=== PATIENT | female | born 1955 | race Two or more races ===

== ENCOUNTER 2020-09-18 13:38 | Inpatient (IN) | payer MEDICARE, SELFPAY ==
--- NOTE | ~2020-09-18 | XR_ITS ---
EXAMINATION: XR CHEST CLINICAL INFORMATION: Medical clearance COMPARISON: Previous chest x-ray April 2006 TECHNIQUE: Frontal view of the chest was obtained. FINDINGS: The cardiac and mediastinal contours are stable. The lungs are clear. There is no pleural effusion or pneumothorax. There are degenerative changes of the spine. XR/XR chest 1V IMPRESSION: No evidence for acute disease in the chest.
--- NOTE | ~2020-09-18 | CT_ITS ---
EXAMINATION: CT KNEE WITHOUT CONTRAST, LEFT CLINICAL INFORMATION: Patient is status post fall with left knee fracture. Ortho asking for CT scan. COMPARISON: None TECHNIQUE: Helical scanning was performed with submillimeter collimation in the axial plane with multiplanar 2-D reconstructions. This CT examination was performed using dose optimization techniques as appropriate, variously including the following: *Automated exposure control. *Adjustment of mA and/or kV according to patient size (this includes techniques or standardized protocols for targeted exams where dose is matched to indication/reason for exam; i.e. extremities or head). *Use of iterative reconstruction technique. DLP: 186 mGy-cm FINDINGS: There is a severely comminuted fracture of the distal left femoral diametaphyseal junction. There is moderate medial lateral splaying of fracture fragments, in particular, a lateral fracture fragment is laterally displaced approximately 2.7 cm with approximately 1.9 cm of override of this fracture fragment. There is approximately 1.8 cm of posterior displacement of the distal major fracture fragments with approximately 1.7 cm of override posteriorly. There is tricompartmental osteoarthritis of the left knee with marginal osteophytes. There are severe medial compartment narrowing with subchondral cortical irregularity, sclerosis, and numerous small subchondral degenerative cysts. There is a small joint effusion. CT/CT knee LT wo con IMPRESSION: 1. Severely comminuted fracture of the distal femoral diametaphyseal junction with displacement and override as described above. 2. Tricompartmental osteoarthritis of the left knee, including severe medial compartment narrowing.
--- NOTE | ~2020-09-18 | XR_ITS ---
EXAMINATION: LEFT ANKLE, LEFT HIP AND PELVIS AND LEFT KNEE. CLINICAL INFORMATION: Status post fall with knee pain and ankle pain. COMPARISON: None TECHNIQUE: Left knee 2 views. AP pelvis and left hip 2 views. Left ankle one view FINDINGS: Left ankle lateral view: There is a moderately large retrocalcaneal and calcaneal enthesophytes. Ankle mortise and subtalar joints are normal. No visible fracture or dislocation seen. AP pelvis and left hip: There is no visible acute fracture or dislocation in either... On AP pelvis. On frog-leg view left hip there is no fracture, dislocation or bony abnormality. The soft tissues are normal. Left knee: There is a comminuted distal femoral fracture with suprapatellar joint effusion.. There is loss of medial and patellofemoral compartment knee joint space. XR/XR knee LT 2V IMPRESSION: Comminuted distal femoral fracture without intra-articular extension. There is moderate anterior soft tissue swelling. No joint effusions is suspected. Mild degenerative arthritic changes medial and patellofemoral compartment. Unremarkable AP pelvis and left hip. Unremarkable left ankle one view.
--- NOTE | ~2020-09-18 | XR_ITS ---
EXAMINATION: LEFT ANKLE, LEFT HIP AND PELVIS AND LEFT KNEE. CLINICAL INFORMATION: Status post fall with knee pain and ankle pain. COMPARISON: None TECHNIQUE: Left knee 2 views. AP pelvis and left hip 2 views. Left ankle one view FINDINGS: Left ankle lateral view: There is a moderately large retrocalcaneal and calcaneal enthesophytes. Ankle mortise and subtalar joints are normal. No visible fracture or dislocation seen. AP pelvis and left hip: There is no visible acute fracture or dislocation in either... On AP pelvis. On frog-leg view left hip there is no fracture, dislocation or bony abnormality. The soft tissues are normal. Left knee: There is a comminuted distal femoral fracture with suprapatellar joint effusion.. There is loss of medial and patellofemoral compartment knee joint space. XR/XR ankle LT min 3V IMPRESSION: Comminuted distal femoral fracture without intra-articular extension. There is moderate anterior soft tissue swelling. No joint effusions is suspected. Mild degenerative arthritic changes medial and patellofemoral compartment. Unremarkable AP pelvis and left hip. Unremarkable left ankle one view.
--- NOTE | ~2020-09-18 | FL_ITS ---
EXAMINATION: XR FL-GUIDANCE WITH IMAGES IN OR CLINICAL INFORMATION: Open reduction internal fixation of left femoral fracture. COMPARISON: None TECHNIQUE: Fluoroscopy Performed by: Dr. Higinio Segovia. Fluoroscopy Time: 1.3 minutes. DAP: 0.410 mGycm2. Images: 7. FINDINGS: Seven films demonstrate a plate and screw device laterally in the left femur. The superior extent of the plate is seen only on a single view and I cannot tell exactly where this is. Five screws are present extending through the distal femoral condyles through the plate. Five other screws are present. FL/FL guidance in OR IMPRESSION: Fluoroscopy and spot films provided during open reduction internal fixation, left femoral fracture.
--- NOTE | ~2020-09-18 | XR_ITS ---
EXAMINATION: LEFT ANKLE, LEFT HIP AND PELVIS AND LEFT KNEE. CLINICAL INFORMATION: Status post fall with knee pain and ankle pain. COMPARISON: None TECHNIQUE: Left knee 2 views. AP pelvis and left hip 2 views. Left ankle one view FINDINGS: Left ankle lateral view: There is a moderately large retrocalcaneal and calcaneal enthesophytes. Ankle mortise and subtalar joints are normal. No visible fracture or dislocation seen. AP pelvis and left hip: There is no visible acute fracture or dislocation in either... On AP pelvis. On frog-leg view left hip there is no fracture, dislocation or bony abnormality. The soft tissues are normal. Left knee: There is a comminuted distal femoral fracture with suprapatellar joint effusion.. There is loss of medial and patellofemoral compartment knee joint space. XR/XR hip LT w PEL1V IMPRESSION: Comminuted distal femoral fracture without intra-articular extension. There is moderate anterior soft tissue swelling. No joint effusions is suspected. Mild degenerative arthritic changes medial and patellofemoral compartment. Unremarkable AP pelvis and left hip. Unremarkable left ankle one view.
[2020-09-18 13:43] VITALS: BP 160/69; PULSE 103; O2SAT 99
[2020-09-18 13:44] VITALS: BP 178/100; PULSE 95; RESP 18; TEMP 36.6; O2SAT 98; BMI 37.8
--- NOTE | 2020-09-18 13:44 | ECG_ITS ---
Test Reason : FALL Blood Pressure : / mmHG Vent. Rate : 088 BPM Atrial Rate : 088 BPM P-R Int : 142 ms QRS Dur : 084 ms QT Int : 392 ms P-R-T Axes : 053 043 038 degrees QTc Int : 474 ms Sinus rhythm with Premature ventricular complexes Borderline ECG When compared to the previous EKG of 04 feb 2018, PVC seen Referred By: Cara Schulte Electronically Signed By:ANGELIQUE BOOKER
[2020-09-18] MEDS: ondansetron HCL 4 MG/2 ML VIAL IVPUSH ×2 (14:10→17:13)
[2020-09-18 14:11] LABS: MANUAL DIFF FLAG NO
[2020-09-18] MEDS: Morphine Sulfate 4 MG/ML CARTRIDGE IVPUSH (14:11)
[2020-09-18 14:12] VITALS: BP 154/94; PULSE 68; RESP 16; O2SAT 97
[2020-09-18] MEDS: 0.9 % Sodium Chloride 1,000 ML 999 ML IVCONT ×2 (14:12→15:40)
[2020-09-18 14:13] LABS: Basophils Percent Auto 0.3 % (0-2); Eosinophils Absolute Auto 0.1 X10*3/uL (0.0-0.4); Eosinophils Percent Auto 0.6 % (0-4); Hematocrit 43.5 % (37-47); Hemoglobin 14.4 g/dl (12.0-16.0); Imm Gran Abs Auto 0.06 X10*3/uL (0.00-0.03); Imm Gran Pct Auto 0.6 % (0.0-0.4); Lymphocytes Absolute Auto 2.2 X10*3/uL (1.2-4.9); Lymphocytes Percent Auto 21.9 % (20-40); Mean Corpuscular HGB Conc 33.1 g/dl (31.0-35.0); Mean Corpuscular Hemoglobin 29.4 pg (27.0-33.0); Mean Platelet Volume 11.2 fL (9.4-12.3); Monocytes Absolute Auto 0.5 X10*3/uL (0.1-1.2); Monocytes Percent Auto 4.8 % (2-11); Neutrophils Absolute Auto 7.3 X10*3/uL (2.0-8.3); Neutrophils Percent Auto 71.8 % (45-73); Platelet Count 280 X10*3/uL (160-400); Red Blood Count 4.89 X10*6/uL (4.20-5.50); Red Cell Distribution Width 13.4 % (11.0-16.0); White Blood Count 10.2 X10*3/uL (4.8-10.8)
[2020-09-18 14:22] LABS: INTERNATIONAL NORM RATIO 0.9 (0.9-1.1); Prothrombin Time 10.9 SEC (10.8-13.0)
[2020-09-18 14:24] LABS: Partial Thromboplastin Time 31.5 SEC (24.1-38.0)
[2020-09-18 14:41] LABS: Ethanol < 10 mg/dL
--- NOTE | 2020-09-18 14:44 | PC.NURSE ---
Pt cleaned for stool incontinence s/p pain medication. Off unit to xray at this time
[2020-09-18 14:51] LABS: Influenza A PCR NEGATIVE (Negative); Influenza B PCR NEGATIVE (Negative); Resp Syncy Virus RNA Qual PCR NEGATIVE (Negative); SARS COV2 PCR INHOUSE NEGATIVE (Negative)
[2020-09-18 14:52] LABS: Alanine Aminotransferase 21 U/L (0-31); Albumin Level 4.1 g/dL (3.5-5.0); Alkaline Phosphatase 125 U/L (39-117); Anion Gap 19 (12-20); Aspartate Amino Transferase 13 U/L (5-31); Bilirubin Direct 0.2 mg/dL (0.0-0.5); Bilirubin Total 0.7 mg/dL (0.0-1.0); Blood Urea Nitrogen 15 mg/dL (9-16); Calcium 9.9 mg/dL (8.4-10.2); Carbon Dioxide 20 mmol/L (22-29); Chloride 100 mmol/L (96-108); Creatinine Clr Calc Pharmacy 71.3; Estimated Glomerular Filt Rate > 60; Glucose Random 408 mg/dL (60-115); Potassium 4.2 mmol/L (3.3-5.1); Sodium 135 mmol/L (135-145); Total Protein 6.9 g/dL (6.5-8.0)
[2020-09-18] MEDS: HYDROmorphone HCl 1 MG/ML SYRINGE IVPUSH (15:00)
--- NOTE | 2020-09-18 15:00 | PC.NURSE ---
medicated in xray for persistent left leg pain
--- NOTE | 2020-09-18 15:09 | ED.FALL ---
HPI - Fall General Chief Complaint: Extremity Injury, Lower Stated Complaint: FALL/ HIP PAIN Time Seen by Provider: 09/18/20 13:43 Source: patient and EMS Mode of arrival: EMS Limitations: no limitations History of Present Illness HPI Narrative: 64-year-old female with a past medical history of diabetes, hypertension and hyperlipidemia presenting to the ED via EMS after she reports she slipped and fell on the wet floor while mopping at home landing on her left hip/knee and since then has been having severe pain. Reports that she was unable to get up therefore she had a bowel movement on herself. Denies symptoms prior to the headache. Denies any other symptoms complaints or concerns at this time. MD complaint: fall Onset (ago): minute(s) (Prior to arrival) Fall from: standing Place fall occurred: home Loss of consciousness: none Prolonged down time: unclear Symptoms prior to fall: none Context: tripped/slipped (While mopping her floor in her house) Location of injury: other (Patient reports when she fell she fell onto her left hip/left knee) Severity: severe Severity scale (1-10): >10 Quality: aching Associated symptoms (after fall): other (Patient denies any other symptoms after the fall set for left hip/knee pain) Related Data Home Medications Medication Instructions Recorded Confirmed glipizide 1 tab PO DAILY 09/18/20 losartan 1 tab PO DAILY 09/18/20 metformin 1 tab PO BID 09/18/20 simvastatin 1 tab PO BEDTIME 09/18/20 Allergies Allergy/AdvReac Type Severity Reaction Status Date / Time No Known Allergies Allergy Verified 09/18/20 13:51 Review of Systems Review of Systems: Constitutional : No changes in activity, No lethargy, No recent prior head injury, No agitation, No increased fussiness ENT/Mouth : No Ear Pain, No Nasal discharge/drainage Eyes: No Eye Pain, No Swelling, No Redness, No Foreign Body, No Vision Changes Cardiovascular : No Chest Pain, No SOB Respiratory : No Cough Gastrointestinal : No Nausea, No Vomiting, No abdominal Pain Genitourinary : No Dysuria, No Urinary Frequency, No Urinary Incontinence, No Urgency, No Flank Pain Musculoskeletal : + left hip/knee/ankle joint pain, No neck stiffness, No back pain/injury Skin : No lacerations Neuro : No unsteady gait, No Paresthesias, No Loss of Consciousness, No altered mental status, No Headache Yes all other systems are reviewed and are negative FORMERLY [facility], [facility] Past Medical History Attestation statement: The following information was validated with the patient. Medical History Diabetes High cholesterol HTN (hypertension) Social History Social History Smoking Status: Never smoker Use of substances other than those prescribed or required for medical reasons: No Advance Directives: No Advance Directives Information Provided: No Physical Exam Vital Signs: Vital Signs: Last Vital Signs Temp 97.8 F 09/18/20 13:44 Pulse 68 09/18/20 14:12 Resp 16 09/18/20 14:12 BP 154/94 H 09/18/20 14:12 Pulse Ox 97 09/18/20 14:12 Body Mass Index 37.8 vital signs have been reviewed as normal and appeared to be correct. Blood pressure hypertensive at 178/100. Heart rate tachycardic at 95. Respiration rate normal. Temperature normal. Oxygen saturation normal. Appearance: Alert. Oriented X3. No acute distress. Head: Normal external exam. Normocephalic. Atraumatic. No Rehman signs noted. No raccoon eyes noted Eyes: PERRLA. EOMI. Conjunctiva and sclera normal. Eyelids normal. ENT: EAC normal. TM's Normal. No hemotympanum or septal hematoma noted. Pharynx normal. Uvula midline. Moist mucous membranes. No trismus noted. No drooling noted. No muffled voice noted. Neck: Normal inspection. Neck supple. FROM. No adenopathy. Thyroid Normal. No meningeal signs. No neck mass noted. No abrasion/laceration/ecchymosis or signs of trauma noted. No mid cervical or bilateral paracervical musculature tenderness is noted. No obvious deformities are noted. No step-offs or deformities are noted. CVS: Normal heart rate and rhythm. Heart sound normal. No murmurs noted. Pulses normal throughout. Respiratory: No respiratory distress. Painless inspiration. Breath sounds normal. No wheezes/rales/rhonchi noted. Chest nontender. No accessory muscle usage noted or decreased air movement noted. Abdomen: Soft and nontender. Bowel sounds normal in all 4 quadrants. No distention noted. No organomegaly noted. No visible injury noted. Back: No CVA tenderness. Full range of motion noted. No abrasion/laceration/ecchymosis or signs of trauma noted. No mid thoracic/lumbar cervical or para musculature tenderness is noted. No obvious deformities are noted. No step-offs or deformities are noted. Skin: Skin warm and dry. Normal skin color. Normal skin turgor. No rashes/lesions/lacerations noted. Extremities: Patient with tender to palpation to anterior left hip joint. No obvious deformities or ecchymosis/abrasions or lacerations are noted. Patient does not want to move her leg although the leg looks externally rotated and shortened. Patient with tenderness to palpation to left knee patient keeps it in a flexed position she does not want to extended. No ecchymosis/abrasions or lacerations are noted. Patient with tenderness to palpation to left ankle joint no obvious laxity is noted. Achilles tendon is intact. Negative Elliott test. No lower extremity edema. No calf tenderness noted bilaterally. Otherwise all other Extremities exhibit normal range of motion and nontender. Neuro: Oriented X 3. No motor deficit. No sensory deficit. Reflexes normal. Course Course Course Narrative: 13:50pm - 64-year-old female with a past medical history of diabetes, hypertension and hyperlipidemia presenting to the ED via EMS after she reports she slipped and fell on the wet floor while mopping at home landing on her left hip/knee and since then has been having severe pain. - on exam patient is alert and oriented x3 very anxious in severe pain otherwise no other acute distress. Mildly hypertensive at 178/100. Tachycardic at 95 otherwise all other vitals are within normal limits. No focal neuro deficits are noted. Patient is neuro intact. No obvious head injury or Rehman signs or raccoon eyes. Patient has full range of motion of the neck no mid cervical tenderness step-off or deformities noted. Lungs CTA. CV RRR. Abdomen is soft and nontender. Thoracic and lumbar spine within normal limits patient has full range of motion no mid spinal tenderness above her deformities are noted. Patient with moderate tenderness to palpation to left hip/left knee the leg appears externally rotated and the leg is shortened. Patient with tenderness to palpation to left ankle joint. No obvious deformities or laxity noted. Not consistent with Achilles tendon rupture. - Plan: Labs, EKG, x-ray of left hip/left knee/left ankle. Provide 4 mg of Zofran and 4 mg of morphine then re-evaluate. Reevaluation(s) Reevaluation #1: - patient was still in severe pain therefore she received another mg although 1 mg of Dilaudid this time. - labs obtained and patient with elevated glucose at 408 and alkaline phosphate at 128 otherwise all other labs are within normal limits. - EKG is sinus rhythm with premature atrial complexes with aberrant conduction with a ventricular rate of 88 with a normal ID interval normal QRS duration normal QT/QTC interval. No acute ischemic changes are noted. - x-ray of revealed comminuted distal femoral fracture without intra-articular extension. There is moderate anterior soft tissue swelling. No joint effusions is suspected. - x-ray of left hip and left ankle within normal limits no acute processes noted. - therefore at this time I consulted with [facility] and they are recommend placing the patient in a knee immobilizer and admit for surgery possibly medicine Dr. Vargas will consult or vice versa - [facility] requested a CT scan of the knee therefore ordered at this time. - patient will be admitted for surgery Time: 15:34 Reevaluation #2: - patient will be admitted under orthopedics with Dr. Segovia and [facility]. - medicine will consult. Time: 16:03 MDM - Fall Medical Records Attestation: I reviewed the patient's medical records. Lab Data Attestation: I reviewed the patient's lab results. Result diagrams: 09/18/20 14:04 09/18/20 14:04 Labs: Lab Results 09/18/20 09/18/20 09/18/20 Range/Units 14:04 14:04 14:04 WBC 10.2 (4.8-10.8) X10*3/uL RBC 4.89 (4.20-5.50) X10*6/uL Hgb 14.4 (12.0-16.0) g/dl Hct 43.5 (37-47) % MCV 89.0 (80-98) fL MCH 29.4 (27.0-33.0) pg MCHC 33.1 (31.0-35.0) g/dl RDW 13.4 (11.0-16.0) % Plt Count 280 (160-400) X10*3/uL MPV 11.2 (9.4-12.3) fL Immature Gran % (Auto) 0.6 H (0.0-0.4) % Neut % (Auto) 71.8 (45-73) % Lymph % (Auto) 21.9 (20-40) % [place] % (Auto) 4.8 (2-11) % Eos % (Auto) 0.6 (0-4) % Baso % (Auto) 0.3 (0-2) % Lymph # (Auto) 2.2 (1.2-4.9) X10*3/uL [place] # (Auto) 0.5 (0.1-1.2) X10*3/uL Eos # (Auto) 0.1 (0.0-0.4) X10*3/uL Baso # (Auto) 0.0 (0.0-0.2) X10*3/uL Abs Immat Gran (auto) 0.06 H (0.00-0.03) X10*3/uL Absolute Neuts (auto) 7.3 (2.0-8.3) X10*3/uL Absolute Nucleated RBC 0.000 (0.0-0.012) X10*3/uL Nucleated RBC % (auto) 0.0 (0.0-0.2) /100WBC Hold Purple Top SEE NOTE PT 10.9 (10.8-13.0) SEC INR 0.9 (0.9-1.1) APTT 31.5 (24.1-38.0) SEC Sodium (135-145) mmol/L Potassium (3.3-5.1) mmol/L Chloride (96-108) mmol/L Carbon Dioxide (22-29) mmol/L Anion Gap (12-20) BUN (9-16) mg/dL Creatinine (0.5-1.4) mg/dL Estim Creat Clear Calc Estimated GFR Random Glucose (60-115) mg/dL Calcium (8.4-10.2) mg/dL Magnesium (1.6-2.6) mg/dL Total Bilirubin (0.0-1.0) mg/dL Direct Bilirubin (0.0-0.5) mg/dL AST (5-31) U/L ALT (0-31) U/L Alkaline Phosphatase (39-117) U/L Total Protein (6.5-8.0) g/dL Albumin (3.5-5.0) g/dL Ethyl Alcohol mg/dL Coronavirus (PCR) (Negative) Influenza Type A (PCR) (Negative) Influenza Type B (PCR) (Negative) RSV RNA Qual (PCR) (Negative) 09/18/20 09/18/20 09/18/20 Range/Units 14:04 14:04 14:05 WBC (4.8-10.8) X10*3/uL RBC (4.20-5.50) X10*6/uL Hgb (12.0-16.0) g/dl Hct (37-47) % MCV (80-98) fL MCH (27.0-33.0) pg MCHC (31.0-35.0) g/dl RDW (11.0-16.0) % Plt Count (160-400) X10*3/uL MPV (9.4-12.3) fL Immature Gran % (Auto) (0.0-0.4) % Neut % (Auto) (45-73) % Lymph % (Auto) (20-40) % [place] % (Auto) (2-11) % Eos % (Auto) (0-4) % Baso % (Auto) (0-2) % Lymph # (Auto) (1.2-4.9) X10*3/uL [place] # (Auto) (0.1-1.2) X10*3/uL Eos # (Auto) (0.0-0.4) X10*3/uL Baso # (Auto) (0.0-0.2) X10*3/uL Abs Immat Gran (auto) (0.00-0.03) X10*3/uL Absolute Neuts (auto) (2.0-8.3) X10*3/uL Absolute Nucleated RBC (0.0-0.012) X10*3/uL Nucleated RBC % (auto) (0.0-0.2) /100WBC Hold Purple Top PT (10.8-13.0) SEC INR (0.9-1.1) APTT (24.1-38.0) SEC Sodium 135 (135-145) mmol/L Potassium 4.2 (3.3-5.1) mmol/L Chloride 100 (96-108) mmol/L Carbon Dioxide 20 L (22-29) mmol/L Anion Gap 19 (12-20) BUN 15 (9-16) mg/dL Creatinine 0.89 (0.5-1.4) mg/dL Estim Creat Clear Calc 71.3 Estimated GFR > 60 Random Glucose 408 H* (60-115) mg/dL Calcium 9.9 (8.4-10.2) mg/dL Magnesium 2.0 (1.6-2.6) mg/dL Total Bilirubin 0.7 (0.0-1.0) mg/dL Direct Bilirubin 0.2 (0.0-0.5) mg/dL AST 13 (5-31) U/L ALT 21 (0-31) U/L Alkaline Phosphatase 125 H (39-117) U/L Total Protein 6.9 (6.5-8.0) g/dL Albumin 4.1 (3.5-5.0) g/dL Ethyl Alcohol < 10 mg/dL Coronavirus (PCR) NEGATIVE (Negative) Influenza Type A (PCR) NEGATIVE (Negative) Influenza Type B (PCR) NEGATIVE (Negative) RSV RNA Qual (PCR) NEGATIVE (Negative) Imaging Data X-ray of left hip/left knee/left ankle: Attestation: I personally reviewed and interpreted this imaging study as follows: Radiologist's impression: FINDINGS: Left ankle lateral view: There is a moderately large retrocalcaneal and calcaneal enthesophytes. Ankle mortise and subtalar joints are normal. No visible fracture or dislocation seen. AP pelvis and left hip: There is no visible acute fracture or dislocation in either... On AP pelvis. On frog-leg view left hip there is no fracture, dislocation or bony abnormality. The soft tissues are normal. Left knee: There is a comminuted distal femoral fracture with suprapatellar joint effusion.. There is loss of medial and patellofemoral compartment knee joint space. XR/XR knee LT 2V IMPRESSION: Comminuted distal femoral fracture without intra-articular extension. There is moderate anterior soft tissue swelling. No joint effusions is suspected. Mild degenerative arthritic changes medial and patellofemoral compartment. Unremarkable AP pelvis and left hip. Unremarkable left ankle one view. ECG Data Attestation: I personally reviewed and interpreted this ECG as follows: ECG interpretation date: 09/18/20 ECG interpretation time: 14:21 Interpretation: EKG is sinus rhythm with premature atrial complexes with aberrant conduction with a ventricular rate of 88 with a normal ID interval normal QRS duration normal QT/QTC interval. No acute ischemic changes are noted. Critical Care Time Critical Care Time Critical Care Time: Yes Total Critical Care Time: 60 Attestation: I personally attest to this time spent taking care of the patient Discharge Plan Discharge Clinical Impression: Closed left femoral fracture, Fall, Acute hyperglycemia Patient Disposition: Admitted As Inpatient
[2020-09-18 16:22] VITALS: BP 143/79; PULSE 90; RESP 16; O2SAT 97
--- NOTE | 2020-09-18 17:02 | PC.NURSE ---
indwelling cath placed per order. KNee immobilizer to be placed by tech. Javier OLMOS at bedside. Plan for surgery tomorrow morning
[2020-09-18] MEDS: Dextrose 5 % and 0.45 % NaCl 1,000 ML 80 ML IVCONT (17:12)
[2020-09-18] MEDS: oxyCODONE HCl Immed Release 5 MG TABLET PO (17:13)
[2020-09-18] MEDS: 0.9 % Sodium Chloride Flush 3 ML SYRINGE IVFLUSH (17:14)
--- NOTE | 2020-09-18 17:50 | P.CONIM_ITS ---
History of Present Illness Data of Consult Service Date: 09/18/20 Primary Care Provider: Unknown Physician HPI Reason for consult: Medical clearance, femur fracture, diabetes A 64 years old lady with PMH of diabetes, hypertension, HLD, morbid obesity who presents to the hospital after mechanical fall with left leg pain. Images in the emergency of x-ray were consistent with comminuted distal femoral fracture. Decision made to admit the patient for orthopedic procedure. Medical team was asked to evaluate the patient and cleared her for surgery. Review of Systems Review of Systems: No fever, chills or weakness No chest pain, palpitation No shortness of breath or coughing No abdominal pain, nausea or vomiting No urinary symptoms Left lower extremity pain, No any rash or wounds PMFSH Medical History Diabetes High cholesterol HTN (hypertension) Social History Smoking Status: Never smoker Use of substances other than those prescribed or required for medical reasons: No Advance Directives: No Advance Directives Information Provided: No Meds Allergies Allergy/AdvReac Type Severity Reaction Status Date / Time No Known Allergies Allergy Verified 09/18/20 13:51 Active Medications: Current Medications Generic Name Dose Route Start Last Admin Trade Name Freq PRN Reason Stop Dose Admin Acetaminophen 650 mg 09/18/20 16:59 Acetaminophen 325 Mg Tablet PO QID PRN Pain, Mild (Pain Scale 1-3) Docusate Sodium 200 mg 09/18/20 16:19 Docusate Sodium 100 Mg Capsule PO ONCE JANINA Hydromorphone HCl 0.25 mg 09/18/20 16:19 Hydromorphone Hcl 0.5 Mg/0.5 Ml Syringe IVPUSH Q4H PRN Pain, Severe (Pain Scale 7-10) Dextrose/Sodium Chloride 1,000 mls @ 80 mls/hr 09/18/20 16:19 09/18/20 17:12 D51/2ns IVCONT 80 mls/hr .[id number] JANINA Administration Oxycodone HCl 10 mg 09/18/20 21:00 Oxycodone Hcl Er 10 Mg Tab.Er.12h PO BID JANINA Oxycodone HCl 5 mg 09/18/20 16:19 09/18/20 17:13 Oxycodone Hcl Immed Release 5 Mg Tablet PO 5 mg Q6H PRN Administration Pain, Moderate (Pain Scale 4-6 Sodium Chloride 3 ml 09/18/20 16:19 09/18/20 17:14 0.9 % Sodium Chloride Flush 3 Ml Syringe IVFLUSH 3 ml QSHIFT [facility] Administration Home Medications Medication Instructions Recorded Confirmed Last Taken Type glipizide 1 tab PO DAILY 09/18/20 09/18/20 Unknown History losartan 1 tab PO DAILY 09/18/20 09/18/20 Unknown History metformin 1 tab PO BID 09/18/20 09/18/20 Unknown History simvastatin 1 tab PO BEDTIME 09/18/20 09/18/20 Unknown History Physical Exam Vital Signs and Narrative: Vital Signs: Last Vital Signs Temp 97.8 F 09/18/20 13:44 Pulse 90 09/18/20 16:22 Resp 16 09/18/20 16:22 BP 143/79 H 09/18/20 16:22 Pulse Ox 97 09/18/20 16:22 Body Mass Index 37.8 Const: Other: Constitutional : Alert, oriented, not in distress Neck : Normal inspection, Supple Cardiovascular : RRR, S1 S2, no lower extremity edema Respiratory : Good bilateral air entry, no crackles, wheezes or rhonchi Gastrointestinal: soft, lax, Normal bowel sounds, Non tender Skin : Warm/Dry, No rash Muscular: Left lower extremity shortened and internally rotated, tenderness around the area of distal femur Neurological : Alert & oriented x3, No focal deficit Results Labs CBC and Chem 7: 09/18/20 14:04 09/18/20 14:04 Labs: Laboratory Results - last 24 hr 09/18/20 09/18/20 09/18/20 14:04 14:04 14:04 MCV 89.0 MCH 29.4 MCHC 33.1 RDW 13.4 Plt Count 280 MPV 11.2 Immature Gran % (Auto) 0.6 H Neut % (Auto) 71.8 Lymph % (Auto) 21.9 [place] % (Auto) 4.8 Eos % (Auto) 0.6 Baso % (Auto) 0.3 Lymph # (Auto) 2.2 [place] # (Auto) 0.5 Eos # (Auto) 0.1 Baso # (Auto) 0.0 Abs Immat Gran (auto) 0.06 H Absolute Neuts (auto) 7.3 Absolute Nucleated RBC 0.000 Nucleated RBC % (auto) 0.0 Hold Purple Top SEE NOTE PT 10.9 INR 0.9 APTT 31.5 Anion Gap Estim Creat Clear Calc Estimated GFR Random Glucose Calcium Magnesium Total Bilirubin Direct Bilirubin AST ALT Alkaline Phosphatase Total Protein Albumin Ethyl Alcohol Coronavirus (PCR) Influenza Type A (PCR) Influenza Type B (PCR) RSV RNA Qual (PCR) 09/18/20 09/18/20 09/18/20 14:04 14:04 14:05 MCV MCH MCHC RDW Plt Count MPV Immature Gran % (Auto) Neut % (Auto) Lymph % (Auto) [place] % (Auto) Eos % (Auto) Baso % (Auto) Lymph # (Auto) [place] # (Auto) Eos # (Auto) Baso # (Auto) Abs Immat Gran (auto) Absolute Neuts (auto) Absolute Nucleated RBC Nucleated RBC % (auto) Hold Purple Top PT INR APTT Anion Gap 19 Estim Creat Clear Calc 71.3 Estimated GFR > 60 Random Glucose 408 H* Calcium 9.9 Magnesium 2.0 Total Bilirubin 0.7 Direct Bilirubin 0.2 AST 13 ALT 21 Alkaline Phosphatase 125 H Total Protein 6.9 Albumin 4.1 Ethyl Alcohol < 10 Coronavirus (PCR) NEGATIVE Influenza Type A (PCR) NEGATIVE Influenza Type B (PCR) NEGATIVE RSV RNA Qual (PCR) NEGATIVE Imaging Radiologist's Impressions: Impressions Ankle X-Ray 09/18/20 13:50 IMPRESSION: Comminuted distal femoral fracture without intra-articular extension. There is moderate anterior soft tissue swelling. No joint effusions is suspected. Mild degenerative arthritic changes medial and patellofemoral compartment. Unremarkable AP pelvis and left hip. Unremarkable left ankle one view. Hip/Pelvis X-Ray 09/18/20 13:50 IMPRESSION: Comminuted distal femoral fracture without intra-articular extension. There is moderate anterior soft tissue swelling. No joint effusions is suspected. Mild degenerative arthritic changes medial and patellofemoral compartment. Unremarkable AP pelvis and left hip. Unremarkable left ankle one view. Knee X-Ray 09/18/20 13:50 IMPRESSION: Comminuted distal femoral fracture without intra-articular extension. There is moderate anterior soft tissue swelling. No joint effusions is suspected. Mild degenerative arthritic changes medial and patellofemoral compartment. Unremarkable AP pelvis and left hip. Unremarkable left ankle one view. Knee CT 09/18/20 15:19 IMPRESSION: 1. Severely comminuted fracture of the distal femoral diametaphyseal junction with displacement and override as described above. 2. Tricompartmental osteoarthritis of the left knee, including severe medial compartment narrowing. Chest X-Ray 09/18/20 15:49 IMPRESSION: No evidence for acute disease in the chest. Assessment and Plan (1) Closed left femoral fracture: Status: Acute (2) Fall: Status: Acute (3) Acute hyperglycemia: Status: Acute (4) HTN (hypertension): Status: Acute (5) Obesity: Status: Acute (6) Pre-op evaluation: Status: Acute A 64 years old lady with PMH of diabetes, hypertension, HLD, morbid obesity who presents to the hospital after mechanical fall with left leg pain. Preop evaluation No ACS, non urgent surgery Blood sugar needs to be controlled RCRI of 0 Patient has low to moderate risk for perioperative cardiac risk next [place] can proceed with surgery, no need for further evaluation Fall Left distal femur fracture Orthopedic to follow Morphine for pain management Physical therapy postop Hyperglycemia secondary to diabetes type 2 Hold oral medications Start insulin SSI Thank you for the consult, will continue to monitor the patient with you
--- NOTE | 2020-09-18 18:03 | P.HPOP_ITS ---
History of Present Illness History of Present Illness Date of Service: 09/18/20 Chief complaint: Left distal femur fracture Narrative: Maame Marrero is a 64 year old female who sustained a mechanical slip and fall after mopping her kitchen floor this afternoon. She states that after the fall she had excruciating pain in the left leg and was unable to ambulate. Evaluation in the ED prompted x-rays of the left knee which revealed a distal femur fracture. Orthopedics was then consulted for further care. The patient states that she lives alone and does not use any assistance to ambul ate. She is able to perform most ADLs on her own but states that she does have some assistance from her son as well as a home health aide. Past medical history includes hypertension, diabetes, hyperlipidemia, and a history of cancer located the abdomen but is unsure of what type. The patient is in remission and not on chemotherapy or receiving radiation therapy at this time. Review of Systems Review of Systems: Yes all other systems are reviewed and are negative PMFSH Past Medical History Medical History Diabetes High cholesterol HTN (hypertension) Social History Social History Smoking Status: Never smoker Use of substances other than those prescribed or required for medical reasons: No Advance Directives: No Advance Directives Information Provided: No Meds Allergies Allergy/AdvReac Type Severity Reaction Status Date / Time No Known Allergies Allergy Verified 09/18/20 13:51 Active Medications: Current Medications Generic Name Dose Route Start Last Admin Trade Name Freq PRN Reason Stop Dose Admin Acetaminophen 650 mg 09/18/20 16:59 Acetaminophen 325 Mg Tablet PO QID PRN Pain, Mild (Pain Scale 1-3) Docusate Sodium 200 mg 09/18/20 16:19 Docusate Sodium 100 Mg Capsule PO ONCE JANINA Hydromorphone HCl 0.25 mg 09/18/20 16:19 Hydromorphone Hcl 0.5 Mg/0.5 Ml Syringe IVPUSH Q4H PRN Pain, Severe (Pain Scale 7-10) Dextrose/Sodium Chloride 1,000 mls @ 80 mls/hr 09/18/20 16:19 09/18/20 17:12 D51/2ns IVCONT 80 mls/hr .[id number] JANINA Administration Cefazolin Sodium/Dextrose 2 gm in 50 mls @ 100 mls/hr 09/19/20 08:30 Ancef IV 09/19/20 08:59 PREOP ONE Oxycodone HCl 10 mg 09/18/20 21:00 Oxycodone Hcl Er 10 Mg Tab.Er.12h PO BID JANINA Oxycodone HCl 5 mg 09/18/20 16:19 09/18/20 17:13 Oxycodone Hcl Immed Release 5 Mg Tablet PO 5 mg Q6H PRN Administration Pain, Moderate (Pain Scale 4-6 Sodium Chloride 3 ml 09/18/20 16:19 09/18/20 17:14 0.9 % Sodium Chloride Flush 3 Ml Syringe IVFLUSH 3 ml QSHIFT [facility] Administration Home Medications Medication Instructions Recorded Confirmed Last Taken Type glipizide 1 tab PO DAILY 09/18/20 09/18/20 Unknown History losartan 1 tab PO DAILY 09/18/20 09/18/20 Unknown History metformin 1 tab PO BID 09/18/20 09/18/20 Unknown History simvastatin 1 tab PO BEDTIME 09/18/20 09/18/20 Unknown History Physical Exam Vital Signs: Vital Signs: Last Vital Signs Temp 97.8 F 09/18/20 13:44 Pulse 90 09/18/20 16:22 Resp 16 09/18/20 16:22 BP 143/79 H 09/18/20 16:22 Pulse Ox 97 09/18/20 16:22 Body Mass Index 37.8 Const: General: cooperative, healthy appearing, comfortable, no acute distress, well developed, alert and awake Orientation/consciousness: patient oriented x3 HENMT: Head: Yes normal to inspection, Yes normocephalic and Yes atraumatic Eyes: General: appearance normal, both eyes and all related structures Neck: Neck: Yes normal visual inspection and Yes no lymphadenopathy Resp: Effort & Inspection: normal respiratory effort and able to speak in complete sentences Cardio: Rate: regular rate Peripheral pulses: Peripheral pulses 2+ throughout GI: Inspection: Yes normal to inspection Palpation (GI): Soft to palpation Skin: General skin exam: no rashes or lesions noted Neuro: General: patient oriented x3 Extrem: Other: Left knee skin intact no lesions or abrasions. No ecchymosis, edema, redness. Tenderness to palpation of the distal femur located over the fracture site. Patient is unable to perform a straight leg raise. Patient is able to dorsi and plantar flex the ankle. Sensation intact pedal pulse intact. Psych: Mental Status: mental status grossly normal Results Labs Result Diagrams: 09/18/20 14:04 09/18/20 14:04 Labs: Abnormal lab results 09/18/20 09/18/20 Range/Units 14:04 14:04 Immature Gran % (Auto) 0.6 H (0.0-0.4) % Abs Immat Gran (auto) 0.06 H (0.00-0.03) X10*3/uL Carbon Dioxide 20 L (22-29) mmol/L Random Glucose 408 H* (60-115) mg/dL Alkaline Phosphatase 125 H (39-117) U/L H & H 09/18/20 Range/Units 14:04 Hgb 14.4 (12.0-16.0) g/dl Hct 43.5 (37-47) % Coagulation 09/18/20 Range/Units 14:04 INR 0.9 (0.9-1.1) All other labs normal. Assessment and Plan (1) Closed left femoral fracture: Status: Acute Ms. Ibanez is a 64-year-old female who presented to the emergency department after sustaining a slip and fall earlier this afternoon. On x-ray she was found to have a distal femur fracture and Orthopedics was consulted for further evaluation and treatment. I discussed the case with Dr. Segovia and explained the extent of the injury to the patient and options available which include surgical intervention. I explained the procedure in detail along with the length of recovery and rehab course. I explained the risk, benefits and alternatives. Risk including, but not limited to infection, blood clots, bleeding, non union or malunion and nerve/tissue damage to surrounding areas. I answered all their questions and with their understanding they have consented to move forward with Operative Fixation of the left distal femur. The patient will be T&S, med clearance obtained and NPO after midnight.
[2020-09-18 18:23] LABS: Glucose, Whole Blood 314 mg/dL (60-115)
[2020-09-18] MEDS: Insulin Lispro 100 UNIT/ML 3 ML VIAL 10 UNIT SUBCUT (18:35)
--- NOTE | 2020-09-18 19:54 | PC.NURSE ---
PT HAS VISTOR AT BEDSIDE,
[2020-09-18 21:53] LABS: MANUAL DIFF FLAG NO
[2020-09-18] MEDS: HYDROmorphone HCl 0.5 MG/0.5 ML SYRINGE 0.25 MG IVPUSH (21:53)
[2020-09-18 21:54] VITALS: BP 143/74; PULSE 106; RESP 16
[2020-09-18 21:56] LABS: Basophils Percent Auto 0.1 % (0-2); Hematocrit 37.6 % (37-47); Hemoglobin 12.2 g/dl (12.0-16.0); Imm Gran Abs Auto 0.07 X10*3/uL (0.00-0.03); Imm Gran Pct Auto 0.5 % (0.0-0.4); Lymphocytes Absolute Auto 1.1 X10*3/uL (1.2-4.9); Lymphocytes Percent Auto 7.6 % (20-40); Mean Corpuscular HGB Conc 32.4 g/dl (31.0-35.0); Mean Corpuscular Hemoglobin 29.3 pg (27.0-33.0); Mean Corpuscular Volume 90.4 fL (80-98); Mean Platelet Volume 11.5 fL (9.4-12.3); Monocytes Absolute Auto 0.7 X10*3/uL (0.1-1.2); Monocytes Percent Auto 5.2 % (2-11); Neutrophils Absolute Auto 12.1 X10*3/uL (2.0-8.3); Neutrophils Percent Auto 86.6 % (45-73); Platelet Count 265 X10*3/uL (160-400); Red Blood Count 4.16 X10*6/uL (4.20-5.50); Red Cell Distribution Width 13.5 % (11.0-16.0)
[2020-09-18 21:58] LABS: Appearance Urine CLEAR; Color Urine YELLOW; Glucose Urine UA 500 MG/DL (NEG); Leukocyte Esterase Urine NEG (NEG); Nitrite Urine NEG (NEG); PH 5.5 (5.0-8.0); Specific Gravity - Urine 1.025 (1.005-1.025); Urine Blood NEG (NEG); Urine Ketones 5 MG/DL (NEG); Urine Protein NEG (NEG-TRACE)
[2020-09-18] MEDS: Insulin Lispro 100 UNIT/ML 3 ML VIAL SUBCUT (22:03)
[2020-09-18 22:08] LABS: Glucose, Whole Blood 365 mg/dL (60-115)
[2020-09-18 22:20] LABS: Anion Gap 17 (12-20); Blood Urea Nitrogen 13 mg/dL (9-16); Calcium 8.9 mg/dL (8.4-10.2); Carbon Dioxide 22 mmol/L (22-29); Chloride 101 mmol/L (96-108); Creatinine Clr Calc Pharmacy 72.2; Estimated Glomerular Filt Rate > 60; Glucose Random 397 mg/dL (60-115); Potassium 4.5 mmol/L (3.3-5.1); Sodium 135 mmol/L (135-145)
[2020-09-18 22:26] LABS: COVID-19 Test Negative (Negative); IDNOW Serial# 9DD0AD1C
[2020-09-18 23:52] VITALS: BP 135/66; PULSE 108; RESP 18; TEMP 36.7; O2SAT 98
[2020-09-18] MEDS: oxyCODONE HCl ER 10 MG TAB.ER.12H PO (23:52)
--- NOTE | 2020-09-18 23:56 | PC.NURSE ---
This PCT emptied 1000cc of yellow urine from yanes. rn aware
[2020-09-19] MEDS: 0.9 % Sodium Chloride Flush 3 ML SYRINGE IVFLUSH ×2 (00:04→23:22)
--- NOTE | 2020-09-19 00:16 | PC.NURSE ---
report given to floor. pt to floor in stretcher at this time.
[2020-09-19] MEDS: HYDROmorphone HCl 0.5 MG/0.5 ML SYRINGE 0.25 MG IVPUSH ×3 (03:09→20:57)
[2020-09-19] MEDS: Dextrose 5 % and 0.45 % NaCl 1,000 ML 80 ML IVCONT (03:11)
[2020-09-19 04:00] VITALS: BP 147/74; PULSE 87; RESP 16; TEMP 36.4; O2SAT 95
[2020-09-19 07:18] VITALS: BP 151/61; PULSE 90; RESP 16; TEMP 36.4; O2SAT 96
[2020-09-19 07:33] LABS: Glucose, Whole Blood 314 mg/dL (60-115)
[2020-09-19] MEDS: oxyCODONE HCl Immed Release 5 MG TABLET PO ×3 (08:01→23:24)
[2020-09-19] MEDS: Insulin Lispro 100 UNIT/ML 3 ML VIAL SUBCUT ×4 (08:03→22:11)
[2020-09-19] MEDS: Lactated Ringers 1,000 ML 80 ML IVCONT ×2 (08:05→20:59)
--- NOTE | 2020-09-19 09:08 | PM.EVENT ---
Event Note Date of Service: 09/19/20 Event Note: Spoke with patient she is aware that surgery has been postponed at this time. We will communicate with her to let her know when we will reschedule. Diet order has been placed for patient to resume diabetic diet.
[2020-09-19] MEDS: oxyCODONE HCl ER 10 MG TAB.ER.12H PO ×2 (09:16→21:00)
--- NOTE | 2020-09-19 11:26 | HO.PM.IMPN ---
Subjective Subjective Date of Service: 09/19/20 Interval History: The patient was seen and evaluated this morning Laying in bed, feels comfortable, to pain and fair control Denies any fever, chills or shortness of breath No reported other overnight events. Systemic review: No fever, chills or weakness No chest pain, palpitation No shortness of breath or coughing No abdominal pain, nausea or vomiting No urinary symptoms Left lower extremity pain, swelling increased around the femur No any rash or wounds Physical Exam Vital Signs: Vital Signs: Last Vital Signs Temp 97.6 F 09/19/20 07:18 Pulse 90 09/19/20 07:18 Resp 16 09/19/20 07:18 BP 151/61 H 09/19/20 07:18 Pulse Ox 96 09/19/20 07:18 Body Mass Index 37.8 Const: Other: Constitutional : Alert, oriented, not in distress Neck : Normal inspection, Supple Cardiovascular : RRR, S1 S2, no lower extremity edema Respiratory : Good bilateral air entry, no crackles, wheezes or rhonchi Gastrointestinal: soft, lax, Normal bowel sounds, Non tender Skin : Warm/Dry, No rash Muscular: Left lower extremity shortened and internally rotated,swelling increased and tenderness around the area of distal femur Neurological : Alert & oriented x3, No focal deficit Objective Data Current Medications Generic Name Dose Route Start Last Admin Trade Name Freq PRN Reason Stop Dose Admin Acetaminophen 650 mg 09/18/20 16:59 Acetaminophen 325 Mg Tablet PO QID PRN Pain, Mild (Pain Scale 1-3) Docusate Sodium 200 mg 09/18/20 16:19 Docusate Sodium 100 Mg Capsule PO ONCE JANINA Hydromorphone HCl 0.25 mg 09/18/20 16:19 09/19/20 03:09 Hydromorphone Hcl 0.5 Mg/0.5 Ml Syringe IVPUSH 0.25 mg Q4H PRN Administration Pain, Severe (Pain Scale 7-10) Lactated Ringer's 1,000 mls @ 80 mls/hr 09/19/20 07:45 09/19/20 08:05 Lr IVCONT 80 mls/hr .[id number] JANINA Administration Insulin Human Lispro 0 unit 09/18/20 21:00 09/19/20 08:03 Insulin Lispro 100 Unit/Ml 3 Ml Vial SUBCUT 8 unit QIDACHS JANINA Administration Protocol Oxycodone HCl 10 mg 09/18/20 21:00 09/19/20 09:16 Oxycodone Hcl Er 10 Mg Tab.Er.12h PO 10 mg BID JANINA Administration Oxycodone HCl 5 mg 09/18/20 16:19 09/19/20 08:01 Oxycodone Hcl Immed Release 5 Mg Tablet PO 5 mg Q6H PRN Administration Pain, Moderate (Pain Scale 4-6 Sodium Chloride 3 ml 09/18/20 16:19 09/19/20 09:18 0.9 % Sodium Chloride Flush 3 Ml Syringe IVFLUSH Not Given QSHIFT [facility] Labs CBC & Chem 7: 09/18/20 21:34 09/18/20 21:34 Assessment and Plan (1) Closed left femoral fracture: Status: Acute (2) Fall: Status: Acute (3) Acute hyperglycemia: Status: Acute (4) HTN (hypertension): Status: Acute (5) Obesity: Status: Acute (6) Pre-op evaluation: Status: Acute Assessment and Plan: A 64 years old lady with PMH of diabetes, hypertension, HLD, morbid obesity who presents to the hospital after mechanical fall with left leg pain. Fall Left distal femur fracture Orthopedic to follow Morphine for pain management Physical therapy postop Hyperglycemia secondary to diabetes type 2 DC D5 NS Hold oral medications Start insulin SSI Thank you for the consult, will continue to monitor the patient with you
[2020-09-19 11:51] LABS: Glucose, Whole Blood 279 mg/dL (60-115)
[2020-09-19] MEDS: Losartan Potassium 25 MG TABLET PO (12:06)
--- NOTE | 2020-09-19 13:05 | MHC.CM.PN ---
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 PT REPORTS SHE DOES NOT KNOW THE NAME OF HER PCP BUT SHE GOES TO [facility] IN [place]. PT DOES NOT HAVE A HCP . SHE AGREED TO TAKE INFORMATION REGARDING THE DOCUMENT AND REPORTS SHE WILL DISCUSS IT WITH HER GRAND DAUGHTER. PT REPORTS SHE IS HAVING A SURGERY, POSSIBLY TOMORROW, AND SHE FEELS SHE WILL LIKELY NEED STR AFTER THAT. SHE REPORTS SHE IS ALONE AT HOME AND IS WORRIED SHE WILL NOT BE ABLE TO MANAGE, CM INFORMED HER A PT EVAL WOULD LIKELY BE COMPLETED BEFORE DC. PER DISCUSSION, CM WILL MAKE STR REFERRALS TODAY TO [facility] AND [facility]. IMM DELIVERED CURRENT DC PLAN IS TBD PENDING PT EVAL. STR VS HOME WITH PT.
[2020-09-19 15:54] VITALS: BP 143/65; PULSE 99; RESP 19; TEMP 35.6; O2SAT 93
[2020-09-19] MEDS: Acetaminophen 325 MG TABLET 650 MG PO ×2 (16:02→23:24)
[2020-09-19 17:01] LABS: Glucose, Whole Blood 361 mg/dL (60-115)
--- NOTE | 2020-09-19 17:39 | PC.NURSE ---
P BS [id number] Vargas notified E will monitor
[2020-09-19 20:00] VITALS: BP 141/74; PULSE 97; RESP 17; TEMP 36.2; O2SAT 94
[2020-09-19 21:17] LABS: Glucose, Whole Blood 274 mg/dL (60-115)
[2020-09-19 22:12] VITALS: BP 126/55; PULSE 95; RESP 20
[2020-09-20] VITALS (15 sets, daily range): BP systolic 110–159; BP diastolic 38–91; PULSE 54–123; RESP 14–20; TEMP 35.8–37.6; O2SAT 93–100
[2020-09-20] MEDS: oxyCODONE HCl Immed Release 5 MG TABLET PO (05:36)
[2020-09-20] MEDS: Acetaminophen 325 MG TABLET 650 MG PO (05:37)
[2020-09-20] MEDS: ondansetron HCL 4 MG/2 ML VIAL IVPUSH (05:37)
[2020-09-20 07:11] LABS: Estimated Average Glucose 278 mg/dL; Hemoglobin A1c % 11.3 %
[2020-09-20 07:31] LABS: Glucose, Whole Blood 268 mg/dL (60-115)
--- NOTE | 2020-09-20 08:12 | P.EN_ITS ---
Event Note Date of Service: 09/20/20 Event Note: Patient scheduled for ORIF left distal femur today. Spoke with hazel waggoner she is aware. She will remain NPO.
--- NOTE | 2020-09-20 08:12 | PM.EVENT ---
Event Note Date of Service: 09/20/20 Event Note: Patient scheduled for ORIF left distal femur today. Spoke with patient she is aware. She will remain NPO.
[2020-09-20] MEDS: Insulin Lispro 100 UNIT/ML 3 ML VIAL SUBCUT ×3 (09:53→22:40)
[2020-09-20] MEDS: Lactated Ringers 1,000 ML 80 ML IVCONT ×2 (09:54→20:17)
[2020-09-20] MEDS: Losartan Potassium 25 MG TABLET PO (09:54)
[2020-09-20] MEDS: oxyCODONE HCl ER 10 MG TAB.ER.12H PO ×2 (09:55→22:41)
--- NOTE | 2020-09-20 10:29 | HO.PM.IMPN ---
Subjective Subjective Date of Service: 09/20/20 Interval History: The patient was seen and evaluated this morning Laying in bed, feels comfortable, to pain under fair control Sugar level has been significantly elevated Denies any fever, chills or shortness of breath No reported other overnight events. Systemic review: No fever, chills or weakness No chest pain, palpitation No shortness of breath or coughing No abdominal pain, nausea or vomiting No urinary symptoms the Left lower extremity pain, swelling increased around the femur No any rash or wounds Physical Exam Vital Signs: Vital Signs: Last Vital Signs Temp 97.4 F 09/20/20 03: Pulse 123 H 09/20/20 07:52 Resp 18 09/20/20 07:52 BP 135/67 09/20/20 07:52 Pulse Ox 93 09/20/20 07:52 Body Mass Index 37.8 Const: Other: Constitutional : Alert, oriented, not in distress Neck : Normal inspection, Supple Cardiovascular : RRR, S1 S2, no lower extremity edema Respiratory : Good bilateral air entry, no crackles, wheezes or rhonchi Gastrointestinal: soft, lax, Normal bowel sounds, Non tender Skin : Warm/Dry, No rash Muscular: Left lower extremity shortened and internally rotated,swelling increased and tenderness around the area of distal femur Neurological : Alert & oriented x3, No focal deficit Objective Data Current Medications Generic Name Dose Route Start Last Admin Trade Name Freq PRN Reason Stop Dose Admin Acetaminophen 650 mg 09/18/20 16:59 09/20/20 05:37 Acetaminophen 325 Mg Tablet PO 650 mg QID PRN Administration Pain, Mild (Pain Scale 1-3) Docusate Sodium 200 mg 09/18/20 16:19 Docusate Sodium 100 Mg Capsule PO ONCE JANINA Hydromorphone HCl 0.25 mg 09/18/20 16:19 09/19/20 20:57 Hydromorphone Hcl 0.5 Mg/0.5 Ml Syringe IVPUSH 0.25 mg Q4H PRN Administration Pain, Severe (Pain Scale 7-10) Lactated Ringer's 1,000 mls @ 80 mls/hr 09/19/20 07:45 09/20/20 09:54 Lr IVCONT 80 mls/hr .[id number] JANINA Administration Insulin Glargine 20 unit 09/20/20 09:00 09/20/20 08:05 Insulin Glargine,Hum.Rec.Anlog 100 Unit/Ml 10 Ml Vial SUBCUT Not Given DAILY ON LICENSE OF [facility] Insulin Human Lispro 0 unit 09/18/20 21:00 09/20/20 09:53 Insulin Lispro 100 Unit/Ml 3 Ml Vial SUBCUT 6 unit QIDACHS ON LICENSE OF [facility] Administration Protocol Losartan Potassium 25 mg 09/19/20 11:40 09/20/20 09:54 Losartan Potassium 25 Mg Tablet PO 25 mg DAILY ON LICENSE OF [facility] Administration Protocol Ondansetron HCl 4 mg 09/20/20 05:07 09/20/20 05:37 Ondansetron Hcl 4 Mg/2 Ml Vial IVPUSH 4 mg Q8H PRN Administration Nausea and Vomiting Oxycodone HCl 10 mg 09/18/20 21:00 09/20/20 09:55 Oxycodone Hcl Er 10 Mg Tab.Er.12h PO 10 mg BID ON LICENSE OF [facility] Administration Oxycodone HCl 5 mg 09/18/20 16:19 09/20/20 05:36 Oxycodone Hcl Immed Release 5 Mg Tablet PO 5 mg Q6H PRN Administration Pain, Moderate (Pain Scale 4-6 Sodium Chloride 3 ml 09/18/20 16:19 09/20/20 09:54 0.9 % Sodium Chloride Flush 3 Ml Syringe IVFLUSH Not Given QSHIFT ON LICENSE OF [facility] Labs CBC & Chem 7: 09/18/20 21:34 09/18/20 21:34 Assessment and Plan (1) Closed left femoral fracture: Status: Acute (2) Fall: Status: Acute (3) Acute hyperglycemia: Status: Acute (4) HTN (hypertension): Status: Acute (5) Obesity: Status: Acute (6) Pre-op evaluation: Status: Acute Assessment and Plan: A 64 years old lady with PMH of diabetes, hypertension, HLD, morbid obesity who presents to the hospital after mechanical fall with left leg pain. Fall Left distal femur fracture Orthopedic to do surgery today Morphine for pain management Physical therapy postop Hyperglycemia secondary to diabetes type 2 Uncontrolled diabetes type 2 HbA1c of 11.7 Hold oral medications Continue insulin SSI Start insulin Lantus 20 units Thank you for the consult, will continue to monitor the patient with you
[2020-09-20 11:11] LABS: Glucose, Whole Blood 266 mg/dL (60-115)
--- NOTE | 2020-09-20 13:30 | HO.ANESPROP2 ---
[facility] Active Problems Active Problems: All Active Problems (Updated 09/18/20 @ 17:57 by Danny Vargas MD) Pre-op evaluation (Acute) Obesity (Acute) Closed left femoral fracture (Acute) Fall (Acute) Acute hyperglycemia (Acute) HTN (hypertension) (Acute) High cholesterol (Acute) Diabetes (Acute) Past Medical History Medical History Diabetes High cholesterol HTN (hypertension) Social History Social History Household Members: None Housing: House Smoking Status: Never smoker service: No Current occupational status: retired Meds Allergies Allergy/AdvReac Type Severity Reaction Status Date / Time No Known Allergies Allergy Verified 09/18/20 13:51 Active Medications: Current Medications Generic Name Dose Route Start Last Admin Trade Name Freq PRN Reason Stop Dose Admin Acetaminophen 650 mg 09/18/20 16:59 09/20/20 05:37 Acetaminophen 325 Mg Tablet PO 650 mg QID PRN Administration Pain, Mild (Pain Scale 1-3) Docusate Sodium 200 mg 09/18/20 16:19 Docusate Sodium 100 Mg Capsule PO ONCE JANINA Hydromorphone HCl 0.25 mg 09/18/20 16:19 09/19/20 20:57 Hydromorphone Hcl 0.5 Mg/0.5 Ml Syringe IVPUSH 0.25 mg Q4H PRN Administration Pain, Severe (Pain Scale 7-10) Lactated Ringer's 1,000 mls @ 80 mls/hr 09/19/20 07:45 09/20/20 09:54 Lr IVCONT 80 mls/hr .[id number] JANINA Administration Insulin Glargine 20 unit 09/20/20 09:00 09/20/20 08:05 Insulin Glargine,Hum.Rec.Anlog 100 Unit/Ml 10 Ml Vial SUBCUT Not Given DAILY JANINA Insulin Human Lispro 0 unit 09/18/20 21:00 09/20/20 11:47 Insulin Lispro 100 Unit/Ml 3 Ml Vial SUBCUT 6 unit QIDACHS JAN[facility] Administration Protocol Losartan Potassium 25 mg 09/19/20 11:40 09/20/20 09:54 Losartan Potassium 25 Mg Tablet PO 25 mg DAILY JANINA Administration Protocol Ondansetron HCl 4 mg 09/20/20 05:07 09/20/20 05:37 Ondansetron Hcl 4 Mg/2 Ml Vial IVPUSH 4 mg Q8H PRN Administration Nausea and Vomiting Oxycodone HCl 10 mg 09/18/20 21:00 09/20/20 09:55 Oxycodone Hcl Er 10 Mg Tab.Er.12h PO 10 mg BID [facility] Administration Oxycodone HCl 5 mg 09/18/20 16:19 09/20/20 05:36 Oxycodone Hcl Immed Release 5 Mg Tablet PO 5 mg Q6H PRN Administration Pain, Moderate (Pain Scale 4-6 Sodium Chloride 3 ml 09/18/20 16:19 09/20/20 09:54 0.9 % Sodium Chloride Flush 3 Ml Syringe IVFLUSH Not Given QSHIFT [facility] Home Medications Medication Instructions Recorded Confirmed Last Taken Type glipizide 1 tab PO DAILY 09/18/20 09/18/20 Unknown History losartan 1 tab PO DAILY 09/18/20 09/18/20 Unknown History metformin 1 tab PO BID 09/18/20 09/18/20 Unknown History simvastatin 1 tab PO BEDTIME 09/18/20 09/18/20 Unknown History Exam Exam Date and Time: September 20, 2020 1330 Height,Weight and Vital Signs: Height 5 ft 4 in Weight 99.79 kg Last Vital Signs Temp 97.9 F 09/20/20 11:30 Pulse 111 H 09/20/20 11:30 Resp 17 09/20/20 11:30 BP 136/70 09/20/20 11:30 Pulse Ox 94 09/20/20 11:30 Pertinent Lab Results Pertinent Lab Results: Laboratory Tests 09/18/20 09/18/20 09/18/20 14:04 14:04 14:04 WBC 10.2 RBC 4.89 Hgb 14.4 Hct 43.5 MCV 89.0 MCH 29.4 MCHC 33.1 RDW 13.4 Plt Count 280 MPV 11.2 Immature Gran % (Auto) 0.6 H Neut % (Auto) 71.8 Lymph % (Auto) 21.9 [place] % (Auto) 4.8 Eos % (Auto) 0.6 Baso % (Auto) 0.3 Lymph # (Auto) 2.2 [place] # (Auto) 0.5 Eos # (Auto) 0.1 Baso # (Auto) 0.0 Abs Immat Gran (auto) 0.06 H Absolute Neuts (auto) 7.3 Absolute Nucleated RBC 0.000 Nucleated RBC % (auto) 0.0 Hold Purple Top SEE NOTE PT 10.9 INR 0.9 APTT 31.5 Sodium Potassium Chloride Carbon Dioxide Anion Gap BUN Creatinine Estim Creat Clear Calc Estimated GFR POC Glucose Random Glucose Estimat Average Glucose Hemoglobin A1c % Calcium Magnesium Total Bilirubin Direct Bilirubin AST ALT Alkaline Phosphatase Total Protein Albumin Urine Color Urine Appearance Urine pH Ur Specific [place] Urine Protein Urine Glucose (UA) Urine Ketones Urine Blood Urine Nitrite Ur Leukocyte Esterase Ethyl Alcohol Coronavirus (PCR) COVID-19 ([facility]) COVID-19 Clin Com Influenza Type A (PCR) Influenza Type B (PCR) RSV RNA Qual (PCR) Blood Type Antibody Screen 09/18/20 09/18/20 09/18/20 14:04 14:04 14:05 WBC RBC Hgb Hct MCV MCH MCHC RDW Plt Count MPV Immature Gran % (Auto) Neut % (Auto) Lymph % (Auto) [place] % (Auto) Eos % (Auto) Baso % (Auto) Lymph # (Auto) [place] # (Auto) Eos # (Auto) Baso # (Auto) Abs Immat Gran (auto) Absolute Neuts (auto) Absolute Nucleated RBC Nucleated RBC % (auto) Hold Purple Top PT INR APTT Sodium 135 Potassium 4.2 Chloride 100 Carbon Dioxide 20 L Anion Gap 19 BUN 15 Creatinine 0.89 Estim Creat Clear Calc 71.3 Estimated GFR > 60 POC Glucose Random Glucose 408 H* Estimat Average Glucose Hemoglobin A1c % Calcium 9.9 Magnesium 2.0 Total Bilirubin 0.7 Direct Bilirubin 0.2 AST 13 ALT 21 Alkaline Phosphatase 125 H Total Protein 6.9 Albumin 4.1 Urine Color Urine Appearance Urine pH Ur Specific [place] Urine Protein Urine Glucose (UA) Urine Ketones Urine Blood Urine Nitrite Ur Leukocyte Esterase Ethyl Alcohol < 10 Coronavirus (PCR) NEGATIVE COVID-19 ([place]) COVID-19 Clin Com Influenza Type A (PCR) NEGATIVE Influenza Type B (PCR) NEGATIVE RSV RNA Qual (PCR) NEGATIVE Blood Type Antibody Screen 09/18/20 09/18/20 09/18/20 18:20 21:34 21:34 WBC 14.0 H RBC 4.16 L Hgb 12.2 Hct 37.6 MCV 90.4 MCH 29.3 MCHC 32.4 RDW 13.5 Plt Count 265 MPV 11.5 Immature Gran % (Auto) 0.5 H Neut % (Auto) 86.6 H Lymph % (Auto) 7.6 L [place] % (Auto) 5.2 Eos % (Auto) 0.0 Baso % (Auto) 0.1 Lymph # (Auto) 1.1 L [place] # (Auto) 0.7 Eos # (Auto) 0.0 Baso # (Auto) 0.0 Abs Immat Gran (auto) 0.07 H Absolute Neuts (auto) 12.1 H Absolute Nucleated RBC 0.000 Nucleated RBC % (auto) 0.0 Hold Purple Top PT INR APTT Sodium 135 Potassium 4.5 Chloride 101 Carbon Dioxide 22 Anion Gap 17 BUN 13 Creatinine 0.88 Estim Creat Clear Calc 72.2 Estimated GFR > 60 POC Glucose 314 H Random Glucose 397 H* Estimat Average Glucose Hemoglobin A1c % Calcium 8.9 D Magnesium Total Bilirubin Direct Bilirubin AST ALT Alkaline Phosphatase Total Protein Albumin Urine Color Urine Appearance Urine pH Ur Specific [place] Urine Protein Urine Glucose (UA) Urine Ketones Urine Blood Urine Nitrite Ur Leukocyte Esterase Ethyl Alcohol Coronavirus (PCR) COVID-19 ([place]) COVID-19 Clin Com Influenza Type A (PCR) Influenza Type B (PCR) RSV RNA Qual (PCR) Blood Type Antibody Screen 09/18/20 09/18/20 09/18/20 21:34 21:34 21:34 WBC RBC Hgb Hct MCV MCH MCHC RDW Plt Count MPV Immature Gran % (Auto) Neut % (Auto) Lymph % (Auto) [place] % (Auto) Eos % (Auto) Baso % (Auto) Lymph # (Auto) [place] # (Auto) Eos # (Auto) Baso # (Auto) Abs Immat Gran (auto) Absolute Neuts (auto) Absolute Nucleated RBC Nucleated RBC % (auto) Hold Purple Top PT INR APTT Sodium Potassium Chloride Carbon Dioxide Anion Gap BUN Creatinine Estim Creat Clear Calc Estimated GFR POC Glucose Random Glucose Estimat Average Glucose 278 Hemoglobin A1c % 11.3 Calcium Magnesium Total Bilirubin Direct Bilirubin AST ALT Alkaline Phosphatase Total Protein Albumin Urine Color YELLOW Urine Appearance CLEAR Urine pH 5.5 Ur Specific [place] 1.025 Urine Protein NEG Urine Glucose (UA) 500 H Urine Ketones 5 Urine Blood NEG Urine Nitrite NEG Ur Leukocyte Esterase NEG Ethyl Alcohol Coronavirus (PCR) COVID-19 ([place]) COVID-19 Clin Com Influenza Type A (PCR) Influenza Type B (PCR) RSV RNA Qual (PCR) Blood Type A Positive Antibody Screen NEGATIVE 09/18/20 09/18/20 09/19/20 21:43 22:00 07:19 WBC RBC Hgb Hct MCV MCH MCHC RDW Plt Count MPV Immature Gran % (Auto) Neut % (Auto) Lymph % (Auto) [place] % (Auto) Eos % (Auto) Baso % (Auto) Lymph # (Auto) [place] # (Auto) Eos # (Auto) Baso # (Auto) Abs Immat Gran (auto) Absolute Neuts (auto) Absolute Nucleated RBC Nucleated RBC % (auto) Hold Purple Top PT INR APTT Sodium Potassium Chloride Carbon Dioxide Anion Gap BUN Creatinine Estim Creat Clear Calc Estimated GFR POC Glucose 365 H* 314 H Random Glucose Estimat Average Glucose Hemoglobin A1c % Calcium Magnesium Total Bilirubin Direct Bilirubin AST ALT Alkaline Phosphatase Total Protein Albumin Urine Color Urine Appearance Urine pH Ur Specific [place] Urine Protein Urine Glucose (UA) Urine Ketones Urine Blood Urine Nitrite Ur Leukocyte Esterase Ethyl Alcohol Coronavirus (PCR) COVID-19 ([place]) Negative COVID-19 Clin Com See Note Influenza Type A (PCR) Influenza Type B (PCR) RSV RNA Qual (PCR) Blood Type Antibody Screen 09/19/20 09/19/20 09/19/20 11:24 16:34 21:12 WBC RBC Hgb Hct MCV MCH MCHC RDW Plt Count MPV Immature Gran % (Auto) Neut % (Auto) Lymph % (Auto) [place] % (Auto) Eos % (Auto) Baso % (Auto) Lymph # (Auto) [place] # (Auto) Eos # (Auto) Baso # (Auto) Abs Immat Gran (auto) Absolute Neuts (auto) Absolute Nucleated RBC Nucleated RBC % (auto) Hold Purple Top PT INR APTT Sodium Potassium Chloride Carbon Dioxide Anion Gap BUN Creatinine Estim Creat Clear Calc Estimated GFR POC Glucose 279 H 361 H* 274 H Random Glucose Estimat Average Glucose Hemoglobin A1c % Calcium Magnesium Total Bilirubin Direct Bilirubin AST ALT Alkaline Phosphatase Total Protein Albumin Urine Color Urine Appearance Urine pH Ur Specific [place] Urine Protein Urine Glucose (UA) Urine Ketones Urine Blood Urine Nitrite Ur Leukocyte Esterase Ethyl Alcohol Coronavirus (PCR) COVID-19 ([place]) COVID-19 Clin Com Influenza Type A (PCR) Influenza Type B (PCR) RSV RNA Qual (PCR) Blood Type Antibody Screen 09/19/20 09/20/20 09/20/20 21:34 07:13 11:01 WBC RBC Hgb Hct MCV MCH MCHC RDW Plt Count MPV Immature Gran % (Auto) Neut % (Auto) Lymph % (Auto) [place] % (Auto) Eos % (Auto) Baso % (Auto) Lymph # (Auto) [place] # (Auto) Eos # (Auto) Baso # (Auto) Abs Immat Gran (auto) Absolute Neuts (auto) Absolute Nucleated RBC Nucleated RBC % (auto) Hold Purple Top PT INR APTT Sodium Potassium Chloride Carbon Dioxide Anion Gap BUN Creatinine Estim Creat Clear Calc Estimated GFR POC Glucose 268 H 266 H Random Glucose Estimat Average Glucose Cancelled Hemoglobin A1c % Cancelled Calcium Magnesium Total Bilirubin Direct Bilirubin AST ALT Alkaline Phosphatase Total Protein Albumin Urine Color Urine Appearance Urine pH Ur Specific [place] Urine Protein Urine Glucose (UA) Urine Ketones Urine Blood Urine Nitrite Ur Leukocyte Esterase Ethyl Alcohol Coronavirus (PCR) COVID-19 ([place]) COVID-19 Clin Com Influenza Type A (PCR) Influenza Type B (PCR) RSV RNA Qual (PCR) Blood Type Antibody Screen Airway Heart: Frequent PVCs, asymptomatic Assessment and Plan Assessment Anesthesia Assessment: Anesthesia Plan Discussed and Chart Reviewed Final Anesthetic Review NPO: Yes ASA Class: III Final Preanesthetic Review: No Changes in Pt Med Stat, Meds/Allgs Chart Reviewed, Consent Obtained/Reviewed and Anes Risks/Benef Reviewed Patient Risk: High Procedure Risk: Intermediate Anesthetic Plan Anesthetic Plan: GA Disposition: Standard PACU
[2020-09-20 13:50] LABS: Glucose, Whole Blood 176 mg/dL (60-115)
--- NOTE | 2020-09-20 14:02 | PC.NURSE ---
IV TO PATIENT S RIGHT HAND NOT FLUSHING. IV REMOVED.
--- NOTE | 2020-09-20 14:47 | MHC.SHP ---
Pre-Procedural Eval Section A The patient is an INPATIENT: Yes Changes since office visit: Yes Patient answered all questions; No Cold of Flu in the past 2 weeks, No New Medical Problems and No Changes in Medication The History & Physical has been completed within 30 days and I have reviewed it.: Yes Section B Chief Complaint: Left distal femur fracture Allergies: Allergies Allergy/AdvReac Type Severity Reaction Status Date / Time No Known Allergies Allergy Verified 09/18/20 13:51 Plan I have reviewed the history and physical and performed a pertinent physical examination on my patient. No changes have occurred unless specified.
--- NOTE | 2020-09-20 18:15 | P.BOP_ITS ---
Brief Operative Note Date of Service: 09/20/20 Pre-op diagnosis: left femur fracture Post-op diagnosis: same Procedure: ORIF left femur Implants: Rowan femoral locking plate Surgeon: Higinio Segovia MD Anesthesia: GETA Cutter Operator Tile: Kita Bolton Estimated blood loss (mL): 600 Tourniquet time (min): 0 IV fluids (mL): 1,500 Urine output (mL): 200 Pathology: none sent Condition: stable Disposition: PACU
[2020-09-20 18:29] LABS: Hematocrit 28.5 % (37-47); Hemoglobin 9.2 g/dl (12.0-16.0); Mean Corpuscular HGB Conc 32.3 g/dl (31.0-35.0); Mean Corpuscular Hemoglobin 30.1 pg (27.0-33.0); Mean Corpuscular Volume 93.1 fL (80-98); Mean Platelet Volume 11.4 fL (9.4-12.3); NRBC Pct Auto 0.1 /100WBC (0.0-0.2); Platelet Count 232 X10*3/uL (160-400); Red Blood Count 3.06 X10*6/uL (4.20-5.50); Red Cell Distribution Width 14.1 % (11.0-16.0); White Blood Count 18.1 X10*3/uL (4.8-10.8)
[2020-09-20 19:06] LABS: Anion Gap 16 (12-20); Blood Urea Nitrogen 14 mg/dL (9-16); Calcium 8.1 mg/dL (8.4-10.2); Carbon Dioxide 21 mmol/L (22-29); Chloride 103 mmol/L (96-108); Creatinine Clr Calc Pharmacy 78.4; Estimated Glomerular Filt Rate > 60; Glucose Random 288 mg/dL (60-115); Potassium 4.2 mmol/L (3.3-5.1); Sodium 136 mmol/L (135-145)
[2020-09-20 20:22] LABS: Glucose, Whole Blood 276 mg/dL (60-115)
[2020-09-20] MEDS: ceFAZolin Sodium/Dextrose,Iso 2 GM/50 ML PIGGYBACK IV (22:39)
[2020-09-21] VITALS (8 sets, daily range): BP systolic 109–169; BP diastolic 53–74; PULSE 98–117; RESP 16–20; TEMP 36.1–36.7; O2SAT 93–98
[2020-09-21] MEDS: HYDROmorphone HCl 0.5 MG/0.5 ML SYRINGE 0.25 MG IVPUSH ×4 (02:23→21:43)
[2020-09-21] MEDS: oxyCODONE HCl Immed Release 5 MG TABLET PO ×3 (05:46→20:29)
[2020-09-21 06:06] LABS: MANUAL DIFF FLAG NO
[2020-09-21 06:26] LABS: Basophils Percent Auto 0.2 % (0-2); Hematocrit 25.5 % (37-47); Imm Gran Abs Auto 0.14 X10*3/uL (0.00-0.03); Imm Gran Pct Auto 1.1 % (0.0-0.4); Lymphocytes Absolute Auto 0.8 X10*3/uL (1.2-4.9); Lymphocytes Percent Auto 6.3 % (20-40); Mean Corpuscular HGB Conc 31.4 g/dl (31.0-35.0); Mean Corpuscular Hemoglobin 29.3 pg (27.0-33.0); Mean Corpuscular Volume 93.4 fL (80-98); Mean Platelet Volume 11.4 fL (9.4-12.3); Monocytes Absolute Auto 0.9 X10*3/uL (0.1-1.2); Monocytes Percent Auto 6.6 % (2-11); Neutrophils Absolute Auto 11.4 X10*3/uL (2.0-8.3); Neutrophils Percent Auto 85.8 % (45-73); Platelet Count 208 X10*3/uL (160-400); Red Blood Count 2.73 X10*6/uL (4.20-5.50); Red Cell Distribution Width 14.1 % (11.0-16.0); White Blood Count 13.2 X10*3/uL (4.8-10.8)
--- NOTE | 2020-09-21 07:29 | PM.PNORT ---
Subjective Subjective Date of Service: 09/21/20 Interval history: POD1 s/p left distal femur ORIF. Patient resting comfortably in bed. No overnight events. Pain is well managed. Physical Exam Vital Signs: Vital Signs: Last Vital Signs Temp 97.5 F 09/21/20 03:14 Pulse 98 09/21/20 03:14 Resp 18 09/21/20 03:14 BP 140/74 H 09/21/20 03:14 Pulse Ox 98 09/21/20 03:14 Body Mass Index 37.8 Const: General: cooperative, healthy appearing and no acute distress Resp: Effort & Inspection: normal respiratory effort and able to speak in complete sentences Cardio: Rate: regular rate Peripheral pulses: Peripheral pulses 2+ throughout GI: Palpation (GI): Soft to palpation Skin: Lesions: no lesions Rashes: no rashes Extrem: Other: Left distal femur no redness or drainage. Incision remains intact. Dressing is clean, dry, and intact. NVI. Progress Note: A&P Assessment and plan (1) Closed left femoral fracture: Status: Acute Assessment and Plan: Continue pain mgmnt Begin Lovenox for dvt ppx begin PT for left distal femur ORIF, NWB Place pillows on left side so patient is not leaning on the operative leg Encourage lots of oral fluids Dispo planning-Pending PT eval, pain mgmnt Fall Risk Details Current Medications: Current Medications Generic Name Dose Route Start Last Admin Trade Name Freq PRN Reason Stop Dose Admin Acetaminophen 650 mg 09/18/20 16:59 09/20/20 05:37 Acetaminophen 325 Mg Tablet PO 650 mg QID PRN Administration Pain, Mild (Pain Scale 1-3) Docusate Sodium 200 mg 09/18/20 16:19 Docusate Sodium 100 Mg Capsule PO ONCE JANINA Enoxaparin Sodium 40 mg 09/21/20 17:30 Enoxaparin Sodium 40 Mg/0.4 Ml Syringe SUBCUT Q24H JANINA Hydromorphone HCl 0.25 mg 09/18/20 16:19 09/21/20 02:23 Hydromorphone Hcl 0.5 Mg/0.5 Ml Syringe IVPUSH 0.25 mg Q4H PRN Administration Pain, Severe (Pain Scale 7-10) Lactated Ringer's 1,000 mls @ 80 mls/hr 09/19/20 07:45 09/20/20 20:17 Lr IVCONT 80 mls/hr .[id number] [facility] Administration Insulin Glargine 20 unit 09/20/20 09:00 09/20/20 08:05 Insulin Glargine,Hum.Rec.Anlog 100 Unit/Ml 10 Ml Vial SUBCUT Not Given DAILY [facility] Insulin Human Lispro 0 unit 09/18/20 21:00 09/20/20 22:40 Insulin Lispro 100 Unit/Ml 3 Ml Vial SUBCUT 4 unit QIDACHS [facility] Administration Protocol Losartan Potassium 25 mg 09/19/20 11:40 09/20/20 09:54 Losartan Potassium 25 Mg Tablet PO 25 mg DAILY [facility] Administration Protocol Ondansetron HCl 4 mg 09/20/20 05:07 09/20/20 05:37 Ondansetron Hcl 4 Mg/2 Ml Vial IVPUSH 4 mg Q8H PRN Administration Nausea and Vomiting Oxycodone HCl 10 mg 09/18/20 21:00 09/20/20 22:41 Oxycodone Hcl Er 10 Mg Tab.Er.12h PO 10 mg BID [facility] Administration Oxycodone HCl 5 mg 09/18/20 16:19 09/21/20 05:46 Oxycodone Hcl Immed Release 5 Mg Tablet PO 5 mg Q6H PRN Administration Pain, Moderate (Pain Scale 4-6 Oxycodone HCl 5 mg 09/20/20 14:42 Oxycodone Hcl Immed Release 5 Mg Tablet PO ONCE PRN Pain, Severe (Pain Scale 7-10) Sodium Chloride 3 ml 09/18/20 16:19 09/21/20 01:58 0.9 % Sodium Chloride Flush 3 Ml Syringe IVFLUSH Not Given QSHIFT [facility] Time Spent With Patient Time: Total time spent is greater than 50% in coordination of care (as documented) at patient's floor/unit and/or counseling patient: Time with patient: less than 15 minutes
[2020-09-21 07:32] LABS: Anion Gap 13 (12-20); Blood Urea Nitrogen 18 mg/dL (9-16); Calcium 8.4 mg/dL (8.4-10.2); Carbon Dioxide 26 mmol/L (22-29); Chloride 101 mmol/L (96-108); Creatinine Clr Calc Pharmacy 81.4; Estimated Glomerular Filt Rate > 60; Glucose Random 359 mg/dL (60-115); Potassium 4.8 mmol/L (3.3-5.1); Sodium 135 mmol/L (135-145)
[2020-09-21 07:35] LABS: Glucose, Whole Blood 329 mg/dL (60-115)
[2020-09-21] MEDS: 0.9 % Sodium Chloride Flush 3 ML SYRINGE IVFLUSH ×2 (08:29→16:58)
[2020-09-21] MEDS: Acetaminophen 325 MG TABLET 650 MG PO ×2 (08:29→20:30)
[2020-09-21] MEDS: oxyCODONE HCl ER 10 MG TAB.ER.12H PO ×2 (08:29→20:30)
[2020-09-21] MEDS: Insulin Lispro 100 UNIT/ML 3 ML VIAL SUBCUT ×4 (08:30→21:42)
[2020-09-21] MEDS: Insulin Glargine,Hum.rec.anlog 100 UNIT/ML 10 ML VIAL 20 UNIT SUBCUT (08:30)
[2020-09-21] MEDS: Losartan Potassium 25 MG TABLET PO (10:41)
[2020-09-21 11:40] LABS: Glucose, Whole Blood 314 mg/dL (60-115)
[2020-09-21] MEDS: Lactated Ringers 1,000 ML 80 ML IVCONT ×2 (12:16→17:55)
--- NOTE | 2020-09-21 13:01 | P.PNIM_ITS ---
Subjective Subjective Date of Service: 09/21/20 Interval History: The patient was seen and evaluated this morning Laying in bed, feels comfortable, to pain under fair control Sugar level remains elevated after starting Lantus Hemoglobin dropped to 8 this morning after blood loss during surgery yesterday Denies any fever, chills or shortness of breath No reported other overnight events. Systemic review: No fever, chills or weakness No chest pain, palpitation No shortness of breath or coughing No abdominal pain, nausea or vomiting No urinary symptoms the Left lower extremity pain, swelling increased around the femur No any rash or wounds Physical Exam Vital Signs: Vital Signs: Last Vital Signs Temp 98.1 F 09/21/20 11:26 Pulse 98 09/21/20 11:26 Resp 18 09/21/20 11:26 BP 120/56 L 09/21/20 11:26 Pulse Ox 93 09/21/20 10:48 Body Mass Index 37.8 Const: Other: Constitutional : Alert, oriented, not in distress Neck : Normal inspection, Supple Cardiovascular : RRR, S1 S2, no lower extremity edema Respiratory : Good bilateral air entry, no crackles, wheezes or rhonchi Gastrointestinal: soft, lax, Normal bowel sounds, Non tender Skin : Warm/Dry, No rash Muscular: Left lower extremity dressing losing small amount of blood, tenderness in his lower. Neurological : Alert & oriented x3, No focal deficit Objective Data Current Medications Generic Name Dose Route Start Last Admin Trade Name Freq PRN Reason Stop Dose Admin Acetaminophen 650 mg 09/18/20 16:59 09/21/20 08:29 Acetaminophen 325 Mg Tablet PO 650 mg QID PRN Administration Pain, Mild (Pain Scale 1-3) Docusate Sodium 200 mg 09/18/20 16:19 Docusate Sodium 100 Mg Capsule PO ONCE JANINA Enoxaparin Sodium 40 mg 09/22/20 17:30 Enoxaparin Sodium 40 Mg/0.4 Ml Syringe SUBCUT Q24H [facility] Hydromorphone HCl 0.25 mg 09/18/20 16:19 09/21/20 02:23 Hydromorphone Hcl 0.5 Mg/0.5 Ml Syringe IVPUSH 0.25 mg Q4H PRN Administration Pain, Severe (Pain Scale 7-10) Lactated Ringer's 1,000 mls @ 80 mls/hr 09/19/20 07:45 09/21/20 12:16 Lr IVCONT 80 mls/hr .[id number] [facility] Administration Insulin Glargine 20 unit 09/20/20 09:00 09/21/20 08:30 Insulin Glargine,Hum.Rec.Anlog 100 Unit/Ml 10 Ml Vial SUBCUT 20 unit DAILY [facility] Administration Insulin Human Lispro 0 unit 09/18/20 21:00 09/21/20 12:18 Insulin Lispro 100 Unit/Ml 3 Ml Vial SUBCUT 8 unit QIDACHS [facility] Administration Protocol Losartan Potassium 25 mg 09/19/20 11:40 09/21/20 10:41 Losartan Potassium 25 Mg Tablet PO 25 mg DAILY [facility] Administration Protocol Ondansetron HCl 4 mg 09/20/20 05:07 09/20/20 05:37 Ondansetron Hcl 4 Mg/2 Ml Vial IVPUSH 4 mg Q8H PRN Administration Nausea and Vomiting Oxycodone HCl 10 mg 09/18/20 21:00 09/21/20 08:29 Oxycodone Hcl Er 10 Mg Tab.Er.12h PO 10 mg BID [facility] Administration Oxycodone HCl 5 mg 09/18/20 16:19 09/21/20 05:46 Oxycodone Hcl Immed Release 5 Mg Tablet PO 5 mg Q6H PRN Administration Pain, Moderate (Pain Scale 4-6 Oxycodone HCl 5 mg 09/20/20 14:42 Oxycodone Hcl Immed Release 5 Mg Tablet PO ONCE PRN Pain, Severe (Pain Scale 7-10) Sodium Chloride 3 ml 09/18/20 16:19 09/21/20 08:29 0.9 % Sodium Chloride Flush 3 Ml Syringe IVFLUSH 3 ml QSHIFT [facility] Administration Labs CBC & Chem 7: 09/21/20 05:53 09/21/20 05:53 Assessment and Plan (1) Closed left femoral fracture: Status: Acute (2) Fall: Status: Acute (3) Acute hyperglycemia: Status: Acute (4) HTN (hypertension): Status: Acute (5) Obesity: Status: Acute (6) Pre-op evaluation: Status: Acute Assessment and Plan: A 64 years old lady with PMH of diabetes, hypertension, HLD, morbid obesity who presents to the hospital after mechanical fall with left leg pain. Acute blood loss anemia Symptomatic anemia Patient feels lethargic, mildly short of breath and hypertensive Hemoglobin dropped to 8 from baseline of around 12 after blood loss during surgery To give it a blood today Hold Lovenox for today Monitor H and H Fall Left distal femur fracture Day 1 post repair Morphine for pain management Physical therapy postop Hyperglycemia secondary to diabetes type 2 Uncontrolled diabetes type 2 HbA1c of 11.7 Hold oral medications Continue insulin SSI Increase insulin Lantus to 30 units Thank you for the consult, will continue to monitor the patient with you
--- NOTE | 2020-09-21 14:10 | HO.POSTANES ---
Post Anesthesia Evaluation Post Anesthesia Evaluation Vital Signs: Vital Signs Temp Pulse Resp BP Pulse Ox 09/21/20 12:00 97.9 F 117 H 16 169/64 H 95 09/21/20 11:26 98.1 F 98 18 120/56 L 09/21/20 11:08 98.0 F 113 H 20 109/53 L 09/21/20 10:48 97 F 117 H 16 132/56 L 93 09/21/20 03:14 97.5 F 98 18 140/74 H 98 Anesthesia: General Mental Status: Awake Pain Control: Satisfactory Nausea/Vomiting: None Hydration: Adequate Anesthesia-Related Issues: No Anes. Related Issues Comments: Post-operative hypergylcemia
[2020-09-21 16:53] LABS: Glucose, Whole Blood 368 mg/dL (60-115)
[2020-09-21 20:31] LABS: Glucose, Whole Blood 231 mg/dL (60-115)
[2020-09-22] VITALS (7 sets, daily range): BP systolic 119–147; BP diastolic 39–87; PULSE 72–119; RESP 16–19; TEMP 35.9–36.7; O2SAT 93–98
[2020-09-22] MEDS: HYDROmorphone HCl 0.5 MG/0.5 ML SYRINGE 0.25 MG IVPUSH ×4 (03:47→22:57)
[2020-09-22] MEDS: oxyCODONE HCl Immed Release 5 MG TABLET PO (06:34)
[2020-09-22] MEDS: Lactated Ringers 1,000 ML 80 ML IVCONT (06:35)
[2020-09-22 06:36] LABS: MANUAL DIFF FLAG NO
[2020-09-22 06:47] LABS: Basophils Percent Auto 0.2 % (0-2); Eosinophils Percent Auto 0.3 % (0-4); Hematocrit 27.7 % (37-47); Hemoglobin 8.6 g/dl (12.0-16.0); Imm Gran Abs Auto 0.14 X10*3/uL (0.00-0.03); Imm Gran Pct Auto 1.1 % (0.0-0.4); Lymphocytes Absolute Auto 2.1 X10*3/uL (1.2-4.9); Lymphocytes Percent Auto 16.3 % (20-40); Mean Corpuscular Hemoglobin 29.4 pg (27.0-33.0); Mean Corpuscular Volume 94.5 fL (80-98); Monocytes Absolute Auto 1.2 X10*3/uL (0.1-1.2); Monocytes Percent Auto 9.1 % (2-11); NRBC Pct Auto 0.3 /100WBC (0.0-0.2); Neutrophils Absolute Auto 9.2 X10*3/uL (2.0-8.3); Platelet Count 201 X10*3/uL (160-400); Red Blood Count 2.93 X10*6/uL (4.20-5.50); Red Cell Distribution Width 14.6 % (11.0-16.0); White Blood Count 12.6 X10*3/uL (4.8-10.8)
[2020-09-22 07:08] LABS: Anion Gap 14 (12-20); Blood Urea Nitrogen 14 mg/dL (9-16); Carbon Dioxide 27 mmol/L (22-29); Chloride 100 mmol/L (96-108); Creatinine Clr Calc Pharmacy 93.4; Estimated Glomerular Filt Rate > 60; Glucose Random 270 mg/dL (60-115); Potassium 4.4 mmol/L (3.3-5.1); Sodium 137 mmol/L (135-145)
[2020-09-22 07:44] LABS: Glucose, Whole Blood 242 mg/dL (60-115)
--- NOTE | 2020-09-22 07:45 | P.PNOP_ITS ---
Subjective Subjective Date of Service: 09/22/20 Interval history: POD2 s/p left distal femur ORIF with Dr. Segovia. Patient resting comfortably in bed. Pain is well managed. No overnight events. No additional complaints. Physical Exam Vital Signs: Vital Signs: Last Vital Signs Temp 97.3 F 09/22/20 03:35 Pulse 119 H 09/22/20 03:35 Resp 16 09/22/20 03:35 BP 147/87 H 09/22/20 03:35 Pulse Ox 94 09/22/20 03:35 Body Mass Index 37.8 Const: General: cooperative, healthy appearing and no acute distress Resp: Effort & Inspection: normal respiratory effort and able to speak in complete sentences Cardio: Rate: regular rate Peripheral pulses: Peripheral pulses 2+ throughout GI: Palpation (GI): Soft to palpation Skin: Lesions: no lesions Rashes: no rashes Extrem: Other: Left thigh no ecchymosis, redness, or drainage. Bandages are clean, dry, and intact. NVI. Progress Note: A&P Assessment and plan (1) Closed left femoral fracture: Status: Acute Assessment and Plan: Continue pain mgmnt Continue Lovenox for dvt ppx Continue PT for left distal femur ORIF, NWB Maintain in the knee immobilizer Dispo planning-Pending PT eval, pain mgmnt Fall Risk Details Current Medications: Current Medications Generic Name Dose Route Start Last Admin Trade Name Freq PRN Reason Stop Dose Admin Acetaminophen 650 mg 09/18/20 16:59 09/21/20 20:30 Acetaminophen 325 Mg Tablet PO 650 mg QID PRN Administration Pain, Mild (Pain Scale 1-3) Docusate Sodium 200 mg 09/18/20 16:19 Docusate Sodium 100 Mg Capsule PO ONCE JANINA Enoxaparin Sodium 40 mg 09/22/20 17:30 Enoxaparin Sodium 40 Mg/0.4 Ml Syringe SUBCUT Q24H [facility] Hydromorphone HCl 0.25 mg 09/18/20 16:19 09/22/20 03:47 Hydromorphone Hcl 0.5 Mg/0.5 Ml Syringe IVPUSH 0.25 mg Q4H PRN Administration Pain, Severe (Pain Scale 7-10) Insulin Glargine 30 unit 09/22/20 09:00 Insulin Glargine,Hum.Rec.Anlog 100 Unit/Ml 10 Ml Vial SUBCUT DAILY [facility] Insulin Human Lispro 0 unit 09/18/20 21:00 09/21/20 21:42 Insulin Lispro 100 Unit/Ml 3 Ml Vial SUBCUT 4 unit QIDACHS [facility] Administration Protocol Losartan Potassium 25 mg 09/19/20 11:40 09/21/20 10:41 Losartan Potassium 25 Mg Tablet PO 25 mg DAILY [facility] Administration Protocol Ondansetron HCl 4 mg 09/20/20 05:07 09/20/20 05:37 Ondansetron Hcl 4 Mg/2 Ml Vial IVPUSH 4 mg Q8H PRN Administration Nausea and Vomiting Oxycodone HCl 10 mg 09/18/20 21:00 09/21/20 20:30 Oxycodone Hcl Er 10 Mg Tab.Er.12h PO 10 mg BID [facility] Administration Oxycodone HCl 5 mg 09/18/20 16:19 09/22/20 06:34 Oxycodone Hcl Immed Release 5 Mg Tablet PO 5 mg Q6H PRN Administration Pain, Moderate (Pain Scale 4-6 Sodium Chloride 3 ml 09/18/20 16:19 09/22/20 00:51 0.9 % Sodium Chloride Flush 3 Ml Syringe IVFLUSH Not Given QSHIFT [facility] Time Spent With Patient Time: Total time spent is greater than 50% in coordination of care (as documented) at patient's floor/unit and/or counseling patient: Time with patient: less than 15 minutes
[2020-09-22] MEDS: Losartan Potassium 25 MG TABLET PO (08:08)
[2020-09-22] MEDS: oxyCODONE HCl ER 10 MG TAB.ER.12H PO ×2 (08:08→20:44)
[2020-09-22] MEDS: Insulin Lispro 100 UNIT/ML 3 ML VIAL SUBCUT ×4 (08:08→20:54)
[2020-09-22] MEDS: Insulin Glargine,Hum.rec.anlog 100 UNIT/ML 10 ML VIAL 30 UNIT SUBCUT (08:09)
--- NOTE | 2020-09-22 08:20 | MHC.CM.PN ---
dc plan is for patient to go to [facility], refs have been made and pt has been accepted . cm to cont. to follow.
[2020-09-22] MEDS: metFORMIN HCl 1,000 MG TABLET 1000 MG PO ×2 (10:07→20:44)
[2020-09-22] MEDS: glipiZIDE XL 5 MG TAB.ER.24 PO (10:51)
[2020-09-22 12:05] LABS: Glucose, Whole Blood 313 mg/dL (60-115)
--- NOTE | 2020-09-22 12:34 | P.PNIM_ITS ---
Subjective Subjective Date of Service: 09/22/20 Interval History: The patient was seen and evaluated this morning Laying in bed, feels comfortable, to pain under fair control Sugar level remains elevated with higher dose of Lantus Hemoglobin 8 point reported TIA after 1 unit transfusion, continue to have oozing from the wound Denies any fever, chills or shortness of breath No reported other overnight events. Systemic review: No fever, chills or weakness No chest pain, palpitation No shortness of breath or coughing No abdominal pain, nausea or vomiting No urinary symptoms the Left lower extremity pain, swelling increased around the femur No any rash or wounds Physical Exam Vital Signs: Vital Signs: Last Vital Signs Temp 97.6 F 09/22/20 12:00 Pulse 105 H 09/22/20 12:00 Resp 17 09/22/20 12:00 BP 143/67 H 09/22/20 12:00 Pulse Ox 93 09/22/20 12:00 Body Mass Index 37.8 Const: Other: Constitutional : Alert, oriented, not in distress Neck : Normal inspection, Supple Cardiovascular : RRR, S1 S2, no lower extremity edema Respiratory : Good bilateral air entry, no crackles, wheezes or rhonchi Gastrointestinal: soft, lax, Normal bowel sounds, Non tender Skin : Warm/Dry, No rash Muscular: Left lower extremity dressing still losing small amount of blood, tenderness in wound area Neurological : Alert & oriented x3, No focal deficit Objective Data Current Medications Generic Name Dose Route Start Last Admin Trade Name Freq PRN Reason Stop Dose Admin Acetaminophen 650 mg 09/18/20 16:59 09/21/20 20:30 Acetaminophen 325 Mg Tablet PO 650 mg QID PRN Administration Pain, Mild (Pain Scale 1-3) Docusate Sodium 200 mg 09/18/20 16:19 Docusate Sodium 100 Mg Capsule PO ONCE [facility] Enoxaparin Sodium 40 mg 09/23/20 17:30 Enoxaparin Sodium 40 Mg/0.4 Ml Syringe SUBCUT Q24H [facility] Glipizide 5 mg 09/22/20 09:00 09/22/20 10:51 Glipizide Xl 5 Mg Tab.Er.24 PO 5 mg DAILY JANINA Administration Hydromorphone HCl 0.25 mg 09/18/20 16:19 09/22/20 10:51 Hydromorphone Hcl 0.5 Mg/0.5 Ml Syringe IVPUSH 0.25 mg Q4H PRN Administration Pain, Severe (Pain Scale 7-10) Insulin Glargine 30 unit 09/23/20 09:00 Insulin Glargine,Hum.Rec.Anlog 100 Unit/Ml 10 Ml Vial SUBCUT DAILY [facility] Insulin Human Lispro 0 unit 09/18/20 21:00 09/22/20 12:17 Insulin Lispro 100 Unit/Ml 3 Ml Vial SUBCUT 8 unit QIDACHS [facility] Administration Protocol Losartan Potassium 25 mg 09/19/20 11:40 09/22/20 08:08 Losartan Potassium 25 Mg Tablet PO 25 mg DAILY [facility] Administration Protocol Metformin HCl 1,000 mg 09/22/20 09:00 09/22/20 10:07 Metformin Hcl 1,000 Mg Tablet PO 1,000 mg BID [facility] Administration Ondansetron HCl 4 mg 09/20/20 05:07 09/20/20 05:37 Ondansetron Hcl 4 Mg/2 Ml Vial IVPUSH 4 mg Q8H PRN Administration Nausea and Vomiting Oxycodone HCl 10 mg 09/18/20 21:00 09/22/20 08:08 Oxycodone Hcl Er 10 Mg Tab.Er.12h PO 10 mg BID [facility] Administration Oxycodone HCl 5 mg 09/18/20 16:19 09/22/20 06:34 Oxycodone Hcl Immed Release 5 Mg Tablet PO 5 mg Q6H PRN Administration Pain, Moderate (Pain Scale 4-6 Sodium Chloride 3 ml 09/18/20 16:19 09/22/20 08:10 0.9 % Sodium Chloride Flush 3 Ml Syringe IVFLUSH Not Given QSHIFT [facility] Labs CBC & Chem 7: 09/22/20 06:15 09/22/20 06:15 Assessment and Plan (1) Closed left femoral fracture: Status: Acute (2) Fall: Status: Acute (3) Acute hyperglycemia: Status: Acute (4) HTN (hypertension): Status: Acute (5) Obesity: Status: Acute (6) Pre-op evaluation: Status: Acute Assessment and Plan: A 64 years old lady with PMH of diabetes, hypertension, HLD, morbid obesity who presents to the hospital after mechanical fall with left leg pain. Acute blood loss anemia Symptomatic anemia Patient feels better after transfusion but still tachycardic Still oozing blood at the surgical site Hemoglobin improved to 8.4 after 1 unit transfusion To give a 2nd unit of blood today Hold Lovenox for today Monitor H and H Fall Left distal femur fracture Day 2 post repair Morphine for pain management Physical therapy Hyperglycemia secondary to diabetes type 2 Uncontrolled diabetes type 2 HbA1c of 11.7 Start oral medications Continue insulin SSI Increase insulin Lantus to 30 units, patient will need to be discharged on insulin. Thank you for the consult, will continue to monitor the patient with you
[2020-09-22] MEDS: 0.9 % Sodium Chloride Flush 3 ML SYRINGE IVFLUSH ×2 (15:55→23:03)
[2020-09-22 16:13] LABS: Glucose, Whole Blood 242 mg/dL (60-115)
[2020-09-22 20:27] LABS: Glucose, Whole Blood 156 mg/dL (60-115)
[2020-09-23 03:26] VITALS: BP 134/64; PULSE 99; RESP 20; TEMP 36.8; O2SAT 94
[2020-09-23] MEDS: HYDROmorphone HCl 0.5 MG/0.5 ML SYRINGE 0.25 MG IVPUSH ×3 (03:36→12:55)
--- NOTE | 2020-09-23 04:10 | PC.NURSE ---
pt has blood ready but didnt see any order to administer. MD notified and he said to hold HGB 8.6
[2020-09-23 06:33] LABS: MANUAL DIFF FLAG NO
[2020-09-23 06:50] LABS: Basophils Percent Auto 0.2 % (0-2); Eosinophils Absolute Auto 0.1 X10*3/uL (0.0-0.4); Eosinophils Percent Auto 0.8 % (0-4); Hematocrit 24.7 % (37-47); Hemoglobin 7.8 g/dl (12.0-16.0); Imm Gran Abs Auto 0.16 X10*3/uL (0.00-0.03); Imm Gran Pct Auto 1.5 % (0.0-0.4); Lymphocytes Absolute Auto 1.9 X10*3/uL (1.2-4.9); Lymphocytes Percent Auto 17.7 % (20-40); Mean Corpuscular HGB Conc 31.6 g/dl (31.0-35.0); Mean Platelet Volume 10.8 fL (9.4-12.3); Monocytes Absolute Auto 0.8 X10*3/uL (0.1-1.2); Monocytes Percent Auto 7.7 % (2-11); NRBC Pct Auto 0.2 /100WBC (0.0-0.2); Neutrophils Absolute Auto 7.7 X10*3/uL (2.0-8.3); Neutrophils Percent Auto 72.1 % (45-73); Platelet Count 207 X10*3/uL (160-400); Red Cell Distribution Width 14.8 % (11.0-16.0); White Blood Count 10.6 X10*3/uL (4.8-10.8)
[2020-09-23 07:29] LABS: Anion Gap 12 (12-20); Blood Urea Nitrogen 13 mg/dL (9-16); Calcium 8.1 mg/dL (8.4-10.2); Carbon Dioxide 27 mmol/L (22-29); Chloride 102 mmol/L (96-108); Creatinine Clr Calc Pharmacy 111.4; Estimated Glomerular Filt Rate > 60; Glucose Random 154 mg/dL (60-115); Potassium 4.4 mmol/L (3.3-5.1); Sodium 137 mmol/L (135-145)
[2020-09-23] MEDS: 0.9 % Sodium Chloride Flush 3 ML SYRINGE IVFLUSH ×3 (07:34→21:33)
[2020-09-23 07:50] LABS: Glucose, Whole Blood 169 mg/dL (60-115)
[2020-09-23 08:00] VITALS: BP 125/55; PULSE 107; RESP 16; TEMP 36.8; O2SAT 95
--- NOTE | 2020-09-23 08:28 | P.PNOP_ITS ---
Subjective Subjective Date of Service: 09/23/20 Principal diagnosis: ORIF left distal femur Interval history: POD 3 s/p ORIF left distal femur No overnight events Per nurse notes did not receive unit of blood yesterday h/h lower today 7.8/24.7 Tolerating pain well. Worked with PT yesterday, continues to have staining on dressking Denies SOB, CP, dizziness Physical Exam Vital Signs: Vital Signs: Last Vital Signs Temp 98.2 F 09/23/20 03:26 Pulse 99 09/23/20 03:26 Resp 20 09/23/20 03:26 BP 134/64 09/23/20 03:26 Pulse Ox 94 09/23/20 03:26 Body Mass Index 37.8 Const: General: cooperative, healthy appearing and no acute distress Resp: Effort & Inspection: normal respiratory effort and able to speak in complete sentences Cardio: Rate: regular rate Peripheral pulses: Peripheral pulses 2+ throughout GI: Palpation (GI): Soft to palpation Skin: General skin exam: no rashes or lesions noted Extrem: Other: Left femur incision clean, dry and intact. No erythema, mild swelling and ecchymosis. Sensation intact. Pulses present. Progress Note: A&P Assessment and plan (1) Closed left femoral fracture: Status: Acute Assessment and Plan: Continue pain mgmnt Lovenox held per medicine due to blood loss Continue PT -NWB LLE with brace, ok to remove brace when resting , NWB ROM of the knee ok Discuss h/h with medicine Dispo planning-medical management Fall Risk Details Current Medications: Current Medications Generic Name Dose Route Start Last Admin Trade Name Arvindq PRN Reason Stop Dose Admin Acetaminophen 650 mg 09/18/20 16:59 09/21/20 20:30 Acetaminophen 325 Mg Tablet PO 650 mg QID PRN Administration Pain, Mild (Pain Scale 1-3) Docusate Sodium 200 mg 09/18/20 16:19 Docusate Sodium 100 Mg Capsule PO ONCE [facility] Enoxaparin Sodium 40 mg 09/23/20 17:30 Enoxaparin Sodium 40 Mg/0.4 Ml Syringe SUBCUT Q24H [facility] Glipizide 5 mg 09/22/20 09:00 09/22/20 10:51 Glipizide Xl 5 Mg Tab.Er.24 PO 5 mg DAILY [facility] Administration Hydromorphone HCl 0.25 mg 09/18/20 16:19 09/23/20 07:33 Hydromorphone Hcl 0.5 Mg/0.5 Ml Syringe IVPUSH 0.25 mg Q4H PRN Administration Pain, Severe (Pain Scale 7-10) Insulin Glargine 30 unit 09/23/20 09:00 Insulin Glargine,Hum.Rec.Anlog 100 Unit/Ml 10 Ml Vial SUBCUT DAILY [facility] Insulin Human Lispro 0 unit 09/18/20 21:00 09/22/20 20:54 Insulin Lispro 100 Unit/Ml 3 Ml Vial SUBCUT 2 unit QIDACHS [facility] Administration Protocol Losartan Potassium 25 mg 09/19/20 11:40 09/22/20 08:08 Losartan Potassium 25 Mg Tablet PO 25 mg DAILY [facility] Administration Protocol Metformin HCl 1,000 mg 09/22/20 09:00 09/22/20 20:44 Metformin Hcl 1,000 Mg Tablet PO 1,000 mg BID [facility] Administration Ondansetron HCl 4 mg 09/20/20 05:07 09/20/20 05:37 Ondansetron Hcl 4 Mg/2 Ml Vial IVPUSH 4 mg Q8H PRN Administration Nausea and Vomiting Oxycodone HCl 10 mg 09/18/20 21:00 09/22/20 20:44 Oxycodone Hcl Er 10 Mg Tab.Er.12h PO 10 mg BID [facility]ANINA Administration Oxycodone HCl 5 mg 09/18/20 16:19 09/22/20 06:34 Oxycodone Hcl Immed Release 5 Mg Tablet PO 5 mg Q6H PRN Administration Pain, Moderate (Pain Scale 4-6 Sodium Chloride 3 ml 09/18/20 16:19 09/23/20 07:34 0.9 % Sodium Chloride Flush 3 Ml Syringe IVFLUSH 3 ml QSHIFT [facility] Administration Time Spent With Patient Time: Total time spent is greater than 50% in coordination of care (as documented) at patient's floor/unit and/or counseling patient: Time with patient: 15 - 24 minutes
[2020-09-23] MEDS: Insulin Glargine,Hum.rec.anlog 100 UNIT/ML 10 ML VIAL 30 UNIT SUBCUT (08:54)
[2020-09-23] MEDS: oxyCODONE HCl ER 10 MG TAB.ER.12H PO (08:55)
[2020-09-23] MEDS: metFORMIN HCl 1,000 MG TABLET 1000 MG PO ×2 (08:55→21:13)
[2020-09-23] MEDS: Insulin Lispro 100 UNIT/ML 3 ML VIAL SUBCUT ×2 (08:55→12:35)
[2020-09-23] MEDS: glipiZIDE XL 5 MG TAB.ER.24 PO (08:55)
--- NOTE | 2020-09-23 10:05 | PC.NURSE ---
TONEY Craft/Bayron AT 0815, DTV #1 AT [id number]
[2020-09-23 11:50] LABS: Glucose, Whole Blood 186 mg/dL (60-115)
[2020-09-23 12:00] VITALS: BP 147/85; PULSE 105; RESP 16; TEMP 37; O2SAT 98
--- NOTE | 2020-09-23 12:09 | P.PNIM_ITS ---
Subjective Subjective Date of Service: 09/23/20 Interval History: knee pain, no sob Cardiovascular Cardiovascular: Reports no additional cardiovascular complaints Gastrointestinal Gastrointestinal: Reports no additional gastrointestinal complaints Physical Exam Vital Signs: Vital Signs: Last Vital Signs Temp 98.6 F 09/23/20 12:00 Pulse 105 H 09/23/20 12:00 Resp 16 09/23/20 12:00 BP 147/85 H 09/23/20 12:00 Pulse Ox 98 09/23/20 12:00 Body Mass Index 37.8 Const General: cooperative, healthy appearing and no acute distress Resp Effort & Inspection: normal respiratory effort and able to speak in complete sentences Cardio Rate: regular rate Peripheral pulses: Peripheral pulses 2+ throughout GI Palpation (GI): Soft to palpation Skin General skin exam: no rashes or lesions noted Extrem Other: Left femur incision clean, dry and intact. No erythema, mild swelling and ecchymosis. Sensation intact. Pulses present. Objective Data Current Medications Generic Name Dose Route Start Last Admin Trade Name Freq PRN Reason Stop Dose Admin Acetaminophen 650 mg 09/18/20 16:59 09/21/20 20:30 Acetaminophen 325 Mg Tablet PO 650 mg QID PRN Administration Pain, Mild (Pain Scale 1-3) Docusate Sodium 200 mg 09/18/20 16:19 Docusate Sodium 100 Mg Capsule PO ONCE [facility] Enoxaparin Sodium 40 mg 09/23/20 17:30 Enoxaparin Sodium 40 Mg/0.4 Ml Syringe SUBCUT Q24H [facility] Glipizide 5 mg 09/22/20 09:00 09/23/20 08:55 Glipizide Xl 5 Mg Tab.Er.24 PO 5 mg DAILY [facility] Administration Hydromorphone HCl 0.25 mg 09/18/20 16:19 09/23/20 07:33 Hydromorphone Hcl 0.5 Mg/0.5 Ml Syringe IVPUSH 0.25 mg Q4H PRN Administration Pain, Severe (Pain Scale 7-10) Insulin Glargine 30 unit 09/23/20 09:00 09/23/20 08:54 Insulin Glargine,Hum.Rec.Anlog 100 Unit/Ml 10 Ml Vial SUBCUT 30 unit DAILY [facility] Administration Insulin Human Lispro 0 unit 09/18/20 21:00 09/23/20 08:55 Insulin Lispro 100 Unit/Ml 3 Ml Vial SUBCUT 2 unit QIDACHS [facility] Administration Protocol Losartan Potassium 25 mg 09/19/20 11:40 09/22/20 08:08 Losartan Potassium 25 Mg Tablet PO 25 mg DAILY [facility] Administration Protocol Metformin HCl 1,000 mg 09/22/20 09:00 09/23/20 08:55 Metformin Hcl 1,000 Mg Tablet PO 1,000 mg BID [facility] Administration Ondansetron HCl 4 mg 09/20/20 05:07 09/20/20 05:37 Ondansetron Hcl 4 Mg/2 Ml Vial IVPUSH 4 mg Q8H PRN Administration Nausea and Vomiting Oxycodone HCl 10 mg 09/18/20 21:00 09/23/20 08:55 Oxycodone Hcl Er 10 Mg Tab.Er.12h PO 10 mg BID [facility] Administration Oxycodone HCl 5 mg 09/18/20 16:19 09/22/20 06:34 Oxycodone Hcl Immed Release 5 Mg Tablet PO 5 mg Q6H PRN Administration Pain, Moderate (Pain Scale 4-6 Sodium Chloride 3 ml 09/18/20 16:19 09/23/20 07:34 0.9 % Sodium Chloride Flush 3 Ml Syringe IVFLUSH 3 ml QSHIFT [facility] Administration Labs CBC & Chem 7: 09/23/20 06:19 09/23/20 06:19 Assessment and Plan (1) Anemia: Status: Acute (2) Closed left femoral fracture: Status: Acute (3) Fall: Status: Acute (4) Acute hyperglycemia: Status: Acute (5) HTN (hypertension): Status: Acute (6) Obesity: Status: Acute (7) Pre-op evaluation: Status: Acute Assessment and Plan: A 64 years old lady with PMH of diabetes, hypertension, HLD, morbid obesity who presents to the hospital after mechanical fall with left leg pain. Acute blood loss anemia post operative along with inflammatory from fracture hgb 7.8 today, asymptomatic, will monitor today, if further bleeding/hgb drop tomorrow will transfuse additional unit. lovenox on hold Fall Left distal femur fracture Day 3 post repair Morphine for pain management Physical therapy Hyperglycemia secondary to diabetes type 2 Uncontrolled diabetes type 2 HbA1c of 11.7 Started oral medications Continue insulin SSI Increased insulin Lantus to 30 units, patient will need to be discharged on insulin.
--- NOTE | 2020-09-23 15:28 | MHC.CM.PN ---
ADELFO, EUGENE, AND SAMARA NICHOLS UPDATED IN [facility]. DC PLAN SUNDAY OR SUNDAY. CASE MANAGEMENT TO CONTINUE TO FOLLOW FOR UPDATES.
[2020-09-23] MEDS: oxyCODONE HCl Immed Release 5 MG TABLET PO ×2 (15:51→21:33)
[2020-09-23 16:00] VITALS: BP 162/82; PULSE 101; RESP 17; TEMP 36.9; O2SAT 95
[2020-09-23 16:16] LABS: Glucose, Whole Blood 84 mg/dL (60-115)
--- NOTE | 2020-09-23 17:27 | W.PM.OPN ---
Operative Note Operative Note Date of Service: 09/20/20 Narrative: Pre-op diagnosis: left femur fracture Post-op diagnosis: same Procedure: ORIF left femur Implants: [place] femoral locking plate Surgeon: Higinio Segovia MD Anesthesia: GERRY Door Clamper: Kita Bolton Estimated blood loss (mL): 600 Tourniquet time (min): 0 IV fluids (mL): 1,500 Urine output (mL): 200 Pathology: none sent Condition: stable Disposition: PACU Patient was brought to the operating room and placed supine on the Bozman traction table. She was prepped and draped in standard sterile fashion and a time out was called to identify proper site, proper procedure and IV antibiotics per weight were administered. I began by making a lateral incision from the lateral joint line to the femoral mid-shaft. There was an abundance of adipose tissue and an extensive incision was required for visualization. I used the Aquamantys for hemostasis. Once through the adipose tissue the IT band was incised in line with the incision. The vastus was reflected anteriorly and the bleeders were cauterized. This was a comminuted fracture of the metadiaphysis and these fragments would not hold a screw but I was able to span the fracture and reduce the fracture with traction. Verbrugge retractors were used to reduce the bone to the plate. After confirming plate location on the lateral, the distal locking screws were placed using standard AO technique. Proximally a verbrugge was used to maintain plate position. My proximal locking screws were placed using percutaneous technique. The position of the plate and the fracture reduction were confirmed with biplanar fluoroscopy. Once satisfied with this I removed all non essential instrumentation and irrigated copiously. I performed a 3-min iodine soak and closed with absorbable sutures and skin starr. Patient was then placed in sterile dressing and extubated. She was brought to the recovery room in stable condition. There were no known complications.
[2020-09-23] MEDS: Enoxaparin Sodium 40 MG/0.4 ML SYRINGE SUBCUT (17:40)
[2020-09-23] MEDS: Acetaminophen 325 MG TABLET 650 MG PO (18:50)
[2020-09-23 20:00] VITALS: BP 144/73; PULSE 92; RESP 16; TEMP 36.1; O2SAT 95
[2020-09-23 20:49] LABS: Glucose, Whole Blood 108 mg/dL (60-115)
[2020-09-24] VITALS (11 sets, daily range): BP systolic 129–166; BP diastolic 53–80; PULSE 55–101; RESP 16–18; TEMP 35.8–36.7; O2SAT 96–99
--- NOTE | 2020-09-24 | ECG_ITS ---
Test Reason : chest pain Blood Pressure : / mmHG Vent. Rate : 108 BPM Atrial Rate : 108 BPM P-R Int : 144 ms QRS Dur : 084 ms QT Int : 340 ms P-R-T Axes : 051 044 020 degrees QTc Int : 455 ms Sinus tachycardia with frequent Premature ventricular complexes Cannot rule out inferior infarct abnormal ECG When compared with ECG of 18-SEP-2020 14:21, Nonspecific T wave abnormality, worse in Inferior leads PVCs more frequent Referred By: Kevin Saavedra Electronically Signed By:Luc Rain
[2020-09-24] MEDS: oxyCODONE HCl Immed Release 5 MG TABLET PO ×4 (04:31→23:35)
[2020-09-24] MEDS: 0.9 % Sodium Chloride Flush 3 ML SYRINGE IVFLUSH ×3 (07:26→21:13)
[2020-09-24 08:03] LABS: Glucose, Whole Blood 103 mg/dL (60-115)
[2020-09-24 08:49] LABS: Hematocrit 25.7 % (37-47); Hemoglobin 8.3 g/dl (12.0-16.0); Mean Corpuscular HGB Conc 32.3 g/dl (31.0-35.0); Mean Corpuscular Hemoglobin 30.1 pg (27.0-33.0); Mean Corpuscular Volume 93.1 fL (80-98); Mean Platelet Volume 10.5 fL (9.4-12.3); NRBC Pct Auto 0.5 /100WBC (0.0-0.2); Platelet Count 246 X10*3/uL (160-400); Red Blood Count 2.76 X10*6/uL (4.20-5.50); Red Cell Distribution Width 14.7 % (11.0-16.0); White Blood Count 8.8 X10*3/uL (4.8-10.8)
[2020-09-24 09:15] LABS: Anion Gap 13 (12-20); Blood Urea Nitrogen 10 mg/dL (9-16); Calcium 8.3 mg/dL (8.4-10.2); Carbon Dioxide 28 mmol/L (22-29); Chloride 99 mmol/L (96-108); Creatinine Clr Calc Pharmacy 111.4; Estimated Glomerular Filt Rate > 60; Glucose Random 138 mg/dL (60-115); Potassium 4.2 mmol/L (3.3-5.1); Sodium 136 mmol/L (135-145)
[2020-09-24] MEDS: glipiZIDE XL 5 MG TAB.ER.24 PO (09:25)
[2020-09-24] MEDS: metFORMIN HCl 1,000 MG TABLET 1000 MG PO ×2 (09:25→21:12)
[2020-09-24] MEDS: Insulin Glargine,Hum.rec.anlog 100 UNIT/ML 10 ML VIAL 30 UNIT SUBCUT (09:25)
--- NOTE | 2020-09-24 10:37 | P.PNIM_ITS ---
Subjective Subjective Date of Service: 09/24/20 Interval History: chest pain, sob Gastrointestinal Gastrointestinal: Reports no additional gastrointestinal complaints Genitourinary Genitourinary: Reports no additional female genitourinary complaints Physical Exam Vital Signs: Vital Signs: Last Vital Signs Temp 97.3 F 09/24/20 08:00 Pulse 98 09/24/20 08:00 Resp 16 09/24/20 08:00 BP 136/80 09/24/20 08:00 Pulse Ox 97 09/24/20 08:00 Body Mass Index 37.8 Const General: cooperative, healthy appearing and no acute distress Resp Effort & Inspection: normal respiratory effort and able to speak in complete sentences Cardio Rate: regular rate Peripheral pulses: Peripheral pulses 2+ throughout GI Palpation (GI): Soft to palpation Skin General skin exam: no rashes or lesions noted Extrem Other: Left femur incision clean, dry and intact. No erythema, mild swelling and ecchymosis. Sensation intact. Pulses present. Objective Data Current Medications Generic Name Dose Route Start Last Admin Trade Name Freq PRN Reason Stop Dose Admin Acetaminophen 650 mg 09/18/20 16:59 09/23/20 18:50 Acetaminophen 325 Mg Tablet PO 650 mg QID PRN Administration Pain, Mild (Pain Scale 1-3) Docusate Sodium 200 mg 09/18/20 16:19 Docusate Sodium 100 Mg Capsule PO ONCE JANINA Docusate Sodium 100 mg 09/23/20 21:19 Docusate Sodium 100 Mg Capsule PO BID PRN Constipation Enoxaparin Sodium 40 mg 09/23/20 17:30 09/23/20 17:40 Enoxaparin Sodium 40 Mg/0.4 Ml Syringe SUBCUT 40 mg Q24H [facility] Administration Glipizide 5 mg 09/22/20 09:00 09/24/20 09:25 Glipizide Xl 5 Mg Tab.Er.24 PO 5 mg DAILY [facility] Administration Insulin Glargine 30 unit 09/23/20 09:00 09/24/20 09:25 Insulin Glargine,Hum.Rec.Anlog 100 Unit/Ml 10 Ml Vial SUBCUT 30 unit DAILY [facility] Administration Insulin Human Lispro 0 unit 09/18/20 21:00 09/24/20 07:26 Insulin Lispro 100 Unit/Ml 3 Ml Vial SUBCUT Not Given QIDACHS [facility] Protocol Losartan Potassium 25 mg 09/19/20 11:40 09/22/20 08:08 Losartan Potassium 25 Mg Tablet PO 25 mg DAILY [facility] Administration Protocol Metformin HCl 1,000 mg 09/22/20 09:00 09/24/20 09:25 Metformin Hcl 1,000 Mg Tablet PO 1,000 mg BID [facility] Administration Ondansetron HCl 4 mg 09/20/20 05:07 09/20/20 05:37 Ondansetron Hcl 4 Mg/2 Ml Vial IVPUSH 4 mg Q8H PRN Administration Nausea and Vomiting Oxycodone HCl 5 mg 09/23/20 21:19 09/24/20 09:25 Oxycodone Hcl Immed Release 5 Mg Tablet PO 5 mg Q6H PRN Administration Breakthrough Pain Sodium Chloride 3 ml 09/18/20 16:19 09/24/20 07:26 0.9 % Sodium Chloride Flush 3 Ml Syringe IVFLUSH 3 ml QSHIFT [facility]INA Administration Labs CBC & Chem 7: 09/24/20 08:30 09/24/20 08:30 Assessment and Plan (1) Anemia: Status: Acute (2) Closed left femoral fracture: Status: Acute (3) Fall: Status: Acute (4) Acute hyperglycemia: Status: Acute (5) HTN (hypertension): Status: Acute (6) Obesity: Status: Acute (7) Pre-op evaluation: Status: Acute Assessment and Plan: A 64 years old lady with PMH of diabetes, hypertension, HLD, morbid obesity who presents to the hospital after mechanical fall with left leg pain. now complaining of chest pain Acute blood loss anemia post operative along with inflammatory from fracture hgb 8.3 today unclear if symptoms of chest pain and sob related, will transfuse 1 unit to see if helps monitor chest pain probably anxiety, but could be ischemic or due to anemia plan to transfuse 1 unit check troponin check EKG Fall Left distal femur fracture Day 4 post repair Morphine for pain management Physical therapy DM Started oral medications Continue insulin SSI Increased insulin Lantus to 30 units, patient will need to be discharged on insulin.
[2020-09-24 12:08] LABS: Glucose, Whole Blood 167 mg/dL (60-115)
[2020-09-24 12:11] LABS: Troponin-I High Sensitivity 5.6 ng/L (<3.5-17.0)
[2020-09-24] MEDS: Insulin Lispro 100 UNIT/ML 3 ML VIAL SUBCUT (12:25)
[2020-09-24] MEDS: Acetaminophen 325 MG TABLET 650 MG PO (12:26)
[2020-09-24 16:46] LABS: Glucose, Whole Blood 136 mg/dL (60-115)
[2020-09-24] MEDS: Enoxaparin Sodium 40 MG/0.4 ML SYRINGE SUBCUT (17:20)
[2020-09-24 21:05] LABS: Glucose, Whole Blood 135 mg/dL (60-115)
[2020-09-25 04:00] VITALS: BP 131/70; PULSE 89; RESP 18; TEMP 36.6; O2SAT 98
[2020-09-25] MEDS: Acetaminophen 325 MG TABLET 650 MG PO (04:36)
[2020-09-25] MEDS: oxyCODONE HCl Immed Release 5 MG TABLET PO ×2 (05:30→13:05)
[2020-09-25 07:12] LABS: MANUAL DIFF FLAG NO
[2020-09-25 07:15] LABS: Basophils Percent Auto 0.2 % (0-2); Eosinophils Absolute Auto 0.2 X10*3/uL (0.0-0.4); Hematocrit 27.8 % (37-47); Hemoglobin 9.1 g/dl (12.0-16.0); Imm Gran Pct Auto 1.2 % (0.0-0.4); Lymphocytes Absolute Auto 1.2 X10*3/uL (1.2-4.9); Lymphocytes Percent Auto 13.7 % (20-40); Mean Corpuscular HGB Conc 32.7 g/dl (31.0-35.0); Mean Corpuscular Hemoglobin 30.5 pg (27.0-33.0); Mean Corpuscular Volume 93.3 fL (80-98); Mean Platelet Volume 10.5 fL (9.4-12.3); Monocytes Absolute Auto 0.8 X10*3/uL (0.1-1.2); Monocytes Percent Auto 8.9 % (2-11); NRBC Pct Auto 0.4 /100WBC (0.0-0.2); Neutrophils Absolute Auto 6.2 X10*3/uL (2.0-8.3); Platelet Count 304 X10*3/uL (160-400); Red Blood Count 2.98 X10*6/uL (4.20-5.50); Red Cell Distribution Width 14.4 % (11.0-16.0); White Blood Count 8.4 X10*3/uL (4.8-10.8)
[2020-09-25 07:46] LABS: Glucose, Whole Blood 97 mg/dL (60-115)
[2020-09-25 07:47] LABS: Anion Gap 12 (12-20); Blood Urea Nitrogen 10 mg/dL (9-16); Calcium 8.4 mg/dL (8.4-10.2); Carbon Dioxide 28 mmol/L (22-29); Chloride 101 mmol/L (96-108); Creatinine Clr Calc Pharmacy 107.7; Estimated Glomerular Filt Rate > 60; Glucose Fasting 97 mg/dL (60-99); Sodium 137 mmol/L (135-145)
[2020-09-25 08:00] VITALS: BP 160/87; PULSE 95; RESP 17; TEMP 36.2; O2SAT 98
[2020-09-25] MEDS: Insulin Glargine,Hum.rec.anlog 100 UNIT/ML 10 ML VIAL 30 UNIT SUBCUT (08:29)
[2020-09-25] MEDS: metFORMIN HCl 1,000 MG TABLET 1000 MG PO (08:30)
[2020-09-25] MEDS: glipiZIDE XL 5 MG TAB.ER.24 PO (08:30)
[2020-09-25] MEDS: 0.9 % Sodium Chloride Flush 3 ML SYRINGE IVFLUSH (08:30)
--- NOTE | 2020-09-25 10:49 | PM.DS ---
DS: Providers Provider Date of Service: 09/25/20 Date of admission: 09/18/20 16:09 Primary care physician: Unknown Physician Consults: 09/18/20 16:19 Consult to Hospitalist Routine Consulting Provider: Hospitalist Reason For Exam: Preoperative medical clearance DS: Diagnosis Discharge Diagnosis (1) Anemia: Status: Acute (2) Closed left femoral fracture: Status: Acute (3) Fall: Status: Acute (4) Acute hyperglycemia: Status: Acute (5) HTN (hypertension): Status: Acute (6) Obesity: Status: Acute (7) Pre-op evaluation: Status: Acute DS: Medications Discharge Medications Home Medications: Home Medications Medication Instructions Recorded Confirmed glipizide 1 tab PO DAILY 09/18/20 09/18/20 losartan 1 tab PO DAILY 09/18/20 09/18/20 metformin 1 tab PO BID 09/18/20 09/18/20 simvastatin 1 tab PO BEDTIME 09/18/20 09/18/20 Previous Rx's Medication Instructions Recorded enoxaparin 40 mg SUBCUT Q24H 60 Days #24 ml 09/24/20 insulin glargine [Lantus U-100 30 unit SUBCUT DAILY #0 ml 09/25/20 Insulin] insulin lispro [Humalog U-100 See Protocol SUBCUT QIDACHS #0 ml 09/25/20 Insulin] oxycodone 5 mg PO Q6H PRN #7 tab 09/25/20 DS: Summary Hospital Course Hospital Course: Patient was admitted for mechanical fall complicated by distal left femur fracture. Patient underwent ORIF 09/20/2020. Course was complicated by acute blood loss anemia she received total 2 units of PRBC. Hemoglobin responded appropriately. Patient was also noted to have elevated blood sugars. She is normally only on oral medications for her diabetes. She was started on long-acting insulin with short-acting as needed. Course was also complicated by episode of chest pain. This was determined to be unlikely cardiac as her troponins and EKG were unremarkable. More likely it was anxiety related. Has since resolved. Patient will be discharged to long-term facility. She will continue with Lovenox for DVT prophylaxis and follow up with Orthopedics. Time Spent with Patient Time attestation: Total time spent providing and/or coordinating discharge services: Discharge coordination time: Greater than 30 minutes Physical Exam Vital Signs: Vital Signs: Last Vital Signs Temp 97.1 F 09/25/20 08:00 Pulse 95 09/25/20 08:00 Resp 17 09/25/20 08:00 BP 160/87 H 09/25/20 08:00 Pulse Ox 98 09/25/20 08:00 Body Mass Index 37.8 General: AO X 3, no acute distress Resp: CTA bilateral CVS: S1,S2,RRR GI: soft, non tender, non distended Neuro: motor grossly intact Psych: appropriate affect DS: Data Data Completed and Pending Labs on day of discharge: Laboratory Results - last 24 hr 09/22/20 09/24/20 09/24/20 10:46 11:06 11:55 WBC RBC Hgb Hct MCV MCH MCHC RDW Plt Count MPV Immature Gran % (Auto) Neut % (Auto) Lymph % (Auto) [place] % (Auto) Eos % (Auto) Baso % (Auto) Lymph # (Auto) [place] # (Auto) Eos # (Auto) Baso # (Auto) Abs Immat Gran (auto) Absolute Neuts (auto) Absolute Nucleated RBC Nucleated RBC % (auto) Sodium Potassium Chloride Carbon Dioxide Anion Gap BUN Creatinine Estim Creat Clear Calc Estimated GFR POC Glucose 167 H Random Glucose Fasting Glucose Calcium Troponin I High Sens 5.6 Blood Type A Positive Antibody Screen NEGATIVE Crossmatch See Detail 09/24/20 09/24/20 09/25/20 16:41 20:55 06:40 WBC 8.4 RBC 2.98 L Hgb 9.1 L Hct 27.8 L MCV 93.3 MCH 30.5 MCHC 32.7 RDW 14.4 Plt Count 304 MPV 10.5 Immature Gran % (Auto) 1.2 H Neut % (Auto) 74.0 H Lymph % (Auto) 13.7 L [place] % (Auto) 8.9 Eos % (Auto) 2.0 Baso % (Auto) 0.2 Lymph # (Auto) 1.2 [place] # (Auto) 0.8 Eos # (Auto) 0.2 Baso # (Auto) 0.0 Abs Immat Gran (auto) 0.10 H Absolute Neuts (auto) 6.2 Absolute Nucleated RBC 0.030 H Nucleated RBC % (auto) 0.4 H Sodium Potassium Chloride Carbon Dioxide Anion Gap BUN Creatinine Estim Creat Clear Calc Estimated GFR POC Glucose 136 H 135 H Random Glucose Fasting Glucose Calcium Troponin I High Sens Blood Type Antibody Screen Crossmatch 09/25/20 09/25/20 06:40 07:32 WBC RBC Hgb Hct MCV MCH MCHC RDW Plt Count MPV Immature Gran % (Auto) Neut % (Auto) Lymph % (Auto) [place] % (Auto) Eos % (Auto) Baso % (Auto) Lymph # (Auto) [place] # (Auto) Eos # (Auto) Baso # (Auto) Abs Immat Gran (auto) Absolute Neuts (auto) Absolute Nucleated RBC Nucleated RBC % (auto) Sodium 137 Potassium 4.0 Chloride 101 Carbon Dioxide 28 Anion Gap 12 BUN 10 Creatinine 0.59 Estim Creat Clear Calc 107.7 Estimated GFR > 60 POC Glucose 97 Random Glucose TNP Fasting Glucose 97 Calcium 8.4 Troponin I High Sens Blood Type Antibody Screen Crossmatch Discharge Plan Discharge Patient Disposition: er [facility] Referrals: Kita Bolton PA-C [Physician Timekeeper Supervisor] - (10/01/20 10:00 [facility] Kita Bolton PA-C) Discharge Medications: New enoxaparin 40 mg/0.4 mL Syringe 40 mg subcut Q24H 60 Days Qty: 24 RF: 0 oxycodone 5 mg Tablet 5 mg PO Q6H PRN (Reason: Breakthrough Pain) Qty: 7 RF: 0 Lantus U-100 Insulin 100 unit/mL Solution 30 unit subcut DAILY Qty: 0 RF: 0 insulin lispro [Humalog U-100 Insulin] 100 unit/mL Solution See Protocol unit subcut QIDACHS Qty: 0 RF: 0 Continued glipizide 5 mg tablet extended release 24hr 1 tab PO DAILY RF: 0 simvastatin 40 mg tablet 1 tab PO BEDTIME RF: 0 metformin 1,000 mg tablet 1 tab PO BID RF: 0 losartan 25 mg tablet 1 tab PO DAILY RF: 0 Discharge Orders: Discharge Order (Routine); Ordered 09/25/20 Ordered By: Kevin Saavedra Diet: regular diet Activity on Discharge: Use cane or walker Stand Alone Forms: Patient Portal Discharge page Activity Restrictions/Additional Instructions: NWB x6 weeks NWB ROM as tolerated Knee immobilizer intact on at all times-may remove with NWB ROM exercises Dressing changes prn-dry dressings Continue Lovenox 60 days No tub bath or shower-Keep dressing clean, dry and intact Follow up with orthopedics in 2 weeks Care Plan Goals: Restore function of left leg Health Concerns: Monitor h/h Monitor Blood glucose Plan of Treatment: Physical Therapy Pain management DVT prophylaxis
[2020-09-25 11:24] LABS: COVID-19 Test Negative (Negative)
--- NOTE | 2020-09-25 11:28 | MHC.CM.PN ---
PATIENT CHOOSES [facility], WHO IS ABLE TO OFFER TODAY. HCP TO BE COMPLETD AND PLACED IN CHART. [facility] IMM 09/24 IN CHART. RN AND UNIT AWARE OF PLAN.
[2020-09-25 11:31] LABS: Glucose, Whole Blood 118 mg/dL (60-115)
== END 2020-09-25 14:45 | disposition skilled nursing facility (03) | DRG 481 ==
LOC: HO.ED 15:39 → HO.EDOVER 16:32 → HO.S3 19:39
PROVIDERS: Internal Medicine; Physician Assistant; Physician Assistant Medical; Student in an Organized Health Care Education/Training Program; Admitting Provider Orthopaedic Surgery; Emergency Provider Emergency Medicine; Visit Provider Internal Medicine
DX: S72.402A Unspecified fracture of lower end of left femur, initial encounter for closed fracture (principal); D62 Acute posthemorrhagic anemia; E66.01 Morbid (severe) obesity due to excess calories; I10 Essential (primary) hypertension; E78.5 Hyperlipidemia, unspecified; E11.649 Type 2 diabetes mellitus with hypoglycemia without coma; Z68.37 Body mass index [BMI] 37.0-37.9, adult; W01.0XXA Fall on same level from slipping, tripping and stumbling without subsequent striking against object, initial encounter; Y93.E5 Activity, floor mopping and cleaning; E11.65 Type 2 diabetes mellitus with hyperglycemia; Y92.000 Kitchen of unspecified non-institutional (private) residence as the place of occurrence of the external cause; Y99.9 Unspecified external cause status; Z20.822 Contact with and (suspected) exposure to COVID-19; Z79.4 Long term (current) use of insulin; Z79.899 Other long term (current) drug therapy
CPT/HCPCS: 0241U; 36415; 71045; 73502; 73560; 73610; 73700; 80048; 80076; 80320; 81003; 82947; 83036; 83735; 84484; 85025; 85027; 85610; 85730; 86850; 86900; 86923; 87635; 93005; 96374; 96375; 97110; 97162; 97530; 99285; 99291; C1713; J0690; J1100; J1170; J1650; J2250; J2270; J2370; J2405; J3010; P9016

== ENCOUNTER → 2020-10-01 10:09 | Outpatient (BNVA) | payer MEDICARE, SELFPAY | PROVIDERS: Visit Provider Physician Assistant | DX: S72.402D Unspecified fracture of lower end of left femur, subsequent encounter for closed fracture with routine healing (principal) | CPT/HCPCS: 99212 ==

== ENCOUNTER 2020-11-01 08:17 | Outpatient (REF) | payer MEDICARE, SELFPAY ==
--- NOTE | ~2020-11-01 | XR_ITS ---
EXAMINATION: XR LEFT FEMUR AND LEFT KNEE CLINICAL INFORMATION: Fracture left femur. COMPARISON: Left hip and left knee 09/18/2020. TECHNIQUE: Left femur 2 views. Left knee 2 views. FINDINGS: Left femur: A comminuted distal femoral fracture has been stabilized with a lateral metallic plate extending from the pvx-nf-oqennd femur and stabilized with multiple screws. The fracture fragment is somewhat alignment. The soft tissues are normal. Left knee: There is mild reduction in the medial compartment joint space. The lateral compartment joint space is maintained normal. No bony erosive changes seen. The soft tissues are normal. XR/XR femur LT 2V IMPRESSION: Stabilized distal femoral comminuted fracture with a lateral metallic plate and screws in the satisfactory alignment. Degenerative arthritic changes medial compartment left knee.
--- NOTE | ~2020-11-01 | XR_ITS ---
EXAMINATION: XR LEFT FEMUR AND LEFT KNEE CLINICAL INFORMATION: Fracture left femur. COMPARISON: Left hip and left knee 09/18/2020. TECHNIQUE: Left femur 2 views. Left knee 2 views. FINDINGS: Left femur: A comminuted distal femoral fracture has been stabilized with a lateral metallic plate extending from the hai-sw-yxfueb femur and stabilized with multiple screws. The fracture fragment is somewhat alignment. The soft tissues are normal. Left knee: There is mild reduction in the medial compartment joint space. The lateral compartment joint space is maintained normal. No bony erosive changes seen. The soft tissues are normal. XR/XR knee LT 2V IMPRESSION: Stabilized distal femoral comminuted fracture with a lateral metallic plate and screws in the satisfactory alignment. Degenerative arthritic changes medial compartment left knee.
== END 2020-11-01 08:18 | disposition home or self-care (01) ==
LOC: HO.HOSX 08:17
PROVIDERS: Visit Provider Orthopaedic Surgery
DX: M25.562 Pain in left knee (principal); S72.90XD Unspecified fracture of unspecified femur, subsequent encounter for closed fracture with routine healing
CPT/HCPCS: 73552; 73560; 99212

== ENCOUNTER 2020-12-13 08:13 | Outpatient (REF) | payer MEDICARE, SELFPAY ==
--- NOTE | ~2020-12-13 | XR_ITS ---
EXAMINATION: XR KNEE, LEFT CLINICAL INFORMATION: Pain COMPARISON: Previous x-ray most recent 11/01/2020 TECHNIQUE: Two views of the left knee. FINDINGS: There is a laterally placed plate and multiple screws transfixing a severely comminuted left distal shaft fracture. Hardware appears unchanged. Fracture appears unchanged. There is arthritis at the medial femoral tibial joint with joint space narrowing and osteophyte formation. There is a small osteophyte at the quadriceps tendon insertion. There is soft tissue arterial calcification. XR/XR knee LT 2V IMPRESSION: ORIF of comminuted left distal femoral shaft fracture. This appears unchanged. Arthritis at the knee joint.
== END 2020-12-13 08:14 | disposition home or self-care (01) ==
LOC: HO.HOSX 08:13
PROVIDERS: Visit Provider Orthopaedic Surgery
DX: S72.90XD Unspecified fracture of unspecified femur, subsequent encounter for closed fracture with routine healing (principal)
CPT/HCPCS: 73560; 99212

== ENCOUNTER 2021-02-10 08:21 | Outpatient (REF) | payer MEDICARE, SELFPAY | END 2021-02-10 08:22 | disposition home or self-care (01) | LOC: HO.HOSX 08:21 | PROVIDERS: Visit Provider Orthopaedic Surgery | DX: Z13.89 Encounter for screening for other disorder (principal) ==

== ENCOUNTER 2021-02-17 08:00 | Outpatient (REF) | payer MEDICARE, SELFPAY ==
--- NOTE | ~2021-02-17 | XR_ITS ---
EXAMINATION: XR KNEE, LEFT XR FEMUR, LEFT CLINICAL INFORMATION: Fracture. Pain left knee and left femur. COMPARISON: 12/13/2020 and studies dating back to 09/18/2020. TECHNIQUE: AP and lateral views of the left knee and femur. FINDINGS: There is again noted to be a severely comminuted distal left femoral fracture involving the distal diaphysis and metaphysis which does not appear to extend into the knee joint. Side plate and screw fixation again noted without evidence of hardware fracture or failure. Fracture lines are still evident with a small amount of increase in callus formation present at the fracture site. The lateral views are not truly lateral and it is difficult to evaluate displacement of fracture fragments with question of 4 mm posterior displacement of distal fracture fragment. There is no evidence of acute fracture or dislocation of the left hip. Left hip joint space is maintained with some collar spurring present. There is spurring about the greater trochanter. There is again noted to be severe degenerative narrowing of the medial joint space compartment of the left knee. There is also narrowing with spurring involving the patellofemoral joint. XR/XR femur LT 2V IMPRESSION: Healing severely comminuted fracture distal left femur with difficulty in comparison of lateral view and dorsal displacement of a major distal fracture fragment due to obliquity of what was supposed to be the lateral view. Hardware appears intact. Degenerative change of the patellofemoral joint and medial joint space compartment of the left knee.
--- NOTE | ~2021-02-17 | XR_ITS ---
EXAMINATION: XR KNEE, LEFT XR FEMUR, LEFT CLINICAL INFORMATION: Fracture. Pain left knee and left femur. COMPARISON: 12/13/2020 and studies dating back to 09/18/2020. TECHNIQUE: AP and lateral views of the left knee and femur. FINDINGS: There is again noted to be a severely comminuted distal left femoral fracture involving the distal diaphysis and metaphysis which does not appear to extend into the knee joint. Side plate and screw fixation again noted without evidence of hardware fracture or failure. Fracture lines are still evident with a small amount of increase in callus formation present at the fracture site. The lateral views are not truly lateral and it is difficult to evaluate displacement of fracture fragments with question of 4 mm posterior displacement of distal fracture fragment. There is no evidence of acute fracture or dislocation of the left hip. Left hip joint space is maintained with some collar spurring present. There is spurring about the greater trochanter. There is again noted to be severe degenerative narrowing of the medial joint space compartment of the left knee. There is also narrowing with spurring involving the patellofemoral joint. XR/XR knee LT 2V IMPRESSION: Healing severely comminuted fracture distal left femur with difficulty in comparison of lateral view and dorsal displacement of a major distal fracture fragment due to obliquity of what was supposed to be the lateral view. Hardware appears intact. Degenerative change of the patellofemoral joint and medial joint space compartment of the left knee.
== END 2021-02-17 08:01 | disposition home or self-care (01) ==
LOC: HO.HOSX 08:00
PROVIDERS: Visit Provider Orthopaedic Surgery
DX: S72.90XD Unspecified fracture of unspecified femur, subsequent encounter for closed fracture with routine healing (principal); M25.562 Pain in left knee
CPT/HCPCS: 73552; 73560; 99212

== ENCOUNTER 2021-05-03 09:00 | Outpatient (RCR) | payer MEDICARE, SELFPAY ==
--- NOTE | 2020-11-16 14:05 | MHC.PT.PR ---
[facility] [place] [facility] [place] [facility] [place] [facility] [address] Cristobal Stewart [address] [phone] F: [phone] F: [phone] F: [phone] F: [phone] Physical Therapy Progress Note Diagnosis: unspecified Date of Surgery: 10/20/20 Date of Evaluation: 11/16/20 Treatments to Date: 1 Cancellations to Date: 0 No Shows to Date: 0 Subjective: C/O LEFT HIP AND THIGH PAIN Pain Score and Location: 6 Objective Measures: SEE EVAL Assessment: Pt is a pleasant 65 yo female s/p fall resulting in femur fracture and ORIF. Upon exam, impairments include decreased knee and hip ROM, decreased strength of lower extremity, poor gait and ability to transfer, increased pain. Functional deficits include decreased ability to perform transfers and gait, poor balance, decreased ability to perform static stand and bed mobility. She reports decreased ability to perform homemaking and self care tasks, decreased ability to perform community and fitness activities, disrupted sleep. PT Plan: Frequency and Duration: The patient will be seen 2x week for 8 weeks Treatment Plan: Therapeutic Exercise Dynamic Therapeutic Activities Neuromuscular Re-ed Manual Therapies Joint Mobilization Taping Gait Home Exercise Program Patient Education Hot or Cold Pack Reviewed/ Agreed with Student Documentation: Therapist: Thank you once again for your referral.
== END 2021-06-27 11:08 | disposition home or self-care (01) ==
LOC: HO.PT 09:00
PROVIDERS: Visit Provider Orthopaedic Surgery
DX: S72.90XD Unspecified fracture of unspecified femur, subsequent encounter for closed fracture with routine healing (principal)
CPT/HCPCS: 97110; 97116; 97140; 97161; 97530

== ENCOUNTER 2021-05-23 08:20 | Outpatient (REF) | payer MEDICARE, SELFPAY ==
--- NOTE | ~2021-05-23 | XR_ITS ---
EXAMINATION: XR FEMUR, LEFT CLINICAL INFORMATION: Fracture COMPARISON: Previous x-ray January 2021 TECHNIQUE: AP and lateral views of the left femur were obtained. FINDINGS: There is a plate and screws transfixing the distal left femoral shaft and supracondylar comminuted fracture. Orthopedic hardware appears unchanged. Fracture line is still seen. Alignment is unchanged. There are degenerative changes at the knee joint. Soft tissues are unremarkable. XR/XR femur LT 2V IMPRESSION: ORIF of left distal femoral shaft and supracondylar fracture. No change from January 2021 exam.
== END 2021-05-23 08:21 | disposition home or self-care (01) ==
LOC: HO.HOSX 08:20
PROVIDERS: Visit Provider Orthopaedic Surgery
DX: S72.90XD Unspecified fracture of unspecified femur, subsequent encounter for closed fracture with routine healing (principal)
CPT/HCPCS: 73552; 99212

== ENCOUNTER 2021-08-22 08:27 | Outpatient (REF) | payer MEDICARE, SELFPAY | END 2021-08-22 08:28 | disposition home or self-care (01) | LOC: HO.HOSX 08:27 | PROVIDERS: Visit Provider Orthopaedic Surgery | DX: Z13.89 Encounter for screening for other disorder (principal) ==

== ENCOUNTER 2021-09-05 08:07 | Outpatient (REF) | payer MEDICARE, SELFPAY | END 2021-09-05 08:08 | disposition home or self-care (01) | LOC: HO.HOSX 08:07 | PROVIDERS: Visit Provider Orthopaedic Surgery | DX: Z13.89 Encounter for screening for other disorder (principal) ==

== ENCOUNTER 2021-09-15 08:27 | Outpatient (REF) | payer MEDICARE, SELFPAY | END 2021-09-15 08:28 | disposition home or self-care (01) | LOC: HO.HOSX 08:27 | PROVIDERS: Visit Provider Orthopaedic Surgery | DX: Z13.89 Encounter for screening for other disorder (principal) ==

== ENCOUNTER 2022-01-19 16:47 | Inpatient (IN) | payer OTHER, SELFPAY ==
--- NOTE | ~2022-01-19 | XR_ITS ---
EXAMINATION: XR KNEE, LEFT CLINICAL INFORMATION: Fall, pain. COMPARISON: Radiograph of the left knee dated from 12/13/2020. TECHNIQUE: Four views of the left knee. FINDINGS: Decreased bone density. Redemonstration of lateral fixation plate along the femur with multiple traversing screws. No evidence of hardware failure. Again noted significantly comminuted fracture of the distal left femoral shaft with signs of osseous bridging manifested by less distinct fracture lines. Alignment is unchanged. Diffuse nonspecific soft tissue swelling. No joint effusion. No unexpected radiopaque foreign bodies. XR/XR knee LT 3V IMPRESSION: 1. Intact hardware. 2. Healing a significantly comminuted distal left femoral shaft fracture.
--- NOTE | ~2022-01-19 | XR_ITS ---
EXAMINATION: XR BILATERAL HIPS WITH AP PELVIS CLINICAL INFORMATION: Fall, pain. COMPARISON: Radiograph of the left femur dated from 05/23/2021. Radiograph of the left hip dated from 09/18/2020. TECHNIQUE: AP view of the pelvis and single views of each hip were obtained. FINDINGS: No acute fracture or malalignment. The femoral heads are well-seated in their respective acetabula. Sacroiliac joints are symmetric. Pubic symphysis is maintained. 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 Partially imaged left femoral hardware. No unexpected radiopaque foreign bodies. XR/XR hips DEO min 3V IMPRESSION: No acute fractures or malalignment.
--- NOTE | ~2022-01-19 | XR_ITS ---
EXAMINATION: XR CHEST CLINICAL INFORMATION: Fever COMPARISON: Chest x-ray 09/18/2020 TECHNIQUE: Frontal view of the chest was obtained. FINDINGS: Cardiac silhouette is normal in size. The lungs are mildly hypoinflated. There is no gross lobar consolidation. No pleural effusion or pneumothorax. Degenerative changes of the spine. XR/XR chest 1V IMPRESSION: Hypoinflated lungs without acute pulmonary pathology.
--- NOTE | ~2022-01-19 | CT_ITS ---
EXAMINATION: CT cervical spine wo con, CT head/brain wo con INDICATION INFORMATION: Reason for Exam headache and neck pain s/p fall COMPARISON: None TECHNIQUE: Separate noncontrast CT examinations of the head and cervical spine were performed. Coronal and sagittal images were created for each examination at the technologist workstation. This CT examination was performed using dose optimization techniques as appropriate, variously including the following: *Automated exposure control *Adjustment of mA and/or kV according to patient size (this includes techniques or standardized protocols for targeted exams where dose is matched to indication/reason for exam; i.e. extremities or head) *Use of iterative reconstruction technique DLP: 1364 mGy-cm FINDINGS: Head: Imaging of the skull base is motion degraded. No acute osseous or soft tissue abnormality. Degenerative changes of the left temporal mandibular joint The mastoid air cells and visualized portions of the paranasal sinuses are well aerated. There is no evidence of acute intracranial hemorrhage or territorial infarction. No abnormal mass effect or midline shift is seen. Dial to white matter differentiation is well preserved. No extra-axial fluid collections are identified. No hydrocephalus. Proportional prominence of the ventricles and sulcal spaces is consistent with mild volume loss. Confluent periventricular and deep white matter hypoattenuation is consistent with moderate to severe small vessel ischemic changes. Cervical spine: There is no evidence of acute cervical spine fracture. Vertebral bodies remain normal in height. Reversal of the normal cervical lordosis. Mild degenerative disc disease and arthrosis of the atlantodental articulation. No pre- or paravertebral soft tissue abnormality is identified. Visualized portions of the lung apices are unremarkable. The thyroid gland is unremarkable. CT/CT cervical spine wo con IMPRESSION: 1. Within the limitations of motion, no acute intracranial abnormality. 2. 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 3. No cervical spine fracture or traumatic malalignment.
--- NOTE | ~2022-01-19 | CT_ITS ---
EXAMINATION: CT ABDOMEN AND PELVIS WITHOUT CONTRAST CLINICAL INFORMATION: UTI, fever Stones. COMPARISON: CT abdomen and pelvis without contrast 07/12/2018 TECHNIQUE: Multidetector volumetric imaging was performed from the superior aspect of the liver through the pubic symphysis. Sagittal and coronal reformatted images were obtained on the technologist's workstation. This CT examination was performed using dose optimization techniques as appropriate, variously including the following: *Automated exposure control *Adjustment of mA and/or kV according to patient size (this includes techniques or standardized protocols for targeted exams where dose is matched to indication/reason for exam; i.e. extremities or head) *Use of iterative reconstruction technique DLP: 1053 mGy-cm FINDINGS: LUNG BASES: There is bibasilar minimal dependent atelectasis. Heart size is normal. LIVER, GALLBLADDER, AND BILIARY TREE: The liver is normal in size, shape, and attenuation. There is a 6 mm calcification posterior segment right hepatic lobe no other focal lesion or intrahepatic ductal dilatation seen. The gallbladder is unremarkable with no evidence of radiopaque gallstones, gallbladder wall thickening, or obvious pericholecystic inflammatory changes. PANCREAS: Unremarkable. SPLEEN: Unremarkable. ADRENAL GLANDS: Unremarkable. KIDNEYS AND URETERS: The kidneys are normal in size, shape, and attenuation. No hydronephrosis, hydroureter, or calculi seen. No perinephric stranding. BLADDER: Unremarkable. GASTROINTESTINAL TRACT: There is scattered and gas seen throughout the colon without distention. The appendix is normal caliber. The stomach is nondistended and appears unremarkable. No free air or free fluid seen. ABDOMINAL WALL: Small lumbar canal hernia containing fat is noted. There are punctate gas bubble seen in right and left abdominal wall negative from subcutaneous injection LYMPH NODES: Normal. VASCULAR: Atherosclerotic changes of abdominal aorta are seen without aneurysmal dilatation PELVIC VISCERA: The uterus is surgically absent. No adnexal mass or free fluid seen no evidence of femoral hernia or pelvic lymph nodes. OSSEOUS STRUCTURES: There is old L5 compression fracture. There are degenerative disc changes with vacuum disc phenomena and ventral spondylosis L3-for L4-L5 disc levels. CT/CT abdomen pelvis wo con IMPRESSION: No acute intra-abdominal process seen. Mild constipation. No obstruction. No radiopaque renal calculi or hydroureteronephrosis. Fleischner guidelines were followed.
[2022-01-19 16:57] VITALS: BP 132/61; BP 146/90; PULSE 136; PULSE 137; RESP 18; TEMP 38.7; O2SAT 91; O2SAT 92; BMI 40.7
--- NOTE | 2022-01-19 17:11 | PC.NURSE ---
Patient tachycardic 130's placed on 2l nasal cannula pre-oxygen 89-91%. Dr. Han notified. awaiting orders.
--- NOTE | 2022-01-19 17:14 | ED.GENADULT ---
HPI - General Adult General Chief complaint: Fever Stated complaint: FALL, AMS, +LOC Time Seen by Provider: 01/19/22 17:14 Source: patient Mode of arrival: EMS Limitations: no limitations History of Present Illness HPI narrative: Patient was not feeling well for last 2 days having fever increased urination little confusion , last night was in the shower felt weak and slumped down in the bathtub without any loss of conscious patient hit her left side of the head to the side of the wall no other significant bony injury vomited 1 time prior to arrival. Patient also fell 2 days ago as she was feeling weak at that time. No headache no neck pain no cough no abdominal pain no rash no other family member sick with not eating well for last 2 days also and feels weak Related Data Home Medications Medication Instructions Recorded Confirmed glipizide 5 mg tablet, extended 1 tab PO DAILY 09/18/20 01/19/22 release 24 hr losartan 25 mg tablet 1 tab PO DAILY 09/18/20 01/19/22 metformin 1,000 mg tablet 1 tab PO BID 09/18/20 01/19/22 simvastatin 40 mg tablet 1 tab PO BEDTIME 09/18/20 01/19/22 sennosides 8.6 mg tablet (Maranda-pinky) 0 mg PO 02/17/21 sertraline 50 mg tablet 0 mg PO 02/17/21 albuterol sulfate 90 mcg/actuation inh inhalation 01/19/22 aerosol inhaler aripiprazole 2 mg tablet 1 tab PO DAILY 01/19/22 01/19/22 hydroxyzine HCl 10 mg tablet 1 tab PO BID 01/19/22 01/19/22 lorazepam 0.5 mg tablet 1 tab PO BID PRN Anxiety 01/19/22 01/19/22 Previous Rx's Medication Instructions Recorded enoxaparin 40 mg/0.4 mL 40 mg (0.4 mL) subcut Q24H 60 days 09/24/20 subcutaneous syringe #24 mL insulin glargine 100 unit/mL 30 unit (0.3 mL) subcut DAILY #0 mL 09/25/20 subcutaneous solution (Lantus U-100 Insulin) insulin lispro 100 unit/mL See Protocol subcut QIDACHS #0 mL 09/25/20 subcutaneous solution (Humalog U-100 Insulin) oxycodone 5 mg tablet 5 mg PO Q12H PRN Breakthrough Pain 10/25/20 #30 tabs Allergies Allergy/AdvReac Type Severity Reaction Status Date / Time No Known Allergies Allergy Verified 05/23/21 09:35 Review of Systems Review of Systems: Yes all other systems are reviewed and are negative [facility] Past Medical History Medical History Acute hyperglycemia Anemia Diabetes Fall High cholesterol HTN (hypertension) Obesity Pre-op evaluation Social History Social History Household Members: None Housing: House Alcohol intake: never Patient Tobacco Use Status: Never used Tobacco Use of substances other than those prescribed or required for medical reasons: No Advance Directives: Yes Advance Directives on File: Yes Advance Directives Date on File: 09/27/20 service: No Current occupational status: retired Physical Exam ED Vital Signs: Vital Signs - 24 hr 01/19/22 16:57 01/19/22 19:40 01/19/22 20:47 Temperature 101.7 F H 98.9 F 98.9 F Pulse Rate 137 H 99 91 Respiratory Rate 18 16 16 Blood Pressure 132/61 124/59 L 107/48 L Pulse Oximetry 91 L 97 96 Oxygen Delivery Method Room Air Nasal Cannula Nasal Cannula Oxygen Flow Rate 2 2 BMI result Body Mass Index 40.7 Appearance: Alert. Oriented X3. No acute distress. Eyes: PERRLA, No Nystagmus ENT: Pharynx normal. Oral Mucosa dry, atraumatic normocephalic Neck: Normal inspection. Neck supple. CVS: Normal heart rate and rhythm. Pulses normal. Respiratory: No respiratory distress. Equal air entry bilateral, no wheezing/rales/rhonchi Abdomen: Soft and nontender. Bowel sounds are present, no mass palpable, no CVA tenderness Skin: Skin warm and dry. Normal skin color. Normal skin turgor. Extremities: No lower extremity edema. No calf tenderness Neuro: Oriented X 3. No motor deficit. No sensory deficit.No cerebellar signs , cranial nerves II-XII intact Medical Decision Making MDM Narrative Medical decision making narrative: 21:45 Patient with UTI with increased confusion and fever with lactic acidosis and leukocytosis meeting the criteria for sepsis. Patient not in septic shock Patient received IV fluids IV antibiotics will admit patient for IV antibiotic treatment. Patient head CT C-spine CT negative Lab Data Lab results reviewed: Yes I reviewed the patient's lab results. Result diagrams: 01/19/22 17:40 01/19/22 18:00 Labs: Lab Results 01/19/22 01/19/22 01/19/22 Range/Units 17:40 17:40 17:40 WBC 14.2 H (4.8-10.8) X10*3/uL RBC 4.86 (4.20-5.50) X10*6/uL Hgb 13.6 (12.0-16.0) g/dl Hct 41.8 (37.0-47.0) % MCV 86.0 (80.0-98.0) fL MCH 28.0 (27.0-33.0) pg MCHC 32.5 (31.0-35.0) g/dl RDW 15.2 (11.0-16.0) % Plt Count Not Reportable MPV Not Reportable Immature Gran % (Auto) 0.8 H (0.0-0.4) % Neut % (Auto) 89.9 H (45-73) % Lymph % (Auto) 3.0 L (20-40) % [place] % (Auto) 6.0 (2-11) % Eos % (Auto) 0.1 (0-4) % Baso % (Auto) 0.2 (0-2) % Lymph # (Auto) 0.4 L (1.2-4.9) X10*3/uL [place] # (Auto) 0.9 (0.1-1.2) X10*3/uL Eos # (Auto) 0.0 (0.0-0.4) X10*3/uL Baso # (Auto) 0.0 (0.0-0.2) X10*3/uL Abs Immat Gran (auto) 0.11 H (0.00-0.03) X10*3/uL Absolute Neuts (auto) 12.7 H (2.0-8.3) x10*3/uL Absolute Nucleated RBC 0.000 (0.0-0.012) X10*3/uL Nucleated RBC % (auto) 0.0 (0.0-0.2) /100WBC Smear Tech's Comments VERIFIED Sodium (135-145) mmol/L Potassium (3.3-5.1) mmol/L Chloride (96-108) mmol/L Carbon Dioxide (22-29) mmol/L Anion Gap (12-20) BUN (9-16) mg/dL Creatinine (0.5-1.4) mg/dL Estim Creat Clear Calc Estimated GFR POC Glucose (60-115) mg/dL Random Glucose (60-115) mg/dL Lactic Acid 3.6 H* (0.5-2.0) mmol/L Lactic Acid F/U @ 2Hr (0.5-2.0) mmol/L Calcium (8.4-10.2) mg/dL Total Bilirubin (0.0-1.0) mg/dL AST (5-31) U/L ALT (0-31) U/L Alkaline Phosphatase (39-117) U/L Total Protein (6.5-8.0) g/dL Albumin (3.5-5.0) g/dL Urine Color Urine Appearance Urine pH (5.0-8.0) Ur Specific [place] (1.005-1.025) Urine Protein (NEG-TRACE) MG/DL Urine Glucose (UA) (NEG) MG/DL Urine Ketones (NEG) MG/DL Urine Blood (NEG) Urine Nitrite (NEG) Ur Leukocyte Esterase (NEG) Urine RBC (0) /HPF Urine WBC (0-4) /HPF Urine WBC Clumps Ur Squamous Epith Cells /LPF Urine Bacteria /LPF COVID-19 (FRANCISCO) Negative (Negative) COVID-19 Clin Com See Note 01/19/22 01/19/22 01/19/22 Range/Units 18:00 20:11 21:06 WBC (4.8-10.8) X10*3/uL RBC (4.20-5.50) X10*6/uL Hgb (12.0-16.0) g/dl Hct (37.0-47.0) % MCV (80.0-98.0) fL MCH (27.0-33.0) pg MCHC (31.0-35.0) g/dl RDW (11.0-16.0) % Plt Count MPV Immature Gran % (Auto) (0.0-0.4) % Neut % (Auto) (45-73) % Lymph % (Auto) (20-40) % [place] % (Auto) (2-11) % Eos % (Auto) (0-4) % Baso % (Auto) (0-2) % Lymph # (Auto) (1.2-4.9) X10*3/uL [place] # (Auto) (0.1-1.2) X10*3/uL Eos # (Auto) (0.0-0.4) X10*3/uL Baso # (Auto) (0.0-0.2) X10*3/uL Abs Immat Gran (auto) (0.00-0.03) X10*3/uL Absolute Neuts (auto) (2.0-8.3) x10*3/uL Absolute Nucleated RBC (0.0-0.012) X10*3/uL Nucleated RBC % (auto) (0.0-0.2) /100WBC Smear Tech's Comments Sodium 137 (135-145) mmol/L Potassium 4.1 (3.3-5.1) mmol/L Chloride 104 (96-108) mmol/L Carbon Dioxide 22 (22-29) mmol/L Anion Gap 15 (12-20) BUN 15 (9-16) mg/dL Creatinine 0.84 (0.5-1.4) mg/dL Estim Creat Clear Calc 76.8 Estimated GFR > 60 POC Glucose (60-115) mg/dL Random Glucose 217 H (60-115) mg/dL Lactic Acid (0.5-2.0) mmol/L Lactic Acid F/U @ 2Hr 2.0 (0.5-2.0) mmol/L Calcium 8.8 (8.4-10.2) mg/dL Total Bilirubin 0.4 (0.0-1.0) mg/dL AST 31 D (5-31) U/L ALT 32 H (0-31) U/L Alkaline Phosphatase 122 H (39-117) U/L Total Protein 6.5 (6.5-8.0) g/dL Albumin 3.6 (3.5-5.0) g/dL Urine Color YELLOW Urine Appearance CLOUDY Urine pH 5.5 (5.0-8.0) Ur Specific [place] 1.020 (1.005-1.025) Urine Protein 1+ H (NEG-TRACE) MG/DL Urine Glucose (UA) NEG (NEG) MG/DL Urine Ketones NEG (NEG) MG/DL Urine Blood 1+ H (NEG) Urine Nitrite POS H (NEG) Ur Leukocyte Esterase 3+ H (NEG) Urine RBC 1-4 (0) /HPF Urine WBC 50-75 H (0-4) /HPF Urine WBC Clumps NOTED Ur Squamous Epith Cells NONE /LPF Urine Bacteria 3+ /LPF COVID-19 ([facility]ISCO) (Negative) COVID-19 Clin Com 01/19/22 Range/Units 21:54 WBC (4.8-10.8) X10*3/uL RBC (4.20-5.50) X10*6/uL Hgb (12.0-16.0) g/dl Hct (37.0-47.0) % MCV (80.0-98.0) fL MCH (27.0-33.0) pg MCHC (31.0-35.0) g/dl RDW (11.0-16.0) % Plt Count MPV Immature Gran % (Auto) (0.0-0.4) % Neut % (Auto) (45-73) % Lymph % (Auto) (20-40) % [place] % (Auto) (2-11) % Eos % (Auto) (0-4) % Baso % (Auto) (0-2) % Lymph # (Auto) (1.2-4.9) X10*3/uL [place] # (Auto) (0.1-1.2) X10*3/uL Eos # (Auto) (0.0-0.4) X10*3/uL Baso # (Auto) (0.0-0.2) X10*3/uL Abs Immat Gran (auto) (0.00-0.03) X10*3/uL Absolute Neuts (auto) (2.0-8.3) x10*3/uL Absolute Nucleated RBC (0.0-0.012) X10*3/uL Nucleated RBC % (auto) (0.0-0.2) /100WBC Smear Tech's Comments Sodium (135-145) mmol/L Potassium (3.3-5.1) mmol/L Chloride (96-108) mmol/L Carbon Dioxide (22-29) mmol/L Anion Gap (12-20) BUN (9-16) mg/dL Creatinine (0.5-1.4) mg/dL Estim Creat Clear Calc Estimated GFR POC Glucose 157 H (60-115) mg/dL Random Glucose (60-115) mg/dL Lactic Acid (0.5-2.0) mmol/L Lactic Acid F/U @ 2Hr (0.5-2.0) mmol/L Calcium (8.4-10.2) mg/dL Total Bilirubin (0.0-1.0) mg/dL AST (5-31) U/L ALT (0-31) U/L Alkaline Phosphatase (39-117) U/L Total Protein (6.5-8.0) g/dL Albumin (3.5-5.0) g/dL Urine Color Urine Appearance Urine pH (5.0-8.0) Ur Specific [place] (1.005-1.025) Urine Protein (NEG-TRACE) MG/DL Urine Glucose (UA) (NEG) MG/DL Urine Ketones (NEG) MG/DL Urine Blood (NEG) Urine Nitrite (NEG) Ur Leukocyte Esterase (NEG) Urine RBC (0) /HPF Urine WBC (0-4) /HPF Urine WBC Clumps Ur Squamous Epith Cells /LPF Urine Bacteria /LPF COVID-19 ([facility]ISCO) (Negative) COVID-19 Clin Com ECG Data Attestation: I personally reviewed and interpreted this ECG as follows: Interpretation: Sinus tachycardia heart rate of 101 beats per minute nonspecific ST T wave changes no acute ischemia Discharge Plan Discharge Clinical Impression: Sepsis, Pyelonephritis Patient Disposition: Admitted As Inpatient
[2022-01-19] MEDS: 0.9 % Sodium Chloride 1,000 ML 999 ML IV ×3 (17:46→22:24)
[2022-01-19 17:50] LABS: Eosinophils Percent Auto 0.1 % (0-4); Lymphocytes Absolute Auto 0.4 X10*3/uL (1.2-4.9); Monocytes Absolute Auto 0.9 X10*3/uL (0.1-1.2); PLT CLUMP 1; SCAN SMEAR FLAG 1
[2022-01-19 17:52] LABS: Basophils Percent Auto 0.2 % (0-2); Hematocrit 41.8 % (37.0-47.0); Hemoglobin 13.6 g/dl (12.0-16.0); Imm Gran Abs Auto 0.11 X10*3/uL (0.00-0.03); Imm Gran Pct Auto 0.8 % (0.0-0.4); MANUAL DIFF FLAG SCAN; Mean Corpuscular HGB Conc 32.5 g/dl (31.0-35.0); Neutrophils Absolute Auto 12.7 x10*3/uL (2.0-8.3); Neutrophils Percent Auto 89.9 % (45-73); Red Blood Count 4.86 X10*6/uL (4.20-5.50); Red Cell Distribution Width 15.2 % (11.0-16.0)
[2022-01-19] MEDS: Ibuprofen 600 MG TABLET PO (17:55)
[2022-01-19] MEDS: Acetaminophen 325 MG TABLET 650 MG PO (17:55)
--- NOTE | 2022-01-19 17:56 | ECG_ITS ---
Test Reason : fall Blood Pressure : / mmHG Vent. Rate : 101 BPM Atrial Rate : 101 BPM P-R Int : 156 ms QRS Dur : 086 ms QT Int : 344 ms P-R-T Axes : 031 059 -06 degrees QTc Int : 446 ms Sinus tachycardia Nonspecific ST and T wave abnormality Abnormal ECG When compared with ECG of 24-SEP-2020 15:38, Premature ventricular complexes are no longer Present Referred By: Anastacio Maddox Electronically Signed By:ANGELIQUE BOOKER
[2022-01-19 18:05] LABS: COVID-19 Test Negative (Negative)
[2022-01-19 18:22] LABS: Lactic Acid 3.6 mmol/L (0.5-2.0)
[2022-01-19 18:30] LABS: White Blood Count 14.2 X10*3/uL (4.8-10.8)
[2022-01-19 18:31] LABS: SLIDE REVIEW VERIFIED
[2022-01-19 18:32] LABS: Alanine Aminotransferase 32 U/L (0-31); Albumin Level 3.6 g/dL (3.5-5.0); Alkaline Phosphatase 122 U/L (39-117); Anion Gap 15 (12-20); Aspartate Amino Transferase 31 U/L (5-31); Bilirubin Total 0.4 mg/dL (0.0-1.0); Blood Urea Nitrogen 15 mg/dL (9-16); Calcium 8.8 mg/dL (8.4-10.2); Carbon Dioxide 22 mmol/L (22-29); Chloride 104 mmol/L (96-108); Creatinine Clr Calc Pharmacy 76.8; Estimated Glomerular Filt Rate > 60; Glucose Random 217 mg/dL (60-115); Potassium 4.1 mmol/L (3.3-5.1); Sodium 137 mmol/L (135-145); Total Protein 6.5 g/dL (6.5-8.0)
[2022-01-19] MEDS: cefTRIAXone sodium 1 GM in 0.9 % Sodium Chloride 50 ML IV (19:39)
[2022-01-19 19:40] VITALS: BP 124/59; PULSE 99; RESP 16; TEMP 37.2; O2SAT 97
[2022-01-19 19:47] LABS: Reflex Lactate? Lactic Acid Added
[2022-01-19 20:47] VITALS: BP 107/48; PULSE 91; RESP 16; TEMP 37.2; O2SAT 96
[2022-01-19 21:13] LABS: Appearance Urine CLOUDY; Color Urine YELLOW; Glucose Urine UA NEG (NEG); Leukocyte Esterase Urine 3+ (NEG); Nitrite Urine POS (NEG); PH 5.5 (5.0-8.0); UACC Culture Trigger YES; Urine Blood 1+ (NEG); Urine Ketones NEG (NEG); Urine Protein 1+ MG/DL (NEG-TRACE)
[2022-01-19 21:20] LABS: Bacteria Urine 3+ /LPF; WBC Clumps Urine NOTED; WBC Urine 50-75 /HPF (0-4)
[2022-01-19 21:58] LABS: Glucose, Whole Blood 157 mg/dL (60-115)
--- NOTE | 2022-01-19 23:22 | PM.IMHP ---
History of Present Illness Date of Service: 01/19/22 Chief Complaint: weak, tired, fever This is a 66-year-old female with past medical history of hypertension, diabetes, presents to the hospital with complaints of feeling generally unwell, having multiple falls, feeling tired fatigued, felt feverish, has chills, reports feeling hurt all over her body, had an episode of vomiting while with EMS, as well as urinary frequency and dysuria. Patient denies any chest pain, no shortness of breath, no abdominal pain no lower extremity edema. Headache or change in vision. On arrival to the ED patient found to have a fever of 101.7, heart rate of 137, satting 91% on room air Labs are significant for WBC count of 14.2, lactic acid of 3.6, ALT 32, alk-phos of 122, UA positive for nitrites, WBC and leukocyte Estrace Patient started on IV antibiotics and will be admitted for further management Review of Systems Review of Systems: Yes all other systems are reviewed and are negative [facility] Medical History Acute hyperglycemia Anemia Diabetes Fall High cholesterol HTN (hypertension) Obesity Pre-op evaluation Social History Household Members: None Housing: House Alcohol intake: never Patient Tobacco Use Status: Never used Tobacco Use of substances other than those prescribed or required for medical reasons: No Advance Directives: Yes Advance Directives on File: Yes Advance Directives Date on File: 09/27/20 service: No Current occupational status: retired Meds Allergies Allergy/AdvReac Type Severity Reaction Status Date / Time No Known Allergies Allergy Verified 05/23/21 09:35 Home Medications Medication Instructions Recorded Confirmed Last Taken Type glipizide 5 mg tablet, extended 1 tab PO DAILY 09/18/20 01/19/22 Unknown History release 24 hr losartan 25 mg tablet 1 tab PO DAILY 09/18/20 01/19/22 Unknown History metformin 1,000 mg tablet 1 tab PO BID 09/18/20 01/19/22 Unknown History simvastatin 40 mg tablet 1 tab PO BEDTIME 09/18/20 01/19/22 Unknown History sennosides 8.6 mg tablet (Maranda-pinky) 0 mg PO 02/17/21 Unknown History sertraline 50 mg tablet 0 mg PO 02/17/21 Unknown History albuterol sulfate 90 mcg/actuation inh inhalation 01/19/22 Unknown History aerosol inhaler aripiprazole 2 mg tablet 1 tab PO DAILY 01/19/22 01/19/22 Unknown History hydroxyzine HCl 10 mg tablet 1 tab PO BID 01/19/22 01/19/22 Unknown History lorazepam 0.5 mg tablet 1 tab PO BID PRN Anxiety 01/19/22 01/19/22 Unknown History Physical Exam Vital Signs and Narrative: Vital Signs: Last Vital Signs Temp 98.9 F 01/19/22 20:47 Pulse 91 01/19/22 20:47 Resp 16 01/19/22 20:47 BP 107/48 L 01/19/22 20:47 Pulse Ox 96 01/19/22 20:47 O2 Del Method 01/19/22 20:47 O2 Flow Rate 2 01/19/22 20:47 BMI result Body Mass Index 40.7 Const: General: cooperative and no acute distress Orientation/consciousness: patient oriented x3 Eyes: General: appearance normal, both eyes and all related structures Resp: Effort & Inspection: normal respiratory effort Auscultation: clear to auscultation bilaterally Cardio: Rate: regular rate Rhythm: regular rhythm GI: Palpation (GI): Soft to palpation Auscultation: normal bowel sounds Skin: General skin exam: no rashes or lesions noted Neuro: General: patient oriented x3 Cognition (Neuro): normal cognition Extrem: General: Yes normal to inspection and Yes no pedal edema Results Labs CBC and Chem 7: 01/20/22 05:41 01/19/22 18:00 Labs: Laboratory Results - last 24 hr 01/19/22 01/19/22 01/19/22 17:40 17:40 17:40 MCV 86.0 MCH 28.0 MCHC 32.5 RDW 15.2 Plt Count Not Reportable MPV Not Reportable Immature Gran % (Auto) 0.8 H Neut % (Auto) 89.9 H Lymph % (Auto) 3.0 L [place] % (Auto) 6.0 Eos % (Auto) 0.1 Baso % (Auto) 0.2 Lymph # (Auto) 0.4 L [place] # (Auto) 0.9 Eos # (Auto) 0.0 Baso # (Auto) 0.0 Abs Immat Gran (auto) 0.11 H Absolute Neuts (auto) 12.7 H Absolute Nucleated RBC 0.000 Nucleated RBC % (auto) 0.0 Smear Tech's Comments VERIFIED Anion Gap Estim Creat Clear Calc Estimated GFR POC Glucose Random Glucose Lactic Acid 3.6 H* Lactic Acid F/U @ 2Hr Calcium Total Bilirubin AST ALT Alkaline Phosphatase Total Protein Albumin Urine Color Urine Appearance Urine pH Ur Specific [place] Urine Protein Urine Glucose (UA) Urine Ketones Urine Blood Urine Nitrite Ur Leukocyte Esterase Urine RBC Urine WBC Urine WBC Clumps Ur Squamous Epith Cells Urine Bacteria COVID-19 ([facility]) Negative COVID-19 Clin Com See Note 01/19/22 01/19/22 01/19/22 18:00 20:11 21:06 MCV MCH MCHC RDW Plt Count MPV Immature Gran % (Auto) Neut % (Auto) Lymph % (Auto) [place] % (Auto) Eos % (Auto) Baso % (Auto) Lymph # (Auto) [place] # (Auto) Eos # (Auto) Baso # (Auto) Abs Immat Gran (auto) Absolute Neuts (auto) Absolute Nucleated RBC Nucleated RBC % (auto) Smear Tech's Comments Anion Gap 15 Estim Creat Clear Calc 76.8 Estimated GFR > 60 POC Glucose Random Glucose 217 H Lactic Acid Lactic Acid F/U @ 2Hr 2.0 Calcium 8.8 Total Bilirubin 0.4 AST 31 D ALT 32 H Alkaline Phosphatase 122 H Total Protein 6.5 Albumin 3.6 Urine Color YELLOW Urine Appearance CLOUDY Urine pH 5.5 Ur Specific [place] 1.020 Urine Protein 1+ H Urine Glucose (UA) NEG Urine Ketones NEG Urine Blood 1+ H Urine Nitrite POS H Ur Leukocyte Esterase 3+ H Urine RBC 1-4 Urine WBC 50-75 H Urine WBC Clumps NOTED Ur Squamous Epith Cells NONE Urine Bacteria 3+ COVID-19 ([facility]) COVID-19 Clin Com 01/19/22 21:54 MCV MCH MCHC RDW Plt Count MPV Immature Gran % (Auto) Neut % (Auto) Lymph % (Auto) [place] % (Auto) Eos % (Auto) Baso % (Auto) Lymph # (Auto) [place] # (Auto) Eos # (Auto) Baso # (Auto) Abs Immat Gran (auto) Absolute Neuts (auto) Absolute Nucleated RBC Nucleated RBC % (auto) Smear Tech's Comments Anion Gap Estim Creat Clear Calc Estimated GFR POC Glucose 157 H Random Glucose Lactic Acid Lactic Acid F/U @ 2Hr Calcium Total Bilirubin AST ALT Alkaline Phosphatase Total Protein Albumin Urine Color Urine Appearance Urine pH Ur Specific [place] Urine Protein Urine Glucose (UA) Urine Ketones Urine Blood Urine Nitrite Ur Leukocyte Esterase Urine RBC Urine WBC Urine WBC Clumps Ur Squamous Epith Cells Urine Bacteria COVID-19 ([facility]) COVID-19 Clin Com Imaging Radiologist's Impressions: Impressions Chest X-Ray 01/19/22 17:56 IMPRESSION: Hypoinflated lungs without acute pulmonary pathology. Cervical Spine CT 01/19/22 19:42 IMPRESSION: 1. Within the limitations of motion, no acute intracranial abnormality. 2. 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 3. No cervical spine fracture or traumatic malalignment. Head CT 01/19/22 19:42 IMPRESSION: 1. Within the limitations of motion, no acute intracranial abnormality. 2. 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 3. No cervical spine fracture or traumatic malalignment. Assessment and Plan (1) Sepsis: Status: Acute (2) UTI (urinary tract infection): Status: Acute Plan 66-year-old with history of hypertension diabetes presents to the hospital with complaints of generalized weakness, falls found to have sepsis # sepsis - secondary to UTI - has fever, tachycardia, leukocytosis - will treat with IV antibiotics - follow cultures # acute UTI - positive UA - IV antibiotics - follow cultures # diabetes - low-dose sliding scale insulin - continue home glargine - diabetic diet # hypertension - stable - continue home medication DVT prophylaxis: Lovenox Given sepsis and need for IV antibiotics patient will require minimal 2 night hospital stay for further management Quality Stroke Does the patient have a stroke diagnosis?: No VTE Prior VTE?: No VTE Risk Level:: Medical - moderate - high VTE Device Contraindication: Treatment Not Indicated VTE Drug Contraindication: N/A - Med Ordered
[2022-01-19 23:59] VITALS: BP 119/67; PULSE 79; RESP 18; TEMP 36.3; O2SAT 98
[2022-01-20] VITALS (8 sets, daily range): BP systolic 119–150; BP diastolic 49–95; PULSE 74–97; RESP 16–24; TEMP 36.3–37.4; O2SAT 95–97
[2022-01-20] MEDS: Acetaminophen 325 MG TABLET 650 MG PO (01:40)
[2022-01-20] MEDS: Enoxaparin Sodium 40 MG/0.4 ML SYRINGE SUBCUT ×2 (01:40→23:22)
[2022-01-20] MEDS: Lactated Ringers 1,000 ML 100 ML IVCONT ×2 (01:40→11:31)
[2022-01-20 06:42] LABS: MANUAL DIFF FLAG NO
[2022-01-20 06:50] LABS: Basophils Percent Auto 0.3 % (0-2); Eosinophils Absolute Auto 0.1 X10*3/uL (0.0-0.4); Eosinophils Percent Auto 0.9 % (0-4); Hemoglobin 11.1 g/dl (12.0-16.0); Imm Gran Abs Auto 0.08 X10*3/uL (0.00-0.03); Imm Gran Pct Auto 0.8 % (0.0-0.4); Lymphocytes Absolute Auto 1.4 X10*3/uL (1.2-4.9); Lymphocytes Percent Auto 13.9 % (20-40); Mean Corpuscular HGB Conc 31.7 g/dl (31.0-35.0); Mean Corpuscular Hemoglobin 27.7 pg (27.0-33.0); Mean Corpuscular Volume 87.3 fL (80.0-98.0); Mean Platelet Volume 10.4 fL (9.4-12.3); Monocytes Absolute Auto 0.9 X10*3/uL (0.1-1.2); Monocytes Percent Auto 9.3 % (2-11); Neutrophils Absolute Auto 7.5 x10*3/uL (2.0-8.3); Neutrophils Percent Auto 74.8 % (45-73); Platelet Count 259 X10*3/uL (160-400); Red Blood Count 4.01 X10*6/uL (4.20-5.50); Red Cell Distribution Width 15.4 % (11.0-16.0)
[2022-01-20 07:22] LABS: Anion Gap 14 (12-20); Blood Urea Nitrogen 13 mg/dL (9-16); Calcium 8.1 mg/dL (8.4-10.2); Carbon Dioxide 23 mmol/L (22-29); Chloride 108 mmol/L (96-108); Creatinine Clr Calc Pharmacy 99.2; Estimated Glomerular Filt Rate > 60; Glucose Random 136 mg/dL (60-115); Potassium 3.9 mmol/L (3.3-5.1); Sodium 141 mmol/L (135-145)
--- NOTE | 2022-01-20 07:28 | PC.NURSE ---
PT IS AWAKE AND ALERT. SHE HAS IV FLUIDS INFUSING AND STATES SHE HAS GENERAL ACHES. PERIWICK WAS REMOVED AND APPROX 300ML URINE OUTPUT IN CONTAINER. OFFERED/EATING BREAKFAST
--- NOTE | 2022-01-20 10:02 | MHC.CM.PN ---
Met with patient in regards to discharge planning. Patient is primarily Angolan speaking, but is able to understand and speak Slovenian. 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 Patient lives alone, uses a wheelchair for mobility at baseline and is active with [facility]. Patient doesn't know the name of her PCP. Patient received 3 Moderna vaccines. IMM explained and signed. Copy of HCP verified to be on file. Patient will need arranging transport via [facility] at d/c. Continue to monitor for d/c needs.
--- NOTE | 2022-01-20 10:29 | PC.NURSE ---
UP TO BEDSIDE COMMODE WITH STANDBY MELVIN, TO VOID.
[2022-01-20 10:48] LABS: Glucose, Whole Blood 179 mg/dL (60-115)
[2022-01-20] MEDS: hydrOXYzine HCL 10 MG TABLET PO ×2 (10:57→20:31)
[2022-01-20] MEDS: Losartan Potassium 25 MG TABLET PO (10:57)
[2022-01-20] MEDS: Insulin Glargine,Hum.rec.anlog 100 UNIT/ML 10 ML VIAL 30 UNIT SUBCUT (10:57)
--- NOTE | 2022-01-20 11:15 | PHA.MEDREC ---
Pharmacy Consult ? Medication Reconciliation Pharmacy has reviewed the medication reconciliation completed by romeo. Sertaline was added to home list. Adelaida Lewis, MiD
[2022-01-20 11:53] LABS: Glucose, Whole Blood 166 mg/dL (60-115)
--- NOTE | 2022-01-20 11:53 | P.PNIM_ITS ---
Subjective Subjective Date of Service: 01/20/22 Interval History: Seen and examined this morning Follow-up for UTI The patient reports suprapubic pressure and dysuria. Denies any fever or chills at this time Reporting pain in left knee and bilateral hips Review of Systems Review of Systems: Yes all other systems are reviewed and are negative Constitutional Constitutional: Denies chills and Denies fever(s) Cardiovascular Cardiovascular: Denies chest pain, Denies palpitations and Denies dyspnea Respiratory Respiratory: Denies cough and Denies dyspnea Gastrointestinal Gastrointestinal: Denies diarrhea, Denies nausea and Denies vomiting Endocrine Endocrine: Denies palpitations Physical Exam Vital Signs: Vital Signs: Last Vital Signs Temp 97.7 F 01/20/22 07:15 Pulse 75 01/20/22 07:15 Resp 16 01/20/22 07:15 BP 147/78 H 01/20/22 07:15 Pulse Ox 97 01/20/22 07:15 O2 Del Method 01/20/22 07:15 O2 Flow Rate 3 01/20/22 06:00 BMI result Body Mass Index 40.7 Const: General: comfortable, no acute distress, alert and awake Nutritional Appearance: obese Orientation/consciousness: patient oriented x3 Resp: Effort & Inspection: normal respiratory effort and able to speak in complete sentences Auscultation: clear to auscultation bilaterally Cardio: Rate: regular rate Heart sounds: S1 normal heart sound present and S2 normal heart sound present GI: Inspection: No distended Palpation (GI): Soft to palpation and nontender Neuro: General: patient oriented x3 Extrem: Other: No edema, erythema or bruising to knees or bilateral hips General: Yes no pedal edema Objective Data Active Medications Acetaminophen (Acetaminophen 325 Mg Tablet) 650 mg PO Q6H PRN PRN Reason: Pain, Mild (Pain Scale 1-3) Last Admin: 01/20/22 01:40 Dose: 650 mg Documented By: HUGO Aripiprazole (Aripiprazole 2 Mg Tablet) 2 mg PO DAILY [facility] Atorvastatin Calcium (Atorvastatin Calcium 20 Mg Tablet) 20 mg PO BEDTIME [facility] Dextrose (Dextrose 50 % 25 Gm/50 Ml Syringe) 25 gm IVPUSH Q15M PRN; Protocol PRN Reason: per Hypoglycemia Standing Ord. Docusate Sodium (Docusate Sodium 100 Mg Capsule) 100 mg PO DAILY PRN PRN Reason: Constipation Enoxaparin Sodium (Enoxaparin Sodium 40 Mg/0.4 Ml Syringe) 40 mg SUBCUT Q24H [facility] Last Admin: 01/20/22 01:40 Dose: 40 mg Documented By: HUGO Glucose (Glucose Gel 15 Gm Gel..Gram.) 15 gm PO Q15M PRN; Protocol PRN Reason: per Hypoglycemia Standing Ord. Hydroxyzine HCl (Hydroxyzine Hcl 10 Mg Tablet) 10 mg PO BID [facility] Last Admin: 01/20/22 10:57 Dose: 10 mg Documented By: JOHAN Ceftriaxone Sodium 1 gm/ (Sodium Chloride) 50 mls @ 100 mls/hr IV Q24H [facility] Lactated Ringer's (Lr) 1,000 mls @ 100 mls/hr IVCONT .Q10H [facility] Last Admin: 01/20/22 11:31 Dose: 100 mls/hr Documented By: JEN Insulin Glargine (Insulin Glargine,Hum.Rec.Anlog 100 Unit/Ml 10 Ml Vial) 30 unit SUBCUT DAILY [facility] Last Admin: 01/20/22 10:57 Dose: 30 unit Documented By: JOHAN Insulin Human Lispro (Insulin Lispro 100 Unit/Ml 3 Ml Vial) 0 unit SUBCUT QIDACHS [facility]; Protocol Last Admin: 01/20/22 08:00 Dose: Not Given Documented By: JOHAN Non-Admin Reason: No Insulin Coverage Lorazepam (Lorazepam 0.5 Mg Tablet) 0.5 mg PO BID PRN PRN Reason: Anxiety Losartan Potassium (Losartan Potassium 25 Mg Tablet) 25 mg PO DAILY [facility]; Protocol Last Admin: 01/20/22 10:57 Dose: 25 mg Documented By: JOHAN Ondansetron HCl (Ondansetron Hcl 4 Mg/2 Ml Vial) 4 mg IVPUSH Q8H PRN PRN Reason: Nausea and Vomiting Sodium Chloride (0.9 % Sodium Chloride Flush 3 Ml Syringe) 3 ml IVFLUSH QSHIFT [facility] Last Admin: 01/20/22 10:46 Dose: Not Given Documented By: JOHAN Non-Admin Reason: IV Running Labs CBC & Chem 7: 01/20/22 05:41 01/20/22 05:41 Labs: Laboratory Results - last 24 hr 01/19/22 01/19/22 01/19/22 17:40 17:40 17:40 MCV 86.0 MCH 28.0 MCHC 32.5 RDW 15.2 Plt Count Not Reportable MPV Not Reportable Immature Gran % (Auto) 0.8 H Neut % (Auto) 89.9 H Lymph % (Auto) 3.0 L [place] % (Auto) 6.0 Eos % (Auto) 0.1 Baso % (Auto) 0.2 Lymph # (Auto) 0.4 L [place] # (Auto) 0.9 Eos # (Auto) 0.0 Baso # (Auto) 0.0 Abs Immat Gran (auto) 0.11 H Absolute Neuts (auto) 12.7 H Absolute Nucleated RBC 0.000 Nucleated RBC % (auto) 0.0 Smear Tech's Comments VERIFIED Anion Gap Estim Creat Clear Calc Estimated GFR POC Glucose Random Glucose Lactic Acid 3.6 H* Lactic Acid F/U @ 2Hr Calcium Total Bilirubin AST ALT Alkaline Phosphatase Total Protein Albumin Urine Color Urine Appearance Urine pH Ur Specific [place] Urine Protein Urine Glucose (UA) Urine Ketones Urine Blood Urine Nitrite Ur Leukocyte Esterase Urine RBC Urine WBC Urine WBC Clumps Ur Squamous Epith Cells Urine Bacteria COVID-19 ([facility]) Negative COVID-19 Clin Com See Note 01/19/22 01/19/22 01/19/22 18:00 20:11 21:06 MCV MCH MCHC RDW Plt Count MPV Immature Gran % (Auto) Neut % (Auto) Lymph % (Auto) [place] % (Auto) Eos % (Auto) Baso % (Auto) Lymph # (Auto) [place] # (Auto) Eos # (Auto) Baso # (Auto) Abs Immat Gran (auto) Absolute Neuts (auto) Absolute Nucleated RBC Nucleated RBC % (auto) Smear Tech's Comments Anion Gap 15 Estim Creat Clear Calc 76.8 Estimated GFR > 60 POC Glucose Random Glucose 217 H Lactic Acid Lactic Acid F/U @ 2Hr 2.0 Calcium 8.8 Total Bilirubin 0.4 AST 31 D ALT 32 H Alkaline Phosphatase 122 H Total Protein 6.5 Albumin 3.6 Urine Color YELLOW Urine Appearance CLOUDY Urine pH 5.5 Ur Specific [place] 1.020 Urine Protein 1+ H Urine Glucose (UA) NEG Urine Ketones NEG Urine Blood 1+ H Urine Nitrite POS H Ur Leukocyte Esterase 3+ H Urine RBC 1-4 Urine WBC 50-75 H Urine WBC Clumps NOTED Ur Squamous Epith Cells NONE Urine Bacteria 3+ COVID-19 ([facility]) COVID-19 Clin Com 01/19/22 01/20/22 01/20/22 21:54 05:41 05:41 MCV 87.3 MCH 27.7 MCHC 31.7 RDW 15.4 Plt Count 259 MPV 10.4 Immature Gran % (Auto) 0.8 H Neut % (Auto) 74.8 H Lymph % (Auto) 13.9 L [place] % (Auto) 9.3 Eos % (Auto) 0.9 Baso % (Auto) 0.3 Lymph # (Auto) 1.4 [place] # (Auto) 0.9 Eos # (Auto) 0.1 Baso # (Auto) 0.0 Abs Immat Gran (auto) 0.08 H Absolute Neuts (auto) 7.5 Absolute Nucleated RBC 0.000 Nucleated RBC % (auto) 0.0 Smear Tech's Comments Anion Gap 14 Estim Creat Clear Calc 99.2 Estimated GFR > 60 POC Glucose 157 H Random Glucose 136 H Lactic Acid Lactic Acid F/U @ 2Hr Calcium 8.1 L D Total Bilirubin AST ALT Alkaline Phosphatase Total Protein Albumin Urine Color Urine Appearance Urine pH Ur Specific [place] Urine Protein Urine Glucose (UA) Urine Ketones Urine Blood Urine Nitrite Ur Leukocyte Esterase Urine RBC Urine WBC Urine WBC Clumps Ur Squamous Epith Cells Urine Bacteria COVID-19 ([facility]) COVID-19 Clin Com 01/20/22 10:43 MCV MCH MCHC RDW Plt Count MPV Immature Gran % (Auto) Neut % (Auto) Lymph % (Auto) [place] % (Auto) Eos % (Auto) Baso % (Auto) Lymph # (Auto) [place] # (Auto) Eos # (Auto) Baso # (Auto) Abs Immat Gran (auto) Absolute Neuts (auto) Absolute Nucleated RBC Nucleated RBC % (auto) Smear Tech's Comments Anion Gap Estim Creat Clear Calc Estimated GFR POC Glucose 179 H Random Glucose Lactic Acid Lactic Acid F/U @ 2Hr Calcium Total Bilirubin AST ALT Alkaline Phosphatase Total Protein Albumin Urine Color Urine Appearance Urine pH Ur Specific [place] Urine Protein Urine Glucose (UA) Urine Ketones Urine Blood Urine Nitrite Ur Leukocyte Esterase Urine RBC Urine WBC Urine WBC Clumps Ur Squamous Epith Cells Urine Bacteria COVID-19 ([facility]) COVID-19 Clin Com Microbiology Microbiology Results: Microbiology 01/19/22 17:40 Blood Culture - Preliminary Blood - Venous Prelim: GNR Gram Stain only Assessment and Plan (1) UTI (urinary tract infection): Status: Acute (2) Sepsis: Status: Acute Plan 66-year-old with history of hypertension diabetes presents to the hospital with complaints of generalized weakness, falls found to have sepsis # sepsis - secondary to UTI met criteria with fever, tachycardia, leukocytosis - leukocytosis resolved. Lactic acid initially 3.6, resolved with IV fluid - continue IV ceftriaxone - follow cultures Bacteremia Secondary to UTI 1/2 blood cultures growing Gram-negative rods Follow final cultures # acute UTI - positive UA - continue IV ceftriaxone - follow cultures # diabetes - low-dose sliding scale insulin - continue home glargine - diabetic diet # hypertension - stable - continue home losartan Hyperlipidemia Continue Lipitor DVT prophylaxis: Lovenox Attending-Dr. Reyna Patient will require ongoing inpatient hospitalization for management of sepsis secondary to UTI and IV antibiotics Quality Stroke Does the patient have a stroke diagnosis?: No VTE Prior VTE?: No VTE Risk Level:: Medical - moderate - high VTE Device Contraindication: Treatment Not Indicated VTE Drug Contraindication: N/A - Med Ordered
--- NOTE | 2022-01-20 12:13 | PC.NURSE ---
9 am medication given late due to medication not being available. Pharmacy called twice. Awaiting medication
[2022-01-20] MEDS: ARIPiprazole 2 MG TABLET PO (12:26)
[2022-01-20] MEDS: Insulin Lispro 100 UNIT/ML 3 ML VIAL SUBCUT ×2 (13:40→20:59)
[2022-01-20] MEDS: 0.9 % Sodium Chloride Flush 3 ML SYRINGE IVFLUSH ×2 (15:26→21:00)
[2022-01-20 18:22] LABS: Glucose, Whole Blood 186 mg/dL (60-115)
[2022-01-20] MEDS: cefTRIAXone sodium 1 GM in 0.9 % Sodium Chloride 50 ML IV (19:03)
[2022-01-20 20:31] LABS: Glucose, Whole Blood 176 mg/dL (60-115)
[2022-01-20] MEDS: Atorvastatin Calcium 20 MG TABLET PO (20:31)
[2022-01-21 04:00] VITALS: BP 134/62; PULSE 94; RESP 20; TEMP 36.2; O2SAT 95
[2022-01-21 07:45] LABS: Glucose, Whole Blood 136 mg/dL (60-115)
[2022-01-21 08:30] VITALS: BP 146/77; PULSE 80; RESP 16; TEMP 36.5; O2SAT 95
[2022-01-21] MEDS: Losartan Potassium 25 MG TABLET PO (09:20)
[2022-01-21] MEDS: ARIPiprazole 2 MG TABLET PO (09:20)
[2022-01-21] MEDS: Insulin Glargine,Hum.rec.anlog 100 UNIT/ML 10 ML VIAL 30 UNIT SUBCUT (09:20)
[2022-01-21] MEDS: hydrOXYzine HCL 10 MG TABLET PO ×2 (09:20→20:39)
[2022-01-21] MEDS: 0.9 % Sodium Chloride Flush 3 ML SYRINGE IVFLUSH ×2 (09:21→17:18)
--- NOTE | 2022-01-21 10:11 | P.PNIM_ITS ---
Subjective Subjective Date of Service: 01/21/22 Interval History: Seen and examined this morning Follow-up for UTI Denies fever, chills Review of Systems Review of Systems: Yes all other systems are reviewed and are negative Constitutional Constitutional: Denies chills and Denies fever(s) Cardiovascular Cardiovascular: Denies chest pain, Denies palpitations and Denies dyspnea Respiratory Respiratory: Denies cough and Denies dyspnea Genitourinary urinary frequency Endocrine Endocrine: Denies palpitations Physical Exam Vital Signs: Vital Signs: Last Vital Signs Temp 97.7 F 01/21/22 08:30 Pulse 80 01/21/22 08:30 Resp 16 01/21/22 08:30 BP 146/77 H 01/21/22 08:30 Pulse Ox 95 01/21/22 08:30 O2 Del Method 01/21/22 08:30 O2 Flow Rate 2.0 01/21/22 08:30 BMI result Body Mass Index 40.7 Const: General: comfortable, no acute distress, alert and awake Nutritional Appearance: obese Orientation/consciousness: patient oriented x3 Resp: Effort & Inspection: normal respiratory effort and able to speak in complete sentences Auscultation: clear to auscultation bilaterally Cardio: Rate: regular rate Heart sounds: S1 normal heart sound present and S2 normal heart sound present GI: Inspection: No distended Palpation (GI): Soft to palpation and nontender Neuro: General: patient oriented x3 Extrem: Other: No edema, erythema or bruising to knees or bilateral hips General: Yes no pedal edema Objective Data Active Medications Acetaminophen (Acetaminophen 325 Mg Tablet) 650 mg PO Q6H PRN PRN Reason: Pain, Mild (Pain Scale 1-3) Last Admin: 01/20/22 01:40 Dose: 650 mg Documented By: HUGO Aripiprazole (Aripiprazole 2 Mg Tablet) 2 mg PO DAILY [facility] Last Admin: 01/21/22 09:20 Dose: 2 mg Documented By: REYES Atorvastatin Calcium (Atorvastatin Calcium 20 Mg Tablet) 20 mg PO BEDTIME [facility] Last Admin: 01/20/22 20:31 Dose: 20 mg Documented By: KAELYN Dextrose (Dextrose 50 % 25 Gm/50 Ml Syringe) 25 gm IVPUSH Q15M PRN; Protocol PRN Reason: per Hypoglycemia Standing Ord. Docusate Sodium (Docusate Sodium 100 Mg Capsule) 100 mg PO DAILY PRN PRN Reason: Constipation Enoxaparin Sodium (Enoxaparin Sodium 40 Mg/0.4 Ml Syringe) 40 mg SUBCUT Q24H [facility] Last Admin: 01/20/22 23:22 Dose: 40 mg Documented By: KAELYN Glucose (Glucose Gel 15 Gm Gel..Gram.) 15 gm PO Q15M PRN; Protocol PRN Reason: per Hypoglycemia Standing Ord. Hydroxyzine HCl (Hydroxyzine Hcl 10 Mg Tablet) 10 mg PO BID [facility] Last Admin: 01/21/22 09:20 Dose: 10 mg Documented By: REYES Ceftriaxone Sodium 1 gm/ (Sodium Chloride) 50 mls @ 100 mls/hr IV Q24H [facility] Last Infusion: 01/20/22 20:34 Dose: 0 mls/hr Documented By: KAELYN Insulin Glargine (Insulin Glargine,Hum.Rec.Anlog 100 Unit/Ml 10 Ml Vial) 30 unit SUBCUT DAILY [facility] Last Admin: 01/21/22 09:20 Dose: 30 unit Documented By: REYES Insulin Human Lispro (Insulin Lispro 100 Unit/Ml 3 Ml Vial) 0 unit SUBCUT QIDACHS [facility]; Protocol Last Admin: 01/21/22 08:01 Dose: Not Given Documented By: REYES Non-Admin Reason: No Insulin Coverage Lorazepam (Lorazepam 0.5 Mg Tablet) 0.5 mg PO BID PRN PRN Reason: Anxiety Losartan Potassium (Losartan Potassium 25 Mg Tablet) 25 mg PO DAILY [facility]; Protocol Last Admin: 01/21/22 09:20 Dose: 25 mg Documented By: REYES Ondansetron HCl (Ondansetron Hcl 4 Mg/2 Ml Vial) 4 mg IVPUSH Q8H PRN PRN Reason: Nausea and Vomiting Sodium Chloride (0.9 % Sodium Chloride Flush 3 Ml Syringe) 3 ml IVFLUSH QSHIFT [facility] Last Admin: 01/21/22 09:21 Dose: 3 ml Documented By: REYES Labs CBC & Chem 7: 01/20/22 05:41 01/20/22 05:41 Labs: Laboratory Results - last 24 hr 01/20/22 01/20/22 01/20/22 10:43 11:50 18:12 POC Glucose 179 H 166 H 186 H 01/20/22 01/21/22 19:29 07:31 POC Glucose 176 H 136 H Microbiology Microbiology Results: Microbiology 01/19/22 17:40 Blood Culture - Preliminary Blood - Venous Gram negative dina 01/19/22 17:40 Blood Culture - Preliminary Blood - Venous No growth after 24 hours. 01/19/22 Unknown Urine Culture - Preliminary Urine Catheterized - Draper Catheter Culture too young to evaluate. Assessment and Plan (1) UTI (urinary tract infection): Status: Acute Plan 66-year-old with history of hypertension diabetes presents to the hospital with complaints of generalized weakness, falls found to have sepsis sepsis secondary to UTI met criteria with fever, tachycardia, leukocytosis - leukocytosis resolved. Lactic acid initially 3.6, resolved with IV fluid - continue IV ceftriaxone - follow cultures Bacteremia Secondary to UTI 1/2 blood cultures growing Gram-negative rods Follow final culture results acute UTI - continue IV ceftriaxone - follow cultures diabetes Continue SSI, ADA diet continue home glargine hypertension - stable - continue home losartan Hyperlipidemia Continue Lipitor Mood continue abilify, atarax, ativan DVT prophylaxis: Lovenox Attending-Dr. Sánchez Patient will require ongoing inpatient hospitalization for management of sepsis secondary to UTI and IV antibiotics Quality Stroke Does the patient have a stroke diagnosis?: No VTE Prior VTE?: No VTE Risk Level:: Medical - moderate - high VTE Device Contraindication: Treatment Not Indicated VTE Drug Contraindication: N/A - Med Ordered
[2022-01-21 11:16] VITALS: BP 160/74; PULSE 80; RESP 16; TEMP 36.5; O2SAT 92
[2022-01-21 11:29] LABS: Glucose, Whole Blood 198 mg/dL (60-115)
[2022-01-21] MEDS: Insulin Lispro 100 UNIT/ML 3 ML VIAL SUBCUT ×3 (12:04→20:39)
[2022-01-21 15:49] VITALS: BP 127/68; PULSE 81; RESP 18; TEMP 36.6; O2SAT 92
[2022-01-21 16:25] LABS: Glucose, Whole Blood 171 mg/dL (60-115)
[2022-01-21 19:20] VITALS: BP 178/80; PULSE 85; RESP 18; TEMP 36.8; O2SAT 92
[2022-01-21 19:59] LABS: Glucose, Whole Blood 180 mg/dL (60-115)
[2022-01-21] MEDS: Atorvastatin Calcium 20 MG TABLET PO (20:39)
[2022-01-21] MEDS: cefTRIAXone sodium 1 GM in 0.9 % Sodium Chloride 50 ML IV (21:54)
[2022-01-21 23:35] VITALS: BP 143/65; PULSE 87; RESP 18; TEMP 36.4; O2SAT 93
[2022-01-22] MEDS: Enoxaparin Sodium 40 MG/0.4 ML SYRINGE SUBCUT
[2022-01-22 03:21] VITALS: BP 147/62; PULSE 87; RESP 18; TEMP 36.6; O2SAT 94
[2022-01-22 07:09] VITALS: BP 187/84; PULSE 80; RESP 18; TEMP 36.4; O2SAT 96
[2022-01-22 07:27] LABS: Glucose, Whole Blood 156 mg/dL (60-115)
[2022-01-22] MEDS: hydrOXYzine HCL 10 MG TABLET PO (08:10)
[2022-01-22] MEDS: Losartan Potassium 25 MG TABLET PO (08:11)
[2022-01-22] MEDS: ARIPiprazole 2 MG TABLET PO (08:11)
[2022-01-22] MEDS: Insulin Lispro 100 UNIT/ML 3 ML VIAL SUBCUT ×2 (08:11→11:55)
[2022-01-22] MEDS: Insulin Glargine,Hum.rec.anlog 100 UNIT/ML 10 ML VIAL 30 UNIT SUBCUT (08:11)
[2022-01-22] MEDS: 0.9 % Sodium Chloride Flush 3 ML SYRINGE IVFLUSH ×2 (08:12)
--- NOTE | 2022-01-22 10:14 | P.DS_ITS ---
DS: Providers Provider Date of Service: 01/22/22 Date of admission: 01/19/22 23:20 Date of discharge: 01/22/22 Primary care physician: Unknown Physician [facility]charging clinician: Radha Pruett DS: Diagnosis Discharge Diagnosis (1) UTI (urinary tract infection): Status: Acute (2) Sepsis: Status: Acute DS: Summary Hospital Course Hospital Course: From H&P on day of admission This is a 66-year-old female with past medical history of hypertension, diabetes, presents to the hospital with complaints of feeling generally unwell, having multiple falls, feeling tired fatigued, felt feverish, has chills, reports feeling hurt all over her body, had an episode of vomiting while with EMS, as well as urinary frequency and dysuria.? Patient denies any chest pain, no shortness of breath, no abdominal pain no lower extremity edema.? Headache or change in vision.? On arrival to the ED patient found to have a fever of 101.7, heart rate of 137, satting 91% on room air Labs are significant for WBC count of 14.2, lactic acid of 3.6, ALT 32, alk-phos of 122, UA positive for nitrites, WBC and leukocyte Estrace Patient started on IV antibiotics and will be admitted for further management sepsis secondary to UTI met criteria with fever, tachycardia, leukocytosis. Lactic acid initially 3.6, resolved with IV fluid. patient has remained afebrile, leukocytosis has resolved. Urine culture grew pansensitive E coli. CT scan of the abdomen and pelvis showed no acute intra-abdominal process, no radiopaque renal calculi or hydroureteronephrosis. She was initially treated with IV ceftriaxone, she will be discharged home to complete course of oral Ceftin. Bacteremia. Secondary to UTI. 1/2 blood cultures growing pansensitive E coli. Oral antibiotics as above. Patient reported left knee pain due to fall. X-rays revealed normal placement of hardware, no fracture or injury noted. Time Spent with Patient Time attestation: Total time spent providing and/or coordinating discharge services: Discharge coordination time: Greater than 30 minutes Quality: Safe Use of Opioids Does Pt have an Active Cancer Diagnosis on the Problem List?: No Quality: Stroke Does the patient have a stroke diagnosis?: No Physical Exam Vital Signs: Vital Signs: Last Vital Signs Temp 97.6 F 07/31/22 07:09 Pulse 80 01/22/22 07:09 Resp 18 01/22/22 07:09 BP 187/84 H 01/22/22 07:09 Pulse Ox 96 01/22/22 07:09 O2 Del Method 01/22/22 07:09 O2 Flow Rate 2.0 01/21/22 11:16 BMI result Body Mass Index 40.7 Const: General: comfortable, no acute distress, alert and awake Nutritional Appearance: obese Orientation/consciousness: patient oriented x3 Resp: Effort & Inspection: normal respiratory effort and able to speak in complete sentences Auscultation: clear to auscultation bilaterally Cardio: Rate: regular rate Heart sounds: S1 normal heart sound present and S2 normal heart sound present GI: Inspection: No distended Palpation (GI): Soft to palpation and nontender Neuro: General: patient oriented x3 Extrem: Other: No edema, erythema or bruising to knees or bilateral hips General: Yes no pedal edema DS: Data Data Completed and Pending Completed studies during hospitalization [Text1]: Procedures Reposition Left Lower Femur with Internal Fixation Device, Open Approach (09/18/20) Transfusion of Nonautologous Red Blood Cells into Peripheral Vein, Percutaneous Approach (09/18/20) Labs on day of discharge: Laboratory Results - last 24 hr 01/21/22 01/21/22 01/21/22 11:15 16:17 19:49 POC Glucose 198 H 171 H 180 H 01/22/22 07:12 POC Glucose 156 H Preliminary micro results at discharge 01/19/22 17:40 Blood Culture - Preliminary Blood - Venous No growth after 48 hours. Discharge Plan Discharge Patient Disposition: Home Health Service Discharge Diagnosis: Sepsis secondary to pyelonephritis Referrals: [facility] Garibay [Outside] - 1 Day (RESUMPTION OF CARE) Physician,Unknown J [Primary Care Provider] - 1 Week Discharge Medications: New cefuroxime axetil 500 mg tablet 500 mg PO BID 11 Days Qty: 22 0RF Continued glipizide 5 mg tablet extended release 24hr 1 tab PO DAILY simvastatin 40 mg tablet 1 tab PO BEDTIME metformin 1,000 mg tablet 1 tab PO BID losartan 25 mg tablet 1 tab PO DAILY insulin glargine [Lantus U-100 Insulin] 100 unit/mL Solution 30 unit subcut DAILY Qty: 0 0RF insulin lispro [Humalog U-100 Insulin] 100 unit/mL Solution See Protocol subcut QIDACHS Qty: 0 0RF Protocol: Insulin Correction Scale Less than or equal to 110 ---- Give (units): 0 111 to 150 Give (units): 0 151 to 200 Give (units): 2 201 to 250 Give (units): 4 251 to 300 Give (units): 6 301 to 350 Give (units): 8 Greater than 350 Give (units): 10 Call MD if Blood Glucose > : 350 lorazepam 0.5 mg tablet 1 tab PO BID PRN (Reason: Anxiety) albuterol sulfate 90 mcg/actuation HFA aerosol inhaler 2 inh inhalation Q4H PRN (Reason: Wheezing) hydroxyzine HCl 10 mg tablet 1 tab PO BID aripiprazole 2 mg tablet 1 tab PO DAILY sertraline 50 mg tablet 50 mg PO BID Discharge Orders: Discharge Order (Routine); Ordered 01/22/22 Ordered By: Radha Pruett Activity on Discharge: As tolerated Stand Alone Forms: Patient Portal Discharge page Care Plan Goals: see below Health Concerns: Sepsis/pyelonephritis Bacteremia Plan of Treatment: Complete course of antibiotics as prescribed Call to schedule follow-up appointment with PCP Assessment: see discharge summary Discharge Date/Time: 01/22/22 15:57
[2022-01-22 11:26] VITALS: BP 187/95; PULSE 80; RESP 18; TEMP 36.4; O2SAT 97
[2022-01-22 11:43] LABS: Glucose, Whole Blood 291 mg/dL (60-115)
[2022-01-22 13:29] VITALS: BP 148/60
--- NOTE | 2022-01-22 14:39 | MHC.CM.PN ---
pt medically cleared for d/c home w/resump [facility] WALKER and family support, cm contacted pt's gdtr/hcp Mercedes Dawson at 2:30pm to arrange transport and Mercedes Dawson reports someone can pharmacy picking technician pt at 3:30pm.
== END 2022-01-22 15:57 | disposition home health service (06) | DRG 690 ==
LOC: HO.ED 21:47 → HO.EDOVER 23:27 → HO.S3 01-20 17:10
PROVIDERS: Admitting Provider Internal Medicine; Emergency Provider Internal Medicine; PCP Internal Medicine; Visit Provider Physician Assistant Medical
DX: N39.0 Urinary tract infection, site not specified (principal); I10 Essential (primary) hypertension; E11.9 Type 2 diabetes mellitus without complications; E78.5 Hyperlipidemia, unspecified; Z20.822 Contact with and (suspected) exposure to COVID-19; Z79.4 Long term (current) use of insulin; Z79.84 Long term (current) use of oral hypoglycemic drugs; Z79.899 Other long term (current) drug therapy
CPT/HCPCS: 36415; 70450; 71045; 72125; 73522; 73562; 74176; 80048; 80053; 81001; 82947; 83605; 85025; 87040; 87077; 87086; 87088; 87186; 87205; 87635; 93005; 96361; 96374; 99285; J0696; J1650

== ENCOUNTER 2022-02-24 20:47 | Emergency (ER) | payer OTHER, SELFPAY ==
--- NOTE | 2022-02-24 | ECG_ITS ---
Test Reason : TACHYCARDIA Blood Pressure : / mmHG Vent. Rate : 111 BPM Atrial Rate : 111 BPM P-R Int : 156 ms QRS Dur : 088 ms QT Int : 342 ms P-R-T Axes : 043 066 -18 degrees QTc Int : 465 ms Sinus tachycardia T wave abnormality, consider inferior ischemia Abnormal ECG When compared with ECG of 19-JAN-2022 19:22, Nonspecific T wave abnormality now evident in Lateral leads Referred By: Generic ED Physician Electronically Signed By:FLORES JAUREGUI
--- NOTE | ~2022-02-24 | XR_ITS ---
EXAMINATION: XR CHEST CLINICAL INFORMATION: Shortness of breath COMPARISON: 01/19/2022 TECHNIQUE: Frontal view of the chest was obtained. FINDINGS: No acute finding. No obvious failure or infiltrate. There is no effusion. Low lung volumes. The cardiac silhouette is felt to be comparable to previous. The hilar structures are comparable. XR/XR chest 1V IMPRESSION: No acute finding. Low lung volumes.
--- NOTE | ~2022-02-24 | CT_ITS ---
EXAMINATION: CT ABDOMEN AND PELVIS WITH CONTRAST CLINICAL INFORMATION: Abdominal pain COMPARISON: 01/21/2021 TECHNIQUE: Multidetector volumetric images were obtained from the superior aspect of the liver through the pubic symphysis following administration 100 mL of Omnipaque 350 intravenous contrast. Sagittal and coronal reformatted images were obtained on the technologist's workstation. Oral contrast: No This CT examination was performed using dose optimization techniques as appropriate, variously including the following: *Automated exposure control *Adjustment of mA and/or kV according to patient size (this includes techniques or standardized protocols for targeted exams where dose is matched to indication/reason for exam; i.e. extremities or head) *Use of iterative reconstruction technique DLP: 1008 mGy-cm FINDINGS: LUNG BASES: The visualized lung bases are unremarkable. LIVER, GALLBLADDER, AND BILIARY TREE: The liver is normal in size, shape, and attenuation. No focal hepatic lesion or biliary ductal dilatation is present. Gallbladder unremarkable. PANCREAS: Unremarkable. SPLEEN: Unremarkable. ADRENAL GLANDS: Unremarkable. KIDNEYS AND URETERS: The kidneys are normal in size, shape, and attenuation. Bilateral benign renal cysts do not require follow-up. No hydronephrosis or hydroureter. Punctate nonobstructive calculus in the lower pole of left kidney. No perinephric stranding. BLADDER: Unremarkable. GASTROINTESTINAL TRACT: The small and large bowel are unremarkable. The appendix is unremarkable. ABDOMINAL WALL: No significant hernia is appreciated. LYMPH NODES: Normal. VASCULAR: Aorta is atherosclerotic but normal caliber. Patent venous structures. PELVIC VISCERA: Hysterectomy. No adnexal abnormalities. OSSEOUS STRUCTURES: No acute or suspicious osseous abnormalities. Stable chronic L5 compression fracture. CT/CT abdomen pelvis w IV con IMPRESSION: No acute findings within the abdomen or pelvis. Nonobstructive punctate calculus, lower pole left kidney. Stable chronic compression fracture at L5.
[2022-02-24 20:54] VITALS: BP 114/63; PULSE 113; PULSE 121; RESP 16; O2SAT 94; BMI 39.4
[2022-02-24 21:00] VITALS: BP 144/63; PULSE 115; RESP 20; TEMP 37.1; O2SAT 95
[2022-02-24] MEDS: 0.9 % Sodium Chloride 1,000 ML 999 ML IV (21:20)
--- NOTE | 2022-02-24 21:20 | ED_ITS ---
HPI - Female Genitourinary General Chief complaint: Urogenital-Female Stated complaint: sepsis Time Seen by Provider: 02/24/22 21:01 Source: patient Mode of arrival: EMS History of Present Illness HPI Narrative: 66-year-old female who presents via EMS with a history of UTI and over the past 3 days to set increased frequency on urination along with significant pain when urinating. Patient reports that she has had chills and some nausea but denies any vomiting, diarrhea, back pain. She states that this feels similar to her last UTI. Related Data Home Medications Medication Instructions Recorded Confirmed glipizide 5 mg tablet, extended 1 tab PO DAILY 09/18/20 01/19/22 release 24 hr losartan 25 mg tablet 1 tab PO DAILY 09/18/20 01/19/22 metformin 1,000 mg tablet 1 tab PO BID 09/18/20 01/19/22 simvastatin 40 mg tablet 1 tab PO BEDTIME 09/18/20 01/19/22 sertraline 50 mg tablet 50 mg PO BID 02/17/21 01/20/22 albuterol sulfate 90 mcg/actuation 2 inh inhalation Q4H PRN Wheezing 01/19/22 01/20/22 aerosol inhaler aripiprazole 2 mg tablet 1 tab PO DAILY 01/19/22 01/19/22 hydroxyzine HCl 10 mg tablet 1 tab PO BID 01/19/22 01/19/22 lorazepam 0.5 mg tablet 1 tab PO BID PRN Anxiety 01/19/22 01/19/22 Previous Rx's Medication Instructions Recorded insulin glargine 100 unit/mL 30 unit (0.3 mL) subcut DAILY #0 mL 09/25/20 subcutaneous solution (Lantus U-100 Insulin) insulin lispro 100 unit/mL See Protocol subcut QIDACHS #0 mL 09/25/20 subcutaneous solution (Humalog U-100 Insulin) cefuroxime axetil 500 mg tablet 500 mg PO BID 11 days #22 tabs 01/22/22 nitrofurantoin 100 mg PO Q12H 5 days #10 caps 02/25/22 monohydrate/macrocrystals 100 mg capsule (Macrobid) Allergies Allergy/AdvReac Type Severity Reaction Status Date / Time No Known Allergies Allergy Verified 05/23/21 09:35 Review of Systems Review of Systems: Pertinent positives and negatives as stated in HPI 10 point review of systems is otherwise negative. [facility] Past Medical History Source: nursing notes reviewed Medical History Acute hyperglycemia Anemia Diabetes Fall High cholesterol HTN (hypertension) Obesity Pre-op evaluation Social History Social History Household Members: None Housing: House Do you presently have visiting nurse or other home services: Yes ([employer]IAN, [facility]) Alcohol intake: never Patient Tobacco Use Status: Never used Tobacco Use of substances other than those prescribed or required for medical reasons: No Advance Directives: Yes Advance Directives on File: Yes Advance Directives Date on File: 09/27/20 service: No Current occupational status: retired Physical Exam Vital Signs: Vital Signs: Last Vital Signs Temp 97.7 F 02/25/22 02:00 Pulse 82 02/25/22 02:00 Resp 16 02/25/22 02:00 BP 134/59 L 02/25/22 02:00 Pulse Ox 98 02/25/22 02:00 O2 Del Method 02/25/22 02:00 BMI result Body Mass Index 39.4 VITAL SIGNS: Reviewed. GENERAL: Elevated BMI Well developed, well nourished, in no acute distress. HEAD: Normocephalic/atraumatic EYES: PERRLA, EOMI EARS: Ext canals without abnormality OROPHARYNX: no oral lesions noted, posterior pharynx clear LUNGS: Normal breath sounds. No adventitious sounds or accessory muscle use. SpO2<95> CARDIOVASCULAR: Regular rate and rhythm without noted murmurs ABDOMEN: Soft, suprapubic discomfort, non-distended with bowel sounds. MUSCULOSKELETAL: No tenderness, deformities, or effusions noted on gross inspection. EXTREMITIES: No cyanosis, clubbing or edema. SKIN: Inspection of the skin reveals no rashes NEUROLOGIC: Alert and oriented x 4. Strength and sensation to light touch were grossly intact x 4. Course Course Course Narrative: 66-year-old female with history and clinical presentation concerning for possible urinary sepsis, patient received antibiotics as well as fluids, urinalysis demonstrates a leukocyte esterase but also has presence of blood as well as wbc's. Review of all investigations otherwise negative for acute findings other than UTI. Patient received initial treatment for this and was otherwise discharged home in stable condition with instructions to follow-up with her primary care provider. MDM - Female Genitourinary Lab Data Result diagrams: 02/24/22 21:15 02/24/22 21:15 Labs: Lab Results 02/24/22 02/24/22 02/24/22 Range/Units 21:15 21:15 21:16 WBC 7.8 (4.8-10.8) X10*3/uL RBC 4.87 D (4.20-5.50) X10*6/uL Hgb 13.5 D (12.0-16.0) g/dl Hct 41.7 (37.0-47.0) % MCV 85.6 (80.0-98.0) fL MCH 27.7 (27.0-33.0) pg MCHC 32.4 (31.0-35.0) g/dl RDW 15.7 (11.0-16.0) % Plt Count 265 (160-400) X10*3/uL MPV 10.2 (9.4-12.3) fL Immature Gran % (Auto) 0.8 H (0.0-0.4) % Neut % (Auto) 83.0 H (45-73) % Lymph % (Auto) 7.7 L (20-40) % [place] % (Auto) 7.8 (2-11) % Eos % (Auto) 0.3 (0-4) % Baso % (Auto) 0.4 (0-2) % Lymph # (Auto) 0.6 L (1.2-4.9) X10*3/uL [place] # (Auto) 0.6 (0.1-1.2) X10*3/uL Eos # (Auto) 0.0 (0.0-0.4) X10*3/uL Baso # (Auto) 0.0 (0.0-0.2) X10*3/uL Abs Immat Gran (auto) 0.06 H (0.00-0.03) X10*3/uL Absolute Neuts (auto) 6.5 (2.0-8.3) x10*3/uL Absolute Nucleated RBC 0.000 (0.0-0.012) X10*3/uL Nucleated RBC % (auto) 0.0 (0.0-0.2) /100WBC Sodium 137 (135-145) mmol/L Potassium 4.5 (3.3-5.1) mmol/L Chloride 100 (96-108) mmol/L Carbon Dioxide 22 (22-29) mmol/L Anion Gap 20 (12-20) BUN 13 (9-16) mg/dL Creatinine 0.99 (0.5-1.4) mg/dL Estim Creat Clear Calc 64.0 Estimated GFR 56 Random Glucose 242 H (60-115) mg/dL Lactic Acid 2.7 H* (0.5-2.0) mmol/L Lactic Acid F/U @ 2Hr (0.5-2.0) mmol/L Calcium 9.2 D (8.4-10.2) mg/dL Total Bilirubin 0.4 (0.0-1.0) mg/dL AST 27 (5-31) U/L ALT 31 (0-31) U/L Alkaline Phosphatase 127 H (39-117) U/L B-Natriuretic Peptide (<100) pg/mL Total Protein 7.1 (6.5-8.0) g/dL Albumin 3.9 (3.5-5.0) g/dL Urine Color Urine Appearance Urine pH (5.0-9.0) Ur Specific [place] (1.005-1.025) Urine Protein (Neg-Trace) mg/dL Urine Glucose (UA) (Negative) mg/dL Urine Ketones (Negative) mg/dL Urine Blood (Negative) Urine Nitrite (Negative) Ur Leukocyte Esterase (Negative) Urine RBC (0-2) /HPF Urine WBC (0-5) /HPF Ur Squamous Epith Cells (0-2) /HPF Urine Bacteria (None Seen) Hyaline Casts (0-2) /LPF 02/24/22 02/24/22 02/25/22 Range/Units 21:16 22:43 00:00 WBC (4.8-10.8) X10*3/uL RBC (4.20-5.50) X10*6/uL Hgb (12.0-16.0) g/dl Hct (37.0-47.0) % MCV (80.0-98.0) fL MCH (27.0-33.0) pg MCHC (31.0-35.0) g/dl RDW (11.0-16.0) % Plt Count (160-400) X10*3/uL MPV (9.4-12.3) fL Immature Gran % (Auto) (0.0-0.4) % Neut % (Auto) (45-73) % Lymph % (Auto) (20-40) % [place] % (Auto) (2-11) % Eos % (Auto) (0-4) % Baso % (Auto) (0-2) % Lymph # (Auto) (1.2-4.9) X10*3/uL [place] # (Auto) (0.1-1.2) X10*3/uL Eos # (Auto) (0.0-0.4) X10*3/uL Baso # (Auto) (0.0-0.2) X10*3/uL Abs Immat Gran (auto) (0.00-0.03) X10*3/uL Absolute Neuts (auto) (2.0-8.3) x10*3/uL Absolute Nucleated RBC (0.0-0.012) X10*3/uL Nucleated RBC % (auto) (0.0-0.2) /100WBC Sodium (135-145) mmol/L Potassium (3.3-5.1) mmol/L Chloride (96-108) mmol/L Carbon Dioxide (22-29) mmol/L Anion Gap (12-20) BUN (9-16) mg/dL Creatinine (0.5-1.4) mg/dL Estim Creat Clear Calc Estimated GFR Random Glucose (60-115) mg/dL Lactic Acid (0.5-2.0) mmol/L Lactic Acid F/U @ 2Hr 1.5 (0.5-2.0) mmol/L Calcium (8.4-10.2) mg/dL Total Bilirubin (0.0-1.0) mg/dL AST (5-31) U/L ALT (0-31) U/L Alkaline Phosphatase (39-117) U/L B-Natriuretic Peptide < 10 (<100) pg/mL Total Protein (6.5-8.0) g/dL Albumin (3.5-5.0) g/dL Urine Color Dark Yellow Urine Appearance Cloudy Urine pH 5.5 (5.0-9.0) Ur Specific [place] >= 1.030 H (1.005-1.025) Urine Protein 30 (1+) H (Neg-Trace) mg/dL Urine Glucose (UA) Negative (Negative) mg/dL Urine Ketones Trace (Negative) mg/dL Urine Blood Moderate (2+) H (Negative) Urine Nitrite Negative (Negative) Ur Leukocyte Esterase Large (3+) H (Negative) Urine RBC 6-10 H (0-2) /HPF Urine WBC 21-50 (0-5) /HPF Ur Squamous Epith Cells 11-20 (0-2) /HPF Urine Bacteria None Seen (None Seen) Hyaline Casts 3-5 (0-2) /LPF ECG Data Attestation: I personally reviewed and interpreted this ECG as follows: Prior ECG tracings: available for review Interpretation: Sinus tachycardia, HR-111, no STEMI, MT/QRS/QTC are within normal limits. Discharge Plan Discharge Clinical Impression: Acute UTI Patient Disposition: Home, Self-Care Instructions: Urinary Tract Infection in Women (ED) Additional Instructions: 1. Resume all home medications as prescribed. 2. Continue to drink plenty of water and complete the course of antibiotics that you have been placed on. 3. Follow-up with your primary care provider on Sunday morning for re- evaluation and further outpatient management. Return to the ER for worsening symptoms. Prescriptions: New nitrofurantoin monohyd/m-cryst [Macrobid] 100 mg capsule 100 mg PO Q12H 5 Days Qty: 10 0RF Rx Instructions: must administer with a meal/food No Action glipizide 5 mg tablet extended release 24hr 1 tab PO DAILY simvastatin 40 mg tablet 1 tab PO BEDTIME metformin 1,000 mg tablet 1 tab PO BID losartan 25 mg tablet 1 tab PO DAILY insulin glargine [Lantus U-100 Insulin] 100 unit/mL Solution 30 unit subcut DAILY Qty: 0 0RF insulin lispro [Humalog U-100 Insulin] 100 unit/mL Solution See Protocol subcut QIDACHS Qty: 0 0RF Protocol: Insulin Correction Scale Less than or equal to 110 ---- Give (units): 0 111 to 150 Give (units): 0 151 to 200 Give (units): 2 201 to 250 Give (units): 4 251 to 300 Give (units): 6 301 to 350 Give (units): 8 Greater than 350 Give (units): 10 Call MD if Blood Glucose > : 350 lorazepam 0.5 mg tablet 1 tab PO BID PRN (Reason: Anxiety) albuterol sulfate 90 mcg/actuation HFA aerosol inhaler 2 inh inhalation Q4H PRN (Reason: Wheezing) hydroxyzine HCl 10 mg tablet 1 tab PO BID aripiprazole 2 mg tablet 1 tab PO DAILY cefuroxime axetil 500 mg tablet 500 mg PO BID 11 Days Qty: 22 0RF sertraline 50 mg tablet 50 mg PO BID
[2022-02-24 21:23] LABS: MANUAL DIFF FLAG NO
[2022-02-24 21:30] LABS: Basophils Percent Auto 0.4 % (0-2); Eosinophils Percent Auto 0.3 % (0-4); Hematocrit 41.7 % (37.0-47.0); Hemoglobin 13.5 g/dl (12.0-16.0); Imm Gran Abs Auto 0.06 X10*3/uL (0.00-0.03); Imm Gran Pct Auto 0.8 % (0.0-0.4); Lymphocytes Absolute Auto 0.6 X10*3/uL (1.2-4.9); Lymphocytes Percent Auto 7.7 % (20-40); Mean Corpuscular HGB Conc 32.4 g/dl (31.0-35.0); Mean Corpuscular Hemoglobin 27.7 pg (27.0-33.0); Mean Corpuscular Volume 85.6 fL (80.0-98.0); Mean Platelet Volume 10.2 fL (9.4-12.3); Monocytes Absolute Auto 0.6 X10*3/uL (0.1-1.2); Monocytes Percent Auto 7.8 % (2-11); Neutrophils Absolute Auto 6.5 x10*3/uL (2.0-8.3); Platelet Count 265 X10*3/uL (160-400); Red Blood Count 4.87 X10*6/uL (4.20-5.50); Red Cell Distribution Width 15.7 % (11.0-16.0); White Blood Count 7.8 X10*3/uL (4.8-10.8)
[2022-02-24 21:39] LABS: Lactic Acid 2.7 mmol/L (0.5-2.0)
[2022-02-24 21:44] LABS: Alanine Aminotransferase 31 U/L (0-31); Albumin Level 3.9 g/dL (3.5-5.0); Alkaline Phosphatase 127 U/L (39-117); Anion Gap 20 (12-20); Aspartate Amino Transferase 27 U/L (5-31); Bilirubin Total 0.4 mg/dL (0.0-1.0); Blood Urea Nitrogen 13 mg/dL (9-16); Calcium 9.2 mg/dL (8.4-10.2); Carbon Dioxide 22 mmol/L (22-29); Chloride 100 mmol/L (96-108); Estimated Glomerular Filt Rate 56; Glucose Random 242 mg/dL (60-115); Potassium 4.5 mmol/L (3.3-5.1); Sodium 137 mmol/L (135-145); Total Protein 7.1 g/dL (6.5-8.0)
[2022-02-24] MEDS: Ketorolac Tromethamine 30 MG/ML VIAL 15 MG IVPUSH (22:01)
[2022-02-24] MEDS: cefTRIAXone sodium 1 GM in 0.9 % Sodium Chloride 50 ML IV (22:02)
[2022-02-24 22:05] LABS: B Type Natriuretic Peptide < 10 pg/mL (<100)
[2022-02-24 22:50] LABS: Appearance Urine Cloudy; Color Urine Dark Yellow; Glucose Urine UA Negative (Negative); Leukocyte Esterase Urine Large (3+) (Negative); Nitrite Urine Negative (Negative); PH 5.5 (5.0-9.0); Specific Gravity - Urine >= 1.030 (1.005-1.025); Urine Blood Moderate (2+) (Negative); Urine Ketones Trace mg/dL (Negative); Urine Protein 30 (1+) mg/dL (Neg-Trace)
[2022-02-24 23:07] LABS: Bacteria Urine None Seen (None Seen); UACC Culture Trigger YES; WBC Urine 21-50 /HPF (0-5)
[2022-02-24 23:22] LABS: Reflex Lactate? Lactic Acid Added
[2022-02-25] VITALS: BP 138/60; PULSE 90; RESP 16; TEMP 36.7; O2SAT 98
[2022-02-25 00:17] LABS: ~Lactic Acid-LAB USE ONLY 1.5 mmol/L (0.5-2.0)
[2022-02-25 00:24] VITALS: BP 130/64; PULSE 90; RESP 20; TEMP 36.7; O2SAT 94
[2022-02-25] MEDS: iohexoL 350 MG/ML 100 ML INFUS..BTL IV (01:17)
[2022-02-25 02:00] VITALS: BP 134/59; PULSE 82; RESP 16; TEMP 36.5; O2SAT 98
--- NOTE | 2022-02-25 03:52 | PC.NURSE ---
Pt waiting for ride in AM. Wheelchair bound at baseline, per charge nurse, we can keep her in a lu bed until the ride comes.
[2022-02-25 04:29] VITALS: BP 142/80; PULSE 86; RESP 18; TEMP 37.1; O2SAT 96
== END 2022-02-25 04:53 | disposition home or self-care (01) ==
PROVIDERS: Emergency Provider Student in an Organized Health Care Education/Training Program
DX: N39.0 Urinary tract infection, site not specified (principal); R00.0 Tachycardia, unspecified; R06.02 Shortness of breath; Z79.899 Other long term (current) drug therapy
CPT/HCPCS: 36415; 71045; 74177; 80053; 81001; 83605; 83880; 85025; 87040; 87086; 93005; 96361; 96374; 96375; 99285; J0696; J1885; Q9967

== ENCOUNTER 2022-11-23 12:25 | Emergency (ER) | payer OTHER, SELFPAY ==
--- NOTE | ~2022-11-23 | XR_ITS ---
EXAMINATION: XR CHEST CLINICAL INFORMATION: Chest pain COMPARISON: Chest x-ray 02/24/2022 TECHNIQUE: 2 views of the chest were obtained. FINDINGS: Cardiac silhouette is stable. The lungs are adequately aerated. There is no lobar consolidation. No pleural effusion or pneumothorax. Subtle linear opacity of the left lung base is most suggestive of atelectasis. Mild degenerative changes of the spine. XR/XR chest 2V IMPRESSION: No acute pulmonary pathology.
--- NOTE | 2022-11-23 12:29 | ECG_ITS ---
Test Reason : cp Blood Pressure : / mmHG Vent. Rate : 097 BPM Atrial Rate : 097 BPM P-R Int : 124 ms QRS Dur : 086 ms QT Int : 344 ms P-R-T Axes : 031 048 -27 degrees QTc Int : 436 ms Sinus rhythm with occasional Premature ventricular complexes T wave abnormality, consider inferior ischemia Abnormal ECG When compared with ECG of 24-FEB-2022 20:46, Premature ventricular complexes are now Present Referred By: Generic ED Physician Electronically Signed By:MARY ANN ROCHE MD
[2022-11-23 12:54] VITALS: BP 151/67; PULSE 95; RESP 20; TEMP 37; O2SAT 94; BMI 42.4
--- NOTE | 2022-11-23 12:56 | ED_ITS ---
HPI - General Adult General Chief complaint: Chest Pain Stated complaint: chest pain Time Seen by Provider: 11/23/22 17:58 Source: patient Mode of arrival: ambulatory Limitations: no limitations History of Present Illness HPI narrative: 67-year-old female presents with chest pain. The chest pain is substernal radi ating to the right side of her head. The pain is intermittent. It is described as a sharp pain. When it comes, lasts just a few seconds and then goes away. It is not associated with nausea, vomiting, shortness of breath. Is not associated with exertion. Is unclear what brings on the symptoms. It relieved on its own. Patient has never had this symptom before. He patient does have history of diabetes. She denies any polyuria or polydipsia. She takes insulin which is provided to her by her visiting nurse twice a day. Related Data Home Medications Medication Instructions Recorded Confirmed glipizide 5 mg tablet, extended 1 tab PO DAILY 09/18/20 01/19/22 release 24 hr losartan 25 mg tablet 1 tab PO DAILY 09/18/20 01/19/22 metformin 1,000 mg tablet 1 tab PO BID 09/18/20 01/19/22 simvastatin 40 mg tablet 1 tab PO BEDTIME 09/18/20 01/19/22 sertraline 50 mg tablet 50 mg PO BID 02/17/21 01/20/22 albuterol sulfate 90 mcg/actuation 2 inh inhalation Q4H PRN Wheezing 01/19/22 01/20/22 aerosol inhaler aripiprazole 2 mg tablet 1 tab PO DAILY 01/19/22 01/19/22 hydroxyzine HCl 10 mg tablet 1 tab PO BID 01/19/22 01/19/22 lorazepam 0.5 mg tablet 1 tab PO BID PRN Anxiety 01/19/22 01/19/22 Previous Rx's Medication Instructions Recorded insulin glargine 100 unit/mL 30 unit (0.3 mL) subcut DAILY #0 mL 09/25/20 subcutaneous solution (Lantus U-100 Insulin) insulin lispro 100 unit/mL See Protocol subcut QIDACHS #0 mL 09/25/20 subcutaneous solution (Humalog U-100 Insulin) cefuroxime axetil 500 mg tablet 500 mg PO BID 11 days #22 tabs 01/22/22 nitrofurantoin 100 mg PO Q12H 5 days #10 caps 02/25/22 monohydrate/macrocrystals 100 mg capsule (Macrobid) Allergies Allergy/AdvReac Type Severity Reaction Status Date / Time No Known Allergies Allergy Verified 05/23/21 09:35 Review of Systems Review of Systems: CONSTITUTIONAL: Denies weight loss, fever and chills. HEENT: Denies changes in vision and hearing. RESPIRATORY: Denies SOB and cough. CV: Denies palpitations + CP. GI: Denies abdominal pain, nausea, vomiting and diarrhea. : Denies dysuria and urinary frequency. MSK: Denies myalgia and joint pain. SKIN: Denies rash and pruritus. NEUROLOGICAL: Denies headache and syncope. PSYCHIATRIC: Denies recent changes in mood. Denies anxiety and depression. All other ROS are negative unless in HPI PMFSH Past Medical History Medical History Acute hyperglycemia Anemia Diabetes Fall High cholesterol HTN (hypertension) Obesity Pre-op evaluation Social History Social History Household Members: None Housing: House Do you presently have visiting nurse or other home services: Yes ([facility], [facility]) Alcohol intake: never Patient Tobacco Use Status: Never used Tobacco Smoked in Last 30 Days: No Use of substances other than those prescribed or required for medical reasons: No Advance Directives: Yes Advance Directives on File: Yes Advance Directives Date on File: 09/27/20 service: No Current occupational status: retired Physical Exam ED Vital Signs: Vital Signs - 24 hr 11/23/22 12:54 11/23/22 18:00 Temperature 98.6 F 97.8 F Pulse Rate 95 81 Respiratory Rate 20 16 Blood Pressure 151/67 H 156/81 H Pulse Oximetry 94 95 Oxygen Delivery Method Room Air Room Air BMI result Body Mass Index 42.4 GEN: Well developed, no acute distress, alert, oriented HEENT: Normocephalic, atraumatic, normal external ears, nose appears normal, no oropharyngeal edema or exudates Eyes: Normal to appearance Neck: Supple, no lymphadenopathy Respiratory: Talks in complete sentences, no respiratory distress, clear to auscultation bilaterally Cardiovascular: Regular rate and rhythm, no murmurs rubs or gallops Abdomen: Soft, nontender, nondistended, no guarding, no rebound Back: No CVA tenderness Extremities: No clubbing cyanosis or edema Neurologic: No focal neurologic deficits, cranial nerves 2-12 intact, strength is 5/5 bilaterally Skin: No rash Course Course Course Narrative: This is an RME: Additional HPI, ROS, PE not included below will be deferred to primary provider. This is a [id number], hx of diabetes, htn, and hyperlipidemia, presenting with complaints of left sided chest pain since today. Reports some dizziness, no shortness of breath. BP 151/67. All other VSS. Plan: EKG, Chest x-ray, labs ordered Reevaluation(s) Reevaluation #1: The workup is complete. The chest pain is atypical. Cardiac enzymes are negative after 3 days this is virtually diagnostic of no acute coronary syndrome. Her chest x-ray reveals no acute cardiopulmonary disease. She is currently asymptomatic. The only significant finding is her blood sugars are a little over 400. Will provide the patient with this pro, re-evaluate and hopefully discharge home. Time: 18:29 Reevaluation #2: blood sugar improved. Will d/c now Time: 20:00 Medications Administered Discontinued Medications Generic Name Dose Route Start Last Admin Trade Name Freq PRN Reason Stop Dose Admin Insulin Human Lispro 15 unit 11/23/22 18:25 11/23/22 18:35 Insulin Lispro 100 Unit/Ml 3 Ml Vial SUBCUT 11/23/22 18:26 15 unit ONCE ONE Administration Medical Decision Making Medical Decision Making [facility] Narrative: 67-year-old female presents with chest pain. The chest pain started 3 days ago. Is intermittent and sharp. Last just a few seconds. This is quite an atypical pain. Her EKG showed no acute ischemic changes. Will order cardiac enzymes. One set of cardiac enzymes after 3 days with atypical symptoms would be diagnostic of acute coronary syndrome. Will obtain a chest x-ray to rule out anatomical related chest pain symptoms. Her differential diagnosis could include cardiac pain, angina, atypical pain, GERD, pneumonia, pleurisy, costochondritis. Differential Diagnosis Differential Diagnoses: The differential diagnosis associated with the presentation includes (See above) Admission/Observation Consideration of admission/observation: Escalation of care including admission/observation considered Lab Data [facility] Lab Attestation statement: I reviewed the patient's lab results. 11/23/22 13:17 11/23/22 13:17 Labs: Lab Results 11/23/22 11/23/22 11/23/22 Range/Units 13:17 13:17 13:17 WBC 8.8 (4.8-10.8) X10*3/uL RBC 5.00 (4.20-5.50) X10*6/uL Hgb 13.9 (12.0-16.0) g/dl Hct 43.1 (37.0-47.0) % MCV 86.2 (80.0-98.0) fL MCH 27.8 (27.0-33.0) pg MCHC 32.3 (31.0-35.0) g/dl RDW 15.0 (11.0-16.0) % Plt Count 284 (160-400) X10*3/uL MPV 10.5 (9.4-12.3) fL Immature Gran % (Auto) 0.3 (0.0-0.4) % Neut % (Auto) 73.5 H (45-73) % Lymph % (Auto) 19.7 L (20-40) % Lander % (Auto) 4.8 (2-11) % Eos % (Auto) 1.4 (0-4) % Baso % (Auto) 0.3 (0-2) % Lymph # (Auto) 1.7 (1.2-4.9) X10*3/uL Lander # (Auto) 0.4 (0.1-1.2) X10*3/uL Eos # (Auto) 0.1 (0.0-0.4) X10*3/uL Baso # (Auto) 0.0 (0.0-0.2) X10*3/uL Abs Immat Gran (auto) 0.03 (0.00-0.03) X10*3/uL Absolute Neuts (auto) 6.5 (2.0-8.3) x10*3/uL Absolute Nucleated RBC 0.000 (0.0-0.012) X10*3/uL Nucleated RBC % (auto) 0.0 (0.0-0.2) /100WBC Sodium 135 (135-145) mmol/L Potassium 4.3 (3.3-5.1) mmol/L Chloride 102 (96-108) mmol/L Carbon Dioxide 23 (22-29) mmol/L Anion Gap 14 (12-20) BUN 12 (9-16) mg/dL Creatinine 0.88 (0.5-1.4) mg/dL Estim Creat Clear Calc 73.9 Estimated GFR > 60 POC Glucose (60-115) mg/dL Random Glucose 414 H* (60-115) mg/dL Calcium 10.1 D (8.4-10.2) mg/dL Magnesium 1.6 (1.6-2.6) mg/dL Total Bilirubin 0.5 (0.0-1.0) mg/dL Direct Bilirubin 0.1 (0.0-0.5) mg/dL AST 19 (5-31) U/L ALT 33 H (0-31) U/L Alkaline Phosphatase 126 H (39-117) U/L Troponin I High Sens < 2.7 (<3.5-17.0) ng/L Total Protein 6.8 (6.5-8.0) g/dL Albumin 3.7 (3.5-5.0) g/dL Lipase 29 (8-78) U/L 11/23/22 Range/Units 19:41 WBC (4.8-10.8) X10*3/uL RBC (4.20-5.50) X10*6/uL Hgb (12.0-16.0) g/dl Hct (37.0-47.0) % MCV (80.0-98.0) fL MCH (27.0-33.0) pg MCHC (31.0-35.0) g/dl RDW (11.0-16.0) % Plt Count (160-400) X10*3/uL MPV (9.4-12.3) fL Immature Gran % (Auto) (0.0-0.4) % Neut % (Auto) (45-73) % Lymph % (Auto) (20-40) % Lander % (Auto) (2-11) % Eos % (Auto) (0-4) % Baso % (Auto) (0-2) % Lymph # (Auto) (1.2-4.9) X10*3/uL Lander # (Auto) (0.1-1.2) X10*3/uL Eos # (Auto) (0.0-0.4) X10*3/uL Baso # (Auto) (0.0-0.2) X10*3/uL Abs Immat Gran (auto) (0.00-0.03) X10*3/uL Absolute Neuts (auto) (2.0-8.3) x10*3/uL Absolute Nucleated RBC (0.0-0.012) X10*3/uL Nucleated RBC % (auto) (0.0-0.2) /100WBC Sodium (135-145) mmol/L Potassium (3.3-5.1) mmol/L Chloride (96-108) mmol/L Carbon Dioxide (22-29) mmol/L Anion Gap (12-20) BUN (9-16) mg/dL Creatinine (0.5-1.4) mg/dL Estim Creat Clear Calc Estimated GFR POC Glucose 240 H (60-115) mg/dL Random Glucose (60-115) mg/dL Calcium (8.4-10.2) mg/dL Magnesium (1.6-2.6) mg/dL Total Bilirubin (0.0-1.0) mg/dL Direct Bilirubin (0.0-0.5) mg/dL AST (5-31) U/L ALT (0-31) U/L Alkaline Phosphatase (39-117) U/L Troponin I High Sens (<3.5-17.0) ng/L Total Protein (6.5-8.0) g/dL Albumin (3.5-5.0) g/dL Lipase (8-78) U/L Independent Interpretation I performed an independent interpretation of an: EKG (Normal sinus rhythm heart rate 97, no acute ST elevations or depressions, Q-wave seen in lead 3 with a T-wave inversion. PVC x1, no acute ST elevations or depressions.) and Plain X- Ray (Chest no acute cardiopulmonary disease) Tests considered The following testing was considered but not selected: CT chest Prescription Management I considered prescription management with: Pain Medication Chronic Conditions Patient?s care impacted by: Diabetes and Hypertension Discharge Plan Discharge Clinical Impression: Atypical chest pain, Hyperglycemia due to diabetes mellitus Patient Disposition: Home, Self-Care Instructions: Chest Pain (ED), Diabetic Hyperglycemia (ED) Prescriptions: No Action glipizide 5 mg tablet extended release 24hr 1 tab PO DAILY simvastatin 40 mg tablet 1 tab PO BEDTIME metformin 1,000 mg tablet 1 tab PO BID losartan 25 mg tablet 1 tab PO DAILY insulin glargine [Lantus U-100 Insulin] 100 unit/mL Solution 30 unit subcut DAILY Qty: 0 0RF insulin lispro [Humalog U-100 Insulin] 100 unit/mL Solution See Protocol subcut QIDACHS Qty: 0 0RF Protocol: Insulin Correction Scale Less than or equal to 110 ---- Give (units): 0 111 to 150 Give (units): 0 151 to 200 Give (units): 2 201 to 250 Give (units): 4 251 to 300 Give (units): 6 301 to 350 Give (units): 8 Greater than 350 Give (units): 10 Call MD if Blood Glucose > : 350 lorazepam 0.5 mg tablet 1 tab PO BID PRN (Reason: Anxiety) albuterol sulfate 90 mcg/actuation HFA aerosol inhaler 2 inh inhalation Q4H PRN (Reason: Wheezing) hydroxyzine HCl 10 mg tablet 1 tab PO BID aripiprazole 2 mg tablet 1 tab PO DAILY cefuroxime axetil 500 mg tablet 500 mg PO BID 11 Days Qty: 22 0RF nitrofurantoin monohyd/m-cryst [Macrobid] 100 mg capsule 100 mg PO Q12H 5 Days Qty: 10 0RF Rx Instructions: must administer with a meal/food sertraline 50 mg tablet 50 mg PO BID Referrals: Shady [place] MD [Primary Care Provider] - 5 days
[2022-11-23 13:22] LABS: MANUAL DIFF FLAG NO
[2022-11-23 13:26] LABS: Basophils Percent Auto 0.3 % (0-2); Eosinophils Absolute Auto 0.1 X10*3/uL (0.0-0.4); Eosinophils Percent Auto 1.4 % (0-4); Hematocrit 43.1 % (37.0-47.0); Hemoglobin 13.9 g/dl (12.0-16.0); Imm Gran Abs Auto 0.03 X10*3/uL (0.00-0.03); Imm Gran Pct Auto 0.3 % (0.0-0.4); Lymphocytes Absolute Auto 1.7 X10*3/uL (1.2-4.9); Lymphocytes Percent Auto 19.7 % (20-40); Mean Corpuscular HGB Conc 32.3 g/dl (31.0-35.0); Mean Corpuscular Hemoglobin 27.8 pg (27.0-33.0); Mean Corpuscular Volume 86.2 fL (80.0-98.0); Mean Platelet Volume 10.5 fL (9.4-12.3); Monocytes Absolute Auto 0.4 X10*3/uL (0.1-1.2); Monocytes Percent Auto 4.8 % (2-11); Neutrophils Absolute Auto 6.5 x10*3/uL (2.0-8.3); Neutrophils Percent Auto 73.5 % (45-73); Platelet Count 284 X10*3/uL (160-400); White Blood Count 8.8 X10*3/uL (4.8-10.8)
[2022-11-23 13:53] LABS: Alanine Aminotransferase 33 U/L (0-31); Albumin Level 3.7 g/dL (3.5-5.0); Alkaline Phosphatase 126 U/L (39-117); Anion Gap 14 (12-20); Aspartate Amino Transferase 19 U/L (5-31); Bilirubin Direct 0.1 mg/dL (0.0-0.5); Bilirubin Total 0.5 mg/dL (0.0-1.0); Blood Urea Nitrogen 12 mg/dL (9-16); Calcium 10.1 mg/dL (8.4-10.2); Carbon Dioxide 23 mmol/L (22-29); Chloride 102 mmol/L (96-108); Creatinine Clr Calc Pharmacy 73.9; Estimated Glomerular Filt Rate > 60; Lipase 29 U/L (8-78); Magnesium 1.6 mg/dL (1.6-2.6); Potassium 4.3 mmol/L (3.3-5.1); Sodium 135 mmol/L (135-145); Total Protein 6.8 g/dL (6.5-8.0); Troponin-I High Sensitivity < 2.7 ng/L (<3.5-17.0)
[2022-11-23 13:56] LABS: Glucose Random 414 mg/dL (60-115)
[2022-11-23 18:00] VITALS: BP 156/81; PULSE 81; RESP 16; TEMP 36.6; O2SAT 95
[2022-11-23] MEDS: Insulin Lispro 100 UNIT/ML 3 ML VIAL 15 UNIT SUBCUT (18:35)
[2022-11-23 19:45] LABS: Glucose, Whole Blood 240 mg/dL (60-115)
[2022-11-23 20:00] VITALS: BP 174/76; PULSE 91; RESP 18; TEMP 36.6; O2SAT 97
== END 2022-11-23 20:42 | disposition home or self-care (01) ==
PROVIDERS: Physician Assistant Medical; Emergency Provider Emergency Medicine; PCP Family Medicine
DX: R07.89 Other chest pain (principal); E11.65 Type 2 diabetes mellitus with hyperglycemia; Z79.4 Long term (current) use of insulin; Z79.899 Other long term (current) drug therapy
CPT/HCPCS: 36415; 71046; 80048; 80076; 82947; 83690; 83735; 84484; 85025; 93005; 99284; 99285

== ENCOUNTER 2023-08-24 09:34 | Outpatient (REF) | payer OTHER, SELFPAY ==
--- NOTE | ~2023-08-24 | MM_ITS ---
EXAMINATION: MM SCREENING DIGITAL BREAST TOMOSYNTHESIS, BILATERAL CLINICAL INFORMATION: Screening. Asymptomatic. COMPARISON: Mammography: This study is compared with prior exams dating back to 2012. There are no interval examinations. TECHNIQUE: Digital breast tomosynthesis is performed in both the craniocaudal and mediolateral oblique views along with computer-aided detection (CAD). Synthesized 2D images are generated from the tomosynthesis. FINDINGS: There are scattered areas of fibroglandular density (ACR BI-RADS breast composition Category b). There are grouped calcifications in each breast which warrant additional mammographic imaging with magnification. These calcifications lie in the upper outer quadrant of the left breast and in the upper inner quadrant of the right breast. There are no significant masses or other abnormalities in either breast.. MM/MM tomosynthesis screening BI IMPRESSION: Bilateral calcifications warrant additional mammographic imaging with magnification. ASSESSMENT: BI-RADS BI-RADS 0 - Incomplete: Needs additional Imaging. RECOMMENDATION: Additional views of the right breast Radiology department staff will contact the patient for additional imaging. Additional Imaging required This examination should not preclude the clinical evaluation of a suspicious palpable abnormality. This patient's information was entered into a reminder system with a target due date for their next mammogram.
== END 2023-08-24 09:35 | disposition home or self-care (01) ==
LOC: HO.MAMMO 09:34
PROVIDERS: Visit Provider Family Medicine
DX: Z12.31 Encounter for screening mammogram for malignant neoplasm of breast (principal)
CPT/HCPCS: 77063; 77067

== ENCOUNTER → 2023-08-24 10:30 | Outpatient (BNV) | payer OTHER, SELFPAY | PROVIDERS: Visit Provider Radiology Diagnostic Radiology | DX: Z12.31 Encounter for screening mammogram for malignant neoplasm of breast (principal) | CPT/HCPCS: 77063; 77067 ==

== ENCOUNTER 2023-09-20 09:44 | Outpatient (REF) | payer OTHER, SELFPAY ==
--- NOTE | ~2023-09-20 | MM_ITS ---
EXAMINATION: MM DIAGNOSTIC DIGITAL BREAST TOMOSYNTHESIS, BILATERAL CLINICAL INFORMATION: Follow-up diagnostic mammography for bilateral groups of calcifications, both breasts. COMPARISON: Mammography: 08/24/2023, and prior to that, 04/24/2012. The patient went 14 years with no mammography. TECHNIQUE: Digital breast tomosynthesis is performed. 2D images are generated from the tomosynthesis. The following views are obtained: Full-field bilateral 3-D mediolateral views, and 2-D spot magnification right ML and CC views and left ML and CC views. FINDINGS: There are scattered areas of fibroglandular density (ACR BI-RADS breast composition Category b). Unfortunately, the most recent prior for comparison is 04/24/2012, and none of these calcifications were present to any degree on those exams. RIGHT BREAST: -There is a dominant group of pleomorphic calcifications in the medial slightly upper right breast, posterior one third, which cannot be characterized as benign and stereotactic biopsy is recommended. -There is a smaller group of lesser pleomorphic calcifications in the lateral upper right breast, posterior one third, for which follow-up in 6 months or biopsy is recommended depending on the biopsy result of the dominant group. LEFT BREAST: -There are 3 groups of coarse appearing calcifications in the mid lower and lateral upper left breast, posterior one third, which are mildly pleomorphic but have coarse morphology, and fibroadenomatoid/benign etiology is favored. We will follow these groups in 6 months and assess for stability or change. No additional suspicious findings in either breast. MM/MM tomosynthesis added view BI IMPRESSION: -Suspicious dominant group of pleomorphic calcifications in the medial slightly upper right breast, posterior one third depth for which stereotactic biopsy is recommended. -Smaller group of lesser suspicious calcifications in the lateral upper outer right breast, for which six-month interval follow-up is recommended, versus stereotactic biopsy depending on the pathology of the dominant group. -3 groups of probably benign calcifications left breast as detailed, for which six-month follow-up diagnostic mammogram is recommended to include standard magnification views. -Findings and recommendations were discussed with the patient in detail. She is in agreement with the overall plan. ASSESSMENT: BI-RADS BI-RADS 4 - Suspicious finding RECOMMENDATION: Biopsy recommended
== END 2023-09-20 09:45 | disposition home or self-care (01) ==
LOC: HO.MAMMO 09:44
PROVIDERS: Visit Provider Family Medicine
DX: R92.8 Other abnormal and inconclusive findings on diagnostic imaging of breast (principal)
CPT/HCPCS: 77062; 77066

== ENCOUNTER → 2023-09-20 11:00 | Outpatient (BNV) | payer OTHER, SELFPAY | PROVIDERS: Visit Provider Radiology Diagnostic Radiology | DX: R92.1 Mammographic calcification found on diagnostic imaging of breast (principal); R92.323 Mammographic fibroglandular density, bilateral breasts | CPT/HCPCS: 77066; G0279 ==

== ENCOUNTER 2023-10-05 07:11 | Outpatient (REF) | payer OTHER, SELFPAY ==
--- NOTE | ~2023-10-05 | MM_ITS ---
EXAMINATION: STEREOTACTIC TOMOSYNTHESIS-GUIDED VACUUM-ASSISTED BREAST BIOPSY, RIGHT SPECIMEN RADIOGRAPH, RIGHT POST PROCEDURE DIGITAL MAMMOGRAM, RIGHT CLINICAL INFORMATION: Suspicious grouped calcifications in the upper slightly inner left breast, recommended for stereotactic biopsy.. COMPARISON: Diagnostic mammogram 09/20/2023, and screening mammography 08/24/2023. TECHNIQUE/PROCEDURE: Informed consent was obtained from the patient after discussion of the benefits, risks, and alternatives to biopsy today. Patient appeared to understand. Gave opportunity for questions. Patient signed consent form. BIOPSY TABLE: [employer] Affirm Prone Biopsy System. LESION: Grouped calcifications.. LOCAL ANESTHESIA: 3 mL 1% lidocaine; 12 mL 1% lidocaine with epinephrine. DERMATOTOMY: Single skin meryl dermatotomy performed. NEEDLE: [employer] 9-gauge vacuum assisted core biopsy device. APPROACH: Lateral to medial. TARGETING: Combination of digital breast tomosynthesis and stereotactic digital mammography used for targeting. CORES: 8. CLIP: Top hat-shaped. SPECIMEN RADIOGRAPH: Specimen radiograph is taken in separate room using digital mammography. The index calcifications are in the excised cores. No definite residual calcifications are seen at the biopsy site. POST PROCEDURE UNILATERAL DIGITAL MAMMOGRAM: The post biopsy mammogram is performed in separate room using separate digital mammography equipment from the biopsy procedure. CC and LM views are obtained. There are scattered areas of fibroglandular density (breast composition category: b). No hematoma. The biopsy clip has migrated, likely secondary to tissue rebound (it was in place within the biopsy cavity on the post clip placement cheo, indicating it migrated after the patient moved out of the table). The top hat biopsy clip appears to have migrated directly towards the nipple on the LM view approximately 2.0 cm, and slightly anteriorly and laterally on the cc view by approximately 3.2 cm. If localization is necessary, we will use the biopsy site changes for a localization marker. The patient tolerated the procedure well. No immediate complications. Home instructions reviewed with the patient. Final pathology results are pending. MM/MM stereotactic biopsy RT IMPRESSION: 1. Digital tomosynthesis-guided core biopsy right breast grouped calcifications with clip placement. 2. Specimen radiograph taken and post procedure mammogram. There is anterolateral and inferior migration of the biopsy clip in relation to the biopsy site, which occurred after the patient was removed from the table, indicating tissue rebound. See above. 3. Final pathology results pending. An addendum report will be issued.
== END 2023-10-05 07:12 | disposition home or self-care (01) ==
LOC: HO.MAMMO 07:11
PROVIDERS: PCP Family Medicine; Visit Provider Family Medicine
DX: R92.8 Other abnormal and inconclusive findings on diagnostic imaging of breast (principal); R92.1 Mammographic calcification found on diagnostic imaging of breast
CPT/HCPCS: 19081; 88305; A4648

== ENCOUNTER → 2023-10-05 08:00 | Outpatient (BNV) | payer OTHER, SELFPAY | PROVIDERS: PCP Family Medicine; Visit Provider Radiology Diagnostic Radiology | DX: R92.1 Mammographic calcification found on diagnostic imaging of breast (principal) | CPT/HCPCS: 19081; 77065; G0279 ==

== ENCOUNTER 2023-12-22 20:27 | Emergency (ER) | payer OTHER, SELFPAY ==
[2023-12-22 20:52] VITALS: BP 188/86; PULSE 96; RESP 20; TEMP 36.6; O2SAT 98; BMI 39.5
--- NOTE | 2023-12-22 22:07 | ED.DENTAL ---
HPI - Dental/Oral General Chief complaint: Dental/Oral Stated complaint: Toothache Time Seen by Provider: 12/22/23 21:43 Source: patient Mode of arrival: ambulatory Limitations: no limitations History of Present Illness ED Provider: Cachorro SILVA HPI Narrative: 68-year-old female history of sepsis, diabetes presenting with concerns of right lower tooth pain ongoing for the past few days, patient reports she has not seen a dentist in years because she has a fear of going to the dentist office. She reports she is multiple teeth that are broken, falling out and dental cavities which have not been cared for. She reports over the past few days she is developed right lower dental pain no radiation. No fevers, chills, difficulty swallowing, trouble controlling secretions, chest pain Teeth map: 1. Onset (ago): day(s) (2) Related Data Home Medications ?Medication ?Instructions ?Recorded ?Confirmed glipizide 5 mg tablet, extended 1 tab PO DAILY 09/18/20 01/19/22 release 24 hr losartan 25 mg tablet 1 tab PO DAILY 09/18/20 01/19/22 metformin 1,000 mg tablet 1 tab PO BID 09/18/20 01/19/22 simvastatin 40 mg tablet 1 tab PO BEDTIME 09/18/20 01/19/22 sertraline 50 mg tablet 50 mg PO BID 02/17/21 01/20/22 albuterol sulfate 90 mcg/actuation 2 inh inhalation Q4H PRN Wheezing 01/19/22 01/20/22 aerosol inhaler aripiprazole 2 mg tablet 1 tab PO DAILY 01/19/22 01/19/22 hydroxyzine HCl 10 mg tablet 1 tab PO BID 01/19/22 01/19/22 lorazepam 0.5 mg tablet 1 tab PO BID PRN Anxiety 01/19/22 01/19/22 Previous Rx's ?Medication ?Instructions ?Recorded insulin glargine 100 unit/mL 30 unit (0.3 mL) subcut DAILY #0 mL 09/25/20 subcutaneous solution (Lantus U-100 Insulin) insulin lispro 100 unit/mL See Protocol subcut QIDACHS #0 mL 09/25/20 subcutaneous solution (Humalog U-100 Insulin) cefuroxime axetil 500 mg tablet 500 mg PO BID 11 days #22 tabs 01/22/22 nitrofurantoin 100 mg PO Q12H 5 days #10 caps 02/25/22 monohydrate/macrocrystals 100 mg capsule (Macrobid) acetaminophen 325 mg capsule 650 mg (2 x 325 mg) PO Q6H PRN 12/22/23 (Tylenol) pain #30 caps amoxicillin 875 mg-potassium 1 tab PO BID 7 days #14 tabs 12/22/23 clavulanate 125 mg tablet Allergies Allergy/AdvReac Type Severity Reaction Status Date / Time No Known Allergies Allergy Verified 12/22/23 20:55 Review of Systems Review of Systems: Yes all other systems are reviewed and are negative [facility]LY [facility] Past Medical History Attestation statement: The following information was validated with the patient. Source: old records reviewed and nursing notes reviewed Medical History Anemia Pre-op evaluation Obesity Acute hyperglycemia Fall Diabetes High cholesterol HTN (hypertension) Social History Social History Household Members: None Housing: House Do you presently have visiting nurse or other home services: Yes ([employer], [employer]) Alcohol intake: never Comment: 8 Patient Tobacco Use Status: Never used Tobacco Advance Directives: Yes Advance Directives on File: Yes Advance Directives Date on File: 09/27/20 Do you have a plan to hurt others: No Plan service: No Current occupational status: retired Physical Exam Vital Signs: Vital Signs: Last Vital Signs Temp 97.8 F 12/22/23 20:52 Pulse 96 12/22/23 20:52 Resp 20 12/22/23 20:52 BP 188/86 H 12/22/23 20:52 Pulse Ox 98 12/22/23 20:52 O2 Del Method Room Air 12/22/23 20:52 BMI result Body Mass Index 39.5 vss Appearance: Alert.? Oriented X3.? No acute distress.? Head: Normocephalic, atraumatic, no step-offs or deformities Eyes: Pupils equal, round and reactive to light.? ENT: Pharynx normal.? Uvula midline. Patient speaking in full sentences controlling secretions well + discomfort with palpation of tooth 31, 30 and 29, evident dental caries throughout, poor dentition, front tooth appears to be falling out. Halitosis Neck: Normal inspection.? Neck supple.? CVS: Normal heart rate and rhythm.? Pulses normal.? Respiratory: No respiratory distress.? Breath sounds normal.? Abdomen: Soft and nontender.? Skin: Skin warm and dry.? Normal skin color.? Normal skin turgor.? Extremities: No lower extremity edema.? No calf ttp. 5/5 strength to bilateral upper and lower extremities Neuro: Oriented X 3.? No motor deficit.? No sensory deficit. CN 2-12 intact Medical Decision Making Medical Decision Making [facility] Narrative: 1009 68-year-old female presents with right lower dental pain x2 days Physical exam Pharynx normal.? Uvula midline. Patient speaking in full sentences controlling secretions well + discomfort with palpation of tooth 31, 30 and 29, evident dental caries throughout, poor dentition, front tooth appears to be falling out. Halitosis History and physical exam concerning for dental caries, periodontal disease, halitosis. Unlikely abscess, threat to airway, acute respiratory distress. No signs of sepsis Plan will discharge with antibiotics and Tylenol for pain. Also give him follow-up with a dentist in the area as patient should seek prompt dental attention and care Differential Diagnosis Differential Diagnoses: The differential diagnosis associated with the presentation includes History and physical exam concerning for dental caries, periodontal disease, halitosis. Unlikely abscess, threat to airway, acute respiratory distress. No signs of sepsis Admission/Observation Consideration of admission/observation: Escalation of care including admission/observation considered Unlikely Tests considered The following testing was considered but not selected: No indication for imaging unlikely dental abscess. Discharge Plan Discharge Clinical Impression: Toothache Patient Disposition: Home, Self-Care Instructions: Toothache (ED) Additional Instructions: Take your medications as prescribed. If you were prescribed antibiotics today, it is important that you take your medication to their entirety, do not skip any doses, do not finish them early. Follow-up with your primary care provider this week. Return to the emergency department with new or worsening symptoms. Such as fevers, chills, chest pain, shortness of breath, nausea, vomiting, dizziness, headache, vision changes, lethargy In case of emergency call 911 You can contact the [facility] to get a dentist. [phone] Prescriptions: New amoxicillin-pot clavulanate 875-125 mg tablet 1 tab PO BID 7 Days Qty: 14 0RF acetaminophen [Tylenol] 325 mg capsule 650 mg PO Q6H PRN (Reason: pain) Qty: 30 0RF No Action glipizide 5 mg tablet extended release 24hr 1 tab PO DAILY simvastatin 40 mg tablet 1 tab PO BEDTIME metformin 1,000 mg tablet 1 tab PO BID losartan 25 mg tablet 1 tab PO DAILY insulin glargine [Lantus U-100 Insulin] 100 unit/mL Solution 30 unit subcut DAILY Qty: 0 0RF insulin lispro [Humalog U-100 Insulin] 100 unit/mL Solution See Protocol subcut QIDACHS Qty: 0 0RF Protocol: Insulin Correction Scale Less than or equal to 110 ---- Give (units): 0 111 to 150 Give (units): 0 151 to 200 Give (units): 2 201 to 250 Give (units): 4 251 to 300 Give (units): 6 301 to 350 Give (units): 8 Greater than 350 Give (units): 10 Call MD if Blood Glucose > : 350 lorazepam 0.5 mg tablet 1 tab PO BID PRN (Reason: Anxiety) albuterol sulfate 90 mcg/actuation HFA aerosol inhaler 2 inh inhalation Q4H PRN (Reason: Wheezing) hydroxyzine HCl 10 mg tablet 1 tab PO BID aripiprazole 2 mg tablet 1 tab PO DAILY cefuroxime axetil 500 mg tablet 500 mg PO BID 11 Days Qty: 22 0RF nitrofurantoin monohyd/m-cryst [Macrobid] 100 mg capsule 100 mg PO Q12H 5 Days Qty: 10 0RF Rx Instructions: must administer with a meal/food sertraline 50 mg tablet 50 mg PO BID Referrals: Shady [place] MD [Primary Care Provider] - 2 days Print Language: Nigerien
[2023-12-22] MEDS: Acetaminophen 325 MG TABLET 975 MG PO (22:12)
== END 2023-12-23 00:42 | disposition home or self-care (01) ==
PROVIDERS: Emergency Provider Emergency Medicine; PCP Family Medicine
DX: K08.89 Other specified disorders of teeth and supporting structures (principal); I10 Essential (primary) hypertension; E78.00 Pure hypercholesterolemia, unspecified; D64.9 Anemia, unspecified
CPT/HCPCS: 99282; 99283

== ENCOUNTER 2024-04-16 13:19 | Outpatient (REF) | payer OTHER, SELFPAY ==
--- NOTE | ~2024-04-16 | MM_ITS ---
EXAMINATION: MM DIAGNOSTIC DIGITAL BREAST TOMOSYNTHESIS, BILATERAL CLINICAL INFORMATION: Right breast stereotactic core needle biopsy with benign pathology. 6 month follow-up for bilateral other areas of calcifications. COMPARISON: Mammography: Comparison is made with relevant prior exams. TECHNIQUE: Digital breast mammography with tomosynthesis is performed in both the craniocaudal and mediolateral oblique views along with computer-aided detection (CAD). FINDINGS: There are scattered areas of fibroglandular density (ACR BI-RADS breast composition Category b). Right: Grouped calcifications in the upper outer right breast are not significantly changed from prior magnification views. Marker clip from previous benign needle core biopsy. No other suspicious abnormalities. Left: Grouped calcifications in the upper outer breast lower inner breast are not significantly changed from prior magnification views. No other suspicious abnormal findings. Results are provided to the patient at time of visit by the technologist. MM/MM tomosynthesis diagnostic BI IMPRESSION: There are no significant changes from prior study. ASSESSMENT: BI-RADS BI-RADS 3 - Probably benign finding(s) - 6 month follow-up suggested RECOMMENDATION: 6 Month F/U This patient's information was entered into a reminder system with a target due date for their next mammogram. Electronically signed by: Nohemy Lovell DO 04/16/2024 03:36 PM EDT
== END 2024-04-16 13:20 | disposition home or self-care (01) ==
LOC: HO.MAMMO 13:19
PROVIDERS: PCP Family Medicine; Visit Provider Family Medicine
DX: R92.8 Other abnormal and inconclusive findings on diagnostic imaging of breast (principal)
CPT/HCPCS: 77062; 77066

== ENCOUNTER → 2024-04-16 14:15 | Outpatient (BNV) | payer OTHER, SELFPAY | PROVIDERS: PCP Family Medicine; Visit Provider Internal Medicine | DX: R92.1 Mammographic calcification found on diagnostic imaging of breast (principal) | CPT/HCPCS: 77066; G0279 ==

== ENCOUNTER 2024-08-18 10:49 | Emergency (ER) | payer OTHER, SELFPAY ==
[2024-08-18 11:47] VITALS: BP 192/80; PULSE 99; RESP 16; TEMP 36.6; O2SAT 99; BMI 39.5
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
[2024-08-18 12:55] VITALS: BP 192/80; PULSE 99; RESP 16; TEMP 36.6; O2SAT 99
--- OUTSIDE RECORDS SUMMARY | 2024-08-18 14:49 | XMS_ITS | Clinical Summary ---
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 Active albuterol HFA (PROAIR HFA ; PROVENTIL HFA ; VENTOLIN HFA) 90 mcg/actuation inhaler Inhale 2 puffs by mouth every 6 (six) hours if needed for wheezing. Active cholecalcifer ol (Vitamin D3) 50 mcg (2,000 unit) tablet Take 1 tablet (2,000 Units total) by mouth 1 (one) time each day. 90 tablet 1 024 2024 Active atorvastatin (LIPITOR) 20 mg tablet TAKE 1 TABLET BY MOUTH EVERY NIGHT AT BEDTIME 90 tablet 1 Active losartan (COZAAR) 100 mg tablet TAKE 1 TABLET BY MOUTH DAILY AT BEDTIME 28 tablet Active hydrOXYzine HCL (ATARAX) 10 mg tablet Take 1 tablet (10 mg total) by mouth at bedtime as needed for anxiety. 28 tablet Active UltiCare Pen Needle 32 gauge x needle USE DIRECTED FOR INSULIN INJECTION SUBCUTANEOUSLY DAILY 100 each 1 025 Active ergocalcifero l (VITAMIN D-2) 1,250 mcg (50,000 unit) capsuleIndica tions:Vitamin D deficiency Take 1 capsule (50,000 Units total) by mouth 1 (one) time per week. 12 capsule 025 2024 Active freestyle (FreeStyle Lancets) 28 gauge lancets USE TO CHECK FASTING BLOOD SUGAR EVERY MORNING 100 each 1 025 Active BD Alcohol Swabs pads, medicated USE DAILY DIRECTED 100 each 1 025 Active insulin glargine (Lantus Solostar U-100 Insulin) 100 unit/mL (3 mL) injection pen Inject 45 Units under the skin at bedtime. 15 mL 2 025 Active metFORMIN (GLUCOPHAGE) 1,000 mg tablet Take 1 tablet (1,000 mg total) by mouth 2 (two) times a day with meals. 56 tablet 5 025 Active empagliflozin (Jardiance) 10 mg tablet Take 1 tablet (10 mg total) by mouth 1 (one) time each day in the morning. 30 tablet 1 025 Active glipiZIDE (GLUCOTROL) 10 mg tablet Take 1 tablet (10 mg total) by mouth 1 (one) time each day in the evening. 30 each 1 025 Active dulaglutide (TRULICITY) 4.5 mg/0.5 mL pen injector injectionIndi cations:Type 2 diabetes mellitus with microalbuminu mxaine, with long-term current use of insulin ([facility]) Inject 0.5 mL (4.5 mg total) under the skin every 7 (seven) days. 6 mL 025 2024 Active alcohol swabs pads, medicated USE FOR DAILY INJECTION 024 2024 Discontinued ARIPiprazole (ABILIFY) 2 mg tablet Take 1 tablet (2 mg total) by mouth 1 (one) time each day. 024 2024 Discontinued(T herapy completed) pen needle,diabet ic, disp unit (UltiGuard SafePack-Pen Needle) 32 gauge x 1/4 needle USE DIRECTED FOR INSULIN INJECTION SUBCUTANEOUSLY DAILY 2024 Discontinued(D uplicate order) diclofenac (CATAFLAM) 50 mg tablet Take 1 tablet (50 mg total) by mouth 2 (two) times a day if needed (pain). Take with food 2024 Discontinued(T herapy completed) glipiZIDE (GLUCOTROL) 10 mg tablet TAKE 1 TABLET BY MOUTH TWICE A DAY (BEFORE MEALS) 56 tablet 2024 Discontinued(D ose adjustment) metFORMIN (GLUCOPHAGE) 1,000 mg tablet TAKE 1 TABLET BY MOUTH TWICE A DAY WITH MEALS 56 tablet 2024 Discontinued(R eorder) Lantus Solostar U-100 Insulin 100 unit/mL (3 mL) injection pen INJECT 45 UNITS SUBCUTANEOUSLY EVERY NIGHT AT BEDTIME 15 mL 025 2024 Discontinued(R eorder) freestyle (FreeStyle Lancets) 28 gauge lancets DX:E 11.39 USE TO CHECK FASTING BLOOD SUGAR EVERY MORNING 100 each 1 025 2024 Discontinued dulaglutide (TRULICITY) 4.5 mg/0.5 mL pen injector injection Inject 0.5 mL (4.5 mg total) under the skin every 7 (seven) days. 6 mL 025 2024 Discontinued(R eorder) glipiZIDE (GLUCOTROL) 10 mg tablet Take 1 tablet (10 mg total) by mouth 1 (one) time each day in the evening. 2024 Discontinued(R eorder) Active Problems Problem Noted Date Diagnosed Date Other specified anxiety disorders 06/21/2024 Type 2 diabetes mellitus wit h microalbuminuria, with long-term current use of insulin 06/21/2024 Unspecified fracture of lowe r end of left femur, initial encounter for closed fracture 06/21/2024 Repeated falls 06/21/2024 Essential (primary) hypertension 06/21/2024 Other obesity due to excess calories 06/21/2024 Other insomnia 06/21/2024 Urinary incontinence 01/08/2024 Assessment & Plan (05/20/2024 5:59 PM EST): Incontinence supplies needed, will send to DME Anxiety 06/06/2023 Chest pain 05/29/2023 Abnormal EKG 03/06/2023 Arthritis of left knee 11/23/2022 Assessment & Plan (05/20/2024 5:59 PM EST): Continue diclofenac PRN Closed comminuted fracture of hip with delayed h ealing 11/23/2022 Assessment & Plan (05/20/2024 5:59 PM EST): Continue diclofenac PRN Impaired gait and mobility 08/29/2020 Overview (04/06/2024): S/p ORIF for comminuted fracture of distal left femur. has had difficulty with mobility despite physical therapy. Assessment & Plan (05/20/2024 5:59 PM EST): Continue with scooter use Endometrial cancer 07/23/2019 Overview (04/06/2024): Following with [facility] oncology. 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 Roque. Uterine prolapse 04/24/2019 Essential hypertension 05/27/2018 Assessment & Plan (05/20/2024 5:59 PM EST): Stable. 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 Overdue for labs which are ordered Continue metformin 1000mg BID, Trulicity 3 mg weekly, glipizide 10mg BID daily, insulin lantus 45U QAM Orders: Ambulatory referral to Ophthalmology; Future Ambulatory referral to pharmacist; Future Hemoglobin A1c; Future Microalbumin creatinine urine ratio; Future Mixed hyperlipidemia 06/01/2016 Assessment & Plan (05/20/2024 5:59 PM EST): continue atorvastatin 20mg QHS Orders: CBC and differential; Future Comprehensive metabolic panel; Future Lipid panel with reflex to direct LDL; Future Resolved Problems Problem Noted Date Diagnosed Date Resolved Date Suicide attempt 05/13/2018 07/10/2024 Encounters Date Type Department Care Team Description 08/16/2024 Billing Patient Not Present Adult Medicine [address] [phone] Shady East MD Other specified anxiety disorders (Primary Dx); Type 2 diabetes mellitus without complication, unspecified whether retirement insulin use ([facility]); Unspecified fracture of lower end of left femur, initial encounter for closed fracture ([facility]); Repeated falls; Essential (primary) hypertension; Other obesity due to excess calories; Mixed hyperlipidemia; Insomnia, unspecified type 08/15/2024 Telephone Adult Medicine [address] [phone] Mar Reyes LPN Fitting for DME (Faxed form from [facility] seating and mobility) 06/21/2024 Billing Patient Not Present Adult [address] [phone] Shady East MD Other specified anxiety disorders (Primary Dx); Type 2 diabetes mellitus without complication, unspecified whether retirement insulin use ([facility]); Unspecified fracture of lower end of left femur, initial encounter for closed fracture ([facility]); Repeated falls; Essential (primary) hypertension; Other obesity due to excess calories; Mixed hyperlipidemia; Other insomnia 06/17/2024 Telephone Adult Medicine [address] [phone] Mar Reyes LPN Fitting for DME (Faxed form from [facility]) 05/19/2024 1:30 PM EST Office Visit Adult Medicine [address] [phone] Shady East MD Annual wellness visit (Primary Dx); 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, with long-term current use of insulin, macular edema presence unspecified (CMS/HCC); Mixed hyperlipidemia; Essential hypertension; Positive cardiac stress test; Anxiety and depression; Impaired gait and mobility; Arthritis of left knee; Psoriasis; Urge incontinence of urine; Colon cancer screening; Disorder of bone density and structure, unspecified; Closed comminuted fracture of left hip with delayed healing, subsequent encounter from Last 3 Months Immunizations Name Administration Dates Next Due Influenza Quadravalent, 0.5m l (Fluad) 65yo and older 04/25/2021 Influenza Quadravalent, 0.5m l (Fluzone High-dose) 65yo and older 05/11/2020 Influenza Quadravalent, MDCK , 0.5ml, preservative free (Flucelvax) 6mo and older 05/27/2018 Influenza Quadravalent, MDCK , 0.5ml, with preservative (Flucelvax) 6mo and older 02/28/2017 Influenza trivalent, 0.5mL ( Fluad) 65yo and older 05/19/2024,06/06/2023,03/21/2022 Influenza trivalent, 0.5mL ( Fluzone High-dose) 65yo and older 06/06/2023,03/21/2022 Influenza trivalent, 0.5mL, preservative free (Fluarix; FluLaval; Fluzone) ages 6mo and older (Afluria) 3 years and older 07/05/2016,05/24/2015 Influenza trivalent, with pr eservative (Fluzone; Afluria) 6mo and older 07/05/2016,05/24/2015 PPD Test 10/30/2018,12/06/2016 Pneumococcal conjugate 20 va lent (Prevnar 20, PCV 20) 2mo and older 06/06/2023 Pneumococcal polysaccharide 23 valent (Pneumovax 23) 2yo and older 05/15/2022 Tdap Tetanus diptheria acell ular pertussis (Boostrix; Adacel) 7yo and older 05/24/2015 Surgical History Surgery Date Site/Laterality Comments CHOLECYSTECTOMY PROCEDURE: HISTORICAL CHOLECYSTECTOMY TONSILLECTOMY PROCEDURE: HISTORICAL TONSILLECTOMY OTHER SURGICAL HISTORY PROCEDURE: HYSTEROSCOPY, DIAGNOSTIC OTHER SURGICAL HISTORY 07/21/2019 PROCEDURE: HYSTEROSCOPY, SURGICAL/SAMPLING; COMMENT: Endometrial clear cell carcinoma / large endometrial polyp, after complains of postmenopausal bleeding. FEMUR FRACTURE SURGERY PROCEDURE: GA OPEN TX FEMORAL FRACTURE DISTAL MED/LAT CONDYLE; COMMENT: 09/20/20 HYSTERECTOMY 07/2019 PROCEDURE: HISTORICAL HYSTERECTOMY; COMMENT: Robotic Hysterectomy Salpingo-oophore Bilateral with lymph node biopsy Medical History Medical History Date Comments Diabetes type 2, uncontrolled DX :Diabetes type 2, uncontrolled Hyperlipidemia DX:Hyperlipidemi a Diabetic retinopathy ([facility]) D X:Diabetic retinopathy ([facility]) Nuclear sclerosis DX:Nuclear scl erosis Suicide attempt ([facility]) 2018 DX:Josee cide attempt ([facility]) Depression DX:Depression Essential hypertension 05/27/2018 DX:Essent ial hypertension Clear cell carcinoma ([facility]/HCC) 06/2019 D X:Clear cell carcinoma (HCC); COMMENT: [facility] Endometrial cancer (CMS/HCC) 06/2019 DX: Endometrial cancer (HCC); COMMENT: clear cell . [facility] Social History Tobacco Use Types Packs/Day Years Used Date Smoking Tobacco: Never Smokeless Tobacco: Never Tobacco Cessation:Counseling Given: Not Answered Alcohol Use Standard Drinks/Week Comments No 0 (1 standard drink = 0.6 oz pur e alcohol) Comments Unknown Sex and Gender Information Value Date Recorded Sex Assigned at Not on file Legal Sex Female 5:41 PM EST Gender Identity Not on file Sexual Orientation Not on file Obstetrics History Last Filed Vital Signs Vital Sign Reading Time Taken Comments Blood Pressure 133/89 05/19/2024 1:52 PM EST Pulse 91 05/19/2024 1:52 PM EST Temperature 36.6 ??C (97.8 ??F) 05/19/2024 1 :52 PM EST Respiratory Rate 16 05/19/2024 1:52 PM EST Oxygen Saturation 95% 06/06/2023 9:5 0 AM EST at rest, room air Inhaled Oxygen Concentration - - Weight 107 kg (235 lb) 05/19/2024 1:52 PM EST Height 162.6 cm (5' 4 ) 05/19/2024 1:52 PM EST Body Mass Index 40.34 05/19/2024 1:52 PM EST Plan of Treatment Upcoming Encounters Date Type Department Care Team (Late st Contact Info) Description 08/28/2024 11:20 AM EST Consult Endocrinology - [address] [phone] Maria D Devine PA [address] [place], [place] 09/02/2024 9:00 AM EDT Medication Management Adult [address] [phone] Dominga Ramirez PharmD [address] [place] [address] 09/12/2024 9:50 AM EDT Office Visit [facility] [address] [phone] Abdullahi Santos MD [address] [address] 09/17/2024 10:30 AM EDT Office Visit Adult [address] [phone] Maci Bryan PA [address] [place] [address] Health Maintenance Due Date Last Done Comments Diabetes: Annual Retina Eye Exam 11/17/1963 Zoster Vaccines (1 of 2) 1972 RSV Immunization Patients 60+ Years Old (1 - Risk 60-74 years 1-dose series) 2013 Colorectal Cancer Screening: Colonoscopy 06/03/2022 Osteoporosis Screening (Bone Density Screening) 06/03/2022 Social Influencers of Health Screening 06/03/2022 COVID-19 Vaccine ( season) 2024 04/25/2021, 11/25/2020, 10/28/2020 Diabetes: Annual Foot Exam 06/06/2024 06/06/2023 Diabetes: Blood Sugar Control Test (HGBA1C) 01/04/2025 07/07/2024, 12/14/2023, 12/14/2023 Depression Screening 05/19/2025 05/19/2024, 09/06/19 Falls Risk Assessment 05/19/2025 05/19/2024 , 05/19/2024, 09/06/2023 Medicare Annual Wellness Visit 05/19/2025 05/19/2024 DTaP,Tdap,and Td Vaccines (2 - Td or Tdap) 05/24/2025 05/24/2015 Diabetes: Annual Urine Albumin-Creatinine Ratio (uACR) 07/07/2025 07/07/2024, 12/14/2023 Diabetes: Annual GFR (Glomerular Filtration Rate) 07/07/2025 07/07/2024, 12/14/2023, 12/14/2023 Hypertension/CHF/CAD Annual BMP Blood Test 07/07/2025 07/07/2024, 12/14/2023, 12/14/2023 Breast Cancer Screening 04/16/2026 04/16/2024 Cholesterol Screening (Lipid Panel) 07/07/2029 07/07/2024, 07/17/2023 Hepatitis C Screening Completed 06/04/2015 Pneumococcal Vaccine: 50+ Years Completed 06/06/2023, 05/15/2022 Influenza Vaccine Completed 05/19/2024, , 06/06/2023, Additional history exists HIB Vaccines Aged Out No longer eligi ble based on patient's age to complete this topic HPV Vaccines Aged Out No longer eligi ble based on patient's age to complete this topic Hepatitis A Vaccines Aged Out No long er eligible based on patient's age to complete this topic Hepatitis B Vaccines Aged Out No long er eligible based on patient's age to complete this topic IPV Vaccines Aged Out No longer eligi ble based on patient's age to complete this topic MMR Vaccines Aged Out No longer eligi ble based on patient's age to complete this topic Meningococcal ACWY Vaccine Aged Out N o longer eligible based on patient's age to complete this topic Meningococcal B Vacine Aged Out No lo nger eligible based on patient's age to complete this topic RSV Immunization Patients Under 20 months Aged Out No longer eligible based on patient's age to complete this topic Varicella Vaccines Aged Out No longer eligible based on patient's age to complete this topic Procedures Procedure Name Priority Date/Time Associated Diagnosis Comments CBC WITH AUTO DIFFERENTIAL Routine 07/07/2024 10:03 AM EST Mixed hyperlipidemia LIPID PANEL WITH REFLEX TO DIRECT LDL Routine 07/07/2024 10:03 AM EST Mixed hyperlipidemia VITAMIN D 25 HYDROXY Routine 07/07/2024 10:03 AM EST Disorder of bone density and structure, unspecified COMPREHENSIVE METABOLIC PANEL Routine 07/07/2024 10:03 AM EST Mixed hyperlipidemia MICROALBUMIN CREATININE URINE RATIO Routine 07/07/2024 10:03 AM EST 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, with long-term current use of insulin, macular edema presence unspecified (CMS/HCC) CBC AND DIFFERENTIAL Routine 07/07/2024 10:03 AM EST Mixed hyperlipidemia HEMOGLOBIN A1C Routine 07/07/2024 10:03 AM EST 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, with long-term current use of insulin, macular edema presence unspecified (CMS/HCC) EXTERNAL MAMMOGRAM REPORT Routine 04/16/2024 3:10 PM EDT DEPRESSION SCREENING Routine 09/06/2023 FALLS RISK ASSESSMENT Routine 09/06/2023 HEPATITIS C SCREENING Routine 06/04/2015 from Last 3 Months or Most Recently Relevant to Health Maintenance Results * (ABNORMAL) Lipid panel with reflex to direct LDL (07/07/2024 10:03 AM EST) Cholesterol 256(H) 0 - 200 mg/dL LAB CHEMISTRY METHOD 07/07/2024 12:55 PM [facility] Triglycerides 148 0 - 150 mg/dL LAB CHEMISTRY METHOD 07/07/2024 12:55 PM [facility] HDL 66 >=40 mg/dL LAB CHEMISTRY METHOD 07/07/2024 12:55 PM [facility] LDL Calculated 160(H) 0 - 100 mg/dL LAB CHEMISTRY METHOD 07/07/2024 12:55 PM [facility] VLDL Cholesterol Fer 29.6 mg/dL LAB CHEMISTRY METHOD 07/07/2024 12:55 PM [facility] Non HDL Chol. (LDL+VLDL) 190(H) <145 mg/dL LAB CHEMISTRY METHOD 07/07/2024 12:55 PM [facility] Chol/HDL Ratio 3.9 0.0 - 4.4 LAB CHEMISTRY METHOD 07/07/2024 12:55 PM [facility] Blood Venous blood specimen / Unknown Venipuncture / Unknown 07/07/2024 10:03 AM EST 07/07/2024 10:03 AM EST Shady East MD LAB BLOOD ORDERA BLES Final Result [facility] [address] [place] [address], * (ABNORMAL) CBC auto differential (07/07/2024 10:03 AM EST) WBC 9.9 4.8 - 10.8 K/mcL LAB HEMETOLOGY METHOD 07/07/2024 1:02 PM [facility] RBC 5.40(H) 3.80 - 4.80 M/mcL LAB HEMETOLOGY METHOD 07/07/2024 1:02 PM [facility] Hemoglobin 15.5 11.5 - 16.0 g/dL LAB HEMETOLOGY METHOD 07/07/2024 1:02 PM [facility] Hematocrit 48.5(H) 35.0 - 47.0 % LAB HEMETOLOGY METHOD 07/07/2024 1:02 PM [facility] MCV 89.3 79.0 - 98.0 FL LAB HEMETOLOGY METHOD 07/07/2024 1:02 PM [facility] MCH 28.5 27.0 - 32.0 pcg LAB HEMETOLOGY METHOD 07/07/2024 1:02 PM [facility] MCHC 32.0 32.0 - 37.0 g/dL LAB HEMETOLOGY METHOD 07/07/2024 1:02 PM [facility] RDW 14.7 11.0 - 15.0 % LAB HEMETOLOGY METHOD 07/07/2024 1:02 PM [facility] Platelets 328 130 - 400 K/mcL LAB HEMETOLOGY METHOD 07/07/2024 1:02 PM [facility] MPV 11.1(H) 7.0 - 11.0 FL LAB HEMETOLOGY METHOD 07/07/2024 1:02 PM [facility] NRBC 0.0 <1.0 % LAB HEMETOLOGY METHOD 07/07/2024 1:02 PM [facility] NRBC Absolute 0.00 <0.10 K/mcL LAB HEMETOLOGY METHOD 07/07/2024 1:02 PM [facility] Neutrophils Relative 66.5 % LAB HEMETOLOGY METHOD 07/07/2024 1:02 PM [facility] Lymphocytes Relative 23.9 % LAB HEMETOLOGY METHOD 07/07/2024 1:02 PM [facility] Monocytes Relative 6.2 % LAB HEMETOLOGY METHOD 07/07/2024 1:02 PM [facility] Eosinophils Relative 2.4 % LAB HEMETOLOGY METHOD 07/07/2024 1:02 PM [facility] Basophils Relative 0.5 % LAB HEMETOLOGY METHOD 07/07/2024 1:02 PM [facility] Immature Granulocytes Relative 0.5 % LAB HEMETOLOGY METHOD 07/07/2024 1:02 PM [facility] Neutrophils Absolute 6.59 1.50 - 7.00 K/mcL LAB HEMETOLOGY METHOD 07/07/2024 1:02 PM [facility] Lymphocytes Absolute 2.37 1.00 - 5.00 K/mcL LAB HEMETOLOGY METHOD 07/07/2024 1:02 PM [facility] Monocytes Absolute 0.61 0.20 - 1.00 K/mcL LAB HEMETOLOGY METHOD 07/07/2024 1:02 PM [facility] Eosinophils Absolute 0.24 0.00 - 0.50 K/mcL LAB HEMETOLOGY METHOD 07/07/2024 1:02 PM [facility] Basophils Absolute 0.05 0.00 - 0.20 K/mcL LAB HEMETOLOGY METHOD 07/07/2024 1:02 PM [facility] Immature Granulocytes Absolute 0.05(H) 0.00 - 0.03 K/mcL LAB HEMETOLOGY METHOD 07/07/2024 1:02 PM [facility] Blood Venous blood specimen / Unknown Venipuncture / Unknown 07/07/2024 10:03 AM EST 07/07/2024 10:03 AM EST us Shady East MD LAB BLOOD ORDERA BLES Final Result [facility] [address] [place] [address], * (ABNORMAL) Microalbumin creatinine urine ratio (07/07/2024 10:03 AM EST) Pathologist [facility] Creatinine, Urine 228.0 mg/dL LAB CHEMISTRY METHOD 07/07/2024 7:07 PM [facility] Microalb, Ur 33.0(H) 0.0 - 29.0 mg/L LAB CHEMISTRY METHOD 07/07/2024 7:07 PM [facility] Microalb/Crea t Ratio 14 <30 mg/g creat LAB CHEMISTRY METHOD 07/07/2024 7:07 PM [facility] Urine Urine specimen obtained by clean catch procedure / Unknown Non-blood Collection / Unknown 07/07/2024 10:03 AM EST 07/07/2024 10:03 AM EST Shady East MD LAB URINE ORDERA BLES Final Result Performing Organization Address City/[facility]/ZIP Co de Phone Number [facility] [address] [place] [address], [place] [phone] * (ABNORMAL) Vitamin D 25 hydroxy (07/07/2024 10:03 AM EST) [facility] Vit D, 25-Hydroxy 18.4(L) 30.0 - 80.0 ng/mL LAB CHEMISTRY METHOD 07/07/2024 1:28 PM [facility] Blood Venous blood specimen / Unknown Venipuncture / Unknown 07/07/2024 10:03 AM EST 07/07/2024 10:03 AM EST Shady East MD LAB BLOOD ORDERA BLES Final Result [facility] [address] [place] [address], [place] [phone] * (ABNORMAL) Hemoglobin A1c (07/07/2024 10:03 AM EST) [facility] Hemoglobin A1C 8.7(H) <6.5 % LAB CHEMISTRY METHOD 07/08/2024 2:34 PM [facility] Mean Bld Glu Estim. 203 mg/dL LAB CHEMISTRY METHOD 07/08/2024 2:34 PM [facility] Blood Venous blood specimen / Unknown Venipuncture / Unknown 07/07/2024 10:03 AM EST 07/07/2024 10:03 AM EST Shady East MD LAB BLOOD ORDERA BLES Final Result [facility] [address] [place] [address], [place] [phone] * (ABNORMAL) Comprehensive metabolic panel (07/07/2024 10:03 AM EST) Sodium 136 133 - 145 mmol/L LAB CHEMISTRY METHOD 07/07/2024 12:55 PM [facility] Potassium 4.1 3.5 - 5.5 mmol/L LAB CHEMISTRY METHOD 07/07/2024 12:55 PM [facility] Chloride 105 96 - 110 mmol/L LAB CHEMISTRY METHOD 07/07/2024 12:55 PM [facility] CO2 24 21 - 32 mmol/L LAB CHEMISTRY METHOD 07/07/2024 12:55 PM [facility] Anion Gap 7 3 - 11 LAB CHEMISTRY METHOD 07/07/2024 12:55 PM [facility] Glucose 164(H) 70 - 100 mg/dL LAB CHEMISTRY METHOD 07/07/2024 12:55 PM [facility] BUN 12 5 - 25 mg/dL LAB CHEMISTRY METHOD 07/07/2024 12:55 PM [facility] Creatinine 0.92 0.50 - 1.10 mg/dL LAB CHEMISTRY METHOD 07/07/2024 12:55 PM [facility] eGFR 67 >=60 mL/min/1. 73m2 LAB CHEMISTRY METHOD 07/07/2024 12:55 PM [facility] Comment:Calculation based on the??Chronic Kidney Disease Epidemiology Collaboration (CKD-EPI) equation refit??without adjustment for race. BUN/Creatinine Ratio 13.0 LAB CHEMISTRY METHOD 07/07/2024 12:55 PM [facility] Calcium 9.9 8.5 - 10.5 mg/dL LAB CHEMISTRY METHOD 07/07/2024 12:55 PM [facility] AST (SGOT) 11 10 - 42 unit/L LAB CHEMISTRY METHOD 07/07/2024 12:55 PM [facility] ALT (SGPT) 27 10 - 60 unit/L LAB CHEMISTRY METHOD 07/07/2024 12:55 PM [facility] Alkaline Phosphatase 133(H) 42 - 121 unit/L LAB CHEMISTRY METHOD 07/07/2024 12:55 PM [facility] Total Protein 7.3 6.0 - 8.0 g/dL LAB CHEMISTRY METHOD 07/07/2024 12:55 PM [facility] Albumin 3.6 3.2 - 5.0 g/dL LAB CHEMISTRY METHOD 07/07/2024 12:55 PM [facility] Total Bilirubin 0.5 0.0 - 1.4 mg/dL LAB CHEMISTRY METHOD 07/07/2024 12:55 PM [facility] Blood Venous blood specimen / Unknown Venipuncture / Unknown 07/07/2024 10:03 AM EST 07/07/2024 10:03 AM EST Shady East MD LAB BLOOD ORDERA BLES Final Result [facility] [facility] [address] [place] [address], * External Mammogram Report (04/16/2024 3:10 PM EDT) Anatomical Region Laterality Modality Mammography Historical Provider IMG BI PROCEDURES Final R esult * Falls Risk Assessment (09/06/2023) Falls Risk Assessment abstracted Historical Provider HEALTH MAINTENANCE Final Result * Depression Screening (09/06/2023) Depression Screening abstracted Historical Provider HEALTH MAINTENANCE Final Result * Hepatitis C Screening (06/04/2015) Hepatitis C Screening abstracted Historical Provider HEALTH MAINTENANCE Final Result from Last 3 Months or Most Recently Relevant to Health Maintenance Insurance [facility]IC[facility] Member Subscriber Plan / Payer (Ef fective 2019-Present) Name:Maame Marrero Relation to Subscriber:Self Name:Maame Marrero Payer ID:[id number] Group ID:[id number] Type:Not on file Address: [place] [address] [place] [address] Care Teams Tailor Men'S Ready To Wear Relationship Specialty Start Date End Date Shady East MD [address] [place] [address] PCP - General Internal Medicine 01/13/22
--- OUTSIDE RECORDS SUMMARY | 2024-08-18 14:49 | XMS_ITS ---
Author Organization [facility] liance Address [address] [place] [address] Care Team Providers Care Patternmaker Metal Bench Name Role Phone Sreedhardiana Shady Primary Care Provider Delma Ortega Unavailable [phone] ALLERGIES No Known Allergies REASON FOR VISIT MDS Assessment MEDICATIONS Medication SIG (Take, Route, Frequency, Duration) Notes Start Date End Date Status Atorvastatin Calcium 20 MG 1 tablet Orally Once a day Active Ibuprofen 200 MG 1 tablet with food o r milk as needed Orally Three times a day OTC Active Albuterol Sulfate HFA 108 (90 Base) MCG/ACT 1 puff as needed Inhalation every 4 hrs Active Sertraline HCl 50 MG 1 tablet Orally Onc e a day Active metFORMIN HCl 1000 MG 1 tablet with a me al Orally twice a day Active Losartan Potassium 100 MG 1 tablet Orall y Once a day Active Lantus 100 UNIT/ML 45 units Subcutaneou s Once a day Active glipiZIDE ER 10 MG 1 tablet Orally Twic e a day Active hydrOXYzine HCl 10 MG 1 tablet as needed Orally Once a day at HS PRN Active ARIPiprazole 2 MG 1 tablet Orally Once a day Active Acetaminophen Extra Strength 500 MG 1 tablet as needed Orally every 6 hrs OTC Active Trulicity 1.5 MG/0.5ML as directed Subcutaneous weekly on Sun Active amLODIPine Besylate 5 MG 1 tablet Orally Once a day Active Encounters Encounter Location Date Provider Diagnosis [facility] [address] [place] [address] 03/03/2024 Delma Trinidad HTN (hypertension) I 10 ; Mixed hyperlipidemia E78.2 ; Mild intermittent asthma without complication J45.20 ; Slow transit constipation K59.01 ; Bilateral pseudophakia Z96.1 ; Acquired absence of both cervix and uterus Z90.710 ; 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, without long-term current use of insulin E11.3593 ; Body mass index (bmi) 36.0-36.9, adult Z68.36 ; Allergic rhinitis, unspecified seasonality, unspecified trigger J30.9 ; Morbid (severe) obesity due to excess calories E66.01 ; Personal history of self-harm Z91.5 ; Difficulty in walking R26.2 ; Unspecified fracture of lower end of left femur, initial encounter for closed fracture S72.402A ; Fall W19.XXXA ; Essential (primary) hypertension I10 ; 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 ; Other obesity due to excess calories E66.09 ; Asthma J45.909 ; Generalized anxiety disorder F41.1 ; Urinary tract infection without hematuria, site unspecified N39.0 and Major depressive disorder, recurrent episode, moderate F33.1 ASSESSMENTS Encounter Date Diagnosis Assessment Notes Treatment Notes Treatment Clinical Notes 03/03/2024 HTN (hypertension) (ICD-10 - I10) 03/03/2024 Mixed hyperlipidemia (ICD-10 - E78.2) 03/03/2024 Mild intermittent asthma without complication (ICD-10 - J45.20) 03/03/2024 Slow transit constipation (ICD-10 - K59.01) 03/03/2024 Bilateral pseudophakia (ICD-10 - Z96.1) 03/03/2024 Acquired absence of both cervix and uterus (ICD-10 - Z90.710) 03/03/2024 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, without long-term current use of insulin (ICD-10 - E11.3593) 03/03/2024 Body mass index (bmi ) 36.0-36.9, adult (ICD-10 - Z68.36) 03/03/2024 Allergic rhinitis, unspecified seasonality, unspecified trigger (ICD-10 - J30.9) 03/03/2024 Morbid (severe) obesity due to excess calories (ICD-10 - E66.01) 03/03/2024 Personal history of self-harm (ICD-10 - Z91.5) 03/03/2024 Difficulty in walkin g (ICD-10 - R26.2) 03/03/2024 Unspecified fracture of lower end of left femur, initial encounter for closed fracture (ICD-10 - S72.402A) 03/03/2024 Fall (ICD-10 - W19.XXXA) 03/03/2024 Essential (primary) hypertension (ICD-10 - I10) 03/03/2024 alf (current) use of insulin (ICD-10 - Z79.4) 03/03/2024 Other obesity due to excess calories (ICD-10 - E66.09) 03/03/2024 Asthma (ICD-10 - J45.909) 03/03/2024 Generalized anxiety disorder (ICD-10 - F41.1) 03/03/2024 Urinary tract infection without hematuria, site unspecified (ICD-10 - N39.0) 03/03/2024 Major depressive disorder, recurrent episode, moderate (ICD-10 - F33.1) PLAN OF TREATMENT No Information History and Physical Notes * HPI (History of Present Illness) Category Sub-Category Detail Notes Depression Screening PHQ-9 Little inte rest or pleasure in doing things: Several days Feeling down, depressed, or hopeless: Mo re than half the days Trouble falling or staying asleep, or sl eeping too much: Several days Feeling tired or having little energy: S everal days Poor appetite or overeating: Several day s Feeling bad about yourself o r that you are a failure, or have let yourself or your family down: Several days Trouble concentrating on thi ngs, such as reading the newspaper or watching television: Several days Moving or speaking so slowly that other people could have noticed; or the opposite, being so fidgety or restless that you have been moving around a lot more than usual: Not at all Thoughts that you would be b ritu off or of hurting yourself in some way: Not at all Total Score: 8 Interpretation: Mild Depression Virtual Care Visit Information Visit Location, Methods & Consent: *REQUIRED* Virtual Care communication method:: Phone (audio only) Patient's location during visit:: Member 's home Provider's location during visit:: Tasia ileana's home office Member Verbal Consent Obtained:: Yes Medication Review Medication Review What service was performed?: Routine medication review Visit/Encounter Type: Telephone Was the medication list in e CW updated?: Yes- new or changed medications added Were medication discrepancie s/issues identified?: No What interventions have been performed?: Remedia reviewed, Member/caregiver education, Allergies Updated, No discrepancies found, Other also reviewed PCP med list via Epic
--- OUTSIDE RECORDS SUMMARY | 2024-08-18 14:49 | XMS_ITS | Encounter Summary ---
Author Organization [facility] Address [address] [place] [address] Care Team Providers Care Computing Architect Name Role Phone Shady East MD Primary Care Pr ovider Reason for Visit * Reason Comments HOME HEALTH CERTIFICATION AND PLAN OF CA RE Start of Care Date: 07/24/2024Date of certification period: 10/13/2020ate of service = signature date 07/24/24-09/21/2024Hospice patient: [facility] Agency: [address] [place] [id number]#[phone]#[phone] Encounter Details Date Type Department Care Team (Late st Contact Info) Description 08/16/2024 Billing Patient Not Present Adult Medicine [address] [phone] Shady East MD [address] [place] [address] Other specified anxiety disorders (Primary Dx); Type 2 diabetes mellitus without complication, unspecified whether mcfp insulin use (CMS/HCC); Unspecified fracture of lower end of left femur, initial encounter for closed fracture ([facility]); Repeated falls; Essential (primary) hypertension; Other obesity due to excess calories; Mixed hyperlipidemia; Insomnia, unspecified type Social History Tobacco Use Types Packs/Day Years Used Date Smoking Tobacco: Never Smokeless Tobacco: Never Alcohol Use Standard Drinks/Week Comments No 0 (1 standard drink = 0.6 oz pur e alcohol) Comments Unknown Sex and Gender Information Value Date Recorded Sex Assigned at Not on file Legal Sex Female 5:41 PM EST Gender Identity Not on file Sexual Orientation Not on file documented as of this encounter Progress Notes * Rhonda Marie MA - 08/16/2024 9:02 PM EST HOME HEALTH CERT AND PLAN OF CARE ,SIGNED,FAXED,CONFIRMATION RECEIVED documented in this encounter Plan of Treatment Upcoming Encounters Date Type Department Care Team (Late st Contact Info) Description 08/28/2024 11:20 AM EST Consult Endocrinology - [address] [phone] Maria D Devine PA [address] [place] [address] 09/02/2024 9:00 AM EDT Medication Management Adult Medicine [address] [phone] Dominga Ramirez PharmD [address] [place] [address] 09/12/2024 9:50 AM EDT Office Visit [facility] [place] [facility] [address] [phone] Abdullahi Santos MD [address] [address] 09/17/2024 10:30 AM EDT Office Visit Adult Medicine [address] [phone] Maci Bryan PA [address] [place] [address] documented as of this encounter Visit Diagnoses Diagnosis Other specified anxiety disorders- Primary Type 2 diabetes mellitus without complication, unspecified whether rail bonder insulin use ([facility]) Unspecified fracture of lower end of left femur, initial encounter for closed fracture ([facility]) Repeated falls Essential (primary) hypertension Unspecified essential hypertension Other obesity due to excess calories Mixed hyperlipidemia Insomnia, unspecified type documented in this encounter Additional Health Concerns Assessment Noted Time PHQ-9 Depression Total Score: 17 024 1:45 PM EST A fall risk assessment has been complete d for the patient 05/19/2024 1:43 PM EST documented as of this encounter Care Teams Computing Architect Relationship Specialty Start Date End Date Shady East MD [address] [place] [address] PCP - General Internal Medicine 01/13/22 documented as of this encounter
--- OUTSIDE RECORDS SUMMARY | 2024-08-18 14:49 | XMS_ITS ---
Author Organization [facility] liance Address [address] [place] [address] Care Team Providers Care Immigration Lawyer Name Role Phone Shady East Primary Care Provider Unav ailable Rosalina Hernandez Unavailable [phone] ALLERGIES No Known Allergies REASON FOR VISIT MDS Assessment MEDICATIONS Medication SIG (Take, Route, Frequency, Duration) Notes Start Date End Date Status Diclofenac Potassium 50 MG 1 tablet with food or milk as needed Orally Twice a day Active Albuterol Sulfate HFA 108 (90 Base) MCG/ACT 1 puff as needed Inhalation every 4 hrs Active Simvastatin 40 MG 1 tablet in the even ing Orally Once a day Active Trulicity 1.5 MG/0.5ML as directed Subcutaneous Active LORazepam 0.5 MG 1 tablet PRN Orally Q 12 Hours Not-Taking glipiZIDE ER 10 MG 1 tablet Orally Twic e a day Active Sertraline HCl 50 MG 1 tablet Orally Onc e a day Active Lantus 100 UNIT/ML 40 units Subcutaneou s Once a day Active metFORMIN HCl 1000 MG 1 tablet with a me al Orally twice a day Active Losartan Potassium 100 MG 1 tablet Orall y Once a day Active hydrOXYzine HCl 10 MG 1 tablet as needed Orally Twice a day Active ARIPiprazole 2 MG 1 tablet Orally Once a day Active Acetaminophen Extra Strength 500 MG 1 tablet as needed Orally every 6 hrs Active Encounters Encounter Location Date Provider Diagnosis [facility] [address] [place] [address] 10/01/2023 Rosalina Hernandez HTN (hypertension) I 10 ; Severe episode of recurrent major depressive disorder, without psychotic features F33.2 ; Mixed hyperlipidemia E78.2 ; Mild intermittent [...] W19.XXXA ; Essential (primary) hypertension I10 ; MCFP (current) use of insulin Z79.4 ; Other obesity due to excess calories E66.09 ; Asthma J45.909 ; MDD (major depressive disorder) F32.9 ; Generalized anxiety disorder F41.1 and Urinary tract infection without hematuria, site unspecified N39.0 ASSESSMENTS Encounter Date Diagnosis Assessment Notes Treatment Notes Treatment Clinical Notes 10/01/2023 HTN (hypertension) (ICD-10 - I10) 10/01/2023 Severe episode of recurrent major depressive disorder, without psychotic features (ICD-10 - F33.2) 10/01/2023 Mixed hyperlipidemia (ICD-10 - E78.2) 10/01/2023 Mild intermittent asthma without complication (ICD-10 - J45.20) 10/01/2023 Slow transit constipation (ICD-10 - K59.01) 10/01/2023 Bilateral pseudophakia (ICD-10 - Z96.1) 10/01/2023 Acquired absence of both cervix and uterus (ICD-10 - Z90.710) 10/01/2023 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, without long-term current use of insulin (ICD-10 - E11.3593) 10/01/2023 Body mass index (bmi ) 36.0-36.9, adult (ICD-10 - Z68.36) 10/01/2023 Allergic rhinitis, unspecified seasonality, unspecified trigger (ICD-10 - J30.9) 10/01/2023 Morbid (severe) obesity due to excess calories (ICD-10 - E66.01) 10/01/2023 Personal history of self-harm (ICD-10 - Z91.5) 10/01/2023 Difficulty in walkin g (ICD-10 - R26.2) 10/01/2023 Unspecified fracture of lower end of left femur, initial encounter for closed fracture (ICD-10 - S72.402A) 10/01/2023 Fall (ICD-10 - W19.XXXA) 10/01/2023 Essential (primary) hypertension (ICD-10 - I10) 10/01/2023 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.4) 10/01/2023 Other obesity due to excess calories (ICD-10 - E66.09) 10/01/2023 Asthma (ICD-10 - J45.909) 10/01/2023 MDD (major depressiv e disorder) (ICD-10 - F32.9) 10/01/2023 Generalized anxiety disorder (ICD-10 - F41.1) 10/01/2023 Urinary tract infection without hematuria, site unspecified (ICD-10 - N39.0) PLAN OF TREATMENT Next Appt Details Follow Up: 6 Months,prn, Corine son: History and Physical Notes * HPI (History of Present Illness) Category Sub-Category Detail Notes COVID-19 Screening (Question s Revised 10/27/2019) COVID-19 Screening Member or any household memb er has any new or worsening breathing problems:: No Member or any household memb er has other general or non-respiratory symptoms:: No Member or any household memb er has been in close contact with anyone diagnosed or suspected case of COVID:: No Virtual Care Visit Information Visit Location, Methods & Consent: *REQUIRED* Virtual Care communication method:: Phone (audio only) Patient's location during visit:: Member 's home Provider's location during visit:: Lincolni ileana's home Member Verbal Consent Obtained:: Yes Medication Review Medication Review What service was performed?: Routine medication review Visit/Encounter Type: Telephone Was the medication list in e CW updated?: Yes- there were no new or changed medications Were medication discrepancies/issues shea ntified?: No What interventions have been performed?: Member/caregiver education
--- OUTSIDE RECORDS SUMMARY | 2024-08-18 14:50 | XMS_ITS ---
Author Organization [facility] liance Address [address] [place] [address] Care Team Providers Care Painter Supervisor Name Role Phone SreedharQuiana ortizfelicia Primary Care Provider Adiel Sánchez Unavailable [phone] REASON FOR VISIT BH Assessment Visit PROBLEMS Problem Type ICD Code Onset Dates Problem Status W/U Status Risk SNOMED Code Notes Problem Major depressive disorder, recurrent episode, moderate (F33.1) Active confirmed Moderate recurrent major depression ([id number]) Encounters Encounter Location Date Provider Diagnosis [address] [address] 10/23/2023 Adiel Harper Major depressive disorder, recurrent episode, moderate F33.1 and Generalized anxiety disorder F41.1 ASSESSMENTS Encounter Date Diagnosis Assessment Notes Treatment Notes Treatment Clinical Notes 10/23/2023 Major depressive disorder, recurrent episode, moderate (ICD-10 - F33.1) 10/23/2023 Generalized anxiety disorder (ICD-10 - F41.1) PLAN OF TREATMENT No Information Progress Notes * Examination Category Sub-Category Detail Notes Mental Status Exam (Structured) Mental Status - Observ ations Appearance:: Neat - Speech:: Normal - Eye Contact:: Normal - Motor Activity:: Normal - Affect:: Full - Additional Comments:: - Mental Status - Mood Mood:: Anxious,Depressed - Additional Comments:: - Mental Status - Cognition Orientation impairment :: None - Memory impairment:: None - Attention:: Normal - Additional Comments:: - Mental Status - Perception Hallucinations:: None - Other:: None - Additional Comments:: - Mental Status - Thoughts Suicidality:: Ideation, Plan -Chronic, passive SI. Mbr reported having x2 IP psychiatric admits, [facility]. Most recent was a few years ago. [place] stood [place] the train tracks wishing to be run over. [facility] number added to mbr's contacts in her phone. Called [facility] together to introduce her to crisis services. Therapist make herself available between sessions. Homicidality:: None - Delusions:: None - Additional Comments:: - Mental Status - Behavior Behavior:: Cooperative - Additional Comments:: - Mental Status - Insight Observed insight:: Good - Additional Comments:: - Mental Status - Judgement Observed judgement:: Alessia tavares - Additional Comments:: - History and Physical Notes * HPI (History of Present Illness) Category Sub-Category Detail Notes Depression Screening PHQ-9 Little inte rest or pleasure in doing things: Several days Feeling down, depressed, or hopeless: Ne sindhu every day Trouble falling or staying asleep, or sl eeping too much: Nearly every day Feeling tired or having little energy: M ore than half the days Poor appetite or overeating: Not at all Feeling bad about yourself o r that you are a failure, or have let yourself or your family down: Not at all Trouble concentrating on thi ngs, such as reading the newspaper or watching television: Not at all Moving or speaking so slowly that other people could have noticed; or the opposite, being so fidgety or restless that you have been moving around a lot more than usual: Several days Thoughts that you would be b ritu off or of hurting yourself in some way: Nearly every day (Consider Suicide Assessment Risk) Total Score: 13 Interpretation: Moderate Depression General Visit Information Encounter Information: Other(s) present at the visit:: Yes - Length of Visit (total time spent):: 45 - Counseling and Education Junior e:: 50% or more of the visit was spent counseling or educating the patient. In reference to (list of diagnosis): - Mental Health Provider and Support info Mental Health Provider & Assistance Review Does member have additional mental health providers?: -private practice therapist Codie Story Who prescribes the members psychiatric m edications?: -PCP Who assists member with medications?: -N /A Does the member have any bar riers or concerns about taking their psychiatric medications as prescribed?: No - Does the member have a guardian in place ?: No - Formal and Informal supports: Does the m ember have any formal/Informal supports in place?: No - Have there been any recent changes in rmal/informal supports?: No - Narcan Awareness Info Narcan Awareness Details I s member interested in information about Narcan/Naloxone use or access?: -N/A Substance Use History Substance Use Hist ory Assessment Does the member have current and/or historical use of substances?: No - Member provided with any harm reduction education in this visit?: -N/A Substance Use Screenings Single Question Drug Screen How many times in the past year have you used a recreational drug or used a prescription medication for non-medical reasons?: 0 - Negative Screening - Screening Tools MAC-7 Does member c onsent to participate in the generalized anxiety screening?: Yes ... Over the last two weeks how often have you been bothered by feeling nervous, anxious, or on edge?: Nearly every day - 3 ... Over the last two weeks how often have you been bothered by not being able to stop or control worrying?: Nearly every day - 3 ... Over the last two weeks how often have you been bothered by worrying too much about different things?: Nearly every day - 3 ... Over the last two weeks how often have you been bothered by having trouble relaxing?: Nearly every day - 3 ... Over the last two weeks how often have you been bothered by being so restless that it is hard to sit still?: Not at all - 0 ... Over the last two weeks how often have you been bothered by becoming easily annoyed or irritated?: Several days - 1 ... Over the last two weeks how often have you been bothered by feeling afraid as if something awful might happen?: Several days - 1 ... Total score from above questions:: 13 .. . Interpretation of scoring:: Moderate (Score of 10-14), Possible clinically significant condition ... How difficult have these pro blems made it for you to do your work, take care of things at home, or get along with other people?: Very difficult - 2 ...
--- OUTSIDE RECORDS SUMMARY | 2024-08-18 14:50 | XMS_ITS | Encounter Summary ---
Author Organization [facility] Address [address] [place] [address] Care Team Providers Care Boiler Helper Name Role Phone Shady East MD Primary Care Pr ovider Reason for Visit * Reason Onset Date Comments Fitting for DME 08/15/2024 Faxed form from [employer] seating and mobility Encounter Details Date Type Department Care Team ([facility] st Contact Info) Description 08/15/2024 Telephone Adult Medicine [address] [phone] Mar Reyes LPN Fitting for DME (Faxed form from [employer]) Social History Tobacco Use Types Packs/Day Years [...] as of this encounter Progress Notes * Mar Reyes LPN - 08/18/2024 8:15 AM EST Form signed and faxed to [employer] @ [phone] * Mar Reyes LPN - 08/15/2024 12:03 PM EST For parts and labor for scooter Form to Dr East to sign documented in this encounter Plan of Treatment Upcoming Encounters Date Type Department Care Team (Late st Contact Info) Description 08/28/2024 11:20 AM EST Consult Endocrinology - [address] [phone] Maria D Devine PA [address] [place], [place] 09/02/2024 9:00 AM EDT Medication Management Adult [address] [phone] Dominga Ramirez PharmD [address] [place], [place] 09/12/2024 9:50 AM EDT Office Visit [facility] [address] [phone] Abdullahi Santos MD [address] [facility] [address] [place] [address] 09/17/2024 10:30 AM EDT Office Visit Adult [address] [phone] Maci Bryan PA [address] [place] [address] documented as of this encounter Visit Diagnoses Not on filedocumented in this encounter Additional Health Concerns Assessment Noted Time PHQ-9 Depression Total Score: 17 024 1:45 PM EST A fall risk assessment has been complete d for the patient 05/19/2024 1:43 PM EST documented as of this encounter Care Teams Boiler Helper Relationship Specialty Start Date End Date Shady East MD [address] [place], [place] PCP - General Internal Medicine 01/13/22 documented as of this encounter
--- OUTSIDE RECORDS SUMMARY | 2024-08-18 14:50 | XMS_ITS | Patient Health Record ---
Author Organization [facility] liance Address [address] [place] [address] Care Team Providers Care System Administration Manager Name Role Phone Onel Eastshlomovaldemar Primary Care Provider Unav ailable Delma Trinidad Unavailable [phone] Clinical, Operations Unavailable Unavailable Rosalina Hernandez Unavailable [phone] Adiel Harper Unavailable [phone] ALLERGIES No Known Allergies RESULTS Component Value Reference Range Notes MAMMOGRAM, SCREENING Reviewed date:10/01/2023 08:14:34 AM Interpretation: Performing Lab: Notes/Report: REASON FOR REFERRAL Reason REPAIR scooter monsalve s not go forward or backward even though battery is fully charged Diagnosis 1 Difficulty in walkin g (R26.2) Diagnosis 2 HTN (hypertension) ( I10) Diagnosis 3 Morbid (severe) obes ity due to excess calories (E66.01) Referring Provider First Name Operations Referring Provider Last Name Clinical Referring Provider Speciality Unknown Referred Provider [employer] [facility] [place] Referred Provider Specialty DME General Notes Cristela Sellers 2023 02:42:20 PM >FXD Clinical Notes Mbr states scooter n ot wrking. No answer at DME. Please call mbr at . Referral Priority Routine Reason REPAIR/REPLACE ASS ESS FOR REPAIR: Member stated that someone went to her house 07/25/24 and stated that the part ordered to fix the scooter was the wrong one and never came or called back Diagnosis 1 Other obesity due to excess calories (E66.09) Diagnosis 2 Difficulty in walkin g (R26.2) Diagnosis 3 Fall (W19.XXXA) Diagnosis 4 HTN (hypertension) ( I10) Referring Provider First Name Operations Referring Provider Last Name Clinical Referring Provider Speciality Unknown Referred Provider [employer] [facility] [place] Referred Provider Specialty DME General Notes If unable to process this request or you require more information, please contact Chasity at [email or web address] or by calling [phone] [email or web address] Miranda 07/31/2024 10:12:48 AM >faxed Referral Priority Routine MEDICATIONS Medication SIG (Take, Route, Frequency, Duration) Notes Start Date End Date Status amLODIPine Besylate 5 MG 1 tablet Orally Once a day Active Atorvastatin Calcium 20 MG 1 tablet Orally Once a day Active Sertraline HCl 50 MG 1 tablet Orally Onc e a day Active Ibuprofen 200 MG 1 tablet with food o r milk as needed Orally Three times a day OTC Active metFORMIN HCl 1000 MG 1 tablet with a me al Orally twice a day Active hydrOXYzine HCl 10 MG 1 tablet as needed Orally Once a day at HS PRN Active Albuterol Sulfate HFA 108 (90 Base) MCG/ACT 1 puff as needed Inhalation every 4 hrs Active Losartan Potassium 100 MG 1 tablet Orall y Once a day Active ARIPiprazole 2 MG 1 tablet Orally Once a day Active Lantus 100 UNIT/ML 45 units Subcutaneou s Once a day Active Acetaminophen Extra Strength 500 MG 1 tablet as needed Orally every 6 hrs OTC Active glipiZIDE ER 10 MG 1 tablet Orally Twic e a day Active Trulicity 1.5 MG/0.5ML as directed Subcutaneous weekly on Sun Active IMMUNIZATIONS Vaccine Route Administration [id number] Flu Vac (Fluad) PFS Unknown 05/19/2024 Administered Flu Vac (Fluad) QIV PFS Adjuvanted IM Intramuscular 04/25/2021 Administered Flu-Influenza (whole) Unknown 05/27/2018 Administered Influenza, high dose seasonal Unknown 03/21/2022 Administered Influenza, high dose seasonal Unknown 06/06/2023 Administered influenza, high-dose, quadrivalent Unknown 05/11/2020 Administered Moderna COVID-19 Vaccine IM Unknown 10/28/2020 Administered Moderna COVID-19 Vaccine IM Unknown 11/25/2020 Administered Moderna COVID-19 Vaccine IM IM Intramuscular 04/25/2021 Administered Tdap 7 Yrs and older Unknown 05/24/2015 Administered SOCIAL HISTORY Sex Assigned At : Social History Observation Description Sex Assigned At Unknown Alcohol Screen Question Answer Notes Did you have a drink containing alcohol in the p ast year? No Points 0 Interpretation Negative PROBLEMS Problem Type ICD Code Onset Dates Problem Status W/U Status Risk SNOMED Code Notes Problem Essential (primary) hypertension (I10) Active confirmed 86969858 Problem Morbid (severe) obesity due to excess calories (E66.01) Active confirmed 161866096 Problem Other obesity due to excess calories (E66.09) Active confirmed 461565702 Problem Generalized anxiety disorder (F41.1) Active confirmed 60032923 Problem Asthma (J45.909) Active confirmed Asthm a (156021552) Problem HTN (hypertension) (I10) Active confirmed Hypertension (83651859) Problem Slow transit constipation (K59.01) Active confirmed 14479599 Problem long term care 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 worker (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) use of insulin (Z79.4) Active confirmed 051022134 Problem Mixed hyperlipidemia (E78.2) Active confirmed 317370291 Problem Difficulty in walking (R26.2) Active confirmed Walking disa bility (902100261) Problem Fall (W19.XXXA) Active confirmed Fall ( ) Problem Major depressive disorder, recurrent episode, moderate (F33.1) Active confirmed Moderate recurr ent major depression (08710133) Problem MDD (major depressive disorder) (F32.9) Inactive confirmed Major depr essive disorder (315813608) Problem 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) Active confirmed 45883565492639884 Problem Acquired absence of both cervix and uterus (Z90.710) Active confirmed 937819186 Problem Body mass index (bmi) 36.0-36.9, adult (Z68.36) Active confirmed 530732764 Problem Unspecified fracture of lower end of left femur, initial encounter for closed fracture (S72.402A) Active confirmed Closed fracture of femur, distal end (625780919) Problem Personal history of self-harm (Z91.5) Active confirmed 867653306 Problem Mild intermittent asthma without complication (J45.20) Active confirmed 154179382 Problem Urinary tract infection without hematuria, site unspecified (N39.0) Active confirmed 01310492 Problem Severe episode of recurrent major depressive disorder, without psychotic features (F33.2) Inactive confirmed 31729879 Problem 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 Weight-kg 108.86 kg 10/01/2023 Height and weig ht recorded from [place] 08/2023. Height 64 in 10/01/2023 Height and weig ht recorded from [place] 08/2023. Weight 240 lbs 10/01/2023 Height and weig ht recorded from [place] 08/2023. BMI 41.19 kg/m2 10/01/2023 Height and weig ht recorded from [place] 08/2023. Encounters Encounter Location Date Provider Diagnosis [address] [address] 10/01/2023 Operations Clinical [address] [address] 10/23/2023 Adiel Harper Major depressive disorder, recurrent episode, moderate F33.1 and Generalized anxiety disorder F41.[address] [address] 03/03/2024 Delma Trinidad HTN (hypertension) I10 ; Mixed hyperlipidemia E78.2 ; Mild intermittent [...] W19.XXXA ; Essential (primary) hypertension I10 ; long term care social worker (current) use of insulin Z79.4 ; Other obesity due to excess calories E66.09 ; Asthma J45.909 ; Generalized anxiety disorder F41.1 ; Urinary tract infection without hematuria, site unspecified N39.0 and Major depressive disorder, recurrent episode, moderate F33.1 [facility] [address] [place] [address] 10/01/2023 Rosalina Hernandez HTN (hypertension) I10 ; Severe episode of recurrent major depressive [...] W19.XXXA ; Essential (primary) hypertension I10 ; shelter (current) use of insulin Z79.4 ; Other obesity due to excess calories E66.09 ; Asthma J45.909 ; MDD (major depressive disorder) F32.9 ; Generalized anxiety disorder F41.1 and Urinary tract infection without hematuria, site unspecified N39.0 ASSESSMENTS Encounter Date Diagnosis Assessment Notes Treatment Notes Treatment Clinical Notes 10/01/2023 HTN (hypertension) (ICD-10 - I10) 10/23/2023 Major depressive disorder, recurrent episode, moderate (ICD-10 - F33.1) 03/03/2024 HTN (hypertension) (ICD-10 - I10) 10/23/2023 Generalized anxiety disorder (ICD-10 - F41.1) 03/03/2024 Mixed hyperlipidemia (ICD-10 - E78.2) 10/01/2023 Severe episode of recurrent major depressive disorder, without psychotic features (ICD-10 - F33.2) 10/01/2023 Mixed hyperlipidemia (ICD-10 - E78.2) 03/03/2024 Mild intermittent asthma without complication (ICD-10 - J45.20) 03/03/2024 Slow transit constipation (ICD-10 - K59.01) 10/01/2023 Mild intermittent asthma without complication (ICD-10 - J45.20) 10/01/2023 Slow transit constipation (ICD-10 - K59.01) 03/03/2024 Bilateral pseudophakia (ICD-10 - Z96.1) 03/03/2024 Acquired absence of both cervix and uterus (ICD-10 - Z90.710) 10/01/2023 Bilateral pseudophakia (ICD-10 - Z96.1) 10/01/2023 Acquired absence of both cervix and uterus (ICD-10 - Z90.710) 03/03/2024 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, without long-term current use of insulin (ICD-10 - E11.3593) 03/03/2024 Body mass index (bmi ) 36.0-36.9, adult (ICD-10 - Z68.36) 10/01/2023 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, without long-term current use of insulin (ICD-10 - E11.3593) 10/01/2023 Body mass index (bmi ) 36.0-36.9, adult (ICD-10 - Z68.36) 03/03/2024 Allergic rhinitis, unspecified seasonality, unspecified trigger (ICD-10 - J30.9) 03/03/2024 Morbid (severe) obesity due to excess calories (ICD-10 - E66.01) 10/01/2023 Allergic rhinitis, unspecified seasonality, unspecified trigger (ICD-10 - J30.9) 10/01/2023 Morbid (severe) obesity due to excess calories (ICD-10 - E66.01) 03/03/2024 Personal history of self-harm (ICD-10 - Z91.5) 03/03/2024 Difficulty in walkin g (ICD-10 - R26.2) 10/01/2023 Personal history of self-harm (ICD-10 - Z91.5) 10/01/2023 Difficulty in walkin g (ICD-10 - R26.2) 03/03/2024 Unspecified fracture of lower end of left femur, initial encounter for closed fracture (ICD-10 - S72.402A) 03/03/2024 Fall (ICD-10 - W19.XXXA) 10/01/2023 Unspecified fracture of lower end of left femur, initial encounter for closed fracture (ICD-10 - S72.402A) 10/01/2023 Fall (ICD-10 - W19.XXXA) 03/03/2024 Essential (primary) hypertension (ICD-10 - I10) 03/03/2024 long term care social worker (current) use of insulin (ICD-10 - Z79.4) 10/01/2023 Essential (primary) hypertension (ICD-10 - I10) 10/01/2023 shelter (current) use of insulin (ICD-10 - Z79.4) 03/03/2024 Other obesity due to excess calories (ICD-10 - E66.09) 03/03/2024 Asthma (ICD-10 - J45.909) 10/01/2023 Other obesity due to excess calories (ICD-10 - E66.09) 10/01/2023 Asthma (ICD-10 - J45.909) 03/03/2024 Generalized anxiety disorder (ICD-10 - F41.1) 03/03/2024 Urinary tract infection without hematuria, site unspecified (ICD-10 - N39.0) 10/01/2023 MDD (major depressiv e disorder) (ICD-10 - F32.9) 10/01/2023 Generalized anxiety disorder (ICD-10 - F41.1) 03/03/2024 Major depressive disorder, recurrent episode, moderate (ICD-10 - F33.1) 10/01/2023 Urinary tract infection without hematuria, site unspecified (ICD-10 - N39.0) PLAN OF TREATMENT No Information Insurance Providers Payer Name Payer Address Payer Phone Subscriber Number Group Number Insured Name Patient Relationship to Insured Coverage Start Date Coverage End Date [facility] ([id number]) [address] [phone] [id number] Maame Marrero Self - patient is the insured 9 [id number] [address] [phone] [id number] Maame Marrero Self - patient is the insured 9 9 MEDICAL (GENERAL) HISTORY Medical History History ICD Code MDD (major depressive disorder) Depression Diabetic Retinopathy Suicidal Attempt Asthma Malignant (primary) neoplasm, unspecifie d undefined Allergic rhinitis Surgical History Surgery Date(Month/Year) Hesterectomy, [place]-Oophorectomy 07/26 [place] Reason Date[place] [facility] [place], [place] [facility] [place] femur FX and ORIF, SNF stay for STR 09/25/20-10/12/20 09/18/20-09/25/20 Planned surgery for Post menopausal blee ding 08/13-08/14/2019
--- OUTSIDE RECORDS SUMMARY | 2024-08-18 14:50 | XMS_ITS | Clinical Summary ---
Author Organization Unknown Care Team Providers Care Dietitian Research Name Role Phone ALEJA CASTILLO, DAY Unavailable Unavail able NEIDA CR, MAGDALENA Unavailable Unavailable ANGELA CR, TATI Unavailable Unavailable Payers Payer Name Policy Type Policy Number Effective Date Expira tion Date [facility] [id number] MEDICAID [facility] [id number] MEDICARE - [facility] [facility] [id number] Problems Condition Name Condition Details Condition Category Status Onset Date Resolution Date Last Treatment Date Treating Clinician Comments OTHER SPECIFIED ANXIETY DISORDERS Active 09-25 00:00: 00 TYPE 2 DIABETES MELLITUS WITHOUT COMPLICATION S Active 09-27 00:00: 00 UNSP FRACTURE OF LOWER END OF LEFT FEMUR, INIT FOR CLOS FX Active 09-27 00:00: 00 REPEATED FALLS Active 11-20 00:00: 00 ESSENTIAL (PRIMARY) HYPERTENSION Active 11-20 00:00: 00 OTHER OBESITY DUE TO EXCESS CALORIES Active 11-20 00:00: 00 MIXED HYPERLIPIDEM IA Active 11-20 00:00: 00 OTHER INSOMNIA Active 11-20 00:00: 00 Allergies, Adverse Reactions, Alerts Allergy Name Allergy Type Status Severity Reaction(s) Onset Date Inactive Date Treating Clinician Comments NKA Propensity to adverse reactions Active 2020-09 17:13:0 4 Medications Ordered Medication Name Filled Medication Name Start Date Stop Date Current Medication? Ordering Clinician Indication Dosage Frequency Signature (SIG) Comments Components glipizide 5 mg tablet 10-13 00:00: 00 03-28 23:59 :00 No [id number] 5 mg DAILY 5 mg DAILY (route: oral) Med Classific ation: Endocrine Lantus Solostar U-100 Insulin 100 unit/mL (3 mL) subcutaneou s pen 10-13 00:00: 00 11-29 23:59 :00 No [id number] 30 unit DAILY 30 unit DAILY (route: subcutaneo us) Med Classific ation: Endocrine lorazepam 0.5 mg tablet 10-13 00:00: 00 11-10 23:59 :00 No [id number] 0.5 mg NEEDED 0.5 mg NEEDED (route: oral) Med Classific ation: Central Nervous System Agents losartan 25 mg tablet 10-13 00:00: 00 01-08 23:59 :00 No [id number] 25 mg DAILY 25 mg DAILY (route: oral) Med Classific ation: Cardiovas cular Therapy Agents Lovenox 40 mg/0.4 mL subcutaneou s syringe 10-13 00:00: 00 12-08 23:59 :00 No [id number] 40 mg DAILY 40 mg DAILY (route: subcutaneo us) Med Classific ation: Hematolog ical Agents metformin 1,000 mg tablet 10-13 00:00: 00 Yes [id number] 1000 mg 2 TIMES DAILY 1000 mg 2 TIMES DAILY (route: oral) Med Classific ation: Endocrine oxycodone 5 mg tablet 10-13 00:00: 00 11-10 23:59 :00 No [id number] 5 mg NEEDED 5 mg NEEDED (route: oral) Med Classific ation: Analgesic , Anti-infl ammatory or Antipyret ic sertraline 25 mg tablet 10-13 00:00: 00 10-02 23:59 :00 No [id number] 25 mg DAILY 25 mg DAILY (route: oral) Med Classific ation: Central Nervous System Agents sertraline 50 mg tablet 10-13 00:00: 00 10-03 23:59 :00 No [id number] 50 mg DAILY 50 mg DAILY (route: oral) Med Classific ation: Central Nervous System Agents hydroxyzine HCl 10 mg tablet 10-08 00:00: 00 Yes [id number] 1 tablet BEDTIME 1 tablet BEDTIME (route: oral) Med Classific ation: Central Nervous System Agents lorazepam 0.5 mg tablet 4-16 00:00: 00 01-08 23:59 :00 No [id number] 1 tablet 2 TIMES DAILY 1 tablet 2 TIMES DAILY (route: oral) Med Classific ation: Central Nervous System Agents sertraline 50 mg tablet 4-16 00:00: 00 Yes [id number] 50 mg 2 TIMES DAILY 50 mg 2 TIMES DAILY (route: oral) Med Classific ation: Central Nervous System Agents simvastatin 40 mg tablet 4-16 00:00: 00 01-08 23:59 :00 No [id number] 1 tablet BEDTIME 1 tablet BEDTIME (route: oral) Med Classific ation: Cardiovas cular Therapy Agents aripiprazol e 2 mg tablet 26 00:00: 00 Yes [id number] 1 tablet DAILY 1 tablet DAILY (route: oral) Med Classific ation: Central Nervous System Agents cefuroxime axetil 500 mg tablet 8- 00:00: 00 04-03 23:59 :00 No [id number] 1 tablet 2 TIMES DAILY 1 tablet 2 TIMES DAILY (route: oral) Med Classific ation: Anti-Infe ctive Agents glipizide 10 mg tablet 2021-06 0-04 00:00: 00 Yes [id number] 1 tablet EVERY AM 1 tablet EVERY AM (route: oral) Med Classific ation: Endocrine Lantus Solostar U-100 Insulin 100 unit/mL (3 mL) subcutaneou s pen 10 00:00: 00 12-21 23:59 :00 No [id number] 40 unit DAILY 40 unit DAILY (route: subcutaneo us) Med Classific ation: Endocrine Trulicity 0.75 mg/0.5 mL subcutaneou s pen injector 6-14 00:00: 00 09-12 23:59 :00 No [id number] 0.5 mL WEEKLY 0.5 mL WEEKLY (route: subcutaneo us) Med Classific ation: Endocrine Trulicity 1.5 mg/0.5 mL subcutaneou s pen injector 3-14 00:00: 00 01-08 23:59 :00 No [id number] 0.5 mL WEEKLY 0.5 mL WEEKLY (route: subcutaneo us) Med Classific ation: Endocrine amlodipine 5 mg tablet 12-21 00:00: 00 Yes [id number] 1 tablet BEDTIME 1 tablet BEDTIME (route: oral) Med Classific ation: Cardiovas cular Therapy Agents Lantus Solostar U-100 Insulin 100 unit/mL (3 mL) subcutaneou s pen 12-21 00:00: 00 Yes [id number] 45 unit DAILY 45 unit DAILY (route: subcutaneo us) Med Classific ation: Endocrine atorvastati n 20 mg tablet 01-08 00:00: 00 Yes [id number] 1 tablet BEDTIME 1 tablet BEDTIME (route: oral) Med Classific ation: Cardiovas cular Therapy Agents losartan 100 mg tablet 01-08 00:00: 00 Yes [id number] 1 tablet BEDTIME 1 tablet BEDTIME (route: oral) Med Classific ation: Cardiovas cular Therapy Agents Trulicity 3 mg/0.5 mL subcutaneou s pen injector 01-08 00:00: 00 05-23 23:59 :00 No [id number] 3 mg WEEKLY 3 mg WEEKLY (route: subcutaneo us) Med Classific ation: Endocrine Trulicity 4.5 mg/0.5 mL subcutaneou s pen injector 2023-06 00:00: 00 Yes [id number] 4.5 mg WEEKLY 4.5 mg WEEKLY (route: subcutaneo us) Med Classific ation: Endocrine Immunizations Ordered Immunization Name Filled Immunization Name Date Status Comments Refusal Reason COVID-19, COVID-19 2020-11-26 00:00:00 INFLUENZA, TIV (INACTIVATED) 2020-03-25 00:00:00 Vital Signs Vital Name Observation Time Observation Value Commen ts Temperature 2024-08-12 11:54:00.000 98.6 [degF] Pulse 2024-08-12 11:54:00.000 70 /min O2 Saturation (%) 2024-08-12 12:05:00.000 98 % Respirations 2024-08-12 11:54:00.000 18 /min Systolic Blood Pressure 2024-08-12 11:54:00.000 140 mm [Hg] Diastolic Blood Pressure 2024-08-12 11:54:00.000 70 mm [Hg] Plan of Treatment Planned Activity Planned Date Details Comments Future Scheduled Test SKILLED NU RSE TO EVALUATE PATIENT, IDENTIFY PRIMARY AND CO-MORBID CONDITIONS CODED PER CODING GUIDELINES, AND DEVELOP PATIENT SPECIFIC PLAN OF CARE THAT INCLUDES PATIENT GOAL FOR HOME HEALTH. [code = SKILLED NURSE TO EVALUATE PATIENT, IDENTIFY PRIMARY AND CO-MORBID CONDITIONS CODED PER CODING GUIDELINES, AND DEVELOP PATIENT SPECIFIC PLAN OF CARE THAT INCLUDES PATIENT GOAL FOR HOME HEALTH.] Future Scheduled Test SKILLED NU RSE TO O/A OF PATIENTS MENTAL/BEHAVIORAL STATUS, ASSESS VITAL SIGNS NEEDED OR REQUESTED, ALLOW 2 PRNS FOR MEDICATION MANAGEMENT. [code = SKILLED NURSE TO O/A OF PATIENTS MENTAL/BEHAVIORAL STATUS, ASSESS VITAL SIGNS NEEDED OR REQUESTED, ALLOW 2 PRNS FOR MEDICATION MANAGEMENT.] Future Scheduled Test SKILLED NU RSE WILL MAINTAIN SITUATIONAL AWARENESS FOR SAFETY AND WILL NOTIFY CLINICAL OCCASIONAL CAREGIVER AND PHYSICIAN/PROVIDER WITH ANY CHANGE IN CONDITION. [code = SKILLED NURSE WILL MAINTAIN SITUATIONAL AWARENESS FOR SAFETY AND WILL NOTIFY CLINICAL OCCASIONAL CAREGIVER AND PHYSICIAN/PROVIDER WITH ANY CHANGE IN CONDITION.] Future Scheduled Test SKILLED NU RSE FOR MEDICATION ADMINISTRATION PER MEDICATION LIST TO BE PERFORMED DAILY. [code = SKILLED NURSE FOR MEDICATION ADMINISTRATION PER MEDICATION LIST TO BE PERFORMED DAILY.] Future Scheduled Test SKILLED NU RSE FOR O/A AND SKILLED TEACHING RELATED TO MANAGEMENT OF DEPRESSIVE SYMPTOMS AND/OR DEPRESSION. SN TO REPORT SIGNIFICANT CHANGE IN DEPRESSIVE SYMPTOMS TO CLINICAL PROVIDER FOR EARLY INTERVENTION. [code = SKILLED NURSE FOR O/A AND SKILLED TEACHING RELATED TO MANAGEMENT OF DEPRESSIVE SYMPTOMS AND/OR DEPRESSION. SN TO REPORT SIGNIFICANT CHANGE IN DEPRESSIVE SYMPTOMS TO CLINICAL PROVIDER FOR EARLY INTERVENTION.] Future Scheduled Test SKILLED NU RSE FOR O/A AND SKILLED TEACHING OF COPING SKILLS TO MANAGE ANXIETY AND MAINTAIN SAFETY. [code = SKILLED NURSE FOR O/A AND SKILLED TEACHING OF COPING SKILLS TO MANAGE ANXIETY AND MAINTAIN SAFETY.] Future Scheduled Test SKILLED NU RSE TO ASSESS PATIENTS PSYCHOSOCIAL STATUS TO IDENTIFY POTENTIAL ISSUES THAT MAY COMPLICATE THE PROVISION OF THE PLAN OF CARE INCLUDING THE PATIENTS ABILITY TO ACCESS COMMUNITY RESOURCES AND PSYCHOSOCIAL SUPPORT SERVICES. [code = SKILLED NURSE TO ASSESS PATIENTS PSYCHOSOCIAL STATUS TO IDENTIFY POTENTIAL ISSUES THAT MAY COMPLICATE THE PROVISION OF THE PLAN OF CARE INCLUDING THE PATIENTS ABILITY TO ACCESS COMMUNITY RESOURCES AND PSYCHOSOCIAL SUPPORT SERVICES.] Future Scheduled Test SKILLED NU RSE FOR O/A OF CLIENT'S SOCIAL ISOLATION AND PROVIDE ASSISTANCE TO CLIENT IN DEVELOPMENT OF PLANNED ACTIVITIES [code = SKILLED NURSE FOR O/A OF CLIENT'S SOCIAL ISOLATION AND PROVIDE ASSISTANCE TO CLIENT IN DEVELOPMENT OF PLANNED ACTIVITIES] Future Scheduled Test MEDICATION S WILL BE HELD AND STORED IN LOCKBOX [code = MEDICATIONS WILL BE HELD AND STORED IN LOCKBOX] Future Scheduled Test SKILLED NU RSE MAY PICKUP AND TRANSPORT MEDICATIONS [code = SKILLED NURSE MAY PICKUP AND TRANSPORT MEDICATIONS] Goal 2020-12-08 Patient Goal - RESUME WALKIN G. LESS PAIN. Goal 2021-02-08 Patient Goal - RESUME WALKIN G. LESS PAIN. Goal 2021-04-06 Patient Goal - RESUME WALKIN G. LESS PAIN. Goal 2021-06-07 Patient Goal - RESUME WALKIN G. LESS PAIN. Goal 2021-08-04 Patient Goal - RESUME WALKIN G. LESS PAIN. Goal 2021-10-03 Patient Goal - RESUME WALKIN G. LESS PAIN. Goal 2021-12-06 Patient Goal - RESUME WALKIN G. LESS PAIN. Goal 2022-02-02 Patient Goal - RESUME WALKIN G. LESS PAIN. Goal 2022-04-04 Patient Goal - RESUME WALKIN G. LESS PAIN. Goal 2022-05-31 Patient Goal - RESUME WALKIN G. LESS PAIN. Goal 2022-08-02 Patient Goal - RESUME WALKIN G. LESS PAIN. Goal 2022-09-29 Patient Goal - RESUME WALKIN G. LESS PAIN. Goal 2022-11-30 Patient Goal - RESUME WALKIN G. LESS PAIN. Goal 2023-01-26 Patient Goal - RESUME WALKIN G. LESS PAIN. Goal 2023-03-27 Patient Goal - LESS PAIN. Goal 2023-05-28 Patient Goal - LESS PAIN. Goal 2023-07-26 Patient Goal - LESS PAIN. Goal 2023-09-26 Patient Goal - LESS PAIN. Goal 2023-11-26 Patient Goal - LESS PAIN. Goal 2024-01-21 Patient Goal - LESS PAIN. Goal 2024-03-24 Patient Goal - LESS PAIN. Goal 2024-05-21 Patient Goal - LESS PAIN. Goal 2024-07-22 Patient Goal - LESS PAIN. Goal Patient Goal - LESS PAIN. Goal Provider Goal - A PLAN OF CARE WILL BE ESTABLISHED THAT MEETS PATIENT'S RETIREMENT NEEDS AND INCLUDES PATIENT GOAL FOR HOME HEALTH. Goal Provider Goal - ALTERED MENTAL/BEHAVIORAL STATUS WILL BE IDENTIFIED PROMPTLY AND INTERVENTION INITIATED QUICKLY TO MINIMIZE ASSOCIATED RISKS THROUGHOUT CERTIFICATION PERIOD. Goal Provider Goal - PATIENT WILL REMAIN SAFE IN THE COMMUNITY AND WILL BE FREE OF DANGER TO SELF AND OTHERS THROUGHOUT THE CERTIFICATION PERIOD. Goal Provider Goal - PATIENT WILL COMPLY WITH MEDICATION WHEN NURSE ADMINISTERS THROUGHOUT CERTIFICATION PERIOD. Goal Provider Goal - PATIENT WILL REMAIN SAFE WITHOUT DECOMPENSATION IN DEPRESSIVE CONDITION, WHILE MAINTAINING OPTIMAL LEVEL OF MENTAL HEALTH AND WELL BEING THROUGHOUT CERTIFICATION PERIOD. Goal Provider Goal - PATIENT WILL BE ABLE TO PERFORM DAILY FUNCTIONS AND HAVE OPTIMAL IMPROVEMENT IN LEVEL OF ANXIETY THROUGHOUT CERTIFICATION PERIOD. Goal Provider Goal - PSYCHOSOCIAL NEEDS WILL BE IDENTIFIED AND PLAN IMPLEMENTED TO MINIMIZE RISK THROUGHOUT CERTIFICATION PERIOD. Goal Provider Goal - PATIENT WILL DEMONSTRATE AN INCREASED INTEREST IN SOCIALIZATION AND ACTIVITIES BY THE END OF THE CERTIFICATION PERIOD. Goal Provider Goal - MEDICATION WILL BE STORED IN LOCKBOX FOR SAFETY. Goal Provider Goal - SKILLED NURSE PICKED UP AND TRANSPORTED MEDICATIONS FOR SAFETY. Progress Notes Progress Notes <paragraph>[Visit Date: 2024 by DAVID ROMERO RN]:</paragraph><paragraph>RETIREMENT VISIT TODAY 08/12/2024 FOR A 68 YEAR OLD FEMALE LIVING WITH HER ADULT SON IN A LARGE HOUSE. HE HAS RECENTLY TAKEN OVER ALL HER CARE, PLUS CARE OF THE WHERE HER LAST 2 FALLS WERE. IT IS A HANDICAPPED BATHROOM. [facility] ORAL MEDICATIONS ARE PREPACKED BY DOSE - AM, NOON, FLORY, BED AND SHE IS COMPLIANT WITH THIS. SN DAILY FOR ASSESSMENT OF BS, INSULIN INJECTION, WEEKLY TRULICITY. DISCUSSED WITH PATIENT STRATEGIES TO DECREASE STRESS AND ANXIETY VERBALIZED UNDERSTANDING. PATIENT REMAINS HOMEBOUND DUE TO TAXING EFFORT TO LEAVE HOME SAFELY WITHOUT ASSISTANCE AND WEAKNESS.</paragraph> Encounters Start Date/Time End Date/Time Encounter Type Admission Type Attending [facility] Care Department Encounter ID Discharge Date Discharge Status Discharge Condition Discharge Reason Percent Goals Met 2020-10-13 00:00:00 2024-09-21 00:00:00 Outpatient RECERTIFIC ATION [facility] [id number] 6.25
== END 2024-08-18 13:02 | disposition home or self-care (01) ==
LOC: HO.ED 13:01
PROVIDERS: Emergency Provider Emergency Medicine; PCP Family Medicine
DX: L40.9 Psoriasis, unspecified (principal); L29.89 Other pruritus; E11.9 Type 2 diabetes mellitus without complications; I10 Essential (primary) hypertension; Z79.899 Other long term (current) drug therapy; Z79.4 Long term (current) use of insulin
CPT/HCPCS: 99282; 99283

== ENCOUNTER 2025-02-05 19:22 | Inpatient (IN) | payer OTHER, SELFPAY ==
[2025-02-05 19:33] VITALS: BP 180/82; PULSE 106; RESP 16; TEMP 36.7; O2SAT 95; BMI 39.5
[2025-02-05 20:06] LABS: MANUAL DIFF FLAG NO
[2025-02-05 20:07] LABS: Hematocrit 46.3 % (37.0-47.0); Hemoglobin 15.5 g/dl (12.0-16.0); Imm Gran Abs Auto 0.04 X10*3/uL (0.00-0.03); Imm Gran Pct Auto 0.4 % (0.0-0.4); Lymphocytes Absolute Auto 1.9 X10*3/uL (1.2-4.9); Mean Corpuscular HGB Conc 33.5 g/dl (31.0-35.0); Mean Corpuscular Hemoglobin 28.7 pg (27.0-33.0); Mean Corpuscular Volume 85.7 fL (80.0-98.0); NRBC Abs Auto 0.000 X10*3/uL (0.0-0.012); NRBC Pct Auto 0.0 /100WBC (0.0-0.2); Platelet Count 355 X10*3/uL (160-400); Red Blood Count 5.40 X10*6/uL (4.20-5.50); White Blood Count 9.7 X10*3/uL (4.8-10.8)
[2025-02-05 20:23] LABS: Alanine Aminotransferase 16 U/L (0-31); Albumin Level 4.2 g/dL (3.5-5.0); Alkaline Phosphatase 131 U/L (39-117); Anion Gap 15 (12-20); Aspartate Amino Transferase 17 U/L (5-31); Blood Urea Nitrogen 12 mg/dL (9-16); Calcium 9.9 mg/dL (8.4-10.2); Carbon Dioxide 22 mmol/L (22-29); Chloride 106 mmol/L (96-108); Creatinine Clr Calc Pharmacy 73.1; Estimated Glomerular Filt Rate > 60; Magnesium 1.9 mg/dL (1.6-2.6); Potassium 3.8 mmol/L (3.3-5.1); Sodium 139 mmol/L (135-145); Total Protein 7.7 g/dL (6.5-8.0)
[2025-02-06] VITALS (8 sets, daily range): BP systolic 123–179; BP diastolic 77–96; PULSE 82–100; RESP 13–18; TEMP 36.1–36.9; O2SAT 96–98
[2025-02-06 00:01] LABS: Glucose, Whole Blood 156 mg/dL (60-115)
--- NOTE | 2025-02-06 00:07 | ECG_ITS ---
Test Reason : ARRYTHMIA, TACHY Blood Pressure : */* mmHG Vent. Rate : 155 BPM Atrial Rate : 155 BPM P-R Int : 114 ms QRS Dur : 84 ms QT Int : 256 ms P-R-T Axes : 34 80 -61 degrees QTcB Int : 411 ms Poor data quality Supraventricular tachycardia Abnormal ECG When compared with ECG of 23-Nov-2022 12:37, SVT present Referred By: Swati Nelson Electronically Signed By: Luc Rain
--- NOTE | 2025-02-06 00:15 | ECG_ITS ---
Test Reason : ARRYTHMIA, TACHY Blood Pressure : */* mmHG Vent. Rate : 100 BPM Atrial Rate : 100 BPM P-R Int : 162 ms QRS Dur : 80 ms QT Int : 366 ms P-R-T Axes : 38 68 7 degrees QTcB Int : 472 ms Sinus rhythm with Premature atrial complexes Low voltage QRS Borderline ECG When compared with ECG of 06-Feb-2025 00:14, Fusion complexes are no longer Present Premature atrial complexes are now Present Vent. rate has decreased by 55 bpm Non-specific change in ST segment in Inferior leads T wave inversion less evident in Inferior leads Nonspecific T wave abnormality no longer evident in Anterolateral leads Referred By: Radha Pruett Electronically Signed By: Luc Rain
--- NOTE | 2025-02-06 00:22 | ED.GENADULT ---
HPI - General Adult General Chief complaint: General Medical Stated complaint: not feeling good/no insulin Time Seen by Provider: 02/06/25 00:01 Source: patient Mode of arrival: wheelchair Limitations: no limitations History of Present Illness ED Provider: Dr. Swati Nelson HPI narrative: Patient comes to the emergency room requesting an insulin dose. Patient states that she used to have a visiting nurse who used to give her her insulin medications. However, due to insurance issues, seems that the nurse services was discontinued. Patient's family does not know how to apply insulin. Patient denies polyuria polydipsia. However, patient was complaining of intermittent fatigue, generalized malaise, palpitations, no syncope or near-syncope. Denies URI or UTI symptoms. Patient admits that she has been very sad, grieving the loss of her 6-year-old grandson. States that 2 weeks ago the child of an asthma exacerbation at [facility] and they is buried him a few days ago. Patient denies SI or HI Related Data Home Medications ?Medication ?Instructions ?Recorded ?Confirmed glipizide 5 mg tablet, extended 1 tab PO DAILY 09/18/20 01/19/22 release 24 hr losartan 25 mg tablet 1 tab PO DAILY 09/18/20 01/19/22 metformin 1,000 mg tablet 1 tab PO BID 09/18/20 01/19/22 simvastatin 40 mg tablet 1 tab PO BEDTIME 09/18/20 01/19/22 sertraline 50 mg tablet 50 mg PO BID 02/17/21 01/20/22 albuterol sulfate 90 mcg/actuation 2 inh inhalation Q4H PRN Wheezing 01/19/22 01/20/22 aerosol inhaler aripiprazole 2 mg tablet 1 tab PO DAILY 01/19/22 01/19/22 hydroxyzine HCl 10 mg tablet 1 tab PO BID 01/19/22 01/19/22 lorazepam 0.5 mg tablet 1 tab PO BID PRN Anxiety 01/19/22 01/19/22 Previous Rx's ?Medication ?Instructions ?Recorded insulin glargine 100 unit/mL 30 unit (0.3 mL) subcut DAILY #0 mL 09/25/20 subcutaneous solution (Lantus U-100 Insulin) insulin lispro 100 unit/mL See Protocol subcut QIDACHS #0 mL 09/25/20 subcutaneous solution (Humalog U-100 Insulin) cefuroxime axetil 500 mg tablet 500 mg PO BID 11 days #22 tabs 01/22/22 nitrofurantoin 100 mg PO Q12H 5 days #10 caps 02/25/22 monohydrate/macrocrystals 100 mg capsule (Macrobid) acetaminophen 325 mg capsule 650 mg (2 x 325 mg) PO Q6H PRN 12/22/23 (Tylenol) pain #30 caps amoxicillin 875 mg-potassium 1 tab PO BID 7 days #14 tabs 12/22/23 clavulanate 125 mg tablet ammonium lactate 12 % topical cream 1 appl topical DAILY #280 grams 08/18/24 betamethasone valerate 0.1 % lotion 1 appl topical BEDTIME PRN rash 08/18/24 #60 mL prednisone 20 mg tablet 40 mg (2 x 20 mg) PO DAILY 4 days 08/18/24 #8 tabs Allergies Allergy/AdvReac Type Severity Reaction Status Date / Time No Known Allergies Allergy Verified 02/05/25 19:34 Review of Systems Review of Systems: Constitutional : No Weight loss, No Fever, No Chills, No Night Sweats, complaining of fatigue and generalized malaise ENT/Mouth : No Hearing loss, No Ear Pain, No Nasal Congestion, No Sinus Pain, No Hoarseness, No sore throat, No Rhinorrhea, No Swallowing Difficulty Eyes: No Eye Pain, No Swelling, No Redness, No Foreign Body, No Discharge, No Vision Changes Cardiovascular : No Chest Pain, No SOB, No Dyspnea on Exertion, No Orthopnea, No Edema, complaining of intermittent Palpitations Respiratory : No Cough, No Sputum, No Wheezing, No Smoke Exposure, No Dyspnea Gastrointestinal : No Nausea, No Vomiting, No Diarrhea, No Constipation, No abdominal Pain, No Hematochezia, No Melena Genitourinary : no irregular bleeding, No Dysuria, No Urinary Frequency, No Hematuria, No Urinary Incontinence, No Urgency, No Flank Pain, No Urinary Flow Changes, No Hesitancy Musculoskeletal : No joint pain, No Myalgias, No Joint Swelling Skin : No Skin Lesions, No rash Neuro : No Weakness, No Numbness, No Paresthesias, No Loss of Consciousness, No Dizziness, No Headache Psych : Complaining of anxiety, depression, grieving the loss of her 6-year-old grandson who 2 weeks ago. Denies SI or HI. Patient lost her VNA services due to insurance problems Heme/Lymph: No Bruising, No Bleeding,No Lymphadenopathy Endocrine : No Polyuria, No Polydipsia, No Temperature Intolerance PMFSH Past Medical History Medical History Anemia Pre-op evaluation Obesity Acute hyperglycemia Fall Diabetes High cholesterol HTN (hypertension) Social History Social History Household Members: None Housing: House Do you presently have visiting nurse or other home services: Yes ([employer], VNA) Alcohol intake: never Comment: 8 Patient Tobacco Use Status: Never used Tobacco Smoked in Last 30 Days: No Use of substances other than those prescribed or required for medical reasons: No Advance Directives Date on File: 09/27/20 Do you have a plan to hurt others: No Plan service: No Current occupational status: retired Physical Exam ED Exam Exam: Appearance: Alert. Oriented X3. No acute distress. Eyes: Pupils equal, round and reactive to light. ENT: Pharynx normal. Neck: Normal inspection. Neck supple. No lymph nodes noted. No crepitus CVS: Normal heart rate and rhythm. Pulses normal. Normal S1 and S2 Respiratory: No respiratory distress. Breath sounds normal. No Wheezing. No rales Abdomen: Soft and nontender. No rigidity. No distention. Skin: Skin warm and dry. Normal skin color. Normal skin turgor. Extremities: No lower extremity edema. No Lacerations. No Rash Neuro: Oriented X 3. No motor deficit. No sensory deficit. Moving all extremities. No slurred speech. CN 2 through 12 grossly intact Psych: calm, cooperative, normal affect, tearful when she started speaking about her grandson Vital Signs: Vital Signs - 24 hr 02/05/25 19:33 02/06/25 00:31 Temperature 98.1 F 97.7 F Pulse Rate 106 H 99 Respiratory Rate 16 18 Blood Pressure 180/82 H 179/96 H Pulse Oximetry 95 98 Oxygen Delivery Method Room Air Room Air BMI result Body Mass Index 39.5 Course Course Course Narrative: When I was speaking to the patient, it was noted that patient's heart rate is regular sinus rhythm a proximally in the 90s, on all of a sudden, she goes into sinus tach into the 160s 170s for 20-30 seconds and then self resolves. This happened multiple times while I was in the room. We were unable to get an EKG to determine the exact rhythm. Most of the time, patient is in sinus rhythm with rate control. All of patient's labs pending Medications Administered Discontinued Medications Generic Name Dose Route Start Last Admin Trade Name Karrie PRN Reason Stop Dose Admin Metoprolol Tartrate 2.5 mg 02/06/25 00:28 02/06/25 01:22 Metoprolol Tartrate 5 Mg/5 Ml Vial IVPUSH 02/06/25 00:29 2.5 mg ONCE ONE Administration Protocol Medical Decision Making Medical Decision Making [facility] Narrative: While I was in the room, patient is in the monitor, it was noted the patient's heart rate goes from sinus rhythm, rate control [place] [address] [place] [id number] Last for a few sec and then resolves, this happened multiple times. Patient was given a dose of 2.5 mg IV metoprolol to help control the rhythm The patient's knowledge, she has never been diagnosed with any cardiac pathology. Patient's blood pressure is a bit elevated, heart rate fluctuates quite a bit. However, most of the 10 seems that the patient is in sinus rhythm with rate control Overall, I discussed with the patient that tonight she will not be going home, patient will likely need to be admitted for monitoring given the arrhythmias that we have witnessed Also, patient will need PT and case management for VNA services to help her with her insulin Patient agrees with plan Patient continues having episodes of tachycardia, heart rate up to 185. Seems to be sinus/SVT, only lasts for about 20-30 seconds. Self converts to sinus rhythm with rate control Every time the patient has this arrhythmias, patient calls us reporting that she feels very dizzy, no chest pain or shortness of breath. No syncope Disorder or new symptoms that started within the last few days. I discussed the above-mentioned with our hospitalist, all new symptoms for the patient, would be ideal to get an echocardiogram to rule out takotsubo Prior to discharge, patient will need a case management consult to restart her VNA services to help her with her insulin Differential Diagnosis Differential Diagnoses: The differential diagnosis associated with the presentation includes (Atrial fibrillation, SVT, takotsubo) Admission/Observation Consideration of admission/observation: Escalation of care including admission/observation considered Consult Healthcare Provider Management of the patient was discussed with: Hospitalist Lab Data MDM Lab Attestation statement: I reviewed the patient's lab results. 02/05/25 20:02 02/05/25 20:02 Labs: Lab Results 02/05/25 02/05/25 02/06/25 Range/Units 20:02 23:55 00:46 WBC 9.7 (4.8-10.8) X10*3/uL RBC 5.40 (4.20-5.50) X10*6/uL Hgb 15.5 (12.0-16.0) g/dl Hct 46.3 (37.0-47.0) % MCV 85.7 (80.0-98.0) fL MCH 28.7 (27.0-33.0) pg MCHC 33.5 (31.0-35.0) g/dl RDW 14.6 (11.0-16.0) % Plt Count 355 (160-400) X10*3/uL MPV 10.2 (9.4-12.3) fL Immature Gran % (Auto) 0.4 (0.0-0.4) % Neut % (Auto) 74.3 H (45-73) % Lymph % (Auto) 19.4 L (20-40) % [place] % (Auto) 5.0 (2-11) % Eos % (Auto) 0.5 (0-4) % Baso % (Auto) 0.4 (0-2) % Lymph # (Auto) 1.9 (1.2-4.9) X10*3/uL [place] # (Auto) 0.5 (0.1-1.2) X10*3/uL Eos # (Auto) 0.1 (0.0-0.4) X10*3/uL Baso # (Auto) 0.0 (0.0-0.2) X10*3/uL Abs Immat Gran (auto) 0.04 H (0.00-0.03) X10*3/uL Absolute Neuts (auto) 7.2 (2.0-8.3) x10*3/uL Absolute Nucleated RBC 0.000 (0.0-0.012) X10*3/uL Nucleated RBC % (auto) 0.0 (0.0-0.2) /100WBC Sodium 139 (135-145) mmol/L Potassium 3.8 (3.3-5.1) mmol/L Chloride 106 (96-108) mmol/L Carbon Dioxide 22 (22-29) mmol/L Anion Gap 15 (12-20) BUN 12 (9-16) mg/dL Creatinine 0.83 (0.5-1.4) mg/dL Estim Creat Clear Calc 73.1 Estimated GFR > 60 POC Glucose 156 H (60-115) mg/dL Random Glucose 164 H (60-115) mg/dL Calcium 9.9 (8.4-10.2) mg/dL Magnesium 1.9 (1.6-2.6) mg/dL Total Bilirubin 0.5 (0.0-1.0) mg/dL AST 17 (5-31) U/L ALT 16 (0-31) U/L Alkaline Phosphatase 131 H (39-117) U/L Troponin I High Sens < 2.7 (<3.5-17.0) ng/L B-Natriuretic Peptide 11 (<100) pg/mL Total Protein 7.7 (6.5-8.0) g/dL Albumin 4.2 (3.5-5.0) g/dL TSH 1.65 (0.32-4.0) uIU/mL Influenza Type A (PCR) NEGATIVE (Negative) Influenza Type B (PCR) NEGATIVE (Negative) RSV RNA Qual (PCR) NEGATIVE (Negative) SARS-CoV-2 RNA (RT-PCR) NEGATIVE (Negative) Independent Interpretation I performed an independent interpretation of an: EKG Critical Care Time Critical Care Time Critical Care Time: Yes Total Critical Care Time: 60 Attestation: I have personally provided critical care time. Time includes review of lab data, radiology results, discussion with consultants, and monitoring for potential decompensation. Intervention performed as documented. Discharge Plan Discharge Clinical Impression: SVT (supraventricular tachycardia) Patient Disposition: Admitted As Inpatient Print Language: [place]
[2025-02-06 00:40] LABS: Troponin-I High Sensitivity < 2.7 ng/L (<3.5-17.0)
--- NOTE | 2025-02-06 00:48 | PC.NURSE ---
Unsucessful attempt at obtaining IV access. Nurse to obtain an U/S line.
--- NOTE | 2025-02-06 01:00 | PC.NURSE ---
Intermittent episodes of tachycardia/svt with HR up to 185 for a brief period lasting 5-10 seconds and then reverting back to NSR with no intervention. Pt remained alert and oriented during event with no apparent distress. Pt does report feeling chest tightness and nausea. MD at bedside and aware.
[2025-02-06 01:02] LABS: Thyroid Stimulating Hormone 1.65 uIU/mL (0.32-4.0)
[2025-02-06 01:11] LABS: B Type Natriuretic Peptide 11 pg/mL (<100)
--- NOTE | 2025-02-06 01:19 | ECG_ITS ---
Test Reason : ARRYTHMIA, TACHY Blood Pressure : */* mmHG Vent. Rate : 173 BPM Atrial Rate : 173 BPM P-R Int : 84 ms QRS Dur : 84 ms QT Int : 282 ms P-R-T Axes : 117 88 -61 degrees QTcB Int : [address] & T wave abnormality, consider inferior ischemia ST & T wave abnormality, consider anterolateral ischemia Abnormal ECG When compared with ECG of 06-Feb-2025 00:15, OR interval has decreased Vent. rate has increased by 73 bpm T wave inversion more evident in Inferior leads T wave inversion now evident in Anterolateral leads Referred By: Radha Pruett Electronically Signed By: Luc Rain
[2025-02-06 01:28] LABS: Resp Syncy Virus RNA Qual PCR NEGATIVE (Negative); SARS COV2 PCR INHOUSE NEGATIVE (Negative)
--- NOTE | 2025-02-06 01:29 | MHC.EDTECH ---
two other EKG's conducted at 0014 and 0015 on 02/06/25
[2025-02-06 02:01] LABS: Appearance Urine Clear; Glucose Urine UA >=1000 mg/dL (Negative); PH 7.0 (5.0-9.0); Specific Gravity - Urine >= 1.030 (1.005-1.025); UMIC TRIGGER UACC YES
[2025-02-06 02:08] LABS: UACC Culture Trigger YES
--- NOTE | 2025-02-06 03:30 | P.HPHOSP_ITS ---
History of Present Illness Date of Service: 02/06/25 Attending physician on admission: Amira Mars Chief Complaint: Dizziness Nydia Marrero is a 69 years old woman with a past medical history significant for type 2 diabetes mellitus on insulin, hyperlipidemia, essential hypertension and obesity presents to the emergency department complaining of dizziness over the last couple of days. She has been experiencing nausea and vomited x3. She also mentioned that due to insurance issues she no longer have nurses to inject her insulin; she said that she is afraid of injecting her insulin. Patient has been experiencing chest tightness that she attributes to the recent loss of her 6 years old great grandson. Sadly, this little boy of a fatal asthma attack. She also reported some shortness on breath and denied palpitations. There is no fever or chills. Denied history of cardiac disease. She denied tobacco smoking, alcohol abuse or illicit drug use. In the ED, she was found to have intermittent episodes of tachycardia. One of the episode consistent with SVT. Other vital signs are normal. CBC was unremarkable. There are no electrolyte imbalances. BUN is 12 and creatinine 0.83. Glucose 164. LFTs unremarkable except for elevation of alk-phos, 133. BNP is 11 and troponin < 2.7. TSH is 1.65. ECG shows sinus rhythm with PACs up to 173 bpm. ED tx: Metoprolol 2.5 mg IV Review of Systems 2 Review of Systems: All 12 systems were reviewed and normal except as noted in HPI. [facility] Medical History Anemia Pre-op evaluation Obesity Acute hyperglycemia Fall Diabetes High cholesterol HTN (hypertension) Social History Household Members: None Housing: House Do you presently have visiting nurse or other home services: Yes ([employer], VNA) Alcohol intake: never Comment: 8 Patient Tobacco Use Status: Never used Tobacco Smoked in Last 30 Days: No Use of substances other than those prescribed or required for medical reasons: No Advance Directives: Yes Advance Directives on File: Yes Advance Directives Date on File: 09/27/20 Do you have a plan to hurt others: No Plan service: No Current occupational status: retired Meds Allergies Allergy/AdvReac Type Severity Reaction Status Date / Time No Known Allergies Allergy Verified 02/05/25 19:34 Active Medications: Current Medications Acetaminophen (Acetaminophen 325 Mg Tablet) 975 mg PO Q6H PRN PRN Reason: Pain, Mild 1-3,fever,headache Calcium Carbonate (Calcium Carbonate 750 Mg Tab.Chew) 750 mg PO Q4H PRN PRN Reason: Heartburn Dextrose (Dextrose 50 % 25 Gm/50 Ml Syringe) 25 gm IVPUSH Q15M PRN; Protocol PRN Reason: per Hypoglycemia Standing Ord. Enoxaparin Sodium (Enoxaparin Sodium 40 Mg/0.4 Ml Syringe) 40 mg SUBCUT Q24H [facility] Glucose (Glucose Gel 15 Gm Gel..Gram.) 15 gm PO Q15M PRN; Protocol PRN Reason: per Hypoglycemia Standing Ord. Insulin Human Lispro (Insulin Lispro 100 Unit/Ml 3 Ml Vial) 0 unit SUBCUT QIDACHS [facility]; Protocol Magnesium Hydroxide (Milk Of Magnesia 30 Ml Oral.Susp) 30 ml PO DAILY PRN PRN Reason: Constipation Melatonin (Melatonin 3 Mg Tablet) 6 mg PO BEDTIME PRN PRN Reason: Insomnia Sodium Chloride (0.9 % Sodium Chloride Flush 3 Ml Syringe) 3 ml IVFLUSH QSHIFT [facility] Home Medications ?Medication ?Instructions ?Recorded ?Confirmed ?Last Taken ?Type glipizide 5 mg tablet, extended 1 tab PO DAILY 1 01/19/22 Unknown History release 24 hr losartan 25 mg tablet 1 tab PO DAILY 09/18/2012/24 Unknown History metformin 1,000 mg tablet 1 tab PO BID 09/18/20 Unknown History simvastatin 40 mg tablet 1 tab PO BEDTIME 09/18/20 Unknown History sertraline 50 mg tablet 50 mg PO BID 02/17/21 Unknown History albuterol sulfate 90 mcg/actuation 2 inh inhalation Q4 H PRN Wheezing 01/19/22 01/20/22 Unknown History aerosol inhaler aripiprazole 2 mg tablet 1 tab PO DAILY 01/19/2212/24 Unknown History hydroxyzine HCl 10 mg tablet 1 tab PO BID 01/19/22 Unknown History lorazepam 0.5 mg tablet 1 tab PO BID PRN Anxiety 01/19/22 Unknown History Physical Exam 2 Vital Signs and Narrative: Vital Signs: Last Vital Signs Temp 98.5 F 02/06/25 02:21 Pulse 88 02/06/25 02:21 Resp 16 02/06/25 02:21 BP 172/89 H 02/06/25 02:21 Pulse Ox 98 02/06/25 00:31 O2 Del Method Room Air 02/06/25 00:31 BMI result Body Mass Index 39.5 Constitutional - Awake and Alert, No apparent distress HEENT - PERRLA, EOMI Heart - S1S2, RRR, No murmurs Lungs - Normal lung expansion, Normal respiratory effort, No respiratory distress, CTA bilaterally Abdomen - NT / ND; +BS; No rebound or guarding Extremities - No calf tenderness bilaterally, no swelling Musculoskeletal - Normal inspection, normal ROM Skin - Warm/Dry Neurological - Alert & oriented x3. Moving all extremities spontaneously. Psychological - Depressed affect Results Labs 02/05/25 20:02 02/05/25 20:02 Labs: Laboratory Results - last 24 hr 02/05/25 02/05/25 02/06/25 20:02 23:55 00:46 MCV 85.7 MCH 28.7 MCHC 33.5 RDW 14.6 Plt Count 355 MPV 10.2 Immature Gran % (Auto) 0.4 Neut % (Auto) 74.3 H Lymph % (Auto) 19.4 L [place] % (Auto) 5.0 Eos % (Auto) 0.5 Baso % (Auto) 0.4 Lymph # (Auto) 1.9 [place] # (Auto) 0.5 Eos # (Auto) 0.1 Baso # (Auto) 0.0 Abs Immat Gran (auto) 0.04 H Absolute Neuts (auto) 7.2 Absolute Nucleated RBC 0.000 Nucleated RBC % (auto) 0.0 Anion Gap 15 Estim Creat Clear Calc 73.1 Estimated GFR > 60 POC Glucose 156 H Random Glucose 164 H Calcium 9.9 Magnesium 1.9 Total Bilirubin 0.5 AST 17 ALT 16 Alkaline Phosphatase 131 H B-Natriuretic Peptide 11 Total Protein 7.7 Albumin 4.2 TSH 1.65 Urine Color Urine Appearance Urine pH Ur Specific [place] Urine Protein Urine Glucose (UA) Urine Ketones Urine Blood Urine Nitrite Ur Leukocyte Esterase Urine RBC Urine WBC Ur Squamous Epith Cells Urine Bacteria Hyaline Casts Influenza Type A (PCR) NEGATIVE Influenza Type B (PCR) NEGATIVE RSV RNA Qual (PCR) NEGATIVE SARS-CoV-2 RNA (RT-PCR) NEGATIVE 02/06/25 01:52 MCV MCH MCHC RDW Plt Count MPV Immature Gran % (Auto) Neut % (Auto) Lymph % (Auto) [place] % (Auto) Eos % (Auto) Baso % (Auto) Lymph # (Auto) [place] # (Auto) Eos # (Auto) Baso # (Auto) Abs Immat Gran (auto) Absolute Neuts (auto) Absolute Nucleated RBC Nucleated RBC % (auto) Anion Gap Estim Creat Clear Calc Estimated GFR POC Glucose Random Glucose Calcium Magnesium Total Bilirubin AST ALT Alkaline Phosphatase B-Natriuretic Peptide Total Protein Albumin TSH Urine Color Yellow Urine Appearance Clear Urine pH 7.0 Ur Specific [place] >= 1.030 H Urine Protein Negative Urine Glucose (UA) >=1000 H Urine Ketones 15 Urine Blood Negative Urine Nitrite Positive H Ur Leukocyte Esterase Negative Urine RBC 0-2 Urine WBC 6-10 H Ur Squamous Epith Cells 3-5 Urine Bacteria 4+ Hyaline Casts 0-2 Influenza Type A (PCR) Influenza Type B (PCR) RSV RNA Qual (PCR) SARS-CoV-2 RNA (RT-PCR) Assessment and Plan (1) SVT (supraventricular tachycardia): Status: Acute (2) Diabetes: Qualifiers: Diabetes mellitus type: type 2 Diabetes mellitus senior living insulin use: with terminal carman use Diabetes mellitus complication status: without complication Qualified Code(s): E11.9 - Type 2 diabetes mellitus without complications; Z79.4 - correction (current) use of insulin Status: Acute Plan Nydia Marrero is a 69 y/o woman presents with: Supraventricular tachycardia (see attachment below). TSH negative. Telemetry. Recheck troponin. Start treatment with metoprolol 25 mg PO bid. Check drug screen. Check echocardiogram. Cardiology consult. Type 2 diabetes mellitus. BG checks before meals at bedtime. Continue Lantus, Jardiance and insulin sliding scale. Metformin on hold. Diabetic diet. Hyperlipidemia. Continue atorvastatin. Essential hypertension. Continue amlodipine. Mood disorder. Continue home meds. Code status: Full DVT prophylaxis: Lovenox Patient will need hospitalization for at least 2 midnights for SVT/tachycardic events evaluation with continuous cardiac monitoring and evaluation by subspecialty. Quality Stroke Does the patient have a stroke diagnosis?: No VTE Prior VTE?: No VTE Risk Level:: Medical - moderate - high VTE Device Contraindication: Treatment Not Indicated VTE Drug Contraindication: N/A - Med Ordered
[2025-02-06 05:13] LABS: Cannabinoid Screen Urine Not Detected (Not Detect)
[2025-02-06 06:48] LABS: Hematocrit 45.3 % (37.0-47.0); Hemoglobin 15.4 g/dl (12.0-16.0); Imm Gran Abs Auto 0.04 X10*3/uL (0.00-0.03); Imm Gran Pct Auto 0.4 % (0.0-0.4); Lymphocytes Absolute Auto 1.6 X10*3/uL (1.2-4.9); Mean Corpuscular HGB Conc 34.0 g/dl (31.0-35.0); Mean Corpuscular Hemoglobin 28.7 pg (27.0-33.0); Mean Corpuscular Volume 84.4 fL (80.0-98.0); NRBC Abs Auto 0.000 X10*3/uL (0.0-0.012); NRBC Pct Auto 0.0 /100WBC (0.0-0.2); Platelet Count 242 X10*3/uL (160-400); Red Blood Count 5.37 X10*6/uL (4.20-5.50); White Blood Count 9.3 X10*3/uL (4.8-10.8)
--- NOTE | 2025-02-06 07:00 | CA_ITS ---
Transthoracic Echocardiogram Patient (Last, First, Middle): Maame Marrero, Gender: Female Date of : 1955 Age: 69 Procedure Date: 02/06/2025 Procedure Type: Transthoracic Echocardiogram Location: ER Height: 162.56 cm Weight: 104.33 kg BSA: 2.08 m2 Heart Rate: 85 bpm BP: 161 / 87 mmHg Produce Assistant: SB Referring MD: Amira Mars MD Symptoms: SVT Study Quality: Adequate w contrast ECG Rhythm: Sinus Conclusions: - Normal left ventricular size, thickness, and systolic function. The visually estimated ejection fraction is between 55-60%. Diastolic function is normal for age. - The right ventricle was not well visualized. Findings Procedure Information Contrast agent, definity, is being given per protocol without apparent complications. Left Ventricle Normal left ventricular size, thickness, and systolic function. The visually estimated ejection fraction is between 55-60%. Diastolic function is normal for age. Right Ventricle The right ventricle was not well visualized. Atria The left atrium is normal in size. The right atrium was not well visualized. Aortic Valve Normal aortic valve structure and function. There is mild calcification of the aortic valve. There is no aortic valve stenosis. There is no aortic valve regurgitation. Mitral Valve The mitral valve appears normal. There is no mitral valve regurgitation. There is no mitral valve stenosis. Pulmonic Valve The pulmonic valve is normal. There is trace pulmonic valve regurgitation. Tricuspid Valve Likely normal tricuspid valve structure and function. Tricuspid regurgitation envelope is inadequate for calculation of right ventricular systolic pressure. Normal right atrial pressure. Great Vessels All visible segments of the aorta are normal in size. The visualized portions of the pulmonary artery and branches are normal. Venous The inferior vena cava is normal in size and collapses greater than 50% with inspiration. Pericardium/Pleural There is no evidence of pericardial effusion. Prior Study Comparison No prior study available for comparison. Measurements 2D Linear Measurements IVSd: 1.11 0.6-0.9/0.6-1.0 cm LVIDd: 4.59 3.9-5.3/4.2-5.9 cm LVIDd Index: 2.21 2.4-3.2/2.2-3.1 cm/m2 LVIDs: 3.21 2.0-3.6 cm LVPWd: 0.78 0.7-1.1 cm LA Diam: 3.10 2.7-3.8/3.0-4.0 cm LAIDs Index: 1.49 1.5-2.3 cm/m2 LV Mass: 181.89 67-162/88-224 g LV Mass Index: 87.45 43-95/49-115 g/m2 LVOT Diam: 2.40 3.0+(-)1.3 cm 2D Systolic Function EF 4C: 59.30 >55% EF 2C: 50.80 >55% EF BiP: 58.10 >55% Mitral Valve MV Pk E: 0.54 MV PK A: 0.81 MV Decel Time: 83.00 E/A: 0.70 E'Lateral: 6.85 E'Medial: 5.87 E/E' Med: 9.30 E/E' Lat: 7.90 PHT: 24.00 MVA PHT: 9.17 Decel [place]: 6.56 Aortic Valve AoV Pk Jose Alejandro: 1.12 AoV Mn Jose Alejandro: 0.78 AoV VTI: 0.22 AoV Pk Grad: 5.00 Aov Mn Grad: 3.00 CA Cont.VTI: 2.85 LVOT LVOT Pk Jose Alejandro: 0.66 LVOT Mn Jose Alejandro: 0.46 LVOT VTI: 0.14 LVOT Pk Grad: 2.00 LVOT Mn Grad: 1.00 LVOT Diam: 2.40 LVOT Area: 4.52 Diastolic Function MV Pk E: 0.54 MV Pk A: 0.81 E/A: 0.70 E'Medial: 5.87 E/E' Med: 9.30 E' Laterial: 6.85 E/E' Lat: 7.90 Right Ventricle TVS' Jose Alejandro: 11.30 Tricuspid Valve RA Press: 3.00 Great Vessels Aorta Sinus of Valsalva: 3.10 2.0-3.5 cm Ao Asc: 3.40 2.1-3.4 cm Ao Arch: 2.70 Pulmonary Valve PV Pk Jose Alejandro: 0.92 Peak PV Grad: 3.00 Updated in Other Vendor System with Status of Final Luc Rain MD electronically signed on 02/06/2025 3:29:24 PM with status of Final
[2025-02-06 07:01] LABS: Troponin-I High Sensitivity < 2.7 ng/L (<3.5-17.0)
[2025-02-06 07:02] LABS: Anion Gap 16 (12-20); Blood Urea Nitrogen 12 mg/dL (9-16); Calcium 9.9 mg/dL (8.4-10.2); Carbon Dioxide 21 mmol/L (22-29); Chloride 105 mmol/L (96-108); Creatinine Clr Calc Pharmacy 76.8; Estimated Glomerular Filt Rate > 60; Magnesium 2.1 mg/dL (1.6-2.6); Potassium 4.4 mmol/L (3.3-5.1); Sodium 138 mmol/L (135-145)
[2025-02-06 07:19] LABS: Glucose, Whole Blood 141 mg/dL (60-115)
--- NOTE | 2025-02-06 08:55 | PHA.MEDREC ---
Pharmacy Consult ? Medication Reconciliation Pharmacy has completed the medication reconciliation. Spoke with patient at bedside, she knew some of her meds but not all. Used pharmacy claims to confirm. Stated she takes 50 units of Glargine now but hasn't had it in 2 days.
--- NOTE | 2025-02-06 10:00 | PC.NURSE ---
assumed care of patient at 0700, patient is awake, alert and oriented x3. patient medicated per MAR, sat up and ate breakfast this morning. patient is in a normal sinus rhythm rate 80s. patient can ambulate with walker, uses electric scooter for longer distances. patient is very pleasant
--- NOTE | 2025-02-06 10:01 | PM.CNCAR ---
History of Present Illness History of Present Illness Date of Service: 02/06/25 Requesting physician: Radha Pruett Chief complaint: Tachycardia Narrative: [age] year female presenting with palpitations. She was noticed to have narrow complex regular tachycardia at 170 beats per minute. She is saying she had palpitations before and had workup done with Dr. Santos at [facility] but no obvious cause was found. She is currently back in sinus. She has been started on metoprolol 25 mg twice a day. She takes amlodipine and losartan for hypertension. Blood pressure is elevated currently. No symptoms currently. [facility] Past Medical History Medical History Anemia Pre-op evaluation Obesity Acute hyperglycemia Fall Diabetes High cholesterol HTN (hypertension) Social History Social History Household Members: None Housing: House Do you presently have visiting nurse or other home services: Yes ([employer], [facility]) Alcohol intake: never Comment: 8 Patient Tobacco Use Status: Never used Tobacco Smoked in Last 30 Days: No Use of substances other than those prescribed or required for medical reasons: No Advance Directives: Yes Advance Directives on File: Yes Advance Directives Date on File: 09/27/20 Do you have a plan to hurt others: No Plan Nutrition Risks: No Nutritional Risk service: No Current occupational status: retired Meds Allergies Allergy/AdvReac Type Severity Reaction Status Date / Time No Known Allergies Allergy Verified 02/05/25 19:34 Active Medications: Current Medications Acetaminophen (Acetaminophen 325 Mg Tablet) 975 mg PO Q6H PRN PRN Reason: Pain, Mild 1-3,fever,headache Calcium Carbonate (Calcium Carbonate 750 Mg Tab.Chew) 750 mg PO Q4H PRN PRN Reason: Heartburn Dextrose (Dextrose 50 % 25 Gm/50 Ml Syringe) 25 gm IVPUSH Q15M PRN; Protocol PRN Reason: per Hypoglycemia Standing Ord. Enoxaparin Sodium (Enoxaparin Sodium 40 Mg/0.4 Ml Syringe) 40 mg SUBCUT Q24H JANINA Last Admin: 02/06/25 09:53 Dose: 40 mg Glucose (Glucose Gel 15 Gm Gel..Gram.) 15 gm PO Q15M PRN; Protocol PRN Reason: per Hypoglycemia Standing Ord. Insulin Human Lispro (Insulin Lispro 100 Unit/Ml 3 Ml Vial) 0 unit SUBCUT QIDACHS [facility]; Protocol Last Admin: 02/06/25 07:22 Dose: Not Given Magnesium Hydroxide (Milk Of Magnesia 30 Ml Oral.Susp) 30 ml PO DAILY PRN PRN Reason: Constipation Melatonin (Melatonin 3 Mg Tablet) 6 mg PO BEDTIME PRN PRN Reason: Insomnia Metoprolol Tartrate (Metoprolol Tartrate 25 Mg Tablet) 25 mg PO BID [facility]; Protocol Last Admin: 02/06/25 04:26 Dose: 25 mg Sodium Chloride (0.9 % Sodium Chloride Flush 3 Ml Syringe) 3 ml IVFLUSH QSHIFT [facility] Last Admin: 02/06/25 07:52 Dose: Not Given Verapamil HCl (Verapamil Hcl Sr 120 Mg Tablet.Er) 120 mg PO DAILY [facility]; Protocol Home Medications ?Medication ?Instructions ?Recorded ?Confirmed ?Last Taken ?Type losartan 25 mg tablet 1 tab PO DAILY 09/18/20 02/06/25 02/04/25 History metformin 1,000 mg tablet 1 tab PO BID 09/18/20 02/06/25 02/04/25 History sertraline 50 mg tablet 50 mg PO BID 02/17/21 02/06/25 02/04/25 History albuterol sulfate 90 mcg/actuation 2 inh inhalation Q4H PRN Wheezing 01/19/22 02/06/25 02/04/25 History aerosol inhaler hydroxyzine HCl 10 mg tablet 1 - 2 tab PO BEDTIME PRN Anxiety 01/19/22 02/06/25 02/04/25 History amlodipine 5 mg tablet 5 mg PO DAILY 02/06/25 02/06/25 02/04/25 History atorvastatin 40 mg tablet 40 mg PO DAILY 02/06/25 02/06/25 02/04/25 History dulaglutide 4.5 mg/0.5 mL 4.5 mg subcut WE 02/06/25 02/06/25 02/04/25 History subcutaneous pen injector (Trulicity) empagliflozin 25 mg tablet 25 mg PO DAILY 02/06/25 02/06/25 02/04/25 History (Jardiance) insulin glargine 100 unit/mL 50 unit subcut DAILY 02/06/25 02/06/25 02/04/25 History subcutaneous solution (Lantus U-100 Insulin) Physical Exam Vital Signs: Vital Signs: Last Vital Signs Temp 98.4 F 02/06/25 08:00 Pulse 97 02/06/25 08:00 Resp 16 02/06/25 08:00 BP 155/80 H 02/06/25 08:00 Pulse Ox 96 02/06/25 08:00 O2 Del Method Room Air 02/06/25 08:00 BMI result Body Mass Index 39.5 GENERAL APPEARANCE: in no acute distress, obese. NECK: no carotid bruit, no jugular venous distention. SKIN: no suspicious lesions, warm and dry. HEART: no murmurs, regular rate and rhythm. LUNGS: clear to auscultation bilaterally. ABDOMEN: soft, nontender. EXTREMITIES: no edema. PERIPHERAL PULSES: equal. NEUROLOGIC: No gross deficits, AAO X 3 Objective Labs and Meds 02/06/25 06:21 02/06/25 06:21 Lab results: Laboratory Results - last 24 hr 02/05/25 02/05/25 02/06/25 20:02 23:55 00:46 WBC 9.7 RBC 5.40 Hgb 15.5 Hct 46.3 MCV 85.7 MCH 28.7 MCHC 33.5 RDW 14.6 Plt Count 355 MPV 10.2 Immature Gran % (Auto) 0.4 Neut % (Auto) 74.3 H Lymph % (Auto) 19.4 L [place] % (Auto) 5.0 Eos % (Auto) 0.5 Baso % (Auto) 0.4 Lymph # (Auto) 1.9 [place] # (Auto) 0.5 Eos # (Auto) 0.1 Baso # (Auto) 0.0 Abs Immat Gran (auto) 0.04 H Absolute Neuts (auto) 7.2 Absolute Nucleated RBC 0.000 Nucleated RBC % (auto) 0.0 Sodium 139 Potassium 3.8 Chloride 106 Carbon Dioxide 22 Anion Gap 15 BUN 12 Creatinine 0.83 Estim Creat Clear Calc 73.1 Estimated GFR > 60 POC Glucose 156 H Random Glucose 164 H Calcium 9.9 Magnesium 1.9 Total Bilirubin 0.5 AST 17 ALT 16 Alkaline Phosphatase 131 H Troponin I High Sens < 2.7 B-Natriuretic Peptide 11 Total Protein 7.7 Albumin 4.2 TSH 1.65 Urine Color Urine Appearance Urine pH Ur Specific [place] Urine Protein Urine Glucose (UA) Urine Ketones Urine Blood Urine Nitrite Ur Leukocyte Esterase Urine RBC Urine WBC Ur Squamous Epith Cells Urine Bacteria Hyaline Casts Urine Opiates Screen Ur Buprenorphine Scrn Ur Oxycodone Screen Urine Methadone Screen Urine Fentanyl Screen Ur Barbiturates Screen Ur Phencyclidine Scrn Ur Amphetamines Screen U Benzodiazepines Scrn Urine Cocaine Screen U Marijuana (THC) Screen Influenza Type A (PCR) NEGATIVE Influenza Type B (PCR) NEGATIVE RSV RNA Qual (PCR) NEGATIVE SARS-CoV-2 RNA (RT-PCR) NEGATIVE 02/06/25 02/06/25 02/06/25 01:52 06:21 07:15 WBC 9.3 RBC 5.37 Hgb 15.4 Hct 45.3 MCV 84.4 MCH 28.7 MCHC 34.0 RDW 14.5 Plt Count 242 D MPV 11.1 Immature Gran % (Auto) 0.4 Neut % (Auto) 76.9 H Lymph % (Auto) 16.7 L [place] % (Auto) 5.2 Eos % (Auto) 0.5 Baso % (Auto) 0.3 Lymph # (Auto) 1.6 [place] # (Auto) 0.5 Eos # (Auto) 0.1 Baso # (Auto) 0.0 Abs Immat Gran (auto) 0.04 H Absolute Neuts (auto) 7.1 Absolute Nucleated RBC 0.000 Nucleated RBC % (auto) 0.0 Sodium 138 Potassium 4.4 Chloride 105 Carbon Dioxide 21 L Anion Gap 16 BUN 12 Creatinine 0.79 Estim Creat Clear Calc 76.8 Estimated GFR > 60 POC Glucose 141 H Random Glucose 150 H Calcium 9.9 Magnesium 2.1 Total Bilirubin AST ALT Alkaline Phosphatase Troponin I High Sens < 2.7 B-Natriuretic Peptide Total Protein Albumin TSH Urine Color Yellow Urine Appearance Clear Urine pH 7.0 Ur Specific [place] >= 1.030 H Urine Protein Negative Urine Glucose (UA) >=1000 H Urine Ketones 15 Urine Blood Negative Urine Nitrite Positive H Ur Leukocyte Esterase Negative Urine RBC 0-2 Urine WBC 6-10 H Ur Squamous Epith Cells 3-5 Urine Bacteria 4+ Hyaline Casts 0-2 Urine Opiates Screen Not Detected Ur Buprenorphine Scrn Not Detected Ur Oxycodone Screen Not Detected Urine Methadone Screen Not Detected Urine Fentanyl Screen Not Detected Ur Barbiturates Screen Not Detected Ur Phencyclidine Scrn Not Detected Ur Amphetamines Screen Not Detected U Benzodiazepines Scrn Not Detected Urine Cocaine Screen Not Detected U Marijuana (THC) Screen Not Detected Influenza Type A (PCR) Influenza Type B (PCR) RSV RNA Qual (PCR) SARS-CoV-2 RNA (RT-PCR) Assessment and Plan (1) SVT (supraventricular tachycardia): Status: Acute Plan 69-year-old lady presenting with supraventricular tachycardia. Currently back in sinus rhythm. Add verapamil 120 mg daily. Stop the amlodipine. Can continue losartan. I have discussed with her about ablation. She is interested. I will refer her to electrophysiology with [facility]. Thank you for allowing me to participate in the care of your patient. Please feel free to contact me if you have any questions. Procedures Date of Service Date of Service: 02/06/25
--- NOTE | 2025-02-06 11:00 | MHC.CM.PN ---
CM met with Patient at bedside, in the ED and addressed IMM with her, providing Patient with the original and a copy will be placed on the chart. Patient lives in a duplex with her Son, who will accompany Patient home, in her scooter. Patient reports recently being dc'd from [facility] services and she is hoping to get those services back (neither she nor her Son feel comfortable administering her insulin). CM has initiated and will follow for dc planning. PCP is Dr. East and HCP is Granddaughter/Demetrius.
[2025-02-06] MEDS: VerapamiL HCL SR 120 MG TABLET.ER PO (11:12)
[2025-02-06 12:18] LABS: Glucose, Whole Blood 133 mg/dL (60-115)
--- NOTE | 2025-02-06 12:41 | MHC.CM.PN ---
Addendum entered by Arleen Andrews 02/06/25 13:43: [facility] has accepted Patient; a face to face will be needed. Original Note: ZULMA spoke with VISHAL CR/Akbar @ [phone], Ext. [phone]. Per Akbar, Patient was approved with [facility] for 6o days and was dropped by the [facility] after 14 days.ZULMA has asked [facility] to follow Patient.
--- NOTE | 2025-02-06 13:51 | P.DS_ITS ---
DS: Providers Provider Date of Service: 02/06/25 Date of admission: 02/06/25 02:05 Date of discharge: 02/06/25 Primary care physician: Shady East MD Consults: 02/06/25 02:25 Consult to Cardiology Routine Consulting Provider: [facility] Reason for consultation: Episodes of marked tachycardia, SVT Has provider been notified: No Attending physician on discharge: Jonathan Reyna Discharging clinician: Radha Pruett DS: Diagnosis Discharge Diagnosis (1) SVT (supraventricular tachycardia): Status: Acute DS: Summary Hospital Course Hospital Course: From H&P on the day of admission Nydia Marrero is a 69 years old woman with a past medical history significant for type 2 diabetes mellitus on insulin, hyperlipidemia, essential hypertension and obesity presents to the emergency department complaining of dizziness over the last couple of days. She has been experiencing nausea and vomited x3. She also mentioned that due to insurance issues she no longer have nurses to inject her insulin; she said that she is afraid of injecting her insulin. Patient has been experiencing chest tightness that she attributes to the recent loss of her 6 years old great grandson. Sadly, this little boy of a fatal asthma attack. She also reported some shortness on breath and denied palpitations. There is no fever or chills. Denied history of cardiac disease. She denied tobacco smoking, alcohol abuse or illicit drug use. In the ED, she was found to have intermittent episodes of tachycardia. One of the episode consistent with SVT. Other vital signs are normal. CBC was unremarkable. There are no electrolyte imbalances. BUN is 12 and creatinine 0.83. Glucose 164. LFTs unremarkable except for elevation of alk-phos, 133. BNP is 11 and troponin < 2.7. TSH is 1.65. ECG shows sinus rhythm with PACs up to 173 bpm. ED tx: Metoprolol 2.5 mg IV SVT. TSH negative. Cardiac enzymes have remained negative. Tox screen negative. Started on metoprolol 25 b.i.d. seen by Cardiology who also started verapamil 120 mg daily. Recommended to stop amlodipine. Ablation was discussed and she will be referred to electrophysiology with [facility]. She has had no further episodes during this admission. Echocardiogram obtained, report pending at the time of discharge. Dizziness- likely due to above. Resolved at this time.Patient did well with Physical therapy, no home services recommended possible UTI. no sepsis. Urine culture pending, will discharge with 5 days of oral antibiotics Patient initially presented to the emergency department because she had lost her VNA services. Discussed with case management, she has been accepted to [facility] Time Attestation Discharge Coordination Time (in mins): 30 Quality: Safe Use of Opioids Does Pt have an Active Cancer Diagnosis on the Problem List?: No Quality: Stroke Does the patient have a stroke diagnosis?: No Physical Exam Vital Signs: Vital Signs: Last Vital Signs Temp 98.4 F 02/06/25 08:00 Pulse 100 02/06/25 12:46 Resp 16 02/06/25 08:00 BP 133/77 02/06/25 11:12 Pulse Ox 96 02/06/25 08:00 O2 Del Method Room Air 02/06/25 08:00 BMI result Body Mass Index 39.5 Const: General: cooperative, comfortable, no acute distress, alert and awake Nutritional Appearance: obese Orientation/consciousness: patient oriented x3 Resp: Effort & Inspection: normal respiratory effort, able to speak in complete sentences, no respiratory distress and no use of accessory muscles Cardio: Rate: regular rate GI: Palpation (GI): Soft to palpation Neuro: General: patient oriented x3, moves all extremities and CN's II-XI intact bilaterally DS: Data Data Completed and Pending Completed studies during hospitalization [Text1]: Procedures Reposition Left Lower Femur with Internal Fixation Device, Open Approach (09/18/20) Transfusion of Nonautologous Red Blood Cells into Peripheral Vein, Percutaneous Approach (09/18/20) Labs on day of discharge: Laboratory Results - last 24 hr 02/05/25 02/05/25 02/06/25 20:02 23:55 00:46 WBC 9.7 RBC 5.40 Hgb 15.5 Hct 46.3 MCV 85.7 MCH 28.7 MCHC 33.5 RDW 14.6 Plt Count 355 MPV 10.2 Immature Gran % (Auto) 0.4 Neut % (Auto) 74.3 H Lymph % (Auto) 19.4 L [place] % (Auto) 5.0 Eos % (Auto) 0.5 Baso % (Auto) 0.4 Lymph # (Auto) 1.9 [place] # (Auto) 0.5 Eos # (Auto) 0.1 Baso # (Auto) 0.0 Abs Immat Gran (auto) 0.04 H Absolute Neuts (auto) 7.2 Absolute Nucleated RBC 0.000 Nucleated RBC % (auto) 0.0 Sodium 139 Potassium 3.8 Chloride 106 Carbon Dioxide 22 Anion Gap 15 BUN 12 Creatinine 0.83 Estim Creat Clear Calc 73.1 Estimated GFR > 60 POC Glucose 156 H Random Glucose 164 H Calcium 9.9 Magnesium 1.9 Total Bilirubin 0.5 AST 17 ALT 16 Alkaline Phosphatase 131 H Troponin I High Sens < 2.7 B-Natriuretic Peptide 11 Total Protein 7.7 Albumin 4.2 TSH 1.65 Urine Color Urine Appearance Urine pH Ur Specific [place] Urine Protein Urine Glucose (UA) Urine Ketones Urine Blood Urine Nitrite Ur Leukocyte Esterase Urine RBC Urine WBC Ur Squamous Epith Cells Urine Bacteria Hyaline Casts Urine Opiates Screen Ur Buprenorphine Scrn Ur Oxycodone Screen Urine Methadone Screen Urine Fentanyl Screen Ur Barbiturates Screen Ur Phencyclidine Scrn Ur Amphetamines Screen U Benzodiazepines Scrn Urine Cocaine Screen U Marijuana (THC) Screen Influenza Type A (PCR) NEGATIVE Influenza Type B (PCR) NEGATIVE RSV RNA Qual (PCR) NEGATIVE SARS-CoV-2 RNA (RT-PCR) NEGATIVE 02/06/25 02/06/25 02/06/25 01:52 06:21 07:15 WBC 9.3 RBC 5.37 Hgb 15.4 Hct 45.3 MCV 84.4 MCH 28.7 MCHC 34.0 RDW 14.5 Plt Count 242 D MPV 11.1 Immature Gran % (Auto) 0.4 Neut % (Auto) 76.9 H Lymph % (Auto) 16.7 L [place] % (Auto) 5.2 Eos % (Auto) 0.5 Baso % (Auto) 0.3 Lymph # (Auto) 1.6 [place] # (Auto) 0.5 Eos # (Auto) 0.1 Baso # (Auto) 0.0 Abs Immat Gran (auto) 0.04 H Absolute Neuts (auto) 7.1 Absolute Nucleated RBC 0.000 Nucleated RBC % (auto) 0.0 Sodium 138 Potassium 4.4 Chloride 105 Carbon Dioxide 21 L Anion Gap 16 BUN 12 Creatinine 0.79 Estim Creat Clear Calc 76.8 Estimated GFR > 60 POC Glucose 141 H Random Glucose 150 H Calcium 9.9 Magnesium 2.1 Total Bilirubin AST ALT Alkaline Phosphatase Troponin I High Sens < 2.7 B-Natriuretic Peptide Total Protein Albumin TSH Urine Color Yellow Urine Appearance Clear Urine pH 7.0 Ur Specific [place] >= 1.030 H Urine Protein Negative Urine Glucose (UA) >=1000 H Urine Ketones 15 Urine Blood Negative Urine Nitrite Positive H Ur Leukocyte Esterase Negative Urine RBC 0-2 Urine WBC 6-10 H Ur Squamous Epith Cells 3-5 Urine Bacteria 4+ Hyaline Casts 0-2 Urine Opiates Screen Not Detected Ur Buprenorphine Scrn Not Detected Ur Oxycodone Screen Not Detected Urine Methadone Screen Not Detected Urine Fentanyl Screen Not Detected Ur Barbiturates Screen Not Detected Ur Phencyclidine Scrn Not Detected Ur Amphetamines Screen Not Detected U Benzodiazepines Scrn Not Detected Urine Cocaine Screen Not Detected U Marijuana (THC) Screen Not Detected Influenza Type A (PCR) Influenza Type B (PCR) RSV RNA Qual (PCR) SARS-CoV-2 RNA (RT-PCR) 02/06/25 12:14 WBC RBC Hgb Hct MCV MCH MCHC RDW Plt Count MPV Immature Gran % (Auto) Neut % (Auto) Lymph % (Auto) [place] % (Auto) Eos % (Auto) Baso % (Auto) Lymph # (Auto) [place] # (Auto) Eos # (Auto) Baso # (Auto) Abs Immat Gran (auto) Absolute Neuts (auto) Absolute Nucleated RBC Nucleated RBC % (auto) Sodium Potassium Chloride Carbon Dioxide Anion Gap BUN Creatinine Estim Creat Clear Calc Estimated GFR POC Glucose 133 H Random Glucose Calcium Magnesium Total Bilirubin AST ALT Alkaline Phosphatase Troponin I High Sens B-Natriuretic Peptide Total Protein Albumin TSH Urine Color Urine Appearance Urine pH Ur Specific [place] Urine Protein Urine Glucose (UA) Urine Ketones Urine Blood Urine Nitrite Ur Leukocyte Esterase Urine RBC Urine WBC Ur Squamous Epith Cells Urine Bacteria Hyaline Casts Urine Opiates Screen Ur Buprenorphine Scrn Ur Oxycodone Screen Urine Methadone Screen Urine Fentanyl Screen Ur Barbiturates Screen Ur Phencyclidine Scrn Ur Amphetamines Screen U Benzodiazepines Scrn Urine Cocaine Screen U Marijuana (THC) Screen Influenza Type A (PCR) Influenza Type B (PCR) RSV RNA Qual (PCR) SARS-CoV-2 RNA (RT-PCR) Discharge Plan Discharge Anticipated Discharge Date/Time: 02/06/25 13:57 Patient Disposition: Home Health Service Discharge Diagnosis: svt possible UTI Referrals: Shady East MD [Primary Care Provider, [facility]] - 1 Week Discharge Medications: New metoprolol tartrate 25 mg Tablet 25 mg PO BID 90 Days Qty: 180 0RF Protocol: Hold for SBP/HR < HOLD for SBP < : 90 HOLD for HR < : 60 verapamil 120 mg Tablet Extended Release 120 mg PO DAILY 90 Days Qty: 90 0RF Protocol: Hold for SBP/HR < HOLD for SBP < : 90 HOLD for HR < : 60 cefuroxime axetil 250 mg tablet 250 mg PO Q12H 5 Days Qty: 10 0RF Continued metformin 1,000 mg tablet 1 tab PO BID losartan 25 mg tablet 1 tab PO DAILY albuterol sulfate 90 mcg/actuation HFA aerosol inhaler 2 inh inhalation Q4H PRN (Reason: Wheezing) hydroxyzine HCl 10 mg tablet 1 - 2 tab PO BEDTIME PRN (Reason: Anxiety) acetaminophen [Tylenol] 325 mg capsule 650 mg PO Q6H PRN (Reason: pain) Qty: 30 0RF atorvastatin 40 mg tablet 40 mg PO DAILY Jardiance 25 mg tablet 25 mg PO DAILY Trulicity 4.5 mg/0.5 mL pen injector 4.5 mg SUBCUT WE insulin glargine [Lantus U-100 Insulin] 100 unit/mL solution 50 unit subcut DAILY sertraline 50 mg tablet 50 mg PO BID Discontinued amlodipine 5 mg tablet 5 mg PO DAILY Discharge Orders: Discharge Order (Routine); Ordered 02/06/25 Ordered By: Radha Pruett Activity on Discharge: As tolerated Stand Alone Forms: Patient Portal Discharge page Print Language: Azerbaijani Care Plan Goals: See below Health Concerns: Supraventricular tachycardia Possible UTI Plan of Treatment: you have been started on metoprolol and verapamil stop taking norvasc You will be referred for evaluation of ablation with [facility] you have been accepted by [facility] You were evaluated by Physical therapy who did not recommend home services urine culture pending at the time of discharge echocardiogram report pending at the time of discharge Call to schedule follow-up appointment with PCP Assessment: See discharge summary
--- NOTE | 2025-02-06 14:07 | P.F2F_ITS ---
Service Date Service Date: 02/06/25 Encounter Date of encounter: 02/06/25 Reasons for Services Signs and symptoms assessed: Needs [place] [facility] for diabetes education, teaching, monitoring of blood pressure and HR. Reason for [place] [facility]: diabetic teaching MD Overseeing Care: Shady East Homebound: Leaving the home is medically contraindicated at this time without the asist of a device and/or another person due th the listed conditions above and below. Reason homebound: other Certification: Based on the above findings, I certify that this patient is confined to the home and needs intermittent [facility] care, physical therapy and/or speech therapy, or continues to need occupational therapy. The patient is under my care, and I have initiated the establishment of the plan of care. The patient will be followed by a physician who will periodically review the plan of care. Time Spent With Patient Time: Total time managing care of this patient today ____ minutes.
== END 2025-02-06 15:35 | disposition home health service (06) | DRG 309 ==
LOC: HO.ED 02-06 02:08 → HO.EDOVER 02-06 02:19
PROVIDERS: Admitting Provider Internal Medicine; Emergency Provider Emergency Medicine; PCP Family Medicine; Visit Provider Physician Assistant Medical
DX: I47.10 Supraventricular tachycardia, unspecified (principal); N39.0 Urinary tract infection, site not specified; T38.3X6A Underdosing of insulin and oral hypoglycemic [antidiabetic] drugs, initial encounter; E78.5 Hyperlipidemia, unspecified; I10 Essential (primary) hypertension; F39 Unspecified mood [affective] disorder; E66.9 Obesity, unspecified; Z68.39 Body mass index [BMI] 39.0-39.9, adult; Z20.822 Contact with and (suspected) exposure to COVID-19; Z63.4 Disappearance and death of family member; Z79.4 Long term (current) use of insulin; Z79.84 Long term (current) use of oral hypoglycemic drugs; Z79.85 Long-term (current) use of injectable non-insulin antidiabetic drugs; Z79.899 Other long term (current) drug therapy
CPT/HCPCS: 36415; 80048; 80053; 80307; 81001; 81003; 82947; 83735; 83880; 84443; 84484; 85025; 87086; 87637; 93005; 93306; 97162; 99285; J0616; J1650; Q9957

== ENCOUNTER → 2025-02-06 02:05 | Outpatient (BNV) | payer OTHER, SELFPAY | PROVIDERS: Admitting Provider Internal Medicine; Emergency Provider Emergency Medicine; PCP Family Medicine; Visit Provider Internal Medicine Cardiovascular Disease | DX: I47.10 Supraventricular tachycardia, unspecified (principal); I35.8 Other nonrheumatic aortic valve disorders | CPT/HCPCS: 93010; 93306; 99223 ==

== ENCOUNTER → 2025-02-06 02:05 | Outpatient (BNV) | payer OTHER, SELFPAY | PROVIDERS: Admitting Provider Internal Medicine; Emergency Provider Emergency Medicine; PCP Family Medicine; Visit Provider Internal Medicine | DX: I47.10 Supraventricular tachycardia, unspecified (principal); E11.9 Type 2 diabetes mellitus without complications; Z79.4 Long term (current) use of insulin | CPT/HCPCS: 99223; G0180 ==

== ENCOUNTER 2025-03-25 10:17 | Inpatient (IN) | payer OTHER, SELFPAY ==
--- OUTSIDE RECORDS SUMMARY | 2025-03-25 09:00 | XMS_ITS | Encounter Summary ---
Author Organization [facility] Address [address] [place] [address] Care Team Providers Care Marketing Project Lead Name Role Phone Shady East MD Primary Care Pr ovider Reason for Referral * Home Health (Routine) - Denied Specialty Diagnoses / Procedures Referred By Heydi poole Referred To Contact Home Health Services Diagnoses Type 2 diabetes mellitus with microalbuminuria, with long-term current use of insulin (CMS/HCC V24, CMS/HCC V28) Mixed hyperlipidemia Essential hypertension Urge incontinence of urine Anxiety and depression Vitamin D deficiency Osteoporosis screening Colon cancer screening Shady East MD [address] [place] [id number] Phone: tel: fax: Referral ID Status Reason Start Date Expiration Date V isits Requested Visits Authorized [id number] Denied Consult and Treat 03/25/2025 03/25/2026 1 0 * Care Management (Routine) - Authorized Specialty Diagnoses / Procedures Referred By Heydi poole Referred To Contact Bobbin Cleaner Motor Equipment Commanding Officer Diagnoses Type 2 diabetes mellitus with microalbuminuria, with long-term current use of insulin (CMS/HCC V24, CMS/HCC V28) Mixed hyperlipidemia Essential hypertension Urge incontinence of urine Anxiety and depression Vitamin D deficiency Osteoporosis screening Colon cancer screening Shady East MD [address] [place] [address] Phone: tel: fax: Blanca Lamar, TRANSITION RN [address] [place] [address] Phone: tel: fax: Referral ID Status Reason Start Date Expiration Date Visits Requested Visits Authorized [id number] Authorized Specialty Services Required 03/25/2025 03/25/2026 1 1 * Consultation (Routine) - Pending Review Specialty Diagnoses / Procedures Referred By Heydi t Referred To Contact Internal Medicine Diagnoses Type 2 diabetes mellitus with microalbuminuria, with long-term current use of insulin (CMS/HCC V24, CMS/HCC V28) Shady East MD [address] [place] [address] Phone: tel: fax: Referral ID Status Reason Start Date Expiration Date V isits Requested Visits Authorized [id number] Pending Review 03/25/2025 03/25/2026 1 1 * Consultation (Routine) - Pending Review Specialty Diagnoses / Procedures Referred By Heydi poole Referred To Contact Gastroenterology Diagnoses Colon cancer screening Shady Esat MD [address] [place] [address] Phone: tel: fax: Referral ID Status Reason Start Date Expiration Date Visits Requested Visits Authorized [id number] Pending Review Specialty Services Required 03/25/2025 03/25/2026 1 1 * Imaging (Routine) - Authorized Specialty Diagnoses / Procedures Referred By Heydi poole Referred To Contact Radiology Diagnoses Osteoporosis screening Procedures BD Bone Density DXA Axial Skeleton Shady East MD [address] [place] [address] Phone: tel: fax: [address] Phone: tel: Referral ID Status Reason Start Date Expiration Date V isits Requested Visits Authorized [id number] Authorized 03/25/2025 03/25/2026 1 1 Reason for Visit * Reason Comments med review Encounter Details Date Type Department Care Team (Late st Contact Info) Description 03/25/2025 9:00 AM EDT Office Visit Adult Medicine [address] [phone] Shady East MD [address] [place] [address] Type 2 diabetes mellitus with microalbuminuria, with long-term current use of insulin ([facility] V24, [facility] V28) (Primary Dx); Mixed hyperlipidemia; Essential hypertension; Narrow complex tachycardia (CMS/[facility] V24); Urge incontinence of urine; Anxiety and depression; Severe episode of recurrent major depressive disorder, without psychotic features (CMS/[facility] V24, CMS/[facility] V28); Grief; Vitamin D deficiency; Osteoporosis screening; Colon cancer screening; UTI symptoms; Need for prophylactic vaccination and inoculation against influenza Social History Tobacco Use Types Packs/Day Years Used Date Smoking Tobacco: Never Smokeless Tobacco: Never Tobacco Cessation:Counseling Given: Not Answered Alcohol Use Standard Drinks/Week Comments No 0 (1 standard drink = 0.6 oz pur e alcohol) Comments No Sex and Gender Information Value Date Recorded Sex Assigned at Not on file Legal Sex Female 5:41 PM EST Gender Identity Not on file Sexual Orientation Not on file documented as of this encounter Last Filed Vital Signs Vital Sign Reading Time Taken Comments Blood Pressure 177/89 03/25/2025 7:55 AM EDT A Pulse 94 03/25/2025 7:44 AM EDT Temperature 36.2 C (97.2 F) 03/25/2025 7:44 AM EDT Respiratory Rate - - Oxygen Saturation 96% 03/25/2025 7:44 AM EDT Inhaled Oxygen Concentration - - Weight 105 kg (230 lb 12.8 oz) 03/25/2025 7:44 A M EDT Height 162.6 cm (5' 4.02 ) 03/25/2025 7:44 AM ED T Body Mass Index 39.6 03/25/2025 7:44 AM EDT documented in this encounter Ordered Prescriptions Prescription Sig Dispense Quantity Refills Last Filled Start Date End Date metoprolol succinate (Toprol XL) 100 mg 24 hr tabletIndications: Narrow complex tachycardia (CMS/[facility] V24) Take 1 tablet (100 mg total) by mouth 1 (one) time each day. Do not crush or chew. 90 each 03/25/2025 5 metFORMIN (GLUCOPHAGE) 1,000 mg tabletIndications: Type 2 diabetes mellitus with microalbuminuria, with long-term current use of insulin (CMS/[facility] V24, CMS/HCC V28) Take 1 tablet (1,000 mg total) by mouth 2 (two) times a day with meals. 180 each 1 03/25/2025 6 losartan (COZAAR) 100 mg tabletIndications: Essential hypertension Take 1 tablet (100 mg total) by mouth 1 (one) time each day. 90 each 1 03/25/2025 6 empagliflozin (Jardiance) 25 mg tabletIndications: Type 2 diabetes mellitus with microalbuminuria, with long-term current use of insulin (CMS/[facility] V24, CMS/HCC V28) Take 1 tablet (25 mg total) by mouth 1 (one) time each day in the morning. 90 tablet 1 03/25/2025 6 ergocalciferol (VITAMIN D-2) 1,250 mcg (50,000 unit) capsuleIndications :Vitamin D deficiency Take 1 capsule (50,000 Units total) by mouth 1 (one) time per week. 12 capsule 03/25/2025 5 documented in this encounter Progress Notes * Shady East MD - 03/25/2025 9:00 AM EDTAssociated Problem(s): Type 2 diabetes mellitus with microalbuminuria, with long-term current use of insulin ([facility] V24, [facility] V28) Her FSG today was 447. See HPI She has not been using any of her oral medications-metformin 1000 twice daily or Jardiance 25 mg daily for the past 2 months since her grandson . Has also not used Trulicity 4.5 mg weekly in about 2 months because she does not know how to use the medicine. Reports she has been using her insulinLantus 50 units every morning. Given her severe depression she has not been caring for herself and is at risk of decompensation athome. As a result she is sent to the emergency room for evaluation for stabilization of her uncontrolled diabetes but more importantly for crisis evaluation for her severe depression which is limiting her ability to care for herself She is advised to return in 2 weeks for follow-up and to bring in all her medications to the appointment for review. She is unsure of what she has at home and medications that were changed at the ER visit in january Referral was placed for home health and also to the social media intern. She needs a lot of help at home especially with administration of her Trulicity and insulin Orders: Hemoglobin A1c; Future Ambulatory referral to pharmacist; Future empagliflozin (Jardiance) 25 mg tablet; Take 1 tablet (25 mg total) by mouth 1 (one) time each day in the morning. metFORMIN (GLUCOPHAGE) 1,000 mg tablet; Take 1 tablet (1,000 mg total) by mouth 2 (two) times a daywith meals. Ambulatory Referral to Bobbin Cleaner Motor Equipment Commanding OfficerHot Head Machine Operator referral to Home Health; Future Culture urine POC Urine Auto W/O Micro * Shady East MD - 03/25/2025 9:00 AM EDTAssociated Problem(s): Mixed hyperlipidemia Not using Lipitor 40 mg nightly. Encouraged to do so and to use all her other meds Orders: Lipid panel with reflex to direct LDL; Future Ambulatory Referral to Bobbin Cleaner Motor Equipment Commanding OfficerHot Head Machine Operator referral to Home Health; Future * Shady East MD - 03/25/2025 9:00 AM EDTAssociated Problem(s): Essential hypertension Blood pressure is not controlled due to lack of medication adherence Refills are sent of losartan. She is advised that amlodipine was discontinued in the ER. Will increase metoprolol to 100 mg daily however she is not taking the metoprolol tartrate 25 mg twice daily which she was discharged on after her ER visit in January. She is also not taking the verapamil 120 mgdaily Orders: losartan (COZAAR) 100 mg tablet; Take 1 tablet (100 mg total) by mouth 1 (one) time each day. Ambulatory Referral to Bobbin Cleaner Motor Equipment Commanding OfficerHot Head Machine Operator referral to Home Health; Future * Shady East MD - 03/25/2025 9:00 AM EDTAssociated Problem(s): Urinary incontinence Continue with incontinence pads/liners Orders: Ambulatory Referral to Bobbin Cleaner Motor Equipment Commanding OfficerHot Head Machine Operator referral to Home Health; Future * Shady East MD - 03/25/2025 9:00 AM EDTAssociated Problem(s): Anxiety and depression Severely depressed. [facility] was contacted today. Given her uncontrolled diabetes/hypertension they recommended medical clearance first . She has been taken to the ER by EMS Not using sertraline Orders: Ambulatory Referral to Bobbin Cleaner Motor Equipment Commanding OfficerHot Head Machine Operator referral to Home Health; Future * Shady East MD - 03/25/2025 9:00 AM EDTAssociated Problem(s): Vitamin D deficiency Not using vitamin D. This is sent Orders: ergocalciferol (VITAMIN D-2) 1,250 mcg (50,000 unit) capsule; Take 1 capsule (50,000 Units total) by mouth 1 (one) time per week. Ambulatory Referral to Bobbin Cleaner Motor Equipment Commanding OfficerHot Head Machine Operator referral to Home Health; Future * Shady East MD - 03/25/2025 9:00 AM EDTAssociated Problem(s): Severe episode of recurrent major depressive disorder, without psychotic features (CMS/HCC V24, CMS/HCC V28) As above * Shady East MD - 03/25/2025 9:00 AM EDTAssociated Problem(s): Narrow complex tachycardia (CMS/HCC V24) she is not taking the metoprolol tartrate 25 mg twice daily which she was discharged on after her ER visit in January. She is also not taking the verapamil 120 mg daily. Hr today was 94. Will switch to metoprolol 100mg daily Advised to start using this medication once discharged as well as the verapamil 120mg daily Advised that she has an appointment with cardiology scheduled for March 31. Strongly advised to keep this appointment. Orders: metoprolol succinate (Toprol XL) 100 mg 24 hr tablet; Take 1 tablet (100 mg total) by mouth 1 (one)time each day. Do not crush or chew. * Shady East MD - 03/25/2025 9:00 AM EDT Images from the original note were not included. Patient Education High Blood Pressure: Care Instructions Overview It's normal for blood pressure to go up and down throughout the day. But if it stays up, you have high blood pressure. Another name for high blood pressure is hypertension. For diagnosis, the top number may be 130 to 140 or higher. The bottom number may be 80 to 90 or higher. Despite what a lot of people think, high blood pressure usually doesn't cause headaches or make youfeel dizzy or lightheaded. It usually has no symptoms. But it does increase your risk of stroke, heart attack, and other problems. You and your doctor will talk about your risks of these problems based on your blood pressure. Your doctor will give you a goal for your blood pressure. Your goal will be based on your health and your age. Lifestyle changes, such as eating healthy and being active, are always important to help lower blood pressure. You might also take medicine to reach your blood pressure goal. Follow-up care is a parr part of your treatment and safety. Be sure to make and go to all appointments, and call your doctor if you are having problems. It's also a good idea to know your test resultsand keep a list of the medicines you take. How can you care for yourself at home? Medical treatment If you stop taking your medicine, your blood pressure will go back up. You may take one or more types of medicine to lower your blood pressure. Be safe with medicines. Take your medicine exactly as prescribed. Call your doctor if you think you are having a problem with your medicine. See your doctor regularly. You may need to see the doctor more often at first or until your blood pressure comes down. If you are taking blood pressure medicine, talk to your doctor before you take decongestants or anti-inflammatory medicine, such as ibuprofen. Some of these medicines can raise blood pressure. Learn how to check your blood pressure at home. Talk to your doctor before you start taking aspirin every day. Aspirin can help certain people lower their risk of a heart attack or stroke. But taking aspirin isn't right for everyone, because it can cause serious bleeding. Lifestyle changes Stay at a weight that's healthy for you. This is especially important if you put on weight around the waist. Losing even 10 pounds can help you lower your blood pressure. If your doctor recommends it, get more exercise. Walking is a good choice. Bit by bit, increase theamount you walk every day. Try for at least 30 minutes on most days of the week. Avoid or limit alcohol. Talk to your doctor about whether you can drink any alcohol. Try to limit how much sodium you eat to less than 2,300 milligrams (mg) a day. Your doctor may ask you to try to eat less than 1,500 mg a day. Eat plenty of fruits (such as bananas and oranges), vegetables, legumes, whole grains, and low-fat dairy products. Lower the amount of saturated fat in your diet. Saturated fat is found in animal products such as milk, cheese, and meat. Limiting these foods may help you lose weight and also lower your risk for heart disease. Do not smoke or vape. Smoking or vaping increases your risk for heart attack and stroke. If you need help quitting, talk to your doctor about quit programs and medicines. These can increase your chances of quitting for good. When should you call for help? Call 911 anytime you think you may need emergency care. This may mean having symptoms that suggest your blood pressure is causing a serious heart or blood vessel problem. Your blood pressure may be 180/120 or higher. For example, call 911 if: You have symptoms of a heart attack. These may include: Chest pain or pressure, or a strange feeling in the chest. Sweating. Shortness of breath. Nausea or vomiting. Pain, pressure, or a strange feeling in the back, neck, jaw, or upper belly or in one or both shoulders or arms. Lightheadedness or sudden weakness. A fast or irregular heartbeat. NOTE: After calling 911, the tobacco stripping machine operator may tell you to chew 1 adult-strength or 2 to 4 low-dose aspirin. Wait for an ambulance. Do not try to drive yourself. You have symptoms of a stroke. These may include: Sudden numbness, tingling, weakness, or loss of movement in your face, arm, or leg, especially on only one side of your body. Sudden vision changes. Sudden trouble speaking. Sudden confusion or trouble understanding simple statements. Sudden problems with walking or balance. A sudden, severe headache that is different from past headaches. You have severe back or belly pain. Do not wait until your blood pressure comes down on its own. Get help right away. Call your doctor now or seek immediate care if: Your blood pressure is much higher than normal (such as 180/120 or higher), but you don't have symptoms. You think high blood pressure is causing symptoms, such as: Severe headache. Blurry vision. Watch closely for changes in your health, and be sure to contact your doctor if: Your blood pressure measures higher than your doctor recommends at least 2 times. That means the top number is higher or the bottom number is higher, or both. You think you may be having side effects from your blood pressure medicine. Where can you learn more? Scan the Pont[employer] code or Go to [email or web address] Enter X567 in the search box to learn more about High Blood Pressure: Care Instructions. Current as of: January 23, 2024 Content Version: 14.5 ?? [id number] [employer]. Care instructions adapted under license by your healthcare professional. If you have questions about a medical condition or this instruction, always ask your healthcare professional. [employer], disclaims any warranty or liability for your use of this information. * Danuta Carmichael MA - 03/25/2025 9:00 AM EDTAddended by: DANUTA CARMICHAEL on: 03/25/2025 11:19 AM Modules accepted: Orders * Danuta Carmichael MA - 03/25/2025 9:00 AM EDTAddended by: DANUTA CARMICHAEL on: 03/25/2025 11:20 AM Modules accepted: Orders * Danuta Carmichael MA - 03/25/2025 9:00 AM EDTAddended by: DANUTA CARMICHAEL on: 03/25/2025 11:46 AM Modules accepted: Orders * Shady East MD - 03/25/2025 9:00 AM EDT Images from the original note were not included. Chief Complaint Maame Marrero is a 69 y.o. female presenting for med review Subjective Type 2 diabetes with microalbuminuria: last A1c 8.3 in December. She is NOT taking her PO meds (metformin 1000mg BID, Jardiance 25mg daily), states she does not know how to use Trulicity 4.5mg weekly so has not used it in 2 months (since her grandson ) notes she has been using insulin Lantus 50 units daily. Her FSG today was 447. She no longer has TOOL DESIGN ENGINEER services(she previously had a person that helped her with her insulin and Trulicity injections) reports her son is now her TOOL DESIGN ENGINEER and helps with preparing meals. He does not help with administration of her medications. hyperlipidemia: NOT USING Lipitor 40 mg nightly. This was increased in response to her last LDL which was 162 in December Lab Results Component Value Date LDLCALC 162 (H) 01/01/2025 HTN: BP was initially 187/95. 5-minute average was 177/89. She is not using losartan 100mg daily orany of the prescribed meds from the ER Vitamin D deficiency: very low level: 19. 9 in December. Not using vitamin D Depression and anxiety: follows with psychiatry- [facility] - [facility] but has not been since her grandson . She has not been consistent with her medications. She is prescribed sertraline 50mg daily She is still struggling with grief from the loss of her grandson. Has virtual visits with her therapist every week. She has completely neglected her self-care and medication management. She feels very sad and depressed. She is denying SI or HI but is not motivated to do anything. She just wants to be left alone She was seen at [facility] on 02/06/2025 after presenting with palpitations, intermittent fatigue, generalized malaise. There was no syncope or near syncope. She admitted to feeling very sad and grieving the loss of her 6-year-old grandson who in December due to an asthma exacerbation .she was noted to have multiple episodes of sinus tachycardia to the 160s to 170s lasting about 30 seconds. She received IV metoprolol tartrate 5 mg. Her blood pressure was elevated to 180/82 then 179/96. She was noted to have narrow complex regular tachycardia at 173 bpm. As of the time of the ER visit discharge she was back in sinus rhythm. She was started on metoprolol 25 mg tartrate twice a dayand verapamil 120 mg daily. Amlodipine was discontinued. There was discussion about ablation.. She has an appointment with Dr. Santos (on 03/31/2025) CBC was Remarkable. H/H 15.4/45.3. 21. BUN/creatinine 12/0.79. Urinalysis negative. TSH within normal range. BNP was normal at 11. Flu/COVID/RSV testing was negative Reports increased urinary frequency.also with pain with urination for several weeks. No fever or chills. No nausea . Notes one episode of vomiting about a month ago. She denies vaginal discharge. Sheis currently not sexually active. She has a known history of urinary urge incontinence and uses incontinence pads The following portions of the patient's history were reviewed by a provider in this encounter and updated as appropriate: Meds Problems Allergies: She has no known allergies. Medications: Current Outpatient Medications Medication Instructions albuterol HFA (PROAIR HFA ; PROVENTIL HFA ; VENTOLIN HFA) 90 mcg/actuation inhaler 2 puffs, inhalation, Every 6 hours PRN atorvastatin (LIPITOR) 40 mg, oral, Daily BD Alcohol Swabs pads, medicated See admin instructions blood sugar diagnostic (FreeStyle Lite Strips) test strip USE 1 STRIP TO TEST BLOOD SUGAR EVERY MORNING BEFORE BREAKFAST cetirizine (ZYRTEC) 10 mg, 2 times daily clobetasoL (TEMOVATE) 0.05 % ointment APPLY TO AFFECTED AREAS ON LEGS AND BACK TWICE DAILY FOR 2 WEEKS THEN 1 WEEK OFF REPEAT NEEDED dulaglutide (TRULICITY) 4.5 mg, subcutaneous, Every 7 days empagliflozin (JARDIANCE) 25 mg, oral, Every morning ergocalciferol (VITAMIN D-2) 50,000 Units, oral, Weekly freestyle (FreeStyle Lancets) 28 gauge lancets USE TO CHECK FASTING BLOOD SUGAR EVERY MORNING glipiZIDE (GLUCOTROL XL) 10 mg 24 hr tablet 1 tablet, Every 12 hours hydrOXYzine HCL (ATARAX) 20 mg, oral, Nightly PRN Lantus Solostar U-100 Insulin 50 Units, subcutaneous, Nightly losartan (COZAAR) 100 mg, oral, Daily metFORMIN (GLUCOPHAGE) 1,000 mg, oral, 2 times daily with meals metoprolol succinate (TOPROL XL) 100 mg, oral, Daily, Do not crush or chew. sertraline (ZOLOFT) 50 mg, oral, Every morning Skyrizi 150 mg/mL pen injector INJECT ONE PEN EVERY 12 WEEKS FOR MAINTENANCE tacrolimus (PROTOPIC) 0.1 % ointment APPLY TO THE AFFECTED AREA ON THE BACK TWICE DAILY UNTIL FOLLOW UP. APPLY WITH VASELINE IF IT FENG UltiCare Pen Needle 32 gauge x 5/32 needle USE DIRECTED FOR INSULIN INJECTION SUBCUTANEOUSLY DAILY verapamil SR (CALAN-SR) 120 mg, Daily Vitamin D3 2,000 Units, oral, Daily Depression Screening (PHQ2/9): Anxiety Screening: Social Influencer of Health (SIOH): Review of Systems: Review of Systems As noted in HPI Objective BP (!) 177/89 Comment: A Pulse 94 Temp 36.2 ??C (97.2 ??F) (Temporal) Ht 1.626 m (64.02 ) Wt 105 kg (230 lb 12.8 oz) BMI 39.60 kg/m?? SpO2: 96 % Physical Exam Constitutional: General: She is not in acute distress. Appearance: Normal appearance. She is obese. HENT: Head: Normocephalic and atraumatic. Cardiovascular: Rate and Rhythm: Normal rate and regular rhythm. Pulses: Normal pulses. Heart sounds: Normal heart sounds. Pulmonary: Effort: Pulmonary effort is normal. No respiratory distress. Breath sounds: Normal breath sounds. Abdominal: Palpations: Abdomen is soft. Tenderness: There is abdominal tenderness in the suprapubic area. Neurological: Mental Status: She is alert and oriented to person, place, and time. Psychiatric: Mood and Affect: Mood is depressed. Affect is tearful. Comments: Crying intermittently during the encounter when talking about her son Lab Results Component Value Date WBC 9.9 07/07/2024 HGB 15.5 07/07/2024 HCT 48.5 (H) 07/07/2024 PLT 328 07/07/2024 CHOL 255 (H) 01/01/2025 TRIG 136 01/01/2025 HDL 66 01/01/2025 ALT 24 01/01/2025 AST 12 01/01/2025 NA 139 01/01/2025 K 4.4 01/01/2025 CL 104 01/01/2025 CREATININE 0.81 01/01/2025 BUN 11 01/01/2025 CO2 28 01/01/2025 HGBA1C 8.3 (H) 01/01/2025 MICROALBUR 33.0 (H) 07/07/2024 Assessment/Plan Assessment & Plan Type 2 diabetes mellitus with microalbuminuria, with long-term current use of insulin ([facility] V24,[facility] V28) Her FSG today was 447. See HPI She has not been using any of her oral medications-metformin 1000 twice daily or Jardiance 25 mg daily for the past 2 months since her grandson . Has also not used Trulicity 4.5 mg weekly in about 2 months because she does not know how to use the medicine. Reports she has been using her insulinLantus 50 units every morning. Given her severe depression she has not been caring for herself and is at risk of decompensation athome. As a result she is sent to the emergency room for evaluation for stabilization of her uncontrolled diabetes but more importantly for crisis evaluation for her severe depression which is limiting her ability to care for herself She is advised to return in 2 weeks for follow-up and to bring in all her medications to the appointment for review. She is unsure of what she has at home and medications that were changed at the ER visit in january Referral was placed for home health and also to the social media intern. She needs a lot of help at home especially with administration of her Trulicity and insulin Orders: Hemoglobin A1c; Future Ambulatory referral to pharmacist; Future empagliflozin (Jardiance) 25 mg tablet; Take 1 tablet (25 mg total) by mouth 1 (one) time each day in the morning. metFORMIN (GLUCOPHAGE) 1,000 mg tablet; Take 1 tablet (1,000 mg total) by mouth 2 (two) times a daywith meals. Ambulatory Referral to [employer] Equipment Commanding OfficerHot Head Machine Operator referral to Home Health; Future Culture urine POC Urine Auto W/O Micro Mixed hyperlipidemia Not using Lipitor 40 mg nightly. Encouraged to do so and to use all her other meds Orders: Lipid panel with reflex to direct LDL; Future Ambulatory Referral to [employer] Equipment Commanding OfficerHot Head Machine Operator referral to Home Health; Future Essential hypertension Blood pressure is not controlled due to lack of medication adherence Refills are sent of losartan. She is advised that amlodipine was discontinued in the ER. Will increase metoprolol to 100 mg daily however she is not taking the metoprolol tartrate 25 mg twice daily which she was discharged on after her ER visit in January. She is also not taking the verapamil 120 mgdaily Orders: losartan (COZAAR) 100 mg tablet; Take 1 tablet (100 mg total) by mouth 1 (one) time each day. Ambulatory Referral to [employer] Equipment Commanding OfficerHot Head Machine Operator referral to Home Health; Future Narrow complex tachycardia ([facility] V24) she is not taking the metoprolol tartrate 25 mg twice daily which she was discharged on after her ER visit in January. She is also not taking the verapamil 120 mg daily. Hr today was 94. Will switch to metoprolol 100mg daily Advised to start using this medication once discharged as well as the verapamil 120mg daily Advised that she has an appointment with cardiology scheduled for March 31. Strongly advised to keep this appointment. Orders: metoprolol succinate (Toprol XL) 100 mg 24 hr tablet; Take 1 tablet (100 mg total) by mouth 1 (one)time each day. Do not crush or chew. Urge incontinence of urine Continue with incontinence pads/liners Orders: Ambulatory Referral to [employer] Equipment Commanding OfficerHot Head Machine Operator referral to Home Health; Future Anxiety and depression Severely depressed. [facility] was contacted today. Given her uncontrolled diabetes/hypertension they recommended medical clearance first . She has been taken to the ER by EMS Not using sertraline Orders: Ambulatory Referral to [employer] Equipment Commanding OfficerHot Head Machine Operator referral to Home Health; Future Severe episode of recurrent major depressive disorder, without psychotic features (CMS/HCC V24, [facility] V28) As above Grief See HPI Vitamin D deficiency Not using vitamin D. This is sent Orders: ergocalciferol (VITAMIN D-2) 1,250 mcg (50,000 unit) capsule; Take 1 capsule (50,000 Units total) by mouth 1 (one) time per week. Ambulatory Referral to [employer] Equipment Commanding OfficerHot Head Machine Operator referral to Home Health; Future Osteoporosis screening DEXA scan ordered which can be scheduled at her next visit Orders: BD Bone Density DXA Axial Skeleton; Future Ambulatory Referral to [employer] Equipment Commanding OfficerHot Head Machine Operator referral to Home Health; Future Colon cancer screening Referred to GI for colonoscopy. Orders: Ambulatory referral to Gastroenterology; Future Ambulatory Referral to [employer] Equipment Commanding OfficerHot Head Machine Operator referral to Home Health; Future UTI symptoms Likely with UTI given her hyperglycemia Urine studies ordered Need for prophylactic vaccination and inoculation against influenza Received flu vaccine today Orders: Influenza trivalent, 0.5mL (Fluad) 65yo and older Over 50 mins spent on this encounter reviewing discharge records, providing information to patient , arranging for ER evaluation for the severe depression/uncontrolled diabetes/hyperglycemia/uncontrolled hypertension Patient was taken emergency room today by EMS Shady East MD [facility] [address] [address] Dept: [phone] Dept Date of Visit: 03/25/2025 * Jeannine Gomes RN - 03/25/2025 9:00 AM EDT Called [facility] and spoke to Annabelle. She was informed of pt's current condition including her depression, inability to care for herself,elevated blood glucose of 447 and elevated BP of 177/89. She was advised Dr. East would like pt admitted to their in patient facility for behavioral health services. Per Annabelle pt needs to be medically cleared prior to being evaluated by their team. They would like her sent to the ER. Dr. East informed of the above. 911 called at 9:37 am. Pt would like to go to [facility] ER. Paramedics arrived to pick her up at 0946. Pt is in power wheelchair. She is refusing to go to the ER without her power wheelchair. Pt was informed she can leave her power wheelchair here until she is able to make arrangements to bring it home. She is in agreement with this plan. Pt transported to [facility] ER via ambulance at 0958. documented in this encounter Plan of Treatment Upcoming Encounters Date Type Department Care Team (Late st Contact Info) Description 03/31/2025 1:00 PM EDT Office Visit [facility] [address] [facility] [address] [place] [address] Abdullahi Santos MD [address] [facility] [address] [place] [address] Pending Results Name Type Priority Associated Diagnoses Date /Time Culture urine Microbiology Routine Type 2 diabetes mellitus with microalbuminuria, with long-term current use of insulin ([facility] V24, [facility] V28) 03/25/2025 10:33 AM EDT Urinalysis microscopic only Lab Routine Urge incontinence of urine 03/25/2025 11:30 AM EDT Urinalysis microscopic only Lab Routine Urge incontinence of urine 03/25/2025 11:30 AM EDT Urinalysis microscopic only Lab Routine UTI symptoms 03/25/2025 11:30 AM EDT Culture urine Microbiology Routine UTI symptoms 03/25/2025 11:30 AM EDT Urinalysis microscopic only Lab Routine UTI symptoms 03/25/2025 11:30 AM EDT Scheduled Orders Name Type Priority Associated Diagnoses Orde r Schedule BD Bone Density DXA Axial Skeleton Imaging Routine Osteoporosis screening 1 Occurrences starting 03/25/2025 until 03/25/2026 Hemoglobin A1c Lab Routine Type 2 diabetes mellitus with microalbuminuria, with long-term current use of insulin ([facility] V24, [facility] V28) Expected: 03/25/2025, Expires: 03/25/2026 Lipid panel with reflex to direct LDL Lab Routine Mixed hyperlipidemia 1 Occurrences starting 03/25/2025 until 03/25/2026 Scheduled Referrals Name Type Priority Associated Diagnoses Order Schedule Ambulatory referral to Gastroenterology Outpatient Referral Routine Colon cancer screening Expected: 03/25/2025, Expires: 03/25/2026 Ambulatory referral to pharmacist Outpatient Referral Routine Type 2 diabetes mellitus with microalbuminuria, with long-term current use of insulin ([facility] V24, [facility] V28) 1 Occurrences starting 03/25/2025 until 03/25/2026 Ambulatory Referral to [employer] Commanding Officer Outpatient Referral Routine Type 2 diabetes mellitus with microalbuminuria, with long-term current use of insulin ([facility] V24, [facility] V28) Mixed hyperlipidemia Essential hypertension Urge incontinence of urine Anxiety and depression Vitamin D deficiency Osteoporosis screening Colon cancer screening Ordered: 03/25/2025 Ambulatory referral to Home Health Outpatient Referral Routine Type 2 diabetes mellitus with microalbuminuria, with long-term current use of insulin ([facility] V24, [facility] V28) Mixed hyperlipidemia Essential hypertension Urge incontinence of urine Anxiety and depression Vitamin D deficiency Osteoporosis screening Colon cancer screening 1 Occurrences starting 03/25/2025 until 03/25/2026 documented as of this encounter Visit Diagnoses Diagnosis Type 2 diabetes mellitus with microalbuminuria, with long-term current use of insulin ([facility] V24, [facility] V28)- Primary Mixed hyperlipidemia Essential hypertension Unspecified essential hypertension Narrow complex tachycardia ([facility] V24) Urge incontinence of urine Urge incontinence Anxiety and depression Severe episode of recurrent major depressive disorder, without psychotic features ([facility] V24, [facility] V28) Grief Adjustment disorder with depressed mood Vitamin D deficiency Osteoporosis screening Special screening for osteoporosis Colon cancer screening Special screening for malignant neoplasms, colon UTI symptoms Need for prophylactic vaccination and inoculation against influenza documented in this encounter Discontinued Medications Medication Sig Discontinue Reason Start Date End Da te amLODIPine (NORVASC) 5 mg tablet TAKE 1 TABLET BY MOUTH EVERY NIGHT AT BEDTIME Duplicate order 01/21/2025 03/25/2025 metoprolol tartrate (LOPRESSOR) 25 mg tablet Take 1 tablet (25 mg total) by mouth 2 (two) times a day. Duplicate order 02/06/2025 03/25/2025 Jardiance 25 mg tablet TAKE 1 TABLET BY MOUTH EVERY MORNING Reorder 10/29/2024 03/25/2025 losartan (COZAAR) 100 mg tablet TAKE 1 TABLET BY MOUTH EVERY NIGHT AT BEDTIME Reorder 01/21/2025 03/25/2025 metFORMIN (GLUCOPHAGE) 1,000 mg tablet TAKE 1 TABLET BY MOUTH TWICE A DAY WITH MEALS Reorder 01/21/2025 03/25/2025 documented as of this encounter Historical Medications * This list may reflect changes made after this encounter. verapamil SR (CALAN-SR) 120 mg CR tablet Take 1 tablet (120 mg total) by mouth 1 (one) time each day. 02/06/2025 metoprolol tartrate (LOPRESSOR) 25 mg tablet Take 1 tablet (25 mg total) by mouth 2 (two) times a day. 02/06/2025 03/25/2025 added in this encounter Orders Immunization/Injection Count Last Ordered Date First Ordered Date INFLUENZA TRIVALENT, 0.5ML ( FLUAD) 65YO AND OLDER 1 03/25/2025 documented in this encounter Additional Health Concerns Assessment Noted Time PHQ-9 Depression Total Score: 17 024 1:45 PM EST A fall risk assessment has been complete d for the patient 05/19/2024 1:43 PM EST documented as of this encounter Care Teams Marketing Project Lead Relationship Specialty Start Date End Date Shady East MD [address], [place] PCP - General Internal Medicine 01/13/22 documented as of this encounter
[2025-03-25 10:23] LABS: Glucose, Whole Blood 375 mg/dL (60-115)
[2025-03-25 10:24] VITALS: BP 168/90; BP 171/72; PULSE 80; PULSE 92; RESP 15; TEMP 36.6; O2SAT 95; O2SAT 96; BMI 41.1
--- NOTE | 2025-03-25 10:26 | ECG_ITS ---
Test Reason : WEAKNESS Blood Pressure : */* mmHG Vent. Rate : 102 BPM Atrial Rate : 102 BPM P-R Int : 158 ms QRS Dur : 90 ms QT Int : 372 ms P-R-T Axes : 39 41 -7 degrees QTcB Int : 484 ms Sinus tachycardia with occasional Premature ventricular complexes T wave abnormality, consider inferior ischemia Abnormal ECG When compared with ECG of 06-Feb-2025 01:19, Premature ventricular complexes are now Present Vent. rate has decreased by 71 bpm T wave inversion no longer evident in Anterolateral leads Referred By: Jayy Colon Electronically Signed By: ANGELIQUE BOOKER
--- NOTE | 2025-03-25 10:31 | ED.GENADULT ---
HPI - General Adult General Chief complaint: Psychiatric Symptoms Stated complaint: HIGH BS @ 435,DEPRESSION FROM OFFICE Time Seen by Provider: 03/25/25 10:21 Source: patient and EMS Mode of arrival: EMS Limitations: no limitations History of Present Illness ED Provider: HPI narrative: 69-year-old woman went to see her PCP or for regular checkup, was sent to the ER, patient states her grandson 2 months ago from an asthma attack and patient has been depressed, she stopped taking all her medications including insulin, states does not want to live. Noted to be hypoglycemic in PCP's office and sent here. Patient is tearful, denies chest pain abdominal pain nausea or vomiting diarrhea or any dysuria. Related Data Home Medications ?Medication ?Instructions ?Recorded ?Confirmed losartan 25 mg tablet 1 tab PO DAILY 09/18/20 02/06/25 metformin 1,000 mg tablet 1 tab PO BID 09/18/20 02/06/25 sertraline 50 mg tablet 50 mg PO BID 02/17/21 02/06/25 albuterol sulfate 90 mcg/actuation 2 inh inhalation Q4H PRN Wheezing 01/19/22 02/06/25 aerosol inhaler hydroxyzine HCl 10 mg tablet 1 - 2 tab PO BEDTIME PRN Anxiety 01/19/22 02/06/25 atorvastatin 40 mg tablet 40 mg PO DAILY 02/06/25 02/06/25 dulaglutide 4.5 mg/0.5 mL 4.5 mg subcut WE 02/06/25 02/06/25 subcutaneous pen injector (Trulicity) empagliflozin 25 mg tablet 25 mg PO DAILY 02/06/25 02/06/25 (Jardiance) insulin glargine 100 unit/mL 50 unit subcut DAILY 02/06/25 02/06/25 subcutaneous solution (Lantus U-100 Insulin) Previous Rx's ?Medication ?Instructions ?Recorded acetaminophen 325 mg capsule 650 mg (2 x 325 mg) PO Q6H PRN 12/22/23 (Tylenol) pain #30 caps cefuroxime axetil 250 mg tablet 250 mg PO Q12H 5 days #10 tabs 02/06/25 metoprolol tartrate 25 mg tablet 25 mg PO BID 90 days #180 tabs 02/06/25 verapamil 120 mg tablet,extended 120 mg PO DAILY 90 days #90 tabs 02/06/25 release Allergies Allergy/AdvReac Type Severity Reaction Status Date / Time No Known Allergies Allergy Verified 03/25/25 10:34 Review of Systems Constitutional: Constitutional: Reports as per HPI [facility] Past Medical History Medical History Anemia Pre-op evaluation Obesity Acute hyperglycemia Fall Diabetes High cholesterol HTN (hypertension) Social History Social History Household Members: None Housing: House Do you presently have visiting nurse or other home services: Yes (MAILING SPECIALIST, [facility]) Alcohol intake: never Comment: 8 Patient Tobacco Use Status: Never used Tobacco Smoked in Last 30 Days: No Use of substances other than those prescribed or required for medical reasons: No Advance Directives: Yes Advance Directives on File: Yes Advance Directives Date on File: 09/27/20 Do you have a plan to hurt others: No Plan and Vague service: No Current occupational status: retired Physical Exam ED Vital Signs: Vital Signs - 24 hr 03/25/25 10:24 03/25/25 10:49 03/25/25 15:40 Temperature 98 F 98 F Pulse Rate 80 80 86 Respiratory Rate 15 15 17 Blood Pressure 171/72 H 171/72 H 124/62 Pulse Oximetry 95 95 94 Oxygen Delivery Method Room Air Room Air Room Air BMI result Body Mass Index 41.1 Const Other: General: ?Appears of stated age, no facial trauma ? ?PERRLA, EOMI, MMM, ? Neck: Supple, no LAD ? ?CV: S1-S2 ? ?Resp: ?No wheezing rales rhonchi no stridor moving air well ? Abd: ?Bowel sounds are present, no tenderness no rebound no rigidity ? ?MSK: FROM, strength 5/5 all extremities ? Skin: Warm, dry, intact, ? ?Neuro: ?Alert and oriented x3, moving upper and lower extremities symmetrically, no obvious facial asymmetry noted, cranial nerves 2-12 intact Psych: Tearful, SI Medications Administered Discontinued Medications Generic Name Dose Route Start Last Admin Trade Name Freq PRN Reason Stop Dose Admin Sodium Chloride 1,000 mls @ 999 mls/hr 03/25/25 10:30 03/25/25 12:45 Ns IV 03/25/25 11:30 Infused .Q1H1M JANINA Infusion Insulin Glargine 50 unit 03/25/25 12:03 03/25/25 12:24 Insulin Glargine,Hum.Rec.Anlog 100 Unit/Ml 10 Ml Vial SUBCUT 03/25/25 12:04 50 unit ONCE ONE Administration Insulin Human Lispro 12 unit 03/25/25 10:25 03/25/25 10:44 Insulin Lispro 100 Unit/Ml 3 Ml Vial SUBCUT 03/25/25 10:26 12 unit ONCE ONE Administration Metformin HCl 1,000 mg 03/25/25 12:03 03/25/25 12:23 Metformin Hcl 1,000 Mg Tablet PO 03/25/25 12:04 1,000 mg ONCE ONE Administration Medical Decision Making Medical Decision Making MDM Narrative: 10:37 AM 03/25/2025 (Dr. Jayy Colon): Patient evaluated with thoughts of self-harm by not taking her medications for diabetes, she has not been taking medication for 2 months according to her, she is hyperglycemic we will make sure she is not in DKA, if medically necessary we will admit otherwise we will get crisis team involved in her care we will start with fluids and insulin for management 12:04 PM 03/25/2025 (Dr. Jayy Colon): Does father was no evidence that patient is in diabetic related to the Emergency, I will restart her lispro and she used to take metformin 1000 mg twice a day, I will restart that as well. But otherwise she is cleared for care team evaluation Admited inpatient for psychiatric care Differential Diagnosis Differential Diagnoses: The differential diagnosis associated with the presentation includes (DKA, dehydration, poorly controlled diabetes, SI) Admission/Observation Consideration of admission/observation: Escalation of care including admission/observation considered Consult Healthcare Provider Management of the patient was discussed with: Behavioral Health Provider Lab Data MDM Lab Attestation statement: I reviewed the patient's lab results. 03/25/25 11:23 03/25/25 11:23 Labs: Lab Results 03/25/25 03/25/25 03/25/25 Range/Units 10:20 11:23 11:28 WBC 7.3 (4.8-10.8) X10*3/uL RBC 4.85 (4.20-5.50) X10*6/uL Hgb 14.1 (12.0-16.0) g/dl Hct 41.3 (37.0-47.0) % MCV 85.2 (80.0-98.0) fL MCH 29.1 (27.0-33.0) pg MCHC 34.1 (31.0-35.0) g/dl RDW 14.7 (11.0-16.0) % Plt Count 260 (160-400) X10*3/uL MPV 10.8 (9.4-12.3) fL Immature Gran % (Auto) 0.5 H (0.0-0.4) % Neut % (Auto) 71.0 (45-73) % Lymph % (Auto) 22.4 (20-40) % [place] % (Auto) 5.2 (2-11) % Eos % (Auto) 0.5 (0-4) % Baso % (Auto) 0.4 (0-2) % Lymph # (Auto) 1.6 (1.2-4.9) X10*3/uL [place] # (Auto) 0.4 (0.1-1.2) X10*3/uL Eos # (Auto) 0.0 (0.0-0.4) X10*3/uL Baso # (Auto) 0.0 (0.0-0.2) X10*3/uL Abs Immat Gran (auto) 0.04 H (0.00-0.03) X10*3/uL Absolute Neuts (auto) 5.2 (2.0-8.3) x10*3/uL Absolute Nucleated RBC 0.000 (0.0-0.012) X10*3/uL Nucleated RBC % (auto) 0.0 (0.0-0.2) /100WBC VBG pH 7.39 (7.32-7.43) VBG pCO2 35 mmHg VBG pO2 45 mmHg VBG HCO3 21 L (22-26) mmol/L VBG O2 Saturation 73.0 % VBG Base Excess -2.6 mmol/L Sodium 139 (135-145) mmol/L Potassium 4.1 (3.3-5.1) mmol/L Chloride 106 (96-108) mmol/L Carbon Dioxide 26 (22-29) mmol/L Anion Gap 11 L (12-20) BUN 13 (9-16) mg/dL Creatinine 0.83 (0.5-1.4) mg/dL Estim Creat Clear Calc 74.8 Estimated GFR > 60 POC Glucose 375 H* (60-115) mg/dL Random Glucose 369 H* (60-115) mg/dL Lactic Acid 1.6 (0.5-2.0) mmol/L Calcium 9.3 D (8.4-10.2) mg/dL Total Bilirubin 0.4 (0.0-1.0) mg/dL AST 15 (5-31) U/L ALT 15 (0-31) U/L Alkaline Phosphatase 144 H (39-117) U/L Total Protein 6.8 (6.5-8.0) g/dL Albumin 3.7 (3.5-5.0) g/dL Lipase 43 (8-78) U/L Beta-Hydroxybutyrate 0.28 H (0.02-0.27) mmol/L Urine Color Urine Appearance Urine pH (5.0-9.0) Ur Specific [place] (1.005-1.025) Urine Protein (Neg-Trace) mg/dL Urine Glucose (UA) (Negative) mg/dL Urine Ketones (Negative) mg/dL Urine Blood (Negative) Urine Nitrite (Negative) Ur Leukocyte Esterase (Negative) Urine RBC (0-2) /HPF Urine WBC (0-5) /HPF Ur Squamous Epith Cells (0-2) /HPF Urine Bacteria (None Seen) Hyaline Casts (0-2) /LPF Urine Opiates Screen (Not Detect) Ur Buprenorphine Scrn (Not Detect) ng/mL Ur Oxycodone Screen (Not Detect) ng/mL Urine Methadone Screen (Not Detect) ng/mL Urine Fentanyl Screen (Not Detect) Ur Barbiturates Screen (Not Detect) Ur Phencyclidine Scrn (Not Detect) Ur Amphetamines Screen (Not Detect) U Benzodiazepines Scrn (Not Detect) Urine Cocaine Screen (Not Detect) U Marijuana (THC) Screen (Not Detect) 03/25/25 03/25/25 03/25/25 Range/Units 12:18 14:03 14:04 WBC (4.8-10.8) X10*3/uL RBC (4.20-5.50) X10*6/uL Hgb (12.0-16.0) g/dl Hct (37.0-47.0) % MCV (80.0-98.0) fL MCH (27.0-33.0) pg MCHC (31.0-35.0) g/dl RDW (11.0-16.0) % Plt Count (160-400) X10*3/uL MPV (9.4-12.3) fL Immature Gran % (Auto) (0.0-0.4) % Neut % (Auto) (45-73) % Lymph % (Auto) (20-40) % [place] % (Auto) (2-11) % Eos % (Auto) (0-4) % Baso % (Auto) (0-2) % Lymph # (Auto) (1.2-4.9) X10*3/uL [place] # (Auto) (0.1-1.2) X10*3/uL Eos # (Auto) (0.0-0.4) X10*3/uL Baso # (Auto) (0.0-0.2) X10*3/uL Abs Immat Gran (auto) (0.00-0.03) X10*3/uL Absolute Neuts (auto) (2.0-8.3) x10*3/uL Absolute Nucleated RBC (0.0-0.012) X10*3/uL Nucleated RBC % (auto) (0.0-0.2) /100WBC VBG pH (7.32-7.43) VBG pCO2 mmHg VBG pO2 mmHg VBG HCO3 (22-26) mmol/L VBG O2 Saturation % VBG Base Excess mmol/L Sodium (135-145) mmol/L Potassium (3.3-5.1) mmol/L Chloride (96-108) mmol/L Carbon Dioxide (22-29) mmol/L Anion Gap (12-20) BUN (9-16) mg/dL Creatinine (0.5-1.4) mg/dL Estim Creat Clear Calc Estimated GFR POC Glucose 285 H (60-115) mg/dL Random Glucose (60-115) mg/dL Lactic Acid (0.5-2.0) mmol/L Calcium (8.4-10.2) mg/dL Total Bilirubin (0.0-1.0) mg/dL AST (5-31) U/L ALT (0-31) U/L Alkaline Phosphatase (39-117) U/L Total Protein (6.5-8.0) g/dL Albumin (3.5-5.0) g/dL Lipase (8-78) U/L Beta-Hydroxybutyrate (0.02-0.27) mmol/L Urine Color Yellow Urine Appearance Clear Urine pH 5.5 (5.0-9.0) Ur Specific [place] >= 1.030 H (1.005-1.025) Urine Protein Negative (Neg-Trace) mg/dL Urine Glucose (UA) >=1000 H (Negative) mg/dL Urine Ketones Trace (Negative) mg/dL Urine Blood Negative (Negative) Urine Nitrite Negative (Negative) Ur Leukocyte Esterase Negative (Negative) Urine RBC 0-2 (0-2) /HPF Urine WBC 6-10 H (0-5) /HPF Ur Squamous Epith Cells 6-10 (0-2) /HPF Urine Bacteria None Seen (None Seen) Hyaline Casts 0-2 (0-2) /LPF Urine Opiates Screen Not Detected (Not Detect) Ur Buprenorphine Scrn Not Detected (Not Detect) ng/mL Ur Oxycodone Screen Not Detected (Not Detect) ng/mL Urine Methadone Screen Not Detected (Not Detect) ng/mL Urine Fentanyl Screen Not Detected (Not Detect) Ur Barbiturates Screen Not Detected (Not Detect) Ur Phencyclidine Scrn Not Detected (Not Detect) Ur Amphetamines Screen Not Detected (Not Detect) U Benzodiazepines Scrn Not Detected (Not Detect) Urine Cocaine Screen Not Detected (Not Detect) U Marijuana (THC) Screen Not Detected (Not Detect) Chronic Conditions Patient?s care impacted by: Diabetes Social Determinants Patient?s care significantly limited by Social Determinants of Health including: Problems related to primary support group Critical Care Time Critical Care Time Critical Care Time: Yes Total Critical Care Time: 35 Attestation: Time is exclusive of separately billable procedures. Time includes: direct patient care, patient reassessment, coordination of patient care, interpretation of data (laboratory data, pulse oximetry, arterial blood gases and chest xrays), review of patient's medical records, medical consultation and documentation of patient care. Procedures excluded from critical care time: central intravenous line placement and electrocardiography. Discharge Plan Discharge Clinical Impression: At risk for medication noncompliance, Poorly controlled diabetes mellitus, Depression with suicidal ideation Patient Disposition: Admitted As Inpatient Interventions: [place]-Suicide Risk Severity Scale Last Done: 03/25/25 10:49
[2025-03-25 10:49] VITALS: BP 171/72; PULSE 80; RESP 15; TEMP 36.6; O2SAT 95
[2025-03-25 11:27] LABS: MANUAL DIFF FLAG NO
[2025-03-25 11:31] LABS: VBG HCO3 21 mmol/L (22-26); VBG O2 % Saturation 73.0 %
[2025-03-25 11:32] LABS: Venous Blood Gas Refer to POC result
[2025-03-25 11:36] LABS: Hematocrit 41.3 % (37.0-47.0); Hemoglobin 14.1 g/dl (12.0-16.0); Imm Gran Abs Auto 0.04 X10*3/uL (0.00-0.03); Imm Gran Pct Auto 0.5 % (0.0-0.4); Lymphocytes Absolute Auto 1.6 X10*3/uL (1.2-4.9); Mean Corpuscular HGB Conc 34.1 g/dl (31.0-35.0); Mean Corpuscular Hemoglobin 29.1 pg (27.0-33.0); Mean Corpuscular Volume 85.2 fL (80.0-98.0); NRBC Abs Auto 0.000 X10*3/uL (0.0-0.012); NRBC Pct Auto 0.0 /100WBC (0.0-0.2); Platelet Count 260 X10*3/uL (160-400); Red Blood Count 4.85 X10*6/uL (4.20-5.50); White Blood Count 7.3 X10*3/uL (4.8-10.8)
[2025-03-25 12:02] LABS: Alanine Aminotransferase 15 U/L (0-31); Albumin Level 3.7 g/dL (3.5-5.0); Alkaline Phosphatase 144 U/L (39-117); Anion Gap 11 (12-20); Aspartate Amino Transferase 15 U/L (5-31); Blood Urea Nitrogen 13 mg/dL (9-16); Calcium 9.3 mg/dL (8.4-10.2); Carbon Dioxide 26 mmol/L (22-29); Chloride 106 mmol/L (96-108); Creatinine Clr Calc Pharmacy 74.8; Estimated Glomerular Filt Rate > 60; Lipase 43 U/L (8-78); Potassium 4.1 mmol/L (3.3-5.1); Sodium 139 mmol/L (135-145); Total Protein 6.8 g/dL (6.5-8.0)
[2025-03-25 12:23] LABS: Glucose, Whole Blood 285 mg/dL (60-115)
[2025-03-25] MEDS: Insulin Glargine,Hum.rec.anlog 100 UNIT/ML 10 ML VIAL 50 UNIT SUBCUT (12:24)
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
--- NOTE | 2025-03-25 12:59 | MHC.CARE ---
Pt meets the criteria for IPLOC and will be REGGIE IPLOC. Section 12a in chart. ED provider in agreement.
--- NOTE | 2025-03-25 14:00 | PC.NURSE ---
Attempted to do med rec - pt states she has not taken any of her meds for several months except for Lantus 50u SQ daily which she last took yesterday.
[2025-03-25 14:19] LABS: Appearance Urine Clear; Glucose Urine UA >=1000 mg/dL (Negative); PH 5.5 (5.0-9.0); Specific Gravity - Urine >= 1.030 (1.005-1.025); UMIC TRIGGER UACC YES
[2025-03-25 14:22] LABS: Cannabinoid Screen Urine Not Detected (Not Detect)
[2025-03-25 14:24] LABS: UACC Culture Trigger YES
[2025-03-25 15:40] VITALS: BP 124/62; PULSE 86; RESP 17; O2SAT 94
--- NOTE | 2025-03-25 17:16 | PC.NURSE ---
Report to Heather on S1
[2025-03-25 17:52] LABS: Glucose, Whole Blood 160 mg/dL (60-115)
[2025-03-25 18:44] VITALS: BMI 39.1
--- NOTE | 2025-03-25 19:50 | PC.ADMIT ---
Maame is a 69 yo female admitted from the ER, She had gone to her PCP and while at PCP she was found to be hypoglycemic and hypertensive. She then she admitted to the PCP that she had stopped taking all of her medication except for her Lantus. She has been severely depressed for the past few months after her great grandson from a severe asthma attack.Thirty five years ago (approx) drank bleach when her children were small.She scores her depression as a 9/10 and anxiety 10/10. She is mainly W/C bound but able to self transfer to the bed and toilet. She is incont of urine most times but cont of bowel. She has a hx of psoriasis and normally takes steroid injection prescribed by dermatology. Skin is intact has psoriasis on lower mid back and her legs, she has mild edema of both lower legs but it isn't pitting.
[2025-03-25 20:00] VITALS: BP 148/78; PULSE 91; RESP 16; TEMP 36.7; O2SAT 96
--- NOTE | 2025-03-25 20:05 | P.HPPS_ITS ---
HPI Date of Service: 03/25/25 Chief Complaint: si Sources of Information: patient interviewed, chart reviewed and crisis/core team assessment reviewed HPI Subjective Notes: Ardon Warning and Conditional Voluntary Healthcare Proxy: Yes Guardianship: No Medical Problems Affecting Mental Status: No Narrative: Per Care team note: patient is a 69 y.o , Macedonian speaking female with hx of unspecific depressive D/O, Anemia, HTN, DM II, HLD, and psoriasis who was BIBA from [facility] where patient she was seeing her PCP secondary to reporting she was refusing to take her HTN meds and not been taking them because I just want to . Patient has not been taking meds x2 months and has not slept for days. Recently her great gradson who was 5 y.o passed two months ago from asthma attack. Her 16 y.o dog also just not long ago that she has to criminate the dog. The lost of the great grandson and the dog are the cause of her SI. On S1: patient reports same above reasons for being in the hospital. Patient has lots of memories about him, the toys and other items he used to play with are in the house which reminded her about him. She also reports feeling lonely and lots of time she just looking out of the window. Denies active SI but still want to sleep without waking up in the morning. Denies plan/intent to harm self. Denies SIB/HI/AVH. No hx of SIB. Hx of one suicide attempt many years ago when she drank Clorox after find out her was cheating on her with her best friend. Hx of one prior [facility] admission in [place] a few back for depression after an arguing within family. when having leg surgery 6 years ago. Then step down to [facility] after that admission. 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 Graduated from , live with son and her son is very supportive. Patient was adopted when she was 5 months old, she has no contact with biological family and know nothing about family. Therefore, unknown family mental health hx. Report one of her sons used to have substance use but has been clean. Patient is now open for treatment, will restart on meds. No memory issues but she cannot recall names of meds. Hx of VNA but d/t insurance issues, she has been managed medication by herself. Will re-start on home meds, monitor for Hyper/Hypoglycemia and blood pressure. She report last received trulicity was probably 2 months ago.Currently having OP provider/therapist and PCP. Patient is A+O x4, depressed but calm, pleasant, and cooperative. Poor sleep and poor appetite. Engage in conversation/assessment. Wearing hospital attire, ambulate using W/C- able to transfer self in and out of bed. Speech is WNL, normal rate and volume. NO pressure or manic behavior. No labile mood. Thought process and thought content WNL,except for passive SI without plan/intent. No SIB/HI/AVH. Do not appear to be Lpsychotic. Do not make any delusional or paranoid statement made. Mild cognitive decline which is age appropriate. Judgment and Insight are poor. Past Psychiatric History: 2 IPLOC admissions hx One suicide attempt via drinking Clorox when her was cheating on her with her best friend Hx of PHPx1 No Detox hx Cannot recall medication trials Currently has OP psychiatrist and therapist- In [place]. Medical Evaluation Reviewed: Yes Hyperglycemic in the ED, high BP [facility] Medical History Anemia Pre-op evaluation Obesity Acute hyperglycemia Fall Diabetes High cholesterol HTN (hypertension) Narrative: report Cataract on both sides Leg surgery hx. Family History: Unsure about biological family hx of mental health hx. Report one of her sons has substance use issues but been clean. Social History: , has two sons, 4 great grand children. One 5 year-old great grand son just passed two months ago from asthma attacks She lives with her son who is helping her. Substance History: Denies Trauma History: Denies Diagnostics Vital Signs (24Hr): Vital Signs - 24 hr 03/25/25 10:24 03/25/25 10:49 03/25/25 15:40 Temperature 98 F 98 F Pulse Rate 80 80 86 Respiratory Rate 15 15 17 Blood Pressure 171/72 H 171/72 H 124/62 Pulse Oximetry 95 95 94 Oxygen Delivery Method Room Air Room Air Room Air BMI result Body Mass Index 39.1 Labs 03/25/25 11:23 03/25/25 11:23 Labs: Laboratory Results - last 48 hr 03/25/25 03/25/25 03/25/25 10:20 11:23 11:28 WBC 7.3 RBC 4.85 Hgb 14.1 Hct 41.3 MCV 85.2 MCH 29.1 MCHC 34.1 RDW 14.7 Plt Count 260 MPV 10.8 Immature Gran % (Auto) 0.5 H Neut % (Auto) 71.0 Lymph % (Auto) 22.4 Eaton % (Auto) 5.2 Eos % (Auto) 0.5 Baso % (Auto) 0.4 Lymph # (Auto) 1.6 Eaton # (Auto) 0.4 Eos # (Auto) 0.0 Baso # (Auto) 0.0 Abs Immat Gran (auto) 0.04 H Absolute Neuts (auto) 5.2 Absolute Nucleated RBC 0.000 Nucleated RBC % (auto) 0.0 VBG pH 7.39 VBG pCO2 35 VBG pO2 45 VBG HCO3 21 L VBG O2 Saturation 73.0 VBG Base Excess -2.6 Sodium 139 Potassium 4.1 Chloride 106 Carbon Dioxide 26 Anion Gap 11 L BUN 13 Creatinine 0.83 Estim Creat Clear Calc 74.8 Estimated GFR > 60 POC Glucose 375 H* Random Glucose 369 H* Lactic Acid 1.6 Calcium 9.3 D Total Bilirubin 0.4 AST 15 ALT 15 Alkaline Phosphatase 144 H Total Protein 6.8 Albumin 3.7 Lipase 43 Beta-Hydroxybutyrate 0.28 H Urine Color Urine Appearance Urine pH Ur Specific [place] Urine Protein Urine Glucose (UA) Urine Ketones Urine Blood Urine Nitrite Ur Leukocyte Esterase Urine RBC Urine WBC Ur Squamous Epith Cells Urine Bacteria Hyaline Casts Urine Opiates Screen Ur Buprenorphine Scrn Ur Oxycodone Screen Urine Methadone Screen Urine Fentanyl Screen Ur Barbiturates Screen Ur Phencyclidine Scrn Ur Amphetamines Screen U Benzodiazepines Scrn Urine Cocaine Screen U Marijuana (THC) Screen 03/25/25 03/25/25 03/25/25 12:18 14:03 14:04 WBC RBC Hgb Hct MCV MCH MCHC RDW Plt Count MPV Immature Gran % (Auto) Neut % (Auto) Lymph % (Auto) Eaton % (Auto) Eos % (Auto) Baso % (Auto) Lymph # (Auto) Eaton # (Auto) Eos # (Auto) Baso # (Auto) Abs Immat Gran (auto) Absolute Neuts (auto) Absolute Nucleated RBC Nucleated RBC % (auto) VBG pH VBG pCO2 VBG pO2 VBG HCO3 VBG O2 Saturation VBG Base Excess Sodium Potassium Chloride Carbon Dioxide Anion Gap BUN Creatinine Estim Creat Clear Calc Estimated GFR POC Glucose 285 H Random Glucose Lactic Acid Calcium Total Bilirubin AST ALT Alkaline Phosphatase Total Protein Albumin Lipase Beta-Hydroxybutyrate Urine Color Yellow Urine Appearance Clear Urine pH 5.5 Ur Specific [place] >= 1.030 H Urine Protein Negative Urine Glucose (UA) >=1000 H Urine Ketones Trace Urine Blood Negative Urine Nitrite Negative Ur Leukocyte Esterase Negative Urine RBC 0-2 Urine WBC 6-10 H Ur Squamous Epith Cells 6-10 Urine Bacteria None Seen Hyaline Casts 0-2 Urine Opiates Screen Not Detected Ur Buprenorphine Scrn Not Detected Ur Oxycodone Screen Not Detected Urine Methadone Screen Not Detected Urine Fentanyl Screen Not Detected Ur Barbiturates Screen Not Detected Ur Phencyclidine Scrn Not Detected Ur Amphetamines Screen Not Detected U Benzodiazepines Scrn Not Detected Urine Cocaine Screen Not Detected U Marijuana (THC) Screen Not Detected 03/25/25 17:48 WBC RBC Hgb Hct MCV MCH MCHC RDW Plt Count MPV Immature Gran % (Auto) Neut % (Auto) Lymph % (Auto) Eaton % (Auto) Eos % (Auto) Baso % (Auto) Lymph # (Auto) [place] # (Auto) Eos # (Auto) Baso # (Auto) Abs Immat Gran (auto) Absolute Neuts (auto) Absolute Nucleated RBC Nucleated RBC % (auto) VBG pH VBG pCO2 VBG pO2 VBG HCO3 VBG O2 Saturation VBG Base Excess Sodium Potassium Chloride Carbon Dioxide Anion Gap BUN Creatinine Estim Creat Clear Calc Estimated GFR POC Glucose 160 H Random Glucose Lactic Acid Calcium Total Bilirubin AST ALT Alkaline Phosphatase Total Protein Albumin Lipase Beta-Hydroxybutyrate Urine Color Urine Appearance Urine pH Ur Specific [place] Urine Protein Urine Glucose (UA) Urine Ketones Urine Blood Urine Nitrite Ur Leukocyte Esterase Urine RBC Urine WBC Ur Squamous Epith Cells Urine Bacteria Hyaline Casts Urine Opiates Screen Ur Buprenorphine Scrn Ur Oxycodone Screen Urine Methadone Screen Urine Fentanyl Screen Ur Barbiturates Screen Ur Phencyclidine Scrn Ur Amphetamines Screen U Benzodiazepines Scrn Urine Cocaine Screen U Marijuana (THC) Screen Meds/Allergies Meds Home Medications ?Medication ?Instructions ?Recorded ?Confirmed ?Type albuterol sulfate 90 mcg/actuation 2 inh inhalation Q4 H PRN Wheezing 01/19/22 03/25/25 History aerosol inhaler dulaglutide 4.5 mg/0.5 mL 4.5 mg subcut WE 02/06/25 History subcutaneous pen injector (Trulicity) insulin glargine 100 unit/mL 50 unit subcut DAILY 01/2303/25/25 History subcutaneous solution (Lantus U-100 Insulin) amlodipine 5 mg tablet 5 mg PO DAILY 03/25/2503/25 History atorvastatin 40 mg tablet 40 mg PO DAILY 03/25/2507/19 History empagliflozin 25 mg tablet 25 mg PO DAILY 03/25/2507/19 History (Jardiance) hydroxyzine HCl 10 mg tablet 10 mg PO BID 03/25/2507/19 History losartan 100 mg tablet 100 mg PO DAILY 03/25/2507/19 History metformin 1,000 mg tablet 1,000 mg PO BID 03/25/2507/19 History metoprolol tartrate 25 mg tablet 25 mg PO BID 03/25/25 03/25/25 History sertraline 50 mg tablet 50 mg PO DAILY 03/25/2507/19 History verapamil 120 mg tablet,extended 120 mg PO DAILY 03/2503/25/25 History release Allergies Allergies Allergy/AdvReac Type Severity Reaction Status Date / Time No Known Allergies Allergy Verified 03/25/25 10:34 Mental Status Exam Mental Status Exam Narrative: Patient is alert and oriented x4 ; behavior is cooperative, friendly with mild to moderate depression; patient is not in distress; dressed in hospital attire with kempt hair and adequate hygiene; mood is described as depressed and affect congruent; eye contact appropriate; Speech is normal rate, volume and prosody and not pressured; no psychomotor agitation/retardation present; thought process is organized and goal directed; Thought content is on treatment with passive SI, no plan or intent to harm herself, pertinent to relevant topics and without any delusional content, paranoid ideation or grandiosity; denies any /SIB/HI. Denies AH and there is no evidence of perceptual disturbance. Patient's insight and judgment poor. Assessment & Plan Assessment & Plan (1) Depression with suicidal ideation: Status: Acute Code(s): F32.A - Depression, unspecified; R45.851 - Suicidal ideations (2) Poorly controlled diabetes mellitus: Status: Acute Code(s): E11.65 - Type 2 diabetes mellitus with hyperglycemia Plan HPI: patient is a 69 y.o , Macedonian speaking female with hx of unspecific depressive D/O, Anemia, HTN, DM II, HLD, and psoriasis who was BIBA from [facility] where patient she was seeing her PCP secondary to reporting she was refusing to take her HTN meds and not been taking them because I just want to . Patient has not been taking meds x2 months and has not slept for days. Recently her great gradson who was 5 y.o passed two months ago from asthma attack. Her 16 y.o dog also just not long ago that she has to criminate the dog. The lost of the great grandson and the dog are the cause of her SI. Formulation/clinical reasoning: increased depressive symptoms, poor sleep and poor appetite, stop taking meds as she wanted to , not care if she dies or alive or what happened if she stops taking meds. Hx of MDD, HTN, DMII, Anemia, psoriasis. Given above information, patient would benefit to be admitted to restrictive environment for her own safety, re-start on meds, and refer patient back to OP psychiatry/therapy services for aftercare. Hospital course: 03/25/25: Re-start all home meds. Monitor for BP, Hyper/hypoglycemia. Continue with Zoloft 50mg for depression. Plan to titrate. Patient using W/C for ambulating. Plan Patient on 5 minute checks for safety. Admitted to S1. CV. Work with treatment team to do collateral. Patient educated on: diagnosis, medication risk/benefits and therapeutic strategies Informed Consent: understands and further education needed Reason for continued inpatient stay Substantial Risk for: med/psych decompensation Statement Statement: I have reviewed the history and physical and performed a pertinent examination on my patient. No changes have occurred unless specified. If the History and Physical was not performed prior to admission, the Hospitalist's service will be consulted for completing the admission physical. Time Spent With Patient Time: Total time managing care of this patient today ____ minutes.
[2025-03-25 20:31] LABS: Glucose, Whole Blood 210 mg/dL (60-115)
[2025-03-26 00:03] LABS: Glucose, Whole Blood 221 mg/dL (60-115)
[2025-03-26] MEDS: Magnesium Hydrox/Alum Hydrox 30 ML ORAL.SUSP PO (00:59)
[2025-03-26 06:36] LABS: Glucose, Whole Blood 246 mg/dL (60-115)
[2025-03-26 08:15] VITALS: BP 120/58; PULSE 90; RESP 16; TEMP 36.4; O2SAT 94
--- NOTE | 2025-03-26 09:28 | P.CONHOSP_ITS ---
History of Present Illness Data of Consult Service Date: 03/26/25 Primary Care Provider: Shady East MD [facility] Reason for consult: Medical management 69-year-old female with a past medical history of anemia, poorly controlled type 2 diabetes, hyperlipidemia, hypertension, depressive disorder, psoriasis, presented to the emergency room with passive suicidal ideation by not taking her medications. She was sent to the ED by her primary care provider for depressive statements. Urinalysis done on the 03/25 did not demonstrate any evidence of infection. WBC within normal limits no leukocytosis or anemia, electrolytes without any abnormalities. Blood sugar has been fluctuating between 100s to 300s. U tox negative. On exam patient is reporting a vaginal itch. She denies any unusual discharge. Reports occasional burning with urination. She denies any shortness of breath, dizziness, lightheadedness or any other concerning symptoms. Review of Systems 2 Review of Systems: Denies any shortness of breath, chest pain, palpitations, dizziness, lightheadedness, headaches, dysuria, abdominal pain or discomfort, nausea, vomiting or diarrhea. Denies Chills, body aches, muscle aches, fatigue or weight loss. [facility] Medical History Anemia Pre-op evaluation Obesity Acute hyperglycemia Fall Diabetes High cholesterol HTN (hypertension) Social History Household Members: Family Housing: House Do you presently have visiting nurse or other home services: No Alcohol intake: never Comment: 8 Patient Tobacco Use Status: Never used Tobacco Smoked in Last 30 Days: No e-Cigarette/Vaping Use: Never Used Use of substances other than those prescribed or required for medical reasons: No Currently Displaying Signs/Symptoms of Drug Intoxication Withdrawal: No Have you been hit, kicked, punched, or otherwise hurt by someone within the past year? If so, by whom?: No Do you feel safe in your current relationship?: No Current Relationship Is there a partner from a previous relationship who is making you feel unsafe now?: No Are you made to feel afraid or neglected: No Advance Directives: Yes Advance Directives Information Provided: No Advance Directives on File: Yes Advance Directives Date on File: 09/27/20 Do you have thoughts of harming others: None Do you have a plan to hurt others: No Plan Recently lost weight without trying: No Nutrition Risks: No Nutritional Risk Patient : No : No Poor oral hygiene: No service: No Current occupational status: retired Observe Medical Allergies Allergy/AdvReac Type Severity Reaction Status Date / Time No Known Allergies Allergy Verified 03/25/25 10:34 Active Medications: Current Medications Acetaminophen (Acetaminophen 325 Mg Tablet) 650 mg PO Q6H PRN PRN Reason: Headache/Pain, Scale 1-10 Last Admin: 03/26/25 09:10 Dose: 650 mg Al Hydroxide/Mg Hydroxide (Magnesium Hydrox/Alum Hydrox 30 Ml Oral.Susp) 30 ml PO Q6H PRN PRN Reason: Heartburn/Nausea Last Admin: 03/26/25 00:59 Dose: 30 ml Albuterol Sulfate (Albuterol Sulfate 90 Mcg 8 Gm Inhaler) 2 puff INHALE Q4H PRN PRN Reason: Wheezing Amlodipine Besylate (Amlodipine Besylate 5 Mg Tablet) 5 mg PO DAILY [facility]; Protocol Last Admin: 03/26/25 09:05 Dose: 5 mg Atorvastatin Calcium (Atorvastatin Calcium 40 Mg Tablet) 40 mg PO DAILY [facility] Last Admin: 03/26/25 09:05 Dose: 40 mg Empagliflozin (Empagliflozin 25 Mg Tablet) 25 mg PO DAILY [facility] Last Admin: 03/26/25 09:04 Dose: 25 mg Hydroxyzine HCl (Hydroxyzine Hcl 25 Mg Tablet) 25 mg PO Q6H PRN PRN Reason: mild anxiety Hydroxyzine HCl (Hydroxyzine Hcl 10 Mg Tablet) 10 mg PO BID [facility] Last Admin: 03/26/25 09:04 Dose: 10 mg Insulin Human Lispro (Insulin Lispro 100 Unit/Ml 3 Ml Vial) 0 unit SUBCUT QIDACHS [facility]; Protocol Last Admin: 03/26/25 08:22 Dose: Not Given Losartan Potassium (Losartan Potassium 50 Mg Tablet) 100 mg PO DAILY [facility]; Protocol Last Admin: 03/26/25 09:02 Dose: 100 mg Magnesium Hydroxide (Milk Of Magnesia 30 Ml Oral.Susp) 30 ml PO DAILY PRN PRN Reason: Constipation Metformin HCl (Metformin Hcl 1,000 Mg Tablet) 1,000 mg PO BID [facility] Last Admin: 03/26/25 09:04 Dose: 1,000 mg Metoprolol Tartrate (Metoprolol Tartrate 25 Mg Tablet) 25 mg PO BID [facility]; Protocol Last Admin: 03/26/25 09:04 Dose: 25 mg Non-Formulary Medication (Dulaglutide [Trulicity]) 4.5 mg SUBCUT WE [facility] Sertraline HCl (Sertraline Hcl 50 Mg Tablet) 50 mg PO DAILY [facility] Last Admin: 03/26/25 09:04 Dose: 50 mg Trazodone HCl (Trazodone Hcl 50 Mg Tablet) 50 mg PO BEDTIME MRX1 PRN PRN Reason: Insomnia Last Admin: 03/25/25 21:14 Dose: 50 mg Home Medications ?Medication ?Instructions ?Recorded ?Confirmed ?Last Taken ?Type albuterol sulfate 90 mcg/actuation 2 inh inhalation Q4 H PRN Wheezing 01/19/22 03/25/25 02/04/25 History aerosol inhaler dulaglutide 4.5 mg/0.5 mL 4.5 mg subcut WE 02/06/2502/04/25 History subcutaneous pen injector (Trulicity) insulin glargine 100 unit/mL 50 unit subcut DAILY 01/2303/25/25 02/04/25 History subcutaneous solution (Lantus U-100 Insulin) amlodipine 5 mg tablet 5 mg PO DAILY 03/25/2503/25 Unknown History atorvastatin 40 mg tablet 40 mg PO DAILY 03/25/2507/19 Unknown History empagliflozin 25 mg tablet 25 mg PO DAILY 03/25/2507/19 Unknown History (Jardiance) hydroxyzine HCl 10 mg tablet 10 mg PO BID 03/25/2507/19 Unknown History losartan 100 mg tablet 100 mg PO DAILY 03/25/2507/19 Unknown History metformin 1,000 mg tablet 1,000 mg PO BID 03/25/2507/19 Unknown History metoprolol tartrate 25 mg tablet 25 mg PO BID 03/25/25 03/25/25 Unknown History sertraline 50 mg tablet 50 mg PO DAILY 03/25/2507/19 Unknown History verapamil 120 mg tablet,extended 120 mg PO DAILY 03/2503/25/25 Unknown History release Physical Exam 2 Vital Signs and Narrative: Vital Signs: Last Vital Signs Temp 97.6 F 03/26/25 08:15 Pulse 90 03/26/25 08:15 Resp 16 03/26/25 08:15 BP 120/58 L 03/26/25 08:15 Pulse Ox 94 03/26/25 08:15 O2 Del Method Room Air 03/26/25 08:15 BMI result Body Mass Index 39.1 CONST: Alert and oriented, in NAD. Well nourished HEENT: Normocephalic, atraumatic, MMM, Eyes clear, Neck supple RESP: Lungs clear, RRR even and regular HEART:,RRR, S1, S2. No murmur, no edema GI:Abdomen Soft NT, ND. + BS times four :Deferred SKIN: Warm dry and intact, dry patchy psoriatic areas to lower back, legs NEURO:CN II-XII Intact bilaterally, Sensation intact. Speech clear PSYCH: Normal affect Results Labs 03/25/25 11:23 03/25/25 11:23 Labs: Laboratory Results - last 24 hr 03/25/25 03/25/25 03/25/25 10:20 11:23 11:28 MCV 85.2 MCH 29.1 MCHC 34.1 RDW 14.7 Plt Count 260 MPV 10.8 Immature Gran % (Auto) 0.5 H Neut % (Auto) 71.0 Lymph % (Auto) 22.4 [place] % (Auto) 5.2 Eos % (Auto) 0.5 Baso % (Auto) 0.4 Lymph # (Auto) 1.6 [place] # (Auto) 0.4 Eos # (Auto) 0.0 Baso # (Auto) 0.0 Abs Immat Gran (auto) 0.04 H Absolute Neuts (auto) 5.2 Absolute Nucleated RBC 0.000 Nucleated RBC % (auto) 0.0 VBG pH 7.39 VBG pCO2 35 VBG pO2 45 VBG HCO3 21 L VBG O2 Saturation 73.0 VBG Base Excess -2.6 Anion Gap 11 L Estim Creat Clear Calc 74.8 Estimated GFR > 60 POC Glucose 375 H* Random Glucose 369 H* Lactic Acid 1.6 Calcium 9.3 D Total Bilirubin 0.4 AST 15 ALT 15 Alkaline Phosphatase 144 H Total Protein 6.8 Albumin 3.7 Lipase 43 Beta-Hydroxybutyrate 0.28 H Urine Color Urine Appearance Urine pH Ur Specific [place] Urine Protein Urine Glucose (UA) Urine Ketones Urine Blood Urine Nitrite Ur Leukocyte Esterase Urine RBC Urine WBC Ur Squamous Epith Cells Urine Bacteria Hyaline Casts Urine Opiates Screen Ur Buprenorphine Scrn Ur Oxycodone Screen Urine Methadone Screen Urine Fentanyl Screen Ur Barbiturates Screen Ur Phencyclidine Scrn Ur Amphetamines Screen U Benzodiazepines Scrn Urine Cocaine Screen U Marijuana (THC) Screen 03/25/25 03/25/25 03/25/25 12:18 14:03 14:04 MCV MCH MCHC RDW Plt Count MPV Immature Gran % (Auto) Neut % (Auto) Lymph % (Auto) [place] % (Auto) Eos % (Auto) Baso % (Auto) Lymph # (Auto) [place] # (Auto) Eos # (Auto) Baso # (Auto) Abs Immat Gran (auto) Absolute Neuts (auto) Absolute Nucleated RBC Nucleated RBC % (auto) VBG pH VBG pCO2 VBG pO2 VBG HCO3 VBG O2 Saturation VBG Base Excess Anion Gap Estim Creat Clear Calc Estimated GFR POC Glucose 285 H Random Glucose Lactic Acid Calcium Total Bilirubin AST ALT Alkaline Phosphatase Total Protein Albumin Lipase Beta-Hydroxybutyrate Urine Color Yellow Urine Appearance Clear Urine pH 5.5 Ur Specific [place] >= 1.030 H Urine Protein Negative Urine Glucose (UA) >=1000 H Urine Ketones Trace Urine Blood Negative Urine Nitrite Negative Ur Leukocyte Esterase Negative Urine RBC 0-2 Urine WBC 6-10 H Ur Squamous Epith Cells 6-10 Urine Bacteria None Seen Hyaline Casts 0-2 Urine Opiates Screen Not Detected Ur Buprenorphine Scrn Not Detected Ur Oxycodone Screen Not Detected Urine Methadone Screen Not Detected Urine Fentanyl Screen Not Detected Ur Barbiturates Screen Not Detected Ur Phencyclidine Scrn Not Detected Ur Amphetamines Screen Not Detected U Benzodiazepines Scrn Not Detected Urine Cocaine Screen Not Detected U Marijuana (THC) Screen Not Detected 03/25/25 03/25/25 03/25/25 17:48 20:20 23:58 MCV MCH MCHC RDW Plt Count MPV Immature Gran % (Auto) Neut % (Auto) Lymph % (Auto) [place] % (Auto) Eos % (Auto) Baso % (Auto) Lymph # (Auto) [place] # (Auto) Eos # (Auto) Baso # (Auto) Abs Immat Gran (auto) Absolute Neuts (auto) Absolute Nucleated RBC Nucleated RBC % (auto) VBG pH VBG pCO2 VBG pO2 VBG HCO3 VBG O2 Saturation VBG Base Excess Anion Gap Estim Creat Clear Calc Estimated GFR POC Glucose 160 H 210 H 221 H Random Glucose Lactic Acid Calcium Total Bilirubin AST ALT Alkaline Phosphatase Total Protein Albumin Lipase Beta-Hydroxybutyrate Urine Color Urine Appearance Urine pH Ur Specific [place] Urine Protein Urine Glucose (UA) Urine Ketones Urine Blood Urine Nitrite Ur Leukocyte Esterase Urine RBC Urine WBC Ur Squamous Epith Cells Urine Bacteria Hyaline Casts Urine Opiates Screen Ur Buprenorphine Scrn Ur Oxycodone Screen Urine Methadone Screen Urine Fentanyl Screen Ur Barbiturates Screen Ur Phencyclidine Scrn Ur Amphetamines Screen U Benzodiazepines Scrn Urine Cocaine Screen U Marijuana (THC) Screen 03/26/25 06:25 MCV MCH MCHC RDW Plt Count MPV Immature Gran % (Auto) Neut % (Auto) Lymph % (Auto) [place] % (Auto) Eos % (Auto) Baso % (Auto) Lymph # (Auto) [place] # (Auto) Eos # (Auto) Baso # (Auto) Abs Immat Gran (auto) Absolute Neuts (auto) Absolute Nucleated RBC Nucleated RBC % (auto) VBG pH VBG pCO2 VBG pO2 VBG HCO3 VBG O2 Saturation VBG Base Excess Anion Gap Estim Creat Clear Calc Estimated GFR POC Glucose 246 H Random Glucose Lactic Acid Calcium Total Bilirubin AST ALT Alkaline Phosphatase Total Protein Albumin Lipase Beta-Hydroxybutyrate Urine Color Urine Appearance Urine pH Ur Specific [place] Urine Protein Urine Glucose (UA) Urine Ketones Urine Blood Urine Nitrite Ur Leukocyte Esterase Urine RBC Urine WBC Ur Squamous Epith Cells Urine Bacteria Hyaline Casts Urine Opiates Screen Ur Buprenorphine Scrn Ur Oxycodone Screen Urine Methadone Screen Urine Fentanyl Screen Ur Barbiturates Screen Ur Phencyclidine Scrn Ur Amphetamines Screen U Benzodiazepines Scrn Urine Cocaine Screen U Marijuana (THC) Screen Assessment and Plan (1) SVT (supraventricular tachycardia): Status: Acute Plan 69-year-old female with a past medical history of depressive disorder, hypertension, hyperlipidemia, history of SVT, anemia, psoriasis and uncontrolled diabetes presented to ED with passive suicidal ideations. Depressive disorder/SI Treatment per psychiatric team Hypertension/hyperlipidemia/history of SVT Continue Lipitor, metoprolol and Verapamil daily Norvasc and Cozaar for hypertension Anemia Stable Psoriasis Betamethasone cream daily p.r.n. to psoriatic areas and ammonia lactate daily Uncontrolled type 2 diabetes Continue metformin, Lantus and Insulin SS Empiric yeast treatment Diflucan x1 Thank you for allowing me to participate in the care of this patient. Will follow as needed, please notify medical provider with any changes in condition or concerns.
[2025-03-26 10:13] VITALS: BMI 39.5
[2025-03-26 11:31] LABS: Glucose, Whole Blood 360 mg/dL (60-115)
--- NOTE | 2025-03-26 11:47 | PC.NURSE ---
Pt 1130 blood sugar was 360. Provider aware and advised RN to give 10 units of insulin lispro per sliding scale.
[2025-03-26 15:19] LABS: Glucose, Whole Blood 255 mg/dL (60-115)
--- NOTE | 2025-03-26 16:24 | PC.NURSE ---
Provider ordered pt fluconazole 150mg PO once. RN is giving medication late with provider okay d/t waiting for pharmacy to stock the pyxus.
[2025-03-26 16:43] LABS: Glucose, Whole Blood 263 mg/dL (60-115)
--- NOTE | 2025-03-26 17:07 | P.PNPSI_ITS ---
Subjective Subjective Date of Service: 03/26/25 Reason For Visit: si Subjective Notes: Conditional Voluntary Interim History: Pt slept through the night. She reports she has been very depressed and heart broken since great grandson at the age of 5. She reports she wants to join his grandson in [place]. She reports family is struggling but most of her family members have seek help from professionals. She reports family is supportive but she does not think she has much to live for anyway. She has agreed to resume medications. Review of Systems Review of Systems Denies any shortness of breath, chest pain, palpitations, dizziness, lightheadedness, headaches, dysuria, abdominal pain or discomfort, nausea, vomiting or diarrhea. Denies Chills, body aches, muscle aches, fatigue or weight loss. Mental Status Exam Mental Status Exam Narrative: Patient is alert and oriented x4 ; behavior is cooperative, friendly with mild to moderate depression; patient is not in distress; dressed in hospital attire with kempt hair and adequate hygiene; mood is described as depressed and affect congruent; eye contact appropriate; Speech is normal rate, volume and prosody and not pressured; no psychomotor agitation/retardation present; thought process is organized and goal directed; Thought content is on treatment with passive SI, no plan or intent to harm herself, pertinent to relevant topics and without any delusional content, paranoid ideation or grandiosity; denies any /SIB/HI. Denies AH and there is no evidence of perceptual disturbance. Patient's insight and judgment poor. Diagnostics Vital Signs (24Hr): Vital Signs - 24 hr 03/25/25 20:00 03/26/25 08:15 Temperature 98.1 F 97.6 F Pulse Rate 91 90 Respiratory Rate 16 16 Blood Pressure 148/78 H 120/58 L Pulse Oximetry 96 94 Oxygen Delivery Method Room Air Room Air BMI result Body Mass Index 39.5 Labs 03/25/25 11:23 03/25/25 11:23 Labs: Laboratory Results - last 48 hr 03/25/25 03/25/25 03/25/25 10:20 11:23 11:28 WBC 7.3 RBC 4.85 Hgb 14.1 Hct 41.3 MCV 85.2 MCH 29.1 MCHC 34.1 RDW 14.7 Plt Count 260 MPV 10.8 Immature Gran % (Auto) 0.5 H Neut % (Auto) 71.0 Lymph % (Auto) 22.4 Haines % (Auto) 5.2 Eos % (Auto) 0.5 Baso % (Auto) 0.4 Lymph # (Auto) 1.6 Haines # (Auto) 0.4 Eos # (Auto) 0.0 Baso # (Auto) 0.0 Abs Immat Gran (auto) 0.04 H Absolute Neuts (auto) 5.2 Absolute Nucleated RBC 0.000 Nucleated RBC % (auto) 0.0 VBG pH 7.39 VBG pCO2 35 VBG pO2 45 VBG HCO3 21 L VBG O2 Saturation 73.0 VBG Base Excess -2.6 Sodium 139 Potassium 4.1 Chloride 106 Carbon Dioxide 26 Anion Gap 11 L BUN 13 Creatinine 0.83 Estim Creat Clear Calc 74.8 Estimated GFR > 60 POC Glucose 375 H* Random Glucose 369 H* Lactic Acid 1.6 Calcium 9.3 D Total Bilirubin 0.4 AST 15 ALT 15 Alkaline Phosphatase 144 H Total Protein 6.8 Albumin 3.7 Lipase 43 Beta-Hydroxybutyrate 0.28 H Urine Color Urine Appearance Urine pH Ur Specific [place] Urine Protein Urine Glucose (UA) Urine Ketones Urine Blood Urine Nitrite Ur Leukocyte Esterase Urine RBC Urine WBC Ur Squamous Epith Cells Urine Bacteria Hyaline Casts Urine Opiates Screen Ur Buprenorphine Scrn Ur Oxycodone Screen Urine Methadone Screen Urine Fentanyl Screen Ur Barbiturates Screen Ur Phencyclidine Scrn Ur Amphetamines Screen U Benzodiazepines Scrn Urine Cocaine Screen U Marijuana (THC) Screen 03/25/25 03/25/25 03/25/25 12:18 14:03 14:04 WBC RBC Hgb Hct MCV MCH MCHC RDW Plt Count MPV Immature Gran % (Auto) Neut % (Auto) Lymph % (Auto) Haines % (Auto) Eos % (Auto) Baso % (Auto) Lymph # (Auto) Haines # (Auto) Eos # (Auto) Baso # (Auto) Abs Immat Gran (auto) Absolute Neuts (auto) Absolute Nucleated RBC Nucleated RBC % (auto) VBG pH VBG pCO2 VBG pO2 VBG HCO3 VBG O2 Saturation VBG Base Excess Sodium Potassium Chloride Carbon Dioxide Anion Gap BUN Creatinine Estim Creat Clear Calc Estimated GFR POC Glucose 285 H Random Glucose Lactic Acid Calcium Total Bilirubin AST ALT Alkaline Phosphatase Total Protein Albumin Lipase Beta-Hydroxybutyrate Urine Color Yellow Urine Appearance Clear Urine pH 5.5 Ur Specific [place] >= 1.030 H Urine Protein Negative Urine Glucose (UA) >=1000 H Urine Ketones Trace Urine Blood Negative Urine Nitrite Negative Ur Leukocyte Esterase Negative Urine RBC 0-2 Urine WBC 6-10 H Ur Squamous Epith Cells 6-10 Urine Bacteria None Seen Hyaline Casts 0-2 Urine Opiates Screen Not Detected Ur Buprenorphine Scrn Not Detected Ur Oxycodone Screen Not Detected Urine Methadone Screen Not Detected Urine Fentanyl Screen Not Detected Ur Barbiturates Screen Not Detected Ur Phencyclidine Scrn Not Detected Ur Amphetamines Screen Not Detected U Benzodiazepines Scrn Not Detected Urine Cocaine Screen Not Detected U Marijuana (THC) Screen Not Detected 03/25/25 03/25/25 03/25/25 17:48 20:20 23:58 WBC RBC Hgb Hct MCV MCH MCHC RDW Plt Count MPV Immature Gran % (Auto) Neut % (Auto) Lymph % (Auto) Haines % (Auto) Eos % (Auto) Baso % (Auto) Lymph # (Auto) Haines # (Auto) Eos # (Auto) Baso # (Auto) Abs Immat Gran (auto) Absolute Neuts (auto) Absolute Nucleated RBC Nucleated RBC % (auto) VBG pH VBG pCO2 VBG pO2 VBG HCO3 VBG O2 Saturation VBG Base Excess Sodium Potassium Chloride Carbon Dioxide Anion Gap BUN Creatinine Estim Creat Clear Calc Estimated GFR POC Glucose 160 H 210 H 221 H Random Glucose Lactic Acid Calcium Total Bilirubin AST ALT Alkaline Phosphatase Total Protein Albumin Lipase Beta-Hydroxybutyrate Urine Color Urine Appearance Urine pH Ur Specific [place] Urine Protein Urine Glucose (UA) Urine Ketones Urine Blood Urine Nitrite Ur Leukocyte Esterase Urine RBC Urine WBC Ur Squamous Epith Cells Urine Bacteria Hyaline Casts Urine Opiates Screen Ur Buprenorphine Scrn Ur Oxycodone Screen Urine Methadone Screen Urine Fentanyl Screen Ur Barbiturates Screen Ur Phencyclidine Scrn Ur Amphetamines Screen U Benzodiazepines Scrn Urine Cocaine Screen U Marijuana (THC) Screen 03/26/25 03/26/25 03/26/25 06:25 11:25 15:15 WBC RBC Hgb Hct MCV MCH MCHC RDW Plt Count MPV Immature Gran % (Auto) Neut % (Auto) Lymph % (Auto) Haines % (Auto) Eos % (Auto) Baso % (Auto) Lymph # (Auto) Haines # (Auto) Eos # (Auto) Baso # (Auto) Abs Immat Gran (auto) Absolute Neuts (auto) Absolute Nucleated RBC Nucleated RBC % (auto) VBG pH VBG pCO2 VBG pO2 VBG HCO3 VBG O2 Saturation VBG Base Excess Sodium Potassium Chloride Carbon Dioxide Anion Gap BUN Creatinine Estim Creat Clear Calc Estimated GFR POC Glucose 246 H 360 H* 255 H Random Glucose Lactic Acid Calcium Total Bilirubin AST ALT Alkaline Phosphatase Total Protein Albumin Lipase Beta-Hydroxybutyrate Urine Color Urine Appearance Urine pH Ur Specific [place] Urine Protein Urine Glucose (UA) Urine Ketones Urine Blood Urine Nitrite Ur Leukocyte Esterase Urine RBC Urine WBC Ur Squamous Epith Cells Urine Bacteria Hyaline Casts Urine Opiates Screen Ur Buprenorphine Scrn Ur Oxycodone Screen Urine Methadone Screen Urine Fentanyl Screen Ur Barbiturates Screen Ur Phencyclidine Scrn Ur Amphetamines Screen U Benzodiazepines Scrn Urine Cocaine Screen U Marijuana (THC) Screen 03/26/25 16:39 WBC RBC Hgb Hct MCV MCH MCHC RDW Plt Count MPV Immature Gran % (Auto) Neut % (Auto) Lymph % (Auto) Haines % (Auto) Eos % (Auto) Baso % (Auto) Lymph # (Auto) Haines # (Auto) Eos # (Auto) Baso # (Auto) Abs Immat Gran (auto) Absolute Neuts (auto) Absolute Nucleated RBC Nucleated RBC % (auto) VBG pH VBG pCO2 VBG pO2 VBG HCO3 VBG O2 Saturation VBG Base Excess Sodium Potassium Chloride Carbon Dioxide Anion Gap BUN Creatinine Estim Creat Clear Calc Estimated GFR POC Glucose 263 H Random Glucose Lactic Acid Calcium Total Bilirubin AST ALT Alkaline Phosphatase Total Protein Albumin Lipase Beta-Hydroxybutyrate Urine Color Urine Appearance Urine pH Ur Specific [place] Urine Protein Urine Glucose (UA) Urine Ketones Urine Blood Urine Nitrite Ur Leukocyte Esterase Urine RBC Urine WBC Ur Squamous Epith Cells Urine Bacteria Hyaline Casts Urine Opiates Screen Ur Buprenorphine Scrn Ur Oxycodone Screen Urine Methadone Screen Urine Fentanyl Screen Ur Barbiturates Screen Ur Phencyclidine Scrn Ur Amphetamines Screen U Benzodiazepines Scrn Urine Cocaine Screen U Marijuana (THC) Screen Medications Medications Current Medications Acetaminophen (Acetaminophen 325 Mg Tablet) 650 mg PO Q6H PRN PRN Reason: Headache/Pain, Scale 1-10 Last Admin: 03/26/25 09:10 Dose: 650 mg Al Hydroxide/Mg Hydroxide (Magnesium Hydrox/Alum Hydrox 30 Ml Oral.Susp) 30 ml PO Q6H PRN PRN Reason: Heartburn/Nausea Last Admin: 03/26/25 00:59 Dose: 30 ml Albuterol Sulfate (Albuterol Sulfate 90 Mcg 8 Gm Inhaler) 2 puff INHALE Q4H PRN PRN Reason: Wheezing Amlodipine Besylate (Amlodipine Besylate 5 Mg Tablet) 5 mg PO DAILY [facility]; Protocol Last Admin: 03/26/25 09:05 Dose: 5 mg Atorvastatin Calcium (Atorvastatin Calcium 40 Mg Tablet) 40 mg PO DAILY [facility] Last Admin: 03/26/25 09:05 Dose: 40 mg Betamethasone Dipropion Augmented (Betamethasone Dip Aug 0.05% Cr 15 Gm Tube) 1 appl TOPICAL DAILY PRN; Protocol PRN Reason: psoriatic areas Empagliflozin (Empagliflozin 25 Mg Tablet) 25 mg PO DAILY [facility] Last Admin: 03/26/25 09:04 Dose: 25 mg Hydroxyzine HCl (Hydroxyzine Hcl 25 Mg Tablet) 25 mg PO Q6H PRN PRN Reason: mild anxiety Insulin Glargine (Insulin Glargine,Hum.Rec.Anlog 100 Unit/Ml 10 Ml Vial) 50 unit SUBCUT DAILY [facility] Insulin Human Lispro (Insulin Lispro 100 Unit/Ml 3 Ml Vial) 0 unit SUBCUT TIDAC [facility]; Protocol Last Admin: 03/26/25 16:50 Dose: 6 unit Lactic Acid (Ammonium Lactate 12 % Cream 140 Gm Tube) 1 appl TOPICAL DAILY [facility]; Protocol Losartan Potassium (Losartan Potassium 50 Mg Tablet) 100 mg PO DAILY [facility]; Protocol Last Admin: 03/26/25 09:02 Dose: 100 mg Magnesium Hydroxide (Milk Of Magnesia 30 Ml Oral.Susp) 30 ml PO DAILY PRN PRN Reason: Constipation Metformin HCl (Metformin Hcl 1,000 Mg Tablet) 1,000 mg PO BID [facility] Last Admin: 03/26/25 09:04 Dose: 1,000 mg Metoprolol Tartrate (Metoprolol Tartrate 25 Mg Tablet) 25 mg PO BID [facility]; Protocol Last Admin: 03/26/25 09:04 Dose: 25 mg Non-Formulary Medication (Dulaglutide [Trulicity]) 4.5 mg SUBCUT WE [facility] Sertraline HCl (Sertraline Hcl 50 Mg Tablet) 50 mg PO DAILY [facility] Last Admin: 03/26/25 09:04 Dose: 50 mg Trazodone HCl (Trazodone Hcl 50 Mg Tablet) 50 mg PO BEDTIME MRX1 PRN PRN Reason: Insomnia Last Admin: 03/25/25 21:14 Dose: 50 mg Verapamil HCl (Verapamil Hcl Sr 120 Mg Tablet.Er) 120 mg PO DAILY [facility]; Protocol Allergies Allergies Allergy/AdvReac Type Severity Reaction Status Date / Time No Known Allergies Allergy Verified 03/25/25 10:34 Assessment & Plan Assessment & Plan (1) MDD (major depressive disorder), recurrent episode, severe: Status: Acute Code(s): F33.2 - Major depressive disorder, recurrent severe without psychotic features (2) Complicated grief: Status: Acute Code(s): F43.81 - Prolonged grief disorder Plan Patient is a 69 y.o , Greek speaking female with hx of unspecific depressive D/O, Anemia, HTN, DM II, HLD, and psoriasis who was BIBA from [facility] where patient she was seeing her PCP secondary to reporting she was refusing to take her HTN meds and not been taking them because I just want to . Patient has not been taking meds x2 months and has not slept for days. Recently her great gradson who was 5 y.o passed two months ago from asthma attack. Her 16 y.o dog also just not long ago that she has to criminate the dog. The lost of the great grandson and the dog are the cause of her SI. 03/26 continue tx. plan to gradually adjust sertraline to target depression. Reason for continued inpatient stay Substantial Risk for: inability to function Time Spent With Patient Time: Total time managing care of this patient today ____ minutes.
[2025-03-26 17:51] LABS: Appearance Urine Clear; Glucose Urine UA >=1000 mg/dL (Negative); PH 5.5 (5.0-9.0); Specific Gravity - Urine >= 1.030 (1.005-1.025); UMIC TRIGGER UACC YES
[2025-03-26 19:56] VITALS: BP 131/63; PULSE 81; RESP 18; TEMP 36.6; O2SAT 96
[2025-03-26 21:11] LABS: Glucose, Whole Blood 277 mg/dL (60-115)
[2025-03-27 06:46] LABS: Glucose, Whole Blood 249 mg/dL (60-115)
[2025-03-27 08:15] VITALS: BP 128/60; PULSE 89; RESP 16; TEMP 36.2; O2SAT 96
[2025-03-27] MEDS: VerapamiL HCL SR 120 MG TABLET.ER PO (09:05)
[2025-03-27] MEDS: Ammonium Lactate 12 % Cream 140 GM TUBE 1 APPL TOPICAL (09:08)
[2025-03-27] MEDS: Insulin Glargine,Hum.rec.anlog 100 UNIT/ML 10 ML VIAL 50 UNIT SUBCUT (09:09)
[2025-03-27 11:27] LABS: Glucose, Whole Blood 280 mg/dL (60-115)
[2025-03-27 16:18] LABS: Glucose, Whole Blood 219 mg/dL (60-115)
--- NOTE | 2025-03-27 16:18 | HO.PSYCHPN ---
Subjective Subjective Date of Service: 03/27/25 Reason For Visit: si Subjective Notes: Conditional Voluntary Interim History: pt slept through the night. Pt reports today it has been a difficult day. She reports feeling sad and depressed, thinking about ways of dying. No VH/AH. we discussed ups and downs of grieve along with treating depression and suicidality. Mental Status Exam Mental Status Exam Narrative: Patient is alert and oriented x4 ; behavior is cooperative, friendly with mild to moderate depression; patient is not in distress; dressed in hospital attire with kempt hair and adequate hygiene; mood is described as depressed and affect congruent; eye contact appropriate; Speech is normal rate, volume and prosody and not pressured; no psychomotor agitation/retardation present; thought process is organized and goal directed; Thought content is on treatment with passive SI, no plan or intent to harm herself, pertinent to relevant topics and without any delusional content, paranoid ideation or grandiosity; denies any /SIB/HI. Denies AH and there is no evidence of perceptual disturbance. Patient's insight and judgment poor. Diagnostics Vital Signs (24Hr): Vital Signs - 24 hr 03/26/25 19:56 03/27/25 08:15 Temperature 97.9 F 97.2 F Pulse Rate 81 89 Respiratory Rate 18 16 Blood Pressure 131/63 128/60 Pulse Oximetry 96 96 Oxygen Delivery Method Room Air Room Air BMI result Body Mass Index 39.5 Labs 03/25/25 11:23 03/25/25 11:23 Labs: Laboratory Results - last 48 hr 03/25/25 03/25/25 03/25/25 17:48 20:20 23:58 POC Glucose 160 H 210 H 221 H Urine Color Urine Appearance Urine pH Ur Specific [place] Urine Protein Urine Glucose (UA) Urine Ketones Urine Blood Urine Nitrite Ur Leukocyte Esterase Urine RBC Urine WBC Ur Squamous Epith Cells Urine Bacteria Hyaline Casts 03/26/25 03/26/25 03/26/25 06:25 11:25 15:15 POC Glucose 246 H 360 H* 255 H Urine Color Urine Appearance Urine pH Ur Specific [place] Urine Protein Urine Glucose (UA) Urine Ketones Urine Blood Urine Nitrite Ur Leukocyte Esterase Urine RBC Urine WBC Ur Squamous Epith Cells Urine Bacteria Hyaline Casts 03/26/25 03/26/25 03/26/25 16:39 17:30 20:40 POC Glucose 263 H 277 H Urine Color Yellow Urine Appearance Clear Urine pH 5.5 Ur Specific [place] >= 1.030 H Urine Protein Negative Urine Glucose (UA) >=1000 H Urine Ketones Negative Urine Blood Negative Urine Nitrite Negative Ur Leukocyte Esterase Negative Urine RBC 0-2 Urine WBC 0-5 Ur Squamous Epith Cells 0-2 Urine Bacteria None Seen Hyaline Casts 3-5 03/27/25 03/27/25 03/27/25 06:39 11:12 16:12 POC Glucose 249 H 280 H 219 H Urine Color Urine Appearance Urine pH Ur Specific [place] Urine Protein Urine Glucose (UA) Urine Ketones Urine Blood Urine Nitrite Ur Leukocyte Esterase Urine RBC Urine WBC Ur Squamous Epith Cells Urine Bacteria Hyaline Casts Medications Medications Current Medications Acetaminophen (Acetaminophen 325 Mg Tablet) 650 mg PO Q6H PRN PRN Reason: Headache/Pain, Scale 1-10 Last Admin: 03/26/25 09:10 Dose: 650 mg Al Hydroxide/Mg Hydroxide (Magnesium Hydrox/Alum Hydrox 30 Ml Oral.Susp) 30 ml PO Q6H PRN PRN Reason: Heartburn/Nausea Last Admin: 03/26/25 00:59 Dose: 30 ml Albuterol Sulfate (Albuterol Sulfate 90 Mcg 8 Gm Inhaler) 2 puff INHALE Q4H PRN PRN Reason: Wheezing Amlodipine Besylate (Amlodipine Besylate 5 Mg Tablet) 5 mg PO DAILY [facility]; Protocol Last Admin: 03/27/25 09:08 Dose: 5 mg Atorvastatin Calcium (Atorvastatin Calcium 40 Mg Tablet) 40 mg PO DAILY [facility] Last Admin: 03/27/25 09:07 Dose: 40 mg Betamethasone Dipropion Augmented (Betamethasone Dip Aug 0.05% Cr 15 Gm Tube) 1 appl TOPICAL DAILY PRN; Protocol PRN Reason: psoriatic areas Empagliflozin (Empagliflozin 25 Mg Tablet) 25 mg PO DAILY [facility] Last Admin: 03/27/25 09:07 Dose: 25 mg Hydroxyzine HCl (Hydroxyzine Hcl 25 Mg Tablet) 25 mg PO Q6H PRN PRN Reason: mild anxiety Last Admin: 03/26/25 21:23 Dose: 25 mg Insulin Glargine (Insulin Glargine,Hum.Rec.Anlog 100 Unit/Ml 10 Ml Vial) 50 unit SUBCUT DAILY [facility] Last Admin: 03/27/25 09:09 Dose: 50 unit Insulin Human Lispro (Insulin Lispro 100 Unit/Ml 3 Ml Vial) 0 unit SUBCUT TIDAC [facility]; Protocol Last Admin: 03/27/25 11:38 Dose: 6 unit Lactic Acid (Ammonium Lactate 12 % Cream 140 Gm Tube) 1 appl TOPICAL DAILY [facility]; Protocol Last Admin: 03/27/25 09:08 Dose: 1 appl Losartan Potassium (Losartan Potassium 50 Mg Tablet) 100 mg PO DAILY [facility]; Protocol Last Admin: 03/27/25 09:06 Dose: 100 mg Magnesium Hydroxide (Milk Of Magnesia 30 Ml Oral.Susp) 30 ml PO DAILY PRN PRN Reason: Constipation Metformin HCl (Metformin Hcl 1,000 Mg Tablet) 1,000 mg PO BID [facility] Last Admin: 03/27/25 09:06 Dose: 1,000 mg Metoprolol Tartrate (Metoprolol Tartrate 25 Mg Tablet) 25 mg PO BID [facility]; Protocol Last Admin: 03/27/25 09:07 Dose: 25 mg Non-Formulary Medication (Dulaglutide [Trulicity]) 4.5 mg SUBCUT WE [facility] Sertraline HCl (Sertraline Hcl 50 Mg Tablet) 50 mg PO DAILY [facility] Last Admin: 03/27/25 09:07 Dose: 50 mg Trazodone HCl (Trazodone Hcl 50 Mg Tablet) 50 mg PO BEDTIME MRX1 PRN PRN Reason: Insomnia Last Admin: 03/25/25 21:14 Dose: 50 mg Verapamil HCl (Verapamil Hcl Sr 120 Mg Tablet.Er) 120 mg PO DAILY [facility]; Protocol Last Admin: 03/27/25 09:05 Dose: 120 mg Allergies Allergies Allergy/AdvReac Type Severity Reaction Status Date / Time No Known Allergies Allergy Verified 03/25/25 10:34 Assessment & Plan Assessment & Plan (1) MDD (major depressive disorder), recurrent episode, severe: Status: Acute Code(s): F33.2 - Major depressive disorder, recurrent severe without psychotic features (2) Complicated grief: Status: Acute Code(s): F43.81 - Prolonged grief disorder Plan Patient is a 69 y.o , Nauruan speaking female with hx of unspecific depressive D/O, Anemia, HTN, DM II, HLD, and psoriasis who was BIBA from [facility] where patient she was seeing her PCP secondary to reporting she was refusing to take her HTN meds and not been taking them because I just want to . Patient has not been taking meds x2 months and has not slept for days. Recently her great gradson who was 5 y.o passed two months ago from asthma attack. Her 16 y.o dog also just not long ago that she has to criminate the dog. The lost of the great grandson and the dog are the cause of her SI. 03/26 continue tx. plan to gradually adjust sertraline to target depression. 03/27 increase sertraline to 100mg po daily. Reason for continued inpatient stay Substantial Risk for: inability to function Time Spent With Patient Time: Total time managing care of this patient today ____ minutes.
--- NOTE | 2025-03-27 18:36 | PC.NURSE ---
Pt blood sugar was 219 at dinner. Pt refused dinner because she c/o headache 7/10 and nausea. Pt requested and recieved PRN Tylenol with good effect. Per provider insulin was held d/t pt refusing dinner.
[2025-03-27 19:46] LABS: Glucose, Whole Blood 260 mg/dL (60-115)
[2025-03-27 20:18] VITALS: BP 130/66; PULSE 82
[2025-03-27 20:19] VITALS: BP 130/66; PULSE 82; RESP 16; TEMP 36.3; O2SAT 97
[2025-03-28 06:43] LABS: Glucose, Whole Blood 176 mg/dL (60-115)
[2025-03-28 08:35] VITALS: BP 122/62; PULSE 92; RESP 16; TEMP 36.3; O2SAT 93
[2025-03-28] MEDS: Insulin Glargine,Hum.rec.anlog 100 UNIT/ML 10 ML VIAL 50 UNIT SUBCUT (08:41)
[2025-03-28] MEDS: VerapamiL HCL SR 120 MG TABLET.ER PO (08:45)
[2025-03-28] MEDS: Ammonium Lactate 12 % Cream 140 GM TUBE 1 APPL TOPICAL (10:02)
[2025-03-28 11:21] LABS: Glucose, Whole Blood 275 mg/dL (60-115)
--- NOTE | 2025-03-28 13:05 | P.PNPSI_ITS ---
Subjective Subjective Date of Service: 03/28/25 Reason For Visit: si Subjective Notes: Conditional Voluntary Medical Problems Affecting Mental Status: No Interim History: Medical record and nursing notes reviewed; case discussed during rounds with team/nursing staff, and met with patient for supportive therapy/psychoeducation, as well as medication management. Report sleeping better. No issues with appetite, groups are good and she likes them. Report feeling really sad . Report high in depression. Report passive SI without plan/intent. Denies SIB/HI/AVH. Tension HERNÁNDEZ given Tylenol with + effects. BP improving, and received Insuline coverage for hyperglycemia. Resting in bed after lunch. Walker at bedside when in room but using WC when she is out of her room. Medication Compliance: Yes Side effects from medications: No Attending Groups: Intermittent Review of Systems Acute medical concerns: No Medical Review of Systems: unchanged Review of Systems Review of Systems Denies any shortness of breath, chest pain, palpitations, dizziness, lightheadedness, headaches, dysuria, abdominal pain or discomfort, nausea, vomiting or diarrhea. Denies Chills, body aches, muscle aches, fatigue or weight loss. Yes all other systems are reviewed and are negative Mental Status Exam Mental Status Exam Narrative: Patient is alert and oriented x4 ; behavior is cooperative, friendly with mild to moderate depression; patient is not in distress; dressed in hospital attire with kempt hair and adequate hygiene; mood is described as really sad and affect congruent; eye contact appropriate; Speech is normal rate, volume and prosody and not pressured; no psychomotor agitation/retardation present; thought process is organized and goal directed; Thought content is on treatment with passive SI, no plan or intent to harm herself, pertinent to relevant topics and without any delusional content, paranoid ideation or grandiosity; denies any /SIB/HI. Denies AH and there is no evidence of perceptual disturbance. Patient's insight and judgment improved. Diagnostics Vital Signs (24Hr): Vital Signs - 24 hr 03/27/25 20:18 03/27/25 20:19 03/28/25 08:35 Temperature 97.3 F 97.3 F Pulse Rate 82 82 92 Respiratory Rate 16 16 Blood Pressure 130/66 130/66 122/62 Pulse Oximetry 97 93 Oxygen Delivery Method Room Air Room Air BMI result Body Mass Index 39.5 Labs 03/25/25 11:23 03/25/25 11:23 Labs: Laboratory Results - last 48 hr 03/26/25 03/26/25 03/26/25 15:15 16:39 17:30 POC Glucose 255 H 263 H Urine Color Yellow Urine Appearance Clear Urine pH 5.5 Ur Specific Tyler >= 1.030 H Urine Protein Negative Urine Glucose (UA) >=1000 H Urine Ketones Negative Urine Blood Negative Urine Nitrite Negative Ur Leukocyte Esterase Negative Urine RBC 0-2 Urine WBC 0-5 Ur Squamous Epith Cells 0-2 Urine Bacteria None Seen Hyaline Casts 3-5 03/26/25 03/27/25 03/27/25 20:40 06:39 11:12 POC Glucose 277 H 249 H 280 H Urine Color Urine Appearance Urine pH Ur Specific Tyler Urine Protein Urine Glucose (UA) Urine Ketones Urine Blood Urine Nitrite Ur Leukocyte Esterase Urine RBC Urine WBC Ur Squamous Epith Cells Urine Bacteria Hyaline Casts 03/27/25 03/27/25 03/28/25 16:12 19:41 06:34 POC Glucose 219 H 260 H 176 H Urine Color Urine Appearance Urine pH Ur Specific Tyler Urine Protein Urine Glucose (UA) Urine Ketones Urine Blood Urine Nitrite Ur Leukocyte Esterase Urine RBC Urine WBC Ur Squamous Epith Cells Urine Bacteria Hyaline Casts 03/28/25 11:13 POC Glucose 275 H Urine Color Urine Appearance Urine pH Ur Specific Tyler Urine Protein Urine Glucose (UA) Urine Ketones Urine Blood Urine Nitrite Ur Leukocyte Esterase Urine RBC Urine WBC Ur Squamous Epith Cells Urine Bacteria Hyaline Casts Medications Medications Current Medications Acetaminophen (Acetaminophen 325 Mg Tablet) 650 mg PO Q6H PRN PRN Reason: Headache/Pain, Scale 1-10 Last Admin: 03/28/25 08:44 Dose: 650 mg Al Hydroxide/Mg Hydroxide (Magnesium Hydrox/Alum Hydrox 30 Ml Oral.Susp) 30 ml PO Q6H PRN PRN Reason: Heartburn/Nausea Last Admin: 03/26/25 00:59 Dose: 30 ml Albuterol Sulfate (Albuterol Sulfate 90 Mcg 8 Gm Inhaler) 2 puff INHALE Q4H PRN PRN Reason: Wheezing Amlodipine Besylate (Amlodipine Besylate 5 Mg Tablet) 5 mg PO DAILY JANINA; Protocol Last Admin: 03/28/25 08:45 Dose: 5 mg Atorvastatin Calcium (Atorvastatin Calcium 40 Mg Tablet) 40 mg PO DAILY [facility] Last Admin: 03/28/25 08:43 Dose: 40 mg Betamethasone Dipropion Augmented (Betamethasone Dip Aug 0.05% Cr 15 Gm Tube) 1 appl TOPICAL DAILY PRN; Protocol PRN Reason: psoriatic areas Empagliflozin (Empagliflozin 25 Mg Tablet) 25 mg PO DAILY [facility] Last Admin: 03/28/25 08:42 Dose: 25 mg Famotidine (Famotidine 20 Mg Tablet) 20 mg PO DAILY [facility] Last Admin: 03/28/25 08:43 Dose: 20 mg Hydroxyzine HCl (Hydroxyzine Hcl 25 Mg Tablet) 25 mg PO Q6H PRN PRN Reason: mild anxiety Last Admin: 03/27/25 20:28 Dose: 25 mg Insulin Glargine (Insulin Glargine,Hum.Rec.Anlog 100 Unit/Ml 10 Ml Vial) 50 unit SUBCUT DAILY [facility] Last Admin: 03/28/25 08:41 Dose: 50 unit Insulin Human Lispro (Insulin Lispro 100 Unit/Ml 3 Ml Vial) 0 unit SUBCUT TIDAC [facility]; Protocol Last Admin: 03/28/25 11:23 Dose: 6 unit Lactic Acid (Ammonium Lactate 12 % Cream 140 Gm Tube) 1 appl TOPICAL DAILY [facility]AN[facility]; Protocol Last Admin: 03/28/25 10:02 Dose: 1 appl Losartan Potassium (Losartan Potassium 50 Mg Tablet) 100 mg PO DAILY [facility]AN[facility]; Protocol Last Admin: 03/28/25 08:45 Dose: 100 mg Magnesium Hydroxide (Milk Of Magnesia 30 Ml Oral.Susp) 30 ml PO DAILY PRN PRN Reason: Constipation Metformin HCl (Metformin Hcl 1,000 Mg Tablet) 1,000 mg PO BID [facility] Last Admin: 03/28/25 08:43 Dose: 1,000 mg Metoprolol Tartrate (Metoprolol Tartrate 25 Mg Tablet) 25 mg PO BID [facility]; Protocol Last Admin: 03/28/25 08:45 Dose: 25 mg Non-Formulary Medication (Dulaglutide [Trulicity]) 4.5 mg SUBCUT WE [facility] Sertraline HCl (Sertraline Hcl 100 Mg Tablet) 100 mg PO DAILY [facility] Last Admin: 03/28/25 08:47 Dose: 100 mg Trazodone HCl (Trazodone Hcl 50 Mg Tablet) 50 mg PO BEDTIME MRX1 PRN PRN Reason: Insomnia Last Admin: 03/25/25 21:14 Dose: 50 mg Verapamil HCl (Verapamil Hcl Sr 120 Mg Tablet.Er) 120 mg PO DAILY [facility]; Protocol Last Admin: 03/28/25 08:45 Dose: 120 mg Allergies Allergies Allergy/AdvReac Type Severity Reaction Status Date / Time No Known Allergies Allergy Verified 03/25/25 10:34 Assessment & Plan Assessment & Plan (1) MDD (major depressive disorder), recurrent episode, severe: Status: Acute Code(s): F33.2 - Major depressive disorder, recurrent severe without psychotic features (2) Complicated grief: Status: Acute Code(s): F43.81 - Prolonged grief disorder Plan Patient is a 69 y.o , Irish speaking female with hx of unspecific depressive D/O, Anemia, HTN, DM II, HLD, and psoriasis who was BIBA from [facility] where patient she was seeing her PCP secondary to reporting she was refusing to take her HTN meds and not been taking them because I just want to . Patient has not been taking meds x2 months and has not slept for days. Recently her great gradson who was 5 y.o passed two months ago from asthma attack. Her 16 y.o dog also just not long ago that she has to criminate the dog. The lost of the great grandson and the dog are the cause of her SI. 03/26 continue tx. plan to gradually adjust sertraline to target depression. 03/28/25: slept for 8 hours, self report sleeping better. No issues with appetite, groups are good and she likes them. Report feeling really sad . Report high in depression. Report passive SI without plan/intent. Denies SIB/HI/AVH. Tension HERÁNNDEZ given Tylenol with + effects. BP improving, and received Insulin coverage for hyperglycemia. Resting in bed after lunch. Walker at bedside when in room but using WC when she is out of her room. Continue with Sertraline 100mg which started this morning. Patient educated on: diagnosis, medication risk/benefits and therapeutic strategies Informed Consent: understands and further education needed Reason for continued inpatient stay Substantial Risk for: med/psych decompensation Time Spent With Patient Time: Total time managing care of this patient today ____ minutes.
[2025-03-28 16:03] LABS: Glucose, Whole Blood 144 mg/dL (60-115)
[2025-03-28 20:02] VITALS: BP 139/65; PULSE 85; RESP 16; TEMP 36.1; O2SAT 94
[2025-03-28 20:09] VITALS: BP 139/65; PULSE 85
[2025-03-28 20:23] LABS: Glucose, Whole Blood 282 mg/dL (60-115)
[2025-03-29 06:46] LABS: Glucose, Whole Blood 161 mg/dL (60-115)
[2025-03-29 08:00] VITALS: BP 144/65; PULSE 86; RESP 16; TEMP 36.3; O2SAT 95
[2025-03-29] MEDS: VerapamiL HCL SR 120 MG TABLET.ER PO (08:10)
[2025-03-29] MEDS: Insulin Glargine,Hum.rec.anlog 100 UNIT/ML 10 ML VIAL 50 UNIT SUBCUT (08:19)
[2025-03-29 11:31] LABS: Glucose, Whole Blood 174 mg/dL (60-115)
[2025-03-29] MEDS: Ammonium Lactate 12 % Cream 140 GM TUBE 1 APPL TOPICAL (15:33)
[2025-03-29 17:06] LABS: Glucose, Whole Blood 112 mg/dL (60-115)
--- NOTE | 2025-03-29 19:33 | HO.PSYCHPN ---
Subjective Subjective Date of Service: 03/29/25 Reason For Visit: si Subjective Notes: Conditional Voluntary Medical Problems Affecting Mental Status: No Interim History: Medical record and nursing notes reviewed; case discussed during rounds with team/nursing staff, and met with patient for supportive therapy/psychoeducation, as well as medication management. Patient slept for 8 hours, was out for breakfast but spent most of the day in bed, refused lunch. Therefore no insulin coverage needed. Patient reports feeling nauseous which could be possible GI side effects of the Zoloft that increased the day before. Patient is aware that Zofran is available. Nursing also offer kristen eileen. Patient later on to dining area. She is depressed, anxious, feeling hopeless- not sure what to do with my life . Mood is tired but denies hallucinations. Medication Compliance: Yes Side effects from medications: Yes (nausea) Attending Groups: No Review of Systems Acute medical concerns: No Medical Review of Systems: unchanged Review of Systems Review of Systems Denies any shortness of breath, chest pain, palpitations, dizziness, lightheadedness, headaches, dysuria, abdominal pain or discomfort, vomiting or diarrhea. Denies Chills, body aches, muscle aches, fatigue or weight loss. Report nausea on 03/29/25 Yes all other systems are reviewed and are negative Mental Status Exam Mental Status Exam Narrative: Patient is alert and oriented x4 ; behavior is cooperative, friendly with mild to moderate depression; patient is not in distress; dressed in hospital attire with kempt hair and adequate hygiene; mood is described as tired and affect congruent; eye contact appropriate; Speech is normal rate, volume and prosody and not pressured; no psychomotor agitation/retardation present; thought process is organized and goal directed; Thought content is on treatment but feeling hopeless, no plan or intent to harm herself, pertinent to relevant topics and without any delusional content, paranoid ideation or grandiosity; denies any /SIB/HI. Denies AH and there is no evidence of perceptual disturbance. Patient's insight and judgment improved. Diagnostics Vital Signs (24Hr): Vital Signs - 24 hr 03/28/25 20:02 03/28/25 20:09 03/29/25 08:00 Temperature 96.9 F 97.4 F Pulse Rate 85 85 86 Respiratory Rate 16 16 Blood Pressure 139/65 139/65 144/65 H Pulse Oximetry 94 95 Oxygen Delivery Method Room Air BMI result Body Mass Index 39.5 Labs 03/25/25 11:23 03/25/25 11:23 Labs: Laboratory Results - last 48 hr 03/27/25 03/28/25 03/28/25 19:41 06:34 11:13 POC Glucose 260 H 176 H 275 H 03/28/25 03/28/25 03/29/25 15:58 20:03 06:36 POC Glucose 144 H 282 H 161 H 03/29/25 03/29/25 11:07 16:12 POC Glucose 174 H 112 Medications Medications Current Medications Acetaminophen (Acetaminophen 325 Mg Tablet) 650 mg PO Q6H PRN PRN Reason: Headache/Pain, Scale 1-10 Last Admin: 03/28/25 08:44 Dose: 650 mg Al Hydroxide/Mg Hydroxide (Magnesium Hydrox/Alum Hydrox 30 Ml Oral.Susp) 30 ml PO Q6H PRN PRN Reason: Heartburn/Nausea Last Admin: 03/26/25 00:59 Dose: 30 ml Albuterol Sulfate (Albuterol Sulfate 90 Mcg 8 Gm Inhaler) 2 puff INHALE Q4H PRN PRN Reason: Wheezing Amlodipine Besylate (Amlodipine Besylate 5 Mg Tablet) 5 mg PO DAILY [facility]; Protocol Last Admin: 03/29/25 08:11 Dose: 5 mg Atorvastatin Calcium (Atorvastatin Calcium 40 Mg Tablet) 40 mg PO DAILY [facility] Last Admin: 03/29/25 08:11 Dose: 40 mg Betamethasone Dipropion Augmented (Betamethasone Dip Aug 0.05% Cr 15 Gm Tube) 1 appl TOPICAL DAILY PRN; Protocol PRN Reason: psoriatic areas Empagliflozin (Empagliflozin 25 Mg Tablet) 25 mg PO DAILY [facility] Last Admin: 03/29/25 08:12 Dose: 25 mg Famotidine (Famotidine 20 Mg Tablet) 20 mg PO DAILY [facility] Last Admin: 03/29/25 08:11 Dose: 20 mg Hydroxyzine HCl (Hydroxyzine Hcl 25 Mg Tablet) 25 mg PO Q6H PRN PRN Reason: mild anxiety Last Admin: 03/28/25 20:09 Dose: 25 mg Insulin Glargine (Insulin Glargine,Hum.Rec.Anlog 100 Unit/Ml 10 Ml Vial) 50 unit SUBCUT DAILY [facility] Last Admin: 03/29/25 08:19 Dose: 50 unit Insulin Human Lispro (Insulin Lispro 100 Unit/Ml 3 Ml Vial) 0 unit SUBCUT TIDAC JANINA; Protocol Last Admin: 03/29/25 16:56 Dose: Not Given Lactic Acid (Ammonium Lactate 12 % Cream 140 Gm Tube) 1 appl TOPICAL DAILY [facility]; Protocol Last Admin: 03/29/25 15:33 Dose: 1 appl Losartan Potassium (Losartan Potassium 50 Mg Tablet) 100 mg PO DAILY [facility]; Protocol Last Admin: 03/29/25 08:11 Dose: 100 mg Magnesium Hydroxide (Milk Of Magnesia 30 Ml Oral.Susp) 30 ml PO DAILY PRN PRN Reason: Constipation Metformin HCl (Metformin Hcl 1,000 Mg Tablet) 1,000 mg PO BID [facility] Last Admin: 03/29/25 08:12 Dose: 1,000 mg Metoprolol Tartrate (Metoprolol Tartrate 25 Mg Tablet) 25 mg PO BID [facility]; Protocol Last Admin: 03/29/25 08:11 Dose: 25 mg Ondansetron HCl (Ondansetron Odt 4 Mg Tab.Rapdis) 4 mg TRANSLINGU Q8H PRN PRN Reason: Nausea and Vomiting Last Admin: 03/29/25 14:52 Dose: 4 mg Sertraline HCl (Sertraline Hcl 100 Mg Tablet) 100 mg PO DAILY [facility] Last Admin: 03/29/25 08:11 Dose: 100 mg Trazodone HCl (Trazodone Hcl 50 Mg Tablet) 50 mg PO BEDTIME MRX1 PRN PRN Reason: Insomnia Last Admin: 03/25/25 21:14 Dose: 50 mg Verapamil HCl (Verapamil Hcl Sr 120 Mg Tablet.Er) 120 mg PO DAILY [facility]; Protocol Last Admin: 03/29/25 08:10 Dose: 120 mg Allergies Allergies Allergy/AdvReac Type Severity Reaction Status Date / Time No Known Allergies Allergy Verified 03/25/25 10:34 Assessment & Plan Assessment & Plan (1) MDD (major depressive disorder), recurrent episode, severe: Status: Acute Code(s): F33.2 - Major depressive disorder, recurrent severe without psychotic features (2) Complicated grief: Status: Acute Code(s): F43.81 - Prolonged grief disorder Plan Patient is a 69 y.o , Filipino speaking female with hx of unspecific depressive D/O, Anemia, HTN, DM II, HLD, and psoriasis who was BIBA from [facility] where patient she was seeing her PCP secondary to reporting she was refusing to take her HTN meds and not been taking them because I just want to . Patient has not been taking meds x2 months and has not slept for days. Recently her great gradson who was 5 y.o passed two months ago from asthma attack. Her 16 y.o dog also just not long ago that she has to criminate the dog. The lost of the great grandson and the dog are the cause of her SI. 03/26 continue tx. plan to gradually adjust sertraline to target depression. 03/28/25: slept for 8 hours, self report sleeping better. No issues with appetite, groups are good and she likes them. Report feeling really sad . Report high in depression. Report passive SI without plan/intent. Denies SIB/HI/AVH. Tension HERNÁNDEZ given Tylenol with + effects. BP improving, and received Insulin coverage for hyperglycemia. Resting in bed after lunch. Walker at bedside when in room but using WC when she is out of her room. Continue with Sertraline 100mg which started this morning. 03/29/25: Patient slept for 8 hours, was out for breakfast but spent most of the day in bed, refused lunch. Therefore no insulin coverage needed. Patient reports feeling nauseous which could be possible GI side effects of the Zoloft that increased the day before. Patient is aware that Zofran is available. Nursing also offer kristen eileen. Patient later on to dining area. She is depressed, anxious, feeling hopeless- not sure what to do with my life . Mood is tired but denies hallucinations Zofran 4mg q8hrs PRN for N/V. Continue to monitor for GI issues. Patient educated on: diagnosis, medication risk/benefits and therapeutic strategies Informed Consent: understands and further education needed Reason for continued inpatient stay Substantial Risk for: med/psych decompensation Time Spent With Patient Time: Total time managing care of this patient today ____ minutes.
[2025-03-29 20:00] VITALS: BP 130/61; PULSE 86; RESP 16; TEMP 36.6; O2SAT 95
[2025-03-29 20:26] LABS: Glucose, Whole Blood 178 mg/dL (60-115)
[2025-03-30 06:42] LABS: Glucose, Whole Blood 85 mg/dL (60-115)
[2025-03-30 08:35] VITALS: BP 117/58; PULSE 79; RESP 16; TEMP 36.3; O2SAT 95
[2025-03-30] MEDS: Insulin Glargine,Hum.rec.anlog 100 UNIT/ML 10 ML VIAL 50 UNIT SUBCUT (09:26)
[2025-03-30] MEDS: Ammonium Lactate 12 % Cream 140 GM TUBE 1 APPL TOPICAL (09:26)
[2025-03-30] MEDS: VerapamiL HCL SR 120 MG TABLET.ER PO (09:26)
[2025-03-30 11:28] LABS: Glucose, Whole Blood 150 mg/dL (60-115)
--- NOTE | 2025-03-30 12:19 | PC.NURSE ---
Pt offered and declined seasonal Influenza vaccine. States she already received it at her PCP office prior to admission.
--- NOTE | 2025-03-30 14:10 | P.PNPSI_ITS ---
Subjective Subjective Date of Service: 03/30/25 Reason For Visit: si Subjective Notes: Conditional Voluntary Interim History: Pt reports her weekend was very bad. She reports she has memories of her great grandchild. She continues to report that she wants to one to end her emotional pain and second to be with her grandson. She reports having some nausea. She has been taking medications as prescribed. She reports her sleep has improved since she came here. Medication Compliance: Yes Review of Systems Review of Systems Denies any shortness of breath, chest pain, palpitations, dizziness, lightheadedness, headaches, dysuria, abdominal pain or discomfort, vomiting or diarrhea. Denies Chills, body aches, muscle aches, fatigue or weight loss. Report nausea on 03/29/25 Yes all other systems are reviewed and are negative Constitutional: Reports as per HPI Mental Status Exam Mental Status Exam Narrative: Patient is alert and oriented x4 ; behavior is cooperative, friendly with mild to moderate depression; patient is not in distress; dressed in hospital attire with kempt hair and adequate hygiene; mood is described as depressed and affect congruent; eye contact appropriate; Speech is normal rate, volume and prosody and not pressured; no psychomotor agitation/retardation present; thought process is organized and goal directed; Thought content is on treatment with passive SI, no plan or intent to harm herself, pertinent to relevant topics and without any delusional content, paranoid ideation or grandiosity; denies any /SIB/HI. Denies AH and there is no evidence of perceptual disturbance. Patient's insight and judgment poor. Diagnostics Vital Signs (24Hr): Vital Signs - 24 hr 03/29/25 20:00 03/30/25 08:35 Temperature 97.9 F 97.3 F Pulse Rate 86 79 Respiratory Rate 16 16 Blood Pressure 130/61 117/58 L Pulse Oximetry 95 95 Oxygen Delivery Method Room Air Room Air BMI result Body Mass Index 39.5 Labs 03/25/25 11:23 03/25/25 11:23 Labs: Laboratory Results - last 48 hr 03/28/25 03/28/25 03/29/25 15:58 20:03 06:36 POC Glucose 144 H 282 H 161 H 03/29/25 03/29/25 03/29/25 11:07 16:12 20:15 POC Glucose 174 H 112 178 H 03/30/25 03/30/25 06:33 11:20 POC Glucose 85 150 H Medications Medications Current Medications Acetaminophen (Acetaminophen 325 Mg Tablet) 650 mg PO Q6H PRN PRN Reason: Headache/Pain, Scale 1-10 Last Admin: 03/28/25 08:44 Dose: 650 mg Al Hydroxide/Mg Hydroxide (Magnesium Hydrox/Alum Hydrox 30 Ml Oral.Susp) 30 ml PO Q6H PRN PRN Reason: Heartburn/Nausea Last Admin: 03/26/25 00:59 Dose: 30 ml Albuterol Sulfate (Albuterol Sulfate 90 Mcg 8 Gm Inhaler) 2 puff INHALE Q4H PRN PRN Reason: Wheezing Amlodipine Besylate (Amlodipine Besylate 5 Mg Tablet) 5 mg PO DAILY [facility]; Protocol Last Admin: 03/30/25 09:28 Dose: 5 mg Atorvastatin Calcium (Atorvastatin Calcium 40 Mg Tablet) 40 mg PO DAILY [facility] Last Admin: 03/30/25 09:27 Dose: 40 mg Betamethasone Dipropion Augmented (Betamethasone Dip Aug 0.05% Cr 15 Gm Tube) 1 appl TOPICAL DAILY PRN; Protocol PRN Reason: psoriatic areas Empagliflozin (Empagliflozin 25 Mg Tablet) 25 mg PO DAILY [facility] Last Admin: 03/30/25 09:27 Dose: 25 mg Famotidine (Famotidine 20 Mg Tablet) 20 mg PO DAILY [facility] Last Admin: 03/30/25 09:28 Dose: 20 mg Hydroxyzine HCl (Hydroxyzine Hcl 25 Mg Tablet) 25 mg PO Q6H PRN PRN Reason: mild anxiety Last Admin: 03/29/25 20:41 Dose: 25 mg Insulin Glargine (Insulin Glargine,Hum.Rec.Anlog 100 Unit/Ml 10 Ml Vial) 50 unit SUBCUT DAILY [facility] Last Admin: 03/30/25 09:26 Dose: 50 unit Insulin Human Lispro (Insulin Lispro 100 Unit/Ml 3 Ml Vial) 0 unit SUBCUT TIDAC [facility]; Protocol Last Admin: 03/30/25 11:56 Dose: Not Given Lactic Acid (Ammonium Lactate 12 % Cream 140 Gm Tube) 1 appl TOPICAL DAILY JANINA; Protocol Last Admin: 03/30/25 09:26 Dose: 1 appl Losartan Potassium (Losartan Potassium 50 Mg Tablet) 100 mg PO DAILY [facility]; Protocol Last Admin: 03/30/25 09:27 Dose: 100 mg Magnesium Hydroxide (Milk Of Magnesia 30 Ml Oral.Susp) 30 ml PO DAILY PRN PRN Reason: Constipation Metformin HCl (Metformin Hcl 1,000 Mg Tablet) 1,000 mg PO BID JANINA Last Admin: 03/30/25 09:27 Dose: 1,000 mg Metoprolol Tartrate (Metoprolol Tartrate 25 Mg Tablet) 25 mg PO BID [facility]AN[facility]; Protocol Last Admin: 03/30/25 09:28 Dose: 25 mg Ondansetron HCl (Ondansetron Odt 4 Mg Tab.Rapdis) 4 mg TRANSLINGU Q8H PRN PRN Reason: Nausea and Vomiting Last Admin: 03/29/25 14:52 Dose: 4 mg Sertraline HCl (Sertraline Hcl 100 Mg Tablet) 100 mg PO DAILY [facility] Last Admin: 03/30/25 09:28 Dose: 100 mg Trazodone HCl (Trazodone Hcl 50 Mg Tablet) 50 mg PO BEDTIME MRX1 PRN PRN Reason: Insomnia Last Admin: 03/29/25 20:41 Dose: 50 mg Verapamil HCl (Verapamil Hcl Sr 120 Mg Tablet.Er) 120 mg PO DAILY JANINA; Protocol Last Admin: 03/30/25 09:26 Dose: 120 mg Allergies Allergies Allergy/AdvReac Type Severity Reaction Status Date / Time No Known Allergies Allergy Verified 03/25/25 10:34 Assessment & Plan Assessment & Plan (1) MDD (major depressive disorder), recurrent episode, severe: Status: Acute Code(s): F33.2 - Major depressive disorder, recurrent severe without psychotic features (2) Complicated grief: Status: Acute Code(s): F43.81 - Prolonged grief disorder Plan Patient is a 69 y.o , Japanese speaking female with hx of unspecific depressive D/O, Anemia, HTN, DM II, HLD, and psoriasis who was BIBA from [facility] where patient she was seeing her PCP secondary to reporting she was refusing to take her HTN meds and not been taking them because I just want to . Patient has not been taking meds x2 months and has not slept for days. Recently her great gradson who was 5 y.o passed two months ago from asthma attack. Her 16 y.o dog also just not long ago that she has to criminate the dog. The lost of the great grandson and the dog are the cause of her SI. 03/26 continue tx. plan to gradually adjust sertraline to target depression. 03/27 increase sertraline to 100mg po daily. 03/30 continues to endorse depressed mood and suicidal ideation in context of complex grief, underlying hx of depression and suicidality. Continue sertraline. family meeting pending. Reason for continued inpatient stay Substantial Risk for: inability to function Time Spent With Patient Time: Total time managing care of this patient today ____ minutes.
[2025-03-30 16:22] LABS: Glucose, Whole Blood 211 mg/dL (60-115)
[2025-03-30 20:00] VITALS: BP 113/60; PULSE 68; RESP 16; TEMP 36.4; O2SAT 96
[2025-03-30 20:42] LABS: Glucose, Whole Blood 196 mg/dL (60-115)
[2025-03-31 06:51] LABS: Glucose, Whole Blood 113 mg/dL (60-115)
[2025-03-31 08:42] VITALS: BP 126/69; PULSE 81; RESP 18; TEMP 36.2; O2SAT 96
[2025-03-31] MEDS: Insulin Glargine,Hum.rec.anlog 100 UNIT/ML 10 ML VIAL 50 UNIT SUBCUT (08:44)
[2025-03-31] MEDS: VerapamiL HCL SR 120 MG TABLET.ER PO (08:45)
[2025-03-31] MEDS: Ammonium Lactate 12 % Cream 140 GM TUBE 1 APPL TOPICAL (08:47)
[2025-03-31 11:23] LABS: Glucose, Whole Blood 273 mg/dL (60-115)
[2025-03-31 16:16] LABS: Glucose, Whole Blood 253 mg/dL (60-115)
--- NOTE | 2025-03-31 19:51 | HO.PSYCHPN ---
Subjective Subjective Date of Service: 03/31/25 Reason For Visit: si Subjective Notes: Conditional Voluntary Interim History: Pt reports her sleep has improved and she is eating better. She reports she continues to have thoughts of wanting to . She struggles with the memory of her grandson. She reports she does not want to be a burden to her family. understand that being in the hospital has been difficult for them as well. she is taking medications as prescribed. Review of Systems Review of Systems Denies any shortness of breath, chest pain, palpitations, dizziness, lightheadedness, headaches, dysuria, abdominal pain or discomfort, vomiting or diarrhea. Denies Chills, body aches, muscle aches, fatigue or weight loss. Report nausea on 03/29/25 Yes all other systems are reviewed and are negative Constitutional: Reports as per [facility] Mental Status Exam Mental Status Exam Narrative: Patient is alert and oriented x4 ; behavior is cooperative, friendly with mild to moderate depression; patient is not in distress; dressed in hospital attire with kempt hair and adequate hygiene; mood is described as depressed and affect congruent; eye contact appropriate; Speech is normal rate, volume and prosody and not pressured; no psychomotor agitation/retardation present; thought process is organized and goal directed; Thought content is on treatment with passive SI, no plan or intent to harm herself, pertinent to relevant topics and without any delusional content, paranoid ideation or grandiosity; denies any /SIB/HI. Denies AH and there is no evidence of perceptual disturbance. Patient's insight and judgment poor. Diagnostics Vital Signs (24Hr): Vital Signs - 24 hr 03/30/25 20:00 03/31/25 08:42 Temperature 97.6 F 97.2 F Pulse Rate 68 81 Respiratory Rate 16 18 Blood Pressure 113/60 126/69 Pulse Oximetry 96 96 Oxygen Delivery Method Room Air Room Air BMI result Body Mass Index 39.5 Labs 03/25/25 11:23 03/25/25 11:23 Labs: Laboratory Results - last 48 hr 03/29/25 03/30/25 03/30/25 20:15 06:33 11:20 POC Glucose 178 H 85 150 H 03/30/25 03/30/25 03/31/25 16:14 20:23 06:31 POC Glucose 211 H 196 H 113 03/31/25 03/31/25 11:15 16:05 POC Glucose 273 H 253 H Medications Medications Current Medications Acetaminophen (Acetaminophen 325 Mg Tablet) 650 mg PO Q6H PRN PRN Reason: Headache/Pain, Scale 1-10 Last Admin: 03/28/25 08:44 Dose: 650 mg Al Hydroxide/Mg Hydroxide (Magnesium Hydrox/Alum Hydrox 30 Ml Oral.Susp) 30 ml PO Q6H PRN PRN Reason: Heartburn/Nausea Last Admin: 03/26/25 00:59 Dose: 30 ml Albuterol Sulfate (Albuterol Sulfate 90 Mcg 8 Gm Inhaler) 2 puff INHALE Q4H PRN PRN Reason: Wheezing Amlodipine Besylate (Amlodipine Besylate 5 Mg Tablet) 5 mg PO DAILY JANINA; Protocol Last Admin: 03/31/25 08:47 Dose: 5 mg Atorvastatin Calcium (Atorvastatin Calcium 40 Mg Tablet) 40 mg PO DAILY JANINA Last Admin: 03/31/25 08:46 Dose: 40 mg Betamethasone Dipropion Augmented (Betamethasone Dip Aug 0.05% Cr 15 Gm Tube) 1 appl TOPICAL DAILY PRN; Protocol PRN Reason: psoriatic areas Empagliflozin (Empagliflozin 25 Mg Tablet) 25 mg PO DAILY JANINA Last Admin: 03/31/25 08:46 Dose: 25 mg Famotidine (Famotidine 20 Mg Tablet) 20 mg PO DAILY JANINA Last Admin: 03/31/25 08:47 Dose: 20 mg Hydroxyzine HCl (Hydroxyzine Hcl 25 Mg Tablet) 25 mg PO Q6H PRN PRN Reason: mild anxiety Last Admin: 03/30/25 20:38 Dose: 25 mg Insulin Glargine (Insulin Glargine,Hum.Rec.Anlog 100 Unit/Ml 10 Ml Vial) 50 unit SUBCUT DAILY JANINA Last Admin: 03/31/25 08:44 Dose: 50 unit Insulin Human Lispro (Insulin Lispro 100 Unit/Ml 3 Ml Vial) 0 unit SUBCUT TIDAC JANINA; Protocol Last Admin: 03/31/25 16:23 Dose: 6 unit Lactic Acid (Ammonium Lactate 12 % Cream 140 Gm Tube) 1 appl TOPICAL DAILY JANINA; Protocol Last Admin: 03/31/25 08:47 Dose: 1 appl Losartan Potassium (Losartan Potassium 50 Mg Tablet) 100 mg PO DAILY JANINA; Protocol Last Admin: 03/31/25 08:45 Dose: 100 mg Magnesium Hydroxide (Milk Of Magnesia 30 Ml Oral.Susp) 30 ml PO DAILY PRN PRN Reason: Constipation Metformin HCl (Metformin Hcl Er 500 Mg Tab.Er.24h) 2,000 mg PO BEDTIME JANINA Metoprolol Tartrate (Metoprolol Tartrate 25 Mg Tablet) 25 mg PO BID [facility]; Protocol Last Admin: 03/31/25 08:46 Dose: 25 mg Omeprazole (Omeprazole 20 Mg Capsule.Dr) 20 mg PO DAILY@0630 JANINA Last Admin: 03/31/25 06:28 Dose: 20 mg Ondansetron HCl (Ondansetron Odt 4 Mg Tab.Rapdis) 4 mg TRANSLINGU Q8H PRN PRN Reason: Nausea and Vomiting Last Admin: 03/29/25 14:52 Dose: 4 mg Sertraline HCl (Sertraline Hcl 100 Mg Tablet) 100 mg PO DAILY JANINA Last Admin: 03/31/25 08:46 Dose: 100 mg Trazodone HCl (Trazodone Hcl 50 Mg Tablet) 50 mg PO BEDTIME MRX1 PRN PRN Reason: Insomnia Last Admin: 03/30/25 20:39 Dose: 50 mg Verapamil HCl (Verapamil Hcl Sr 120 Mg Tablet.Er) 120 mg PO DAILY [facility]; Protocol Last Admin: 03/31/25 08:45 Dose: 120 mg Allergies Allergies Allergy/AdvReac Type Severity Reaction Status Date / Time No Known Allergies Allergy Verified 03/25/25 10:34 Assessment & Plan Assessment & Plan (1) MDD (major depressive disorder), recurrent episode, severe: Status: Acute Code(s): F33.2 - Major depressive disorder, recurrent severe without psychotic features (2) Complicated grief: Status: Acute Code(s): F43.81 - Prolonged grief disorder Plan Patient is a 69 y.o , Icelandic speaking female with hx of unspecific depressive D/O, Anemia, HTN, DM II, HLD, and psoriasis who was BIBA from [facility] where patient she was seeing her PCP secondary to reporting she was refusing to take her HTN meds and not been taking them because I just want to . Patient has not been taking meds x2 months and has not slept for days. Recently her great gradson who was 5 y.o passed two months ago from asthma attack. Her 16 y.o dog also just not long ago that she has to criminate the dog. The lost of the great grandson and the dog are the cause of her SI. 03/26 continue tx. plan to gradually adjust sertraline to target depression. 03/27 increase sertraline to 100mg po daily. 03/30 continues to endorse depressed mood and suicidal ideation in context of complex grief, underlying hx of depression and suicidality. Continue sertraline. family meeting pending. 03/31 changed metforming to ER formulation due to c/o of nausea. will also add omeprazole. continue sertraline, will continue to adjust as needed. Reason for continued inpatient stay Substantial Risk for: inability to function Time Spent With Patient Time: Total time managing care of this patient today ____ minutes.
[2025-03-31 19:53] LABS: Glucose, Whole Blood 190 mg/dL (60-115)
[2025-03-31 20:00] VITALS: BP 118/68; PULSE 81; RESP 16; TEMP 36.4; O2SAT 95
[2025-04-01 06:54] LABS: Glucose, Whole Blood 66 mg/dL (60-115)
[2025-04-01 08:00] VITALS: BP 106/66; PULSE 74; RESP 18; TEMP 36.2; O2SAT 95
[2025-04-01] MEDS: Insulin Glargine,Hum.rec.anlog 100 UNIT/ML 10 ML VIAL 50 UNIT SUBCUT (09:14)
[2025-04-01] MEDS: VerapamiL HCL SR 120 MG TABLET.ER PO (09:16)
[2025-04-01] MEDS: Ammonium Lactate 12 % Cream 140 GM TUBE 1 APPL TOPICAL (09:45)
[2025-04-01] MEDS: Betamethasone Dip Aug 0.05% Cr 15 GM TUBE 1 APPL TOPICAL (09:45)
[2025-04-01 11:28] LABS: Glucose, Whole Blood 211 mg/dL (60-115)
[2025-04-01 16:22] LABS: Glucose, Whole Blood 181 mg/dL (60-115)
--- NOTE | 2025-04-01 16:55 | P.PNPSI_ITS ---
Subjective Subjective Date of Service: 04/01/25 Reason For Visit: si Subjective Notes: Conditional Voluntary Interim History: Pt reports sleeping is better. She reports she has fleeting thoughts of dying. maybe less but still has them. She reports she spoke with son, no other family member has called. No psychosis or delusions. Review of Systems Review of Systems Denies any shortness of breath, chest pain, palpitations, dizziness, lightheadedness, headaches, dysuria, abdominal pain or discomfort, vomiting or diarrhea. Denies Chills, body aches, muscle aches, fatigue or weight loss. Report nausea on 03/29/25 Yes all other systems are reviewed and are negative Constitutional: Reports as per [facility]PI Mental Status Exam Mental Status Exam Narrative: Patient is alert and oriented x4 ; behavior is cooperative, friendly with mild to moderate depression; patient is not in distress; dressed in hospital attire with kempt hair and adequate hygiene; mood is described as depressed and affect congruent; eye contact appropriate; Speech is normal rate, volume and prosody and not pressured; no psychomotor agitation/retardation present; thought process is organized and goal directed; Thought content is on treatment with passive SI, no plan or intent to harm herself, pertinent to relevant topics and without any delusional content, paranoid ideation or grandiosity; denies any /SIB/HI. Denies AH and there is no evidence of perceptual disturbance. Patient's insight and judgment poor. Diagnostics Vital Signs (24Hr): Vital Signs - 24 hr 03/31/25 20:00 04/01/25 08:00 Temperature 97.6 F 97.2 F Pulse Rate 81 74 Respiratory Rate 16 18 Blood Pressure 118/68 106/66 Pulse Oximetry 95 95 Oxygen Delivery Method Room Air Room Air BMI result Body Mass Index 39.5 Labs 03/25/25 11:23 03/25/25 11:23 Labs: Laboratory Results - last 48 hr 03/30/25 03/31/25 03/31/25 20:23 06:31 11:15 POC Glucose 196 H 113 273 H 03/31/25 03/31/25 04/01/25 16:05 19:41 06:38 POC Glucose 253 H 190 H 66 04/01/25 04/01/25 11:23 16:18 POC Glucose 211 H 181 H Medications Medications Current Medications Acetaminophen (Acetaminophen 325 Mg Tablet) 650 mg PO Q6H PRN PRN Reason: Headache/Pain, Scale 1-10 Last Admin: 03/28/25 08:44 Dose: 650 mg Al Hydroxide/Mg Hydroxide (Magnesium Hydrox/Alum Hydrox 30 Ml Oral.Susp) 30 ml PO Q6H PRN PRN Reason: Heartburn/Nausea Last Admin: 03/26/25 00:59 Dose: 30 ml Albuterol Sulfate (Albuterol Sulfate 90 Mcg 8 Gm Inhaler) 2 puff INHALE Q4H PRN PRN Reason: Wheezing Amlodipine Besylate (Amlodipine Besylate 5 Mg Tablet) 5 mg PO DAILY JANINA; Protocol Last Admin: 04/01/25 09:15 Dose: 5 mg Atorvastatin Calcium (Atorvastatin Calcium 40 Mg Tablet) 40 mg PO DAILY JANINA Last Admin: 04/01/25 09:15 Dose: 40 mg Betamethasone Dipropion Augmented (Betamethasone Dip Aug 0.05% Cr 15 Gm Tube) 1 appl TOPICAL DAILY PRN; Protocol PRN Reason: psoriatic areas Last Admin: 04/01/25 09:45 Dose: 1 appl Empagliflozin (Empagliflozin 25 Mg Tablet) 25 mg PO DAILY JANINA Last Admin: 04/01/25 09:15 Dose: 25 mg Famotidine (Famotidine 20 Mg Tablet) 20 mg PO DAILY JANINA Last Admin: 04/01/25 09:20 Dose: 20 mg Hydroxyzine HCl (Hydroxyzine Hcl 25 Mg Tablet) 25 mg PO Q6H PRN PRN Reason: mild anxiety Last Admin: 03/31/25 21:18 Dose: 25 mg Insulin Glargine (Insulin Glargine,Hum.Rec.Anlog 100 Unit/Ml 10 Ml Vial) 50 unit SUBCUT DAILY JANINA Last Admin: 04/01/25 09:14 Dose: 50 unit Insulin Human Lispro (Insulin Lispro 100 Unit/Ml 3 Ml Vial) 0 unit SUBCUT TIDAC JANINA; Protocol Last Admin: 04/01/25 16:46 Dose: 2 unit Lactic Acid (Ammonium Lactate 12 % Cream 140 Gm Tube) 1 appl TOPICAL DAILY JANINA; Protocol Last Admin: 04/01/25 09:45 Dose: 1 appl Losartan Potassium (Losartan Potassium 50 Mg Tablet) 100 mg PO DAILY JANINA; Protocol Last Admin: 04/01/25 09:15 Dose: 100 mg Magnesium Hydroxide (Milk Of Magnesia 30 Ml Oral.Susp) 30 ml PO DAILY PRN PRN Reason: Constipation Metformin HCl (Metformin Hcl Er 500 Mg Tab.Er.24h) 2,000 mg PO BEDTIME JANINA Last Admin: 03/31/25 21:13 Dose: 2,000 mg Metoprolol Tartrate (Metoprolol Tartrate 25 Mg Tablet) 25 mg PO BID [facility]; Protocol Last Admin: 04/01/25 09:16 Dose: 25 mg Omeprazole (Omeprazole 20 Mg Capsule.Dr) 20 mg PO DAILY@0630 JANINA Last Admin: 04/01/25 06:42 Dose: 20 mg Ondansetron HCl (Ondansetron Odt 4 Mg Tab.Rapdis) 4 mg TRANSLINGU Q8H PRN PRN Reason: Nausea and Vomiting Last Admin: 03/29/25 14:52 Dose: 4 mg Sertraline HCl (Sertraline Hcl 100 Mg Tablet) 100 mg PO DAILY JANINA Last Admin: 04/01/25 09:15 Dose: 100 mg Trazodone HCl (Trazodone Hcl 50 Mg Tablet) 50 mg PO BEDTIME MRX1 PRN PRN Reason: Insomnia Last Admin: 03/31/25 21:18 Dose: 50 mg Verapamil HCl (Verapamil Hcl Sr 120 Mg Tablet.Er) 120 mg PO DAILY JANINA; Protocol Last Admin: 04/01/25 09:16 Dose: 120 mg Allergies Allergies Allergy/AdvReac Type Severity Reaction Status Date / Time No Known Allergies Allergy Verified 03/25/25 10:34 Assessment & Plan Assessment & Plan (1) MDD (major depressive disorder), recurrent episode, severe: Status: Acute Code(s): F33.2 - Major depressive disorder, recurrent severe without psychotic features (2) Complicated grief: Status: Acute Code(s): F43.81 - Prolonged grief disorder Plan Patient is a 69 y.o , Bengali speaking female with hx of unspecific depressive D/O, Anemia, HTN, DM II, HLD, and psoriasis who was BIBA from [facility] where patient she was seeing her PCP secondary to reporting she was refusing to take her HTN meds and not been taking them because I just want to . Patient has not been taking meds x2 months and has not slept for days. Recently her great gradson who was 5 y.o passed two months ago from asthma attack. Her 16 y.o dog also just not long ago that she has to criminate the dog. The lost of the great grandson and the dog are the cause of her SI. 03/26 continue tx. plan to gradually adjust sertraline to target depression. 03/27 increase sertraline to 100mg po daily. 03/30 continues to endorse depressed mood and suicidal ideation in context of complex grief, underlying hx of depression and suicidality. Continue sertraline. family meeting pending. 03/31 changed metforming to ER formulation due to c/o of nausea. will also add omeprazole. continue sertraline, will continue to adjust as needed. 04/01 continue tx. Reason for continued inpatient stay Substantial Risk for: inability to function Time Spent With Patient Time: Total time managing care of this patient today ____ minutes.
[2025-04-01 19:53] LABS: Glucose, Whole Blood 196 mg/dL (60-115)
[2025-04-01 20:00] VITALS: BP 112/57; PULSE 60; RESP 20; TEMP 36.4; O2SAT 94
[2025-04-01 21:52] VITALS: BP 118/52; PULSE 70
[2025-04-02 06:49] LABS: Glucose, Whole Blood 68 mg/dL (60-115)
--- NOTE | 2025-04-02 07:02 | PC.NURSE ---
0650 Pt awake alert and oriented. POC checked with result of 68. Pt reported she felt funny . Cranberry juice offered and patient requested and provided cindy cracker. 20 minutes later POC rechecked with result of 92. Pt reported feeling better and ambulated with her walker to wheelchair and wheeled herself to mileu. Pt during 04/01/25 did request only 1000mg Metformin po instead of the scheduled 2000mg dose as patient cited my blood sugar went low after receiving that dose the other day, I only want to take what I take at home, 1000mg . Report of events reported to oncoming SHAYE Romero to follow up with day care provider team.
[2025-04-02 07:04] LABS: Glucose, Whole Blood 92 mg/dL (60-115)
[2025-04-02 08:00] VITALS: BP 118/58; PULSE 67; RESP 14; TEMP 36.3; O2SAT 96
[2025-04-02] MEDS: Ammonium Lactate 12 % Cream 140 GM TUBE 1 APPL TOPICAL (08:55)
[2025-04-02] MEDS: Insulin Glargine,Hum.rec.anlog 100 UNIT/ML 10 ML VIAL 50 UNIT SUBCUT (08:55)
[2025-04-02] MEDS: VerapamiL HCL SR 120 MG TABLET.ER PO (08:57)
[2025-04-02 11:40] LABS: Glucose, Whole Blood 206 mg/dL (60-115)
[2025-04-02 16:26] LABS: Glucose, Whole Blood 208 mg/dL (60-115)
[2025-04-02 16:49] VITALS: BMI 39.1
--- NOTE | 2025-04-02 17:34 | P.PNPSI_ITS ---
Subjective Subjective Date of Service: 04/02/25 Reason For Visit: si Subjective Notes: Conditional Voluntary Interim History: Pt reports sleeping better. She reports she is starting to feel a little better, less suicidal thoughts. She reports she spoke with her granddaughter and her son and this helped as she thought they were mad at her for being in the hospital. She is taking medications as prescribed. fasting BS regulating. monitor hypoglycemia. Review of Systems Review of Systems Denies any shortness of breath, chest pain, palpitations, dizziness, lightheadedness, headaches, dysuria, abdominal pain or discomfort, vomiting or diarrhea. Denies Chills, body aches, muscle aches, fatigue or weight loss. Report nausea on 03/29/25 Yes all other systems are reviewed and are negative Constitutional: Reports as per HPI Mental Status Exam Mental Status Exam Narrative: Patient is alert and oriented x4 ; behavior is cooperative, friendly with mild to moderate depression; patient is not in distress; dressed in hospital attire with kempt hair and adequate hygiene; mood is described as depressed and affect congruent; eye contact appropriate; Speech is normal rate, volume and prosody and not pressured; no psychomotor agitation/retardation present; thought process is organized and goal directed; Thought content is on treatment with passive SI, no plan or intent to harm herself, pertinent to relevant topics and without any delusional content, paranoid ideation or grandiosity; denies any /SIB/HI. Denies AH and there is no evidence of perceptual disturbance. Patient's insight and judgment poor. Diagnostics Vital Signs (24Hr): Vital Signs - 24 hr 04/01/25 20:00 04/01/25 21:52 04/02/25 08:00 Temperature 97.5 F 97.3 F Pulse Rate 60 70 67 Respiratory Rate 20 14 Blood Pressure 112/57 L 118/52 L 118/58 L Pulse Oximetry 94 96 Oxygen Delivery Method Room Air BMI result Body Mass Index 39.1 Labs 03/25/25 11:23 03/25/25 11:23 Labs: Laboratory Results - last 48 hr 03/31/25 04/01/25 04/01/25 19:41 06:38 11:23 POC Glucose 190 H 66 211 H 04/01/25 04/01/25 04/02/25 16:18 19:43 06:41 POC Glucose 181 H 196 H 68 04/02/25 04/02/25 04/02/25 06:59 11:28 16:10 POC Glucose 92 206 H 208 H Medications Medications Current Medications Acetaminophen (Acetaminophen 325 Mg Tablet) 650 mg PO Q6H PRN PRN Reason: Headache/Pain, Scale 1-10 Last Admin: 03/28/25 08:44 Dose: 650 mg Al Hydroxide/Mg Hydroxide (Magnesium Hydrox/Alum Hydrox 30 Ml Oral.Susp) 30 ml PO Q6H PRN PRN Reason: Heartburn/Nausea Last Admin: 03/26/25 00:59 Dose: 30 ml Albuterol Sulfate (Albuterol Sulfate 90 Mcg 8 Gm Inhaler) 2 puff INHALE Q4H PRN PRN Reason: Wheezing Amlodipine Besylate (Amlodipine Besylate 5 Mg Tablet) 5 mg PO DAILY JANINA; Protocol Last Admin: 04/02/25 08:58 Dose: 5 mg Atorvastatin Calcium (Atorvastatin Calcium 40 Mg Tablet) 40 mg PO DAILY JANINA Last Admin: 04/02/25 08:57 Dose: 40 mg Betamethasone Dipropion Augmented (Betamethasone Dip Aug 0.05% Cr 15 Gm Tube) 1 appl TOPICAL DAILY PRN; Protocol PRN Reason: psoriatic areas Last Admin: 04/01/25 09:45 Dose: 1 appl Empagliflozin (Empagliflozin 25 Mg Tablet) 25 mg PO DAILY JANINA Last Admin: 04/02/25 08:58 Dose: 25 mg Famotidine (Famotidine 20 Mg Tablet) 20 mg PO DAILY JANINA Last Admin: 04/02/25 08:58 Dose: 20 mg Hydroxyzine HCl (Hydroxyzine Hcl 25 Mg Tablet) 25 mg PO Q6H PRN PRN Reason: mild anxiety Last Admin: 04/01/25 22:07 Dose: 25 mg Insulin Glargine (Insulin Glargine,Hum.Rec.Anlog 100 Unit/Ml 10 Ml Vial) 50 unit SUBCUT DAILY JANINA Last Admin: 04/02/25 08:55 Dose: 50 unit Insulin Human Lispro (Insulin Lispro 100 Unit/Ml 3 Ml Vial) 0 unit SUBCUT TIDAC JANINA; Protocol Last Admin: 04/02/25 16:46 Dose: 4 unit Lactic Acid (Ammonium Lactate 12 % Cream 140 Gm Tube) 1 appl TOPICAL DAILY JANINA; Protocol Last Admin: 04/02/25 08:55 Dose: 1 appl Losartan Potassium (Losartan Potassium 50 Mg Tablet) 100 mg PO DAILY JANINA; Protocol Last Admin: 04/02/25 08:57 Dose: 100 mg Magnesium Hydroxide (Milk Of Magnesia 30 Ml Oral.Susp) 30 ml PO DAILY PRN PRN Reason: Constipation Metformin HCl (Metformin Hcl Er 500 Mg Tab.Er.24h) 2,000 mg PO BEDTIME JANINA Last Admin: 04/01/25 21:56 Dose: 1,000 mg Metoprolol Tartrate (Metoprolol Tartrate 25 Mg Tablet) 25 mg PO BID JANINA; Protocol Last Admin: 04/02/25 08:58 Dose: 25 mg Omeprazole (Omeprazole 20 Mg Capsule.Dr) 20 mg PO DAILY@0630 JANINA Last Admin: 04/02/25 05:53 Dose: 20 mg Ondansetron HCl (Ondansetron Odt 4 Mg Tab.Rapdis) 4 mg TRANSLINGU Q8H PRN PRN Reason: Nausea and Vomiting Last Admin: 03/29/25 14:52 Dose: 4 mg Sertraline HCl (Sertraline Hcl 100 Mg Tablet) 100 mg PO DAILY [facility] Last Admin: 04/02/25 08:57 Dose: 100 mg Trazodone HCl (Trazodone Hcl 50 Mg Tablet) 50 mg PO BEDTIME MRX1 PRN PRN Reason: Insomnia Last Admin: 03/31/25 21:18 Dose: 50 mg Verapamil HCl (Verapamil Hcl Sr 120 Mg Tablet.Er) 120 mg PO DAILY [facility]; Protocol Last Admin: 04/02/25 08:57 Dose: 120 mg Allergies Allergies Allergy/AdvReac Type Severity Reaction Status Date / Time No Known Allergies Allergy Verified 03/25/25 10:34 Assessment & Plan Assessment & Plan (1) MDD (major depressive disorder), recurrent episode, severe: Status: Acute Code(s): F33.2 - Major depressive disorder, recurrent severe without psychotic features (2) Complicated grief: Status: Acute Code(s): F43.81 - Prolonged grief disorder Plan Patient is a 69 y.o , Nepali speaking female with hx of unspecific depressive D/O, Anemia, HTN, DM II, HLD, and psoriasis who was BIBA from [facility] where patient she was seeing her PCP secondary to reporting she was refusing to take her HTN meds and not been taking them because I just want to . Patient has not been taking meds x2 months and has not slept for days. Recently her great gradson who was 5 y.o passed two months ago from asthma attack. Her 16 y.o dog also just not long ago that she has to criminate the dog. The lost of the great grandson and the dog are the cause of her SI. 03/26 continue tx. plan to gradually adjust sertraline to target depression. 03/27 increase sertraline to 100mg po daily. 03/30 continues to endorse depressed mood and suicidal ideation in context of complex grief, underlying hx of depression and suicidality. Continue sertraline. family meeting pending. 03/31 changed metforming to ER formulation due to c/o of nausea. will also add omeprazole. continue sertraline, will continue to adjust as needed. 04/01 continue tx. 04/02 continue tx. Reason for continued inpatient stay Substantial Risk for: inability to function Time Spent With Patient Time: Total time managing care of this patient today ____ minutes.
[2025-04-02 20:00] VITALS: BP 128/69; PULSE 62; RESP 16; TEMP 36.4; O2SAT 96
[2025-04-02 20:30] LABS: Glucose, Whole Blood 164 mg/dL (60-115)
[2025-04-03 06:43] LABS: Glucose, Whole Blood 82 mg/dL (60-115)
[2025-04-03 08:00] VITALS: BP 138/60; PULSE 77; TEMP 36.4; O2SAT 93
[2025-04-03] MEDS: VerapamiL HCL SR 120 MG TABLET.ER PO (08:28)
[2025-04-03] MEDS: Ammonium Lactate 12 % Cream 140 GM TUBE 1 APPL TOPICAL (08:29)
[2025-04-03] MEDS: Insulin Glargine,Hum.rec.anlog 100 UNIT/ML 10 ML VIAL 50 UNIT SUBCUT (09:23)
--- NOTE | 2025-04-03 09:36 | P.PNPSI_ITS ---
Subjective Subjective Date of Service: 04/03/25 Reason For Visit: si Subjective Notes: Conditional Voluntary Interim History: Pt reports sleeping better. She reports she is starting to feel a little better, less suicidal thoughts. She reports she spoke with her granddaughter and her son and this helped as she thought they were mad at her for being in the hospital. She is taking medications as prescribed. fasting BS regulating. monitor hypoglycemia. Review of Systems Review of Systems Denies any shortness of breath, chest pain, palpitations, dizziness, lightheadedness, headaches, dysuria, abdominal pain or discomfort, vomiting or diarrhea. Denies Chills, body aches, muscle aches, fatigue or weight loss. Report nausea on 03/29/25 Yes all other systems are reviewed and are negative Constitutional: Reports as per HPI Mental Status Exam Mental Status Exam Narrative: Patient is alert and oriented x4 ; behavior is cooperative, friendly with mild to moderate depression; patient is not in distress; dressed in hospital attire with kempt hair and adequate hygiene; mood is described as depressed and affect congruent; eye contact appropriate; Speech is normal rate, volume and prosody and not pressured; no psychomotor agitation/retardation present; thought process is organized and goal directed; Thought content is on treatment with passive SI, no plan or intent to harm herself, pertinent to relevant topics and without any delusional content, paranoid ideation or grandiosity; denies any /SIB/HI. Denies AH and there is no evidence of perceptual disturbance. Patient's insight and judgment poor. Diagnostics Vital Signs (24Hr): Vital Signs - 24 hr 04/02/25 20:00 Temperature 97.6 F Pulse Rate 62 Respiratory Rate 16 Blood Pressure 128/69 Pulse Oximetry 96 Oxygen Delivery Method Room Air BMI result Body Mass Index 39.1 Labs 03/25/25 11:23 03/25/25 11:23 Labs: Laboratory Results - last 48 hr 04/01/25 04/01/25 04/01/25 11:23 16:18 19:43 POC Glucose 211 H 181 H 196 H 04/02/25 04/02/25 04/02/25 06:41 06:59 11:28 POC Glucose 68 92 206 H 04/02/25 04/02/25 04/03/25 16:10 20:24 06:33 POC Glucose 208 H 164 H 82 Medications Medications Current Medications Acetaminophen (Acetaminophen 325 Mg Tablet) 650 mg PO Q6H PRN PRN Reason: Headache/Pain, Scale 1-10 Last Admin: 03/28/25 08:44 Dose: 650 mg Al Hydroxide/Mg Hydroxide (Magnesium Hydrox/Alum Hydrox 30 Ml Oral.Susp) 30 ml PO Q6H PRN PRN Reason: Heartburn/Nausea Last Admin: 03/26/25 00:59 Dose: 30 ml Albuterol Sulfate (Albuterol Sulfate 90 Mcg 8 Gm Inhaler) 2 puff INHALE Q4H PRN PRN Reason: Wheezing Amlodipine Besylate (Amlodipine Besylate 5 Mg Tablet) 5 mg PO DAILY JANINA; Protocol Last Admin: 04/03/25 08:29 Dose: 5 mg Atorvastatin Calcium (Atorvastatin Calcium 40 Mg Tablet) 40 mg PO DAILY JANINA Last Admin: 04/03/25 08:28 Dose: 40 mg Betamethasone Dipropion Augmented (Betamethasone Dip Aug 0.05% Cr 15 Gm Tube) 1 appl TOPICAL DAILY PRN; Protocol PRN Reason: psoriatic areas Last Admin: 04/01/25 09:45 Dose: 1 appl Empagliflozin (Empagliflozin 25 Mg Tablet) 25 mg PO DAILY JANINA Last Admin: 04/03/25 08:29 Dose: 25 mg Famotidine (Famotidine 20 Mg Tablet) 20 mg PO DAILY JANINA Last Admin: 04/03/25 08:29 Dose: 20 mg Hydroxyzine HCl (Hydroxyzine Hcl 25 Mg Tablet) 25 mg PO Q6H PRN PRN Reason: mild anxiety Last Admin: 04/02/25 21:50 Dose: 25 mg Insulin Glargine (Insulin Glargine,Hum.Rec.Anlog 100 Unit/Ml 10 Ml Vial) 50 unit SUBCUT DAILY JANINA Last Admin: 04/03/25 09:23 Dose: 50 unit Insulin Human Lispro (Insulin Lispro 100 Unit/Ml 3 Ml Vial) 0 unit SUBCUT TIDAC JANINA; Protocol Last Admin: 04/03/25 08:27 Dose: Not Given Lactic Acid (Ammonium Lactate 12 % Cream 140 Gm Tube) 1 appl TOPICAL DAILY JANINA; Protocol Last Admin: 04/03/25 08:29 Dose: 1 appl Losartan Potassium (Losartan Potassium 50 Mg Tablet) 100 mg PO DAILY JANINA; Protocol Last Admin: 04/03/25 08:29 Dose: 100 mg Magnesium Hydroxide (Milk Of Magnesia 30 Ml Oral.Susp) 30 ml PO DAILY PRN PRN Reason: Constipation Metformin HCl (Metformin Hcl Er 500 Mg Tab.Er.24h) 2,000 mg PO BEDTIME JANINA Last Admin: 04/02/25 21:50 Dose: 1,000 mg Metoprolol Tartrate (Metoprolol Tartrate 25 Mg Tablet) 25 mg PO BID JANINA; Protocol Last Admin: 04/03/25 08:28 Dose: 25 mg Omeprazole (Omeprazole 20 Mg Capsule.Dr) 20 mg PO DAILY@0630 JANINA Last Admin: 04/03/25 06:06 Dose: 20 mg Ondansetron HCl (Ondansetron Odt 4 Mg Tab.Rapdis) 4 mg TRANSLINGU Q8H PRN PRN Reason: Nausea and Vomiting Last Admin: 03/29/25 14:52 Dose: 4 mg Sertraline HCl (Sertraline Hcl 100 Mg Tablet) 100 mg PO DAILY JANINA Last Admin: 04/03/25 08:29 Dose: 100 mg Trazodone HCl (Trazodone Hcl 50 Mg Tablet) 50 mg PO BEDTIME MRX1 PRN PRN Reason: Insomnia Last Admin: 03/31/25 21:18 Dose: 50 mg Verapamil HCl (Verapamil Hcl Sr 120 Mg Tablet.Er) 120 mg PO DAILY JANINA; Protocol Last Admin: 04/03/25 08:28 Dose: 120 mg Allergies Allergies Allergy/AdvReac Type Severity Reaction Status Date / Time No Known Allergies Allergy Verified 03/25/25 10:34 Assessment & Plan Assessment & Plan (1) MDD (major depressive disorder), recurrent episode, severe: Status: Acute Code(s): F33.2 - Major depressive disorder, recurrent severe without psychotic features (2) Complicated grief: Status: Acute Code(s): F43.81 - Prolonged grief disorder Plan Patient is a 69 y.o , Yakut speaking female with hx of unspecific depressive D/O, Anemia, HTN, DM II, HLD, and psoriasis who was BIBA from [facility] where patient she was seeing her PCP secondary to reporting she was refusing to take her HTN meds and not been taking them because I just want to . Patient has not been taking meds x2 months and has not slept for days. Recently her great gradson who was 5 y.o passed two months ago from asthma attack. Her 16 y.o dog also just not long ago that she has to criminate the dog. The lost of the great grandson and the dog are the cause of her SI. 03/26 continue tx. plan to gradually adjust sertraline to target depression. 03/27 increase sertraline to 100mg po daily. 03/30 continues to endorse depressed mood and suicidal ideation in context of complex grief, underlying hx of depression and suicidality. Continue sertraline. family meeting pending. 03/31 changed metforming to ER formulation due to c/o of nausea. will also add omeprazole. continue sertraline, will continue to adjust as needed. 04/01 continue tx. 04/02 continue tx. 04/03 contine tx. Reason for continued inpatient stay Substantial Risk for: inability to function Time Spent With Patient Time: Total time managing care of this patient today ____ minutes.
--- NOTE | 2025-04-03 10:43 | PC.NURSE ---
ACLS: pt scored a 4.2 on the Yuan Cognitive Level Screen indicating MODERATE cognitive impairment and the need for 38% cognitive assistance for safety and problem solving.
[2025-04-03 11:34] LABS: Glucose, Whole Blood 189 mg/dL (60-115)
[2025-04-03 16:30] LABS: Glucose, Whole Blood 174 mg/dL (60-115)
[2025-04-03 20:00] VITALS: BP 137/65; PULSE 62; RESP 16; TEMP 36.4; O2SAT 96
[2025-04-03 20:39] LABS: Glucose, Whole Blood 154 mg/dL (60-115)
--- NOTE | 2025-04-04 06:28 | PC.NURSE ---
Maame has declined to take full dose of metformin as ordered since 03/31/2025.
[2025-04-04 06:51] LABS: Glucose, Whole Blood 119 mg/dL (60-115)
[2025-04-04 08:42] VITALS: BP 123/58; PULSE 72; RESP 14; TEMP 36.3; O2SAT 95
[2025-04-04] MEDS: VerapamiL HCL SR 120 MG TABLET.ER PO (08:43)
[2025-04-04] MEDS: Insulin Glargine,Hum.rec.anlog 100 UNIT/ML 10 ML VIAL 50 UNIT SUBCUT (08:44)
[2025-04-04] MEDS: Ammonium Lactate 12 % Cream 140 GM TUBE 1 APPL TOPICAL (08:49)
[2025-04-04 11:25] LABS: Glucose, Whole Blood 231 mg/dL (60-115)
[2025-04-04 16:19] LABS: Glucose, Whole Blood 165 mg/dL (60-115)
--- NOTE | 2025-04-04 16:26 | HO.PSYCHPN ---
Subjective Subjective Date of Service: 04/04/25 Reason For Visit: si Interim History: met with patient; discussed with team Patient says she is good. No complaints or requests. Staff concurs that patient has been pleasant and in good behavioral and impulse control. Allowed labs to be drawn Mental Status Exam Mental Status Exam Narrative: Patient is alert and oriented x4 ; behavior is cooperative, friendly, calm; patient is not in distress; dressed in hospital attire with kempt hair and adequate hygiene; mood is described as good and affect congruent, brighter; eye contact appropriate; Speech is normal rate, volume and prosody and not pressured; no psychomotor agitation/retardation present; thought process is organized and goal directed; Thought content is on treatment; pertinent to relevant topics and without any delusional content, paranoid ideation or grandiosity; denies any /SIB/HI. Denies AH and there is no evidence of perceptual disturbance. Patient's insight and judgment impaired but improved. Diagnostics Vital Signs (24Hr): Vital Signs - 24 hr 04/03/25 20:00 04/04/25 08:42 Temperature 97.6 F 97.3 F Pulse Rate 62 72 Respiratory Rate 16 14 Blood Pressure 137/65 123/58 L Pulse Oximetry 96 95 Oxygen Delivery Method Room Air Room Air BMI result Body Mass Index 39.1 Labs 03/25/25 11:23 04/04/25 16:05 Labs: Laboratory Results - last 48 hr 04/02/25 04/02/25 04/03/25 16:10 20:24 06:33 POC Glucose 208 H 164 H 82 04/03/25 04/03/25 04/03/25 11:27 16:12 20:25 POC Glucose 189 H 174 H 154 H 04/04/25 04/04/25 04/04/25 06:38 11:22 16:15 POC Glucose 119 H 231 H 165 H Medications Medications Current Medications Acetaminophen (Acetaminophen 325 Mg Tablet) 650 mg PO Q6H PRN PRN Reason: Headache/Pain, Scale 1-10 Last Admin: 03/28/25 08:44 Dose: 650 mg Al Hydroxide/Mg Hydroxide (Magnesium Hydrox/Alum Hydrox 30 Ml Oral.Susp) 30 ml PO Q6H PRN PRN Reason: Heartburn/Nausea Last Admin: 03/26/25 00:59 Dose: 30 ml Albuterol Sulfate (Albuterol Sulfate 90 Mcg 8 Gm Inhaler) 2 puff INHALE Q4H PRN PRN Reason: Wheezing Amlodipine Besylate (Amlodipine Besylate 5 Mg Tablet) 5 mg PO DAILY JANINA; Protocol Last Admin: 04/04/25 08:44 Dose: 5 mg Atorvastatin Calcium (Atorvastatin Calcium 40 Mg Tablet) 40 mg PO DAILY JANINA Last Admin: 04/04/25 08:43 Dose: 40 mg Betamethasone Dipropion Augmented (Betamethasone Dip Aug 0.05% Cr 15 Gm Tube) 1 appl TOPICAL DAILY PRN; Protocol PRN Reason: psoriatic areas Last Admin: 04/01/25 09:45 Dose: 1 appl Empagliflozin (Empagliflozin 25 Mg Tablet) 25 mg PO DAILY JANINA Last Admin: 04/04/25 08:44 Dose: 25 mg Famotidine (Famotidine 20 Mg Tablet) 20 mg PO DAILY JANINA Last Admin: 04/04/25 08:43 Dose: 20 mg Hydroxyzine HCl (Hydroxyzine Hcl 25 Mg Tablet) 25 mg PO Q6H PRN PRN Reason: mild anxiety Last Admin: 04/03/25 21:05 Dose: 25 mg Insulin Glargine (Insulin Glargine,Hum.Rec.Anlog 100 Unit/Ml 10 Ml Vial) 50 unit SUBCUT DAILY JANINA Last Admin: 04/04/25 08:44 Dose: 50 unit Insulin Human Lispro (Insulin Lispro 100 Unit/Ml 3 Ml Vial) 0 unit SUBCUT TIDAC [facility]; Protocol Last Admin: 04/04/25 12:10 Dose: 4 unit Lactic Acid (Ammonium Lactate 12 % Cream 140 Gm Tube) 1 appl TOPICAL DAILY JANINA; Protocol Last Admin: 04/04/25 08:49 Dose: 1 appl Losartan Potassium (Losartan Potassium 50 Mg Tablet) 100 mg PO DAILY JANINA; Protocol Last Admin: 04/04/25 08:44 Dose: 100 mg Magnesium Hydroxide (Milk Of Magnesia 30 Ml Oral.Susp) 30 ml PO DAILY PRN PRN Reason: Constipation Metformin HCl (Metformin Hcl Er 500 Mg Tab.Er.24h) 2,000 mg PO BEDTIME JANINA Last Admin: 04/03/25 21:05 Dose: 1,000 mg Metoprolol Tartrate (Metoprolol Tartrate 25 Mg Tablet) 25 mg PO BID JANINA; Protocol Last Admin: 04/04/25 08:43 Dose: 25 mg Omeprazole (Omeprazole 20 Mg Capsule.Dr) 20 mg PO DAILY@0630 [facility] Last Admin: 04/04/25 06:18 Dose: 20 mg Ondansetron HCl (Ondansetron Odt 4 Mg Tab.Rapdis) 4 mg TRANSLINGU Q8H PRN PRN Reason: Nausea and Vomiting Last Admin: 03/29/25 14:52 Dose: 4 mg Sertraline HCl (Sertraline Hcl 100 Mg Tablet) 100 mg PO DAILY [facility] Last Admin: 04/04/25 08:44 Dose: 100 mg Trazodone HCl (Trazodone Hcl 50 Mg Tablet) 50 mg PO BEDTIME MRX1 PRN PRN Reason: Insomnia Last Admin: 04/03/25 21:05 Dose: 50 mg Verapamil HCl (Verapamil Hcl Sr 120 Mg Tablet.Er) 120 mg PO DAILY [facility]; Protocol Last Admin: 04/04/25 08:43 Dose: 120 mg Allergies Allergies Allergy/AdvReac Type Severity Reaction Status Date / Time No Known Allergies Allergy Verified 03/25/25 10:34 Assessment & Plan Assessment & Plan (1) MDD (major depressive disorder), recurrent episode, severe: Status: Acute Code(s): F33.2 - Major depressive disorder, recurrent severe without psychotic features (2) Complicated grief: Status: Acute Code(s): F43.81 - Prolonged grief disorder Plan Patient is a 69 y.o , Pashto speaking female with hx of unspecific depressive D/O, Anemia, HTN, DM II, HLD, and psoriasis who was BIBA from [facility] where patient she was seeing her PCP secondary to reporting she was refusing to take her HTN meds and not been taking them because I just want to . Patient has not been taking meds x2 months and has not slept for days. Recently her great gradson who was 5 y.o passed two months ago from asthma attack. Her 16 y.o dog also just not long ago that she has to criminate the dog. The lost of the great grandson and the dog are the cause of her SI. 03/26 continue tx. plan to gradually adjust sertraline to target depression. 03/27 increase sertraline to 100mg po daily. 03/30 continues to endorse depressed mood and suicidal ideation in context of complex grief, underlying hx of depression and suicidality. Continue sertraline. family meeting pending. 03/31 changed metforming to ER formulation due to c/o of nausea. will also add omeprazole. continue sertraline, will continue to adjust as needed. 04/01 continue tx. 04/02 continue tx. 04/03 contine tx. 04/04 taking her meds; allowing POC's; allowed labs, Cr pending Patient educated on: diagnosis Informed Consent: understands, does not understand and further education needed Reason for continued inpatient stay Substantial Risk for: rapid decompensation Time Spent With Patient Time: Total time managing care of this patient today ____ minutes.
[2025-04-04 16:34] LABS: Creatinine Clr Calc Pharmacy 55.3; Estimated Glomerular Filt Rate 49
[2025-04-04 20:00] VITALS: BP 129/70; PULSE 67; RESP 16; TEMP 36.3; O2SAT 94
[2025-04-04 20:34] LABS: Glucose, Whole Blood 183 mg/dL (60-115)
[2025-04-05 06:49] LABS: Glucose, Whole Blood 91 mg/dL (60-115)
[2025-04-05 08:11] VITALS: BP 126/66; PULSE 65; RESP 14; TEMP 36.3; O2SAT 96
[2025-04-05] MEDS: Ammonium Lactate 12 % Cream 140 GM TUBE 1 APPL TOPICAL (08:14)
[2025-04-05] MEDS: VerapamiL HCL SR 120 MG TABLET.ER PO (08:14)
[2025-04-05] MEDS: Insulin Glargine,Hum.rec.anlog 100 UNIT/ML 10 ML VIAL 50 UNIT SUBCUT (08:19)
[2025-04-05 11:20] LABS: Glucose, Whole Blood 211 mg/dL (60-115)
[2025-04-05 16:19] LABS: Glucose, Whole Blood 170 mg/dL (60-115)
[2025-04-05 20:00] VITALS: BP 132/62; PULSE 75; RESP 18; TEMP 36.3; O2SAT 98
[2025-04-05 21:07] LABS: Glucose, Whole Blood 194 mg/dL (60-115)
--- NOTE | 2025-04-05 22:23 | HO.PSYCHPN ---
Subjective Subjective Date of Service: 04/05/25 Reason For Visit: si Interim History: Met with patient; discussed with team Patient says she is good However she explains to consumer loan underwriter that her legs are swollen which she says is new but has happened before. Call Center Support Consultant discussed and she agrees to Bruce welch. Mental Status Exam Mental Status Exam Narrative: Patient is alert and oriented x4 ; behavior is cooperative, friendly, calm; patient is not in distress; dressed in hospital attire with kempt hair and adequate hygiene; mood is described as good and affect congruent, brighter; eye contact appropriate; Speech is normal rate, volume and prosody and not pressured; no psychomotor agitation/retardation present; thought process is organized and goal directed; Thought content is on treatment; pertinent to relevant topics and without any delusional content, paranoid ideation or grandiosity; denies any /SIB/HI. Denies AH and there is no evidence of perceptual disturbance. Patient's insight and judgment impaired but improved. Diagnostics Vital Signs (24Hr): Vital Signs - 24 hr 04/05/25 08:11 Temperature 97.3 F Pulse Rate 65 Respiratory Rate 14 Blood Pressure 126/66 Pulse Oximetry 96 Oxygen Delivery Method Room Air BMI result Body Mass Index 39.1 Labs 03/25/25 11:23 04/04/25 16:05 Labs: Laboratory Results - last 48 hr 04/04/25 04/04/25 04/04/25 06:38 11:22 16:05 Creatinine 1.09 Estim Creat Clear Calc 55.3 Estimated GFR 49 POC Glucose 119 H 231 H 04/04/25 04/04/25 04/05/25 16:15 20:21 06:38 Creatinine Estim Creat Clear Calc Estimated GFR POC Glucose 165 H 183 H 91 04/05/25 04/05/25 04/05/25 11:16 16:12 20:58 Creatinine Estim Creat Clear Calc Estimated GFR POC Glucose 211 H 170 H 194 H Medications Medications Current Medications Acetaminophen (Acetaminophen 325 Mg Tablet) 650 mg PO Q6H PRN PRN Reason: Headache/Pain, Scale 1-10 Last Admin: 03/28/25 08:44 Dose: 650 mg Al Hydroxide/Mg Hydroxide (Magnesium Hydrox/Alum Hydrox 30 Ml Oral.Susp) 30 ml PO Q6H PRN PRN Reason: Heartburn/Nausea Last Admin: 03/26/25 00:59 Dose: 30 ml Albuterol Sulfate (Albuterol Sulfate 90 Mcg 8 Gm Inhaler) 2 puff INHALE Q4H PRN PRN Reason: Wheezing Amlodipine Besylate (Amlodipine Besylate 5 Mg Tablet) 5 mg PO DAILY JANINA; Protocol Last Admin: 04/05/25 08:13 Dose: 5 mg Atorvastatin Calcium (Atorvastatin Calcium 40 Mg Tablet) 40 mg PO DAILY JANINA Last Admin: 04/05/25 08:13 Dose: 40 mg Betamethasone Dipropion Augmented (Betamethasone Dip Aug 0.05% Cr 15 Gm Tube) 1 appl TOPICAL DAILY PRN; Protocol PRN Reason: psoriatic areas Last Admin: 04/01/25 09:45 Dose: 1 appl Empagliflozin (Empagliflozin 25 Mg Tablet) 25 mg PO DAILY JANINA Last Admin: 04/05/25 08:14 Dose: 25 mg Famotidine (Famotidine 20 Mg Tablet) 20 mg PO DAILY JANINA Last Admin: 04/05/25 08:13 Dose: 20 mg Hydroxyzine HCl (Hydroxyzine Hcl 25 Mg Tablet) 25 mg PO Q6H PRN PRN Reason: mild anxiety Last Admin: 04/05/25 21:19 Dose: 25 mg Insulin Glargine (Insulin Glargine,Hum.Rec.Anlog 100 Unit/Ml 10 Ml Vial) 50 unit SUBCUT DAILY JANINA Last Admin: 04/05/25 08:19 Dose: 50 unit Insulin Human Lispro (Insulin Lispro 100 Unit/Ml 3 Ml Vial) 0 unit SUBCUT TIDAC JANINA; Protocol Last Admin: 04/05/25 16:52 Dose: 2 unit Lactic Acid (Ammonium Lactate 12 % Cream 140 Gm Tube) 1 appl TOPICAL DAILY JANINA; Protocol Last Admin: 04/05/25 08:14 Dose: 1 appl Losartan Potassium (Losartan Potassium 50 Mg Tablet) 100 mg PO DAILY JANINA; Protocol Last Admin: 04/05/25 08:14 Dose: 100 mg Magnesium Hydroxide (Milk Of Magnesia 30 Ml Oral.Susp) 30 ml PO DAILY PRN PRN Reason: Constipation Metformin HCl (Metformin Hcl Er 500 Mg Tab.Er.24h) 2,000 mg PO BEDTIME JANINA Last Admin: 04/05/25 21:10 Dose: 2,000 mg Metoprolol Tartrate (Metoprolol Tartrate 25 Mg Tablet) 25 mg PO BID JANINA; Protocol Last Admin: 04/05/25 21:12 Dose: 25 mg Omeprazole (Omeprazole 20 Mg Capsule.Dr) 20 mg PO DAILY@0630 [facility] Last Admin: 04/05/25 06:17 Dose: 20 mg Ondansetron HCl (Ondansetron Odt 4 Mg Tab.Rapdis) 4 mg TRANSLINGU Q8H PRN PRN Reason: Nausea and Vomiting Last Admin: 03/29/25 14:52 Dose: 4 mg Sertraline HCl (Sertraline Hcl 100 Mg Tablet) 100 mg PO DAILY [facility] Last Admin: 04/05/25 08:13 Dose: 100 mg Trazodone HCl (Trazodone Hcl 50 Mg Tablet) 50 mg PO BEDTIME MRX1 PRN PRN Reason: Insomnia Last Admin: 04/04/25 22:12 Dose: 50 mg Verapamil HCl (Verapamil Hcl Sr 120 Mg Tablet.Er) 120 mg PO DAILY [facility]; Protocol Last Admin: 04/05/25 08:14 Dose: 120 mg Allergies Allergies Allergy/AdvReac Type Severity Reaction Status Date / Time No Known Allergies Allergy Verified 03/25/25 10:34 Assessment & Plan Assessment & Plan (1) MDD (major depressive disorder), recurrent episode, severe: Status: Acute Code(s): F33.2 - Major depressive disorder, recurrent severe without psychotic features (2) Complicated grief: Status: Acute Code(s): F43.81 - Prolonged grief disorder Plan Patient is a 69 y.o , Albanian speaking female with hx of unspecific depressive D/O, Anemia, HTN, DM II, HLD, and psoriasis who was BIBA from [facility] where patient she was seeing her PCP secondary to reporting she was refusing to take her HTN meds and not been taking them because I just want to . Patient has not been taking meds x2 months and has not slept for days. Recently her great gradson who was 5 y.o passed two months ago from asthma attack. Her 16 y.o dog also just not long ago that she has to criminate the dog. The lost of the great grandson and the dog are the cause of her SI. 03/26 continue tx. plan to gradually adjust sertraline to target depression. 03/27 increase sertraline to 100mg po daily. 03/30 continues to endorse depressed mood and suicidal ideation in context of complex grief, underlying hx of depression and suicidality. Continue sertraline. family meeting pending. 03/31 changed metforming to ER formulation due to c/o of nausea. will also add omeprazole. continue sertraline, will continue to adjust as needed. 04/01 continue tx. 04/02 continue tx. 04/03 contine tx. 04/04 taking her meds; allowing POC's; allowed labs, Cr pending 04/05 Patient says she is good However she explains to consumer loan underwriter that her legs are swollen which she says is new but has happened before. Call Center Support Consultant discussed and she agrees to Bruce welch Patient educated on: diagnosis and medical condition Informed Consent: understands Reason for continued inpatient stay Substantial Risk for: rapid decompensation Time Spent With Patient Time: Total time managing care of this patient today ____ minutes.
[2025-04-06 06:38] LABS: Glucose, Whole Blood 76 mg/dL (60-115)
[2025-04-06 08:00] VITALS: BP 126/60; PULSE 64; RESP 17; TEMP 36.2; O2SAT 95
[2025-04-06 09:08] LABS: Glucose, Whole Blood 172 mg/dL (60-115)
[2025-04-06 09:09] VITALS: BP 126/60; PULSE 64
[2025-04-06 09:10] VITALS: BP 126/60; PULSE 64
[2025-04-06] MEDS: VerapamiL HCL SR 120 MG TABLET.ER PO (09:10)
[2025-04-06] MEDS: Ammonium Lactate 12 % Cream 140 GM TUBE 1 APPL TOPICAL (09:11)
[2025-04-06] MEDS: Insulin Glargine,Hum.rec.anlog 100 UNIT/ML 10 ML VIAL 50 UNIT SUBCUT (09:12)
[2025-04-06 11:34] LABS: Glucose, Whole Blood 203 mg/dL (60-115)
--- NOTE | 2025-04-06 15:05 | P.PNPSI_ITS ---
Subjective Subjective Date of Service: 04/06/25 Reason For Visit: si Interim History: Met with patient; discussed with team Patient says she is doing good and no SI; talked about her love for her grandson and how that has taken away all suicidal thinking. Shows personal lines underwriter her Yarely stockings for lower leg edema. Pharmacy adjusted metformin due to kidney function Mental Status Exam Mental Status Exam Narrative: Patient is alert and oriented x4 ; behavior is cooperative, friendly, calm; patient is not in distress; dressed in hospital attire with kempt hair and adequate hygiene; mood is described as good and affect congruent, brighter; eye contact appropriate; Speech is normal rate, volume and prosody and not pressured; no psychomotor agitation/retardation present; thought process is organized and goal directed; Thought content is on treatment; pertinent to relevant topics and without any delusional content, paranoid ideation or grandiosity; denies any SI; no HI. Denies AH and there is no evidence of perceptual disturbance. Patient's insight and judgment impaired but improved. Diagnostics Vital Signs (24Hr): Vital Signs - 24 hr 04/05/25 20:00 04/06/25 08:00 04/06/25 09:09 Temperature 97.4 F 97.2 F Pulse Rate 75 64 64 Respiratory Rate 18 17 Blood Pressure 132/62 126/60 126/60 Pulse Oximetry 98 95 Oxygen Delivery Method Room Air Room Air 04/06/25 09:10 04/06/25 09:10 04/06/25 09:10 Temperature Pulse Rate 64 Respiratory Rate Blood Pressure 126/60 126/60 126/60 Pulse Oximetry Oxygen Delivery Method BMI result Body Mass Index 39.1 Labs 03/25/25 11:23 04/04/25 16:05 Labs: Laboratory Results - last 48 hr 04/04/25 04/04/25 04/04/25 16:05 16:15 20:21 Creatinine 1.09 Estim Creat Clear Calc 55.3 Estimated GFR 49 POC Glucose 165 H 183 H 04/05/25 04/05/25 04/05/25 06:38 11:16 16:12 Creatinine Estim Creat Clear Calc Estimated GFR POC Glucose 91 211 H 170 H 04/05/25 04/06/25 04/06/25 20:58 06:14 09:04 Creatinine Estim Creat Clear Calc Estimated GFR POC Glucose 194 H 76 172 H 04/06/25 11:12 Creatinine Estim Creat Clear Calc Estimated GFR POC Glucose 203 H Medications Medications Current Medications Acetaminophen (Acetaminophen 325 Mg Tablet) 650 mg PO Q6H PRN PRN Reason: Headache/Pain, Scale 1-10 Last Admin: 03/28/25 08:44 Dose: 650 mg Al Hydroxide/Mg Hydroxide (Magnesium Hydrox/Alum Hydrox 30 Ml Oral.Susp) 30 ml PO Q6H PRN PRN Reason: Heartburn/Nausea Last Admin: 03/26/25 00:59 Dose: 30 ml Albuterol Sulfate (Albuterol Sulfate 90 Mcg 8 Gm Inhaler) 2 puff INHALE Q4H PRN PRN Reason: Wheezing Amlodipine Besylate (Amlodipine Besylate 5 Mg Tablet) 5 mg PO DAILY JANINA; Protocol Last Admin: 04/06/25 09:10 Dose: 5 mg Atorvastatin Calcium (Atorvastatin Calcium 40 Mg Tablet) 40 mg PO DAILY [facility] Last Admin: 04/06/25 09:11 Dose: 40 mg Betamethasone Dipropion Augmented (Betamethasone Dip Aug 0.05% Cr 15 Gm Tube) 1 appl TOPICAL DAILY PRN; Protocol PRN Reason: psoriatic areas Last Admin: 04/01/25 09:45 Dose: 1 appl Empagliflozin (Empagliflozin 25 Mg Tablet) 25 mg PO DAILY JAN[facility] Last Admin: 04/06/25 09:10 Dose: 25 mg Famotidine (Famotidine 20 Mg Tablet) 20 mg PO DAILY [facility] Last Admin: 04/06/25 09:11 Dose: 20 mg Hydroxyzine HCl (Hydroxyzine Hcl 25 Mg Tablet) 25 mg PO Q6H PRN PRN Reason: mild anxiety Last Admin: 04/05/25 21:19 Dose: 25 mg Insulin Glargine (Insulin Glargine,Hum.Rec.Anlog 100 Unit/Ml 10 Ml Vial) 50 unit SUBCUT DAILY [facility] Last Admin: 04/06/25 09:12 Dose: 50 unit Insulin Human Lispro (Insulin Lispro 100 Unit/Ml 3 Ml Vial) 0 unit SUBCUT TIDAC [facility]; Protocol Last Admin: 04/06/25 11:29 Dose: 4 unit Lactic Acid (Ammonium Lactate 12 % Cream 140 Gm Tube) 1 appl TOPICAL DAILY [facility]; Protocol Last Admin: 04/06/25 09:11 Dose: 1 appl Losartan Potassium (Losartan Potassium 50 Mg Tablet) 100 mg PO DAILY [facility]; Protocol Last Admin: 04/06/25 09:10 Dose: 100 mg Magnesium Hydroxide (Milk Of Magnesia 30 Ml Oral.Susp) 30 ml PO DAILY PRN PRN Reason: Constipation Metformin HCl (Metformin Hcl 500 Mg Tablet) 500 mg PO BIDWM [facility]AN[facility] Metoprolol Tartrate (Metoprolol Tartrate 25 Mg Tablet) 25 mg PO BID [facility]; Protocol Last Admin: 04/06/25 09:09 Dose: 25 mg Omeprazole (Omeprazole 20 Mg Capsule.Dr) 20 mg PO DAILY@0630 [facility] Last Admin: 04/06/25 06:11 Dose: 20 mg Ondansetron HCl (Ondansetron Odt 4 Mg Tab.Rapdis) 4 mg TRANSLINGU Q8H PRN PRN Reason: Nausea and Vomiting Last Admin: 03/29/25 14:52 Dose: 4 mg Sertraline HCl (Sertraline Hcl 100 Mg Tablet) 100 mg PO DAILY [facility] Last Admin: 04/06/25 09:10 Dose: 100 mg Trazodone HCl (Trazodone Hcl 50 Mg Tablet) 50 mg PO BEDTIME MRX1 PRN PRN Reason: Insomnia Last Admin: 04/04/25 22:12 Dose: 50 mg Verapamil HCl (Verapamil Hcl Sr 120 Mg Tablet.Er) 120 mg PO DAILY [facility]; Protocol Last Admin: 04/06/25 09:10 Dose: 120 mg Allergies Allergies Allergy/AdvReac Type Severity Reaction Status Date / Time No Known Allergies Allergy Verified 03/25/25 10:34 Assessment & Plan Assessment & Plan (1) MDD (major depressive disorder), recurrent episode, severe: Status: Acute Code(s): F33.2 - Major depressive disorder, recurrent severe without psychotic features (2) Complicated grief: Status: Acute Code(s): F43.81 - Prolonged grief disorder Plan Patient is a 69 y.o , Occitan speaking female with hx of unspecific depressive D/O, Anemia, HTN, DM II, HLD, and psoriasis who was BIBA from [facility] where patient she was seeing her PCP secondary to reporting she was refusing to take her HTN meds and not been taking them because I just want to . Patient has not been taking meds x2 months and has not slept for days. Recently her great gradson who was 5 y.o passed two months ago from asthma attack. Her 16 y.o dog also just not long ago that she has to criminate the dog. The lost of the great grandson and the dog are the cause of her SI. 03/26 continue tx. plan to gradually adjust sertraline to target depression. 03/27 increase sertraline to 100mg po daily. 03/30 continues to endorse depressed mood and suicidal ideation in context of complex grief, underlying hx of depression and suicidality. Continue sertraline. family meeting pending. 03/31 changed metforming to ER formulation due to c/o of nausea. will also add omeprazole. continue sertraline, will continue to adjust as needed. 04/01 continue tx. 04/02 continue tx. 04/03 contine tx. 04/04 taking her meds; allowing POC's; allowed labs, Cr pending 04/05 Patient says she is good However she explains to personal lines underwriter that her legs are swollen which she says is new but has happened before. Hypoid Gear Tester discussed and she agrees to Bruce stockings 04/06 Patient says she is doing good and no SI; talked about her love for her grandson and how that has taken away all suicidal thinking. Shows personal lines underwriter her Yarely stockings for lower leg edema. Pharmacy adjusted metformin due to kidney function Patient educated on: diagnosis, medication risk/benefits and medical condition Informed Consent: understands Reason for continued inpatient stay Substantial Risk for: rapid decompensation Time Spent With Patient Time: Total time managing care of this patient today ____ minutes.
[2025-04-06 16:26] LABS: Glucose, Whole Blood 239 mg/dL (60-115)
[2025-04-06 19:58] LABS: Glucose, Whole Blood 163 mg/dL (60-115)
[2025-04-06 20:00] VITALS: BP 120/68; PULSE 70; RESP 16; TEMP 36.3; O2SAT 96
[2025-04-07 06:55] LABS: Glucose, Whole Blood 115 mg/dL (60-115)
[2025-04-07 07:50] VITALS: BP 129/64; PULSE 62; RESP 18; TEMP 36.4; O2SAT 97
[2025-04-07] MEDS: VerapamiL HCL SR 120 MG TABLET.ER PO (08:05)
[2025-04-07] MEDS: Insulin Glargine,Hum.rec.anlog 100 UNIT/ML 10 ML VIAL 50 UNIT SUBCUT (08:06)
[2025-04-07] MEDS: Betamethasone Dip Aug 0.05% Cr 15 GM TUBE 1 APPL TOPICAL (08:07)
[2025-04-07 11:09] LABS: Glucose, Whole Blood 177 mg/dL (60-115)
[2025-04-07 16:13] LABS: Glucose, Whole Blood 146 mg/dL (60-115)
--- NOTE | 2025-04-07 16:17 | HO.PSYCHPN ---
Subjective Subjective Date of Service: 04/07/25 Reason For Visit: si Subjective Notes: Conditional Voluntary Medical Problems Affecting Mental Status: No Interim History: Medical record and nursing notes reviewed; case discussed during rounds with team/nursing staff, and met with patient for supportive therapy/psychoeducation, as well as medication management. Meet with patient this afternoon after a couple groups this morning. Patient has been visible and went to most of groups today. Appear brighter and happier compare to the last time this provider last saw patient which was more than a week ago. Mood and affect congruent. Patient reports being in here and groups are helpful for her mental health. Report that she is no longer has SI d/t the lost of her grandson. Report that she has other grandchildren to live for but continue working on grieving. Denies medication side effects, appetitte is good. Report sleeping has been good except last night. Per record, patient has been taking Trazodone PRN most of every night except the past two night. Will schedule it to help with insomnia. Report that she did not sleep well at home discuss with patient regarding discharge aftercare plan with adult program. Patient agrees with it. Patient reports she did it in the past on [facility] and found it helpful. She would like to do it again. Report feeling lonely at home. Medication Compliance: Yes Side effects from medications: No Attending Groups: Yes Review of Systems Acute medical concerns: No Medical Review of Systems: unchanged Review of Systems Review of Systems Denies any shortness of breath, chest pain, palpitations, dizziness, lightheadedness, headaches, dysuria, abdominal pain or discomfort, vomiting or diarrhea. Denies Chills, body aches, muscle aches, fatigue or weight loss. Report nausea on 03/29/25 Yes all other systems are reviewed and are negative Mental Status Exam Mental Status Exam Narrative: Patient is alert and oriented x4 ; behavior is cooperative, friendly, calm; patient is not in distress; dressed in hospital attire with kempt hair and adequate hygiene; mood is described as better and affect congruent, brighter; eye contact appropriate; Speech is normal rate, volume and prosody and not pressured; no psychomotor agitation/retardation present; thought process is organized and goal directed; Thought content is on treatment; pertinent to relevant topics and without any delusional content, paranoid ideation or grandiosity; denies any SI; no HI. Denies AH and there is no evidence of perceptual disturbance. Patient's insight and judgment improved. Diagnostics Vital Signs (24Hr): Vital Signs - 24 hr 04/06/25 20:00 04/07/25 07:50 Temperature 97.4 F 97.6 F Pulse Rate 70 62 Respiratory Rate 16 18 Blood Pressure 120/68 129/64 Pulse Oximetry 96 97 Oxygen Delivery Method Room Air Room Air BMI result Body Mass Index 39.1 Labs 03/25/25 11:23 04/04/25 16:05 Labs: Laboratory Results - last 48 hr 04/05/25 04/05/25 04/06/25 16:12 20:58 06:14 POC Glucose 170 H 194 H 76 04/06/25 04/06/25 04/06/25 09:04 11:12 16:20 POC Glucose 172 H 203 H 239 H 04/06/25 04/07/25 04/07/25 19:49 06:28 11:03 POC Glucose 163 H 115 177 H 04/07/25 16:06 POC Glucose 146 H Medications Medications Current Medications Acetaminophen (Acetaminophen 325 Mg Tablet) 650 mg PO Q6H PRN PRN Reason: Headache/Pain, Scale 1-10 Last Admin: 03/28/25 08:44 Dose: 650 mg Al Hydroxide/Mg Hydroxide (Magnesium Hydrox/Alum Hydrox 30 Ml Oral.Susp) 30 ml PO Q6H PRN PRN Reason: Heartburn/Nausea Last Admin: 03/26/25 00:59 Dose: 30 ml Albuterol Sulfate (Albuterol Sulfate 90 Mcg 8 Gm Inhaler) 2 puff INHALE Q4H PRN PRN Reason: Wheezing Amlodipine Besylate (Amlodipine Besylate 5 Mg Tablet) 5 mg PO DAILY JANINA; Protocol Last Admin: 04/07/25 08:07 Dose: 5 mg Atorvastatin Calcium (Atorvastatin Calcium 40 Mg Tablet) 40 mg PO DAILY JANINA Last Admin: 04/07/25 08:05 Dose: 40 mg Betamethasone Dipropion Augmented (Betamethasone Dip Aug 0.05% Cr 15 Gm Tube) 1 appl TOPICAL DAILY PRN; Protocol PRN Reason: psoriatic areas Last Admin: 04/07/25 08:07 Dose: 1 appl Empagliflozin (Empagliflozin 25 Mg Tablet) 25 mg PO DAILY JANINA Last Admin: 04/07/25 08:05 Dose: 25 mg Famotidine (Famotidine 20 Mg Tablet) 20 mg PO DAILY [facility] Last Admin: 04/07/25 08:05 Dose: 20 mg Hydroxyzine HCl (Hydroxyzine Hcl 25 Mg Tablet) 25 mg PO Q6H PRN PRN Reason: mild anxiety Last Admin: 04/06/25 21:58 Dose: 25 mg Insulin Glargine (Insulin Glargine,Hum.Rec.Anlog 100 Unit/Ml 10 Ml Vial) 50 unit SUBCUT DAILY [facility] Last Admin: 04/07/25 08:06 Dose: 50 unit Insulin Human Lispro (Insulin Lispro 100 Unit/Ml 3 Ml Vial) 0 unit SUBCUT TIDAC [facility]; Protocol Last Admin: 04/07/25 11:40 Dose: 2 unit Lactic Acid (Ammonium Lactate 12 % Cream 140 Gm Tube) 1 appl TOPICAL DAILY [facility]; Protocol Last Admin: 04/07/25 08:18 Dose: Not Given Losartan Potassium (Losartan Potassium 50 Mg Tablet) 100 mg PO DAILY [facility]; Protocol Last Admin: 04/07/25 08:03 Dose: 100 mg Magnesium Hydroxide (Milk Of Magnesia 30 Ml Oral.Susp) 30 ml PO DAILY PRN PRN Reason: Constipation Metformin HCl (Metformin Hcl 500 Mg Tablet) 500 mg PO BIDWM [facility] Last Admin: 04/07/25 08:05 Dose: 500 mg Metoprolol Tartrate (Metoprolol Tartrate 25 Mg Tablet) 25 mg PO BID [facility]; Protocol Last Admin: 04/07/25 08:04 Dose: 25 mg Omeprazole (Omeprazole 20 Mg Capsule.Dr) 20 mg PO DAILY@0630 [facility] Last Admin: 04/07/25 06:25 Dose: 20 mg Ondansetron HCl (Ondansetron Odt 4 Mg Tab.Rapdis) 4 mg TRANSLINGU Q8H PRN PRN Reason: Nausea and Vomiting Last Admin: 03/29/25 14:52 Dose: 4 mg Sertraline HCl (Sertraline Hcl 100 Mg Tablet) 100 mg PO DAILY [facility] Last Admin: 04/07/25 08:14 Dose: 100 mg Trazodone HCl (Trazodone Hcl 50 Mg Tablet) 50 mg PO BEDTIME MRX1 PRN PRN Reason: Insomnia Last Admin: 04/04/25 22:12 Dose: 50 mg Verapamil HCl (Verapamil Hcl Sr 120 Mg Tablet.Er) 120 mg PO DAILY [facility]; Protocol Last Admin: 04/07/25 08:05 Dose: 120 mg Allergies Allergies Allergy/AdvReac Type Severity Reaction Status Date / Time No Known Allergies Allergy Verified 03/25/25 10:34 Assessment & Plan Assessment & Plan (1) MDD (major depressive disorder), recurrent episode, severe: Status: Acute Code(s): F33.2 - Major depressive disorder, recurrent severe without psychotic features (2) Complicated grief: Status: Acute Code(s): F43.81 - Prolonged grief disorder Plan Patient is a 69 y.o , Greek speaking female with hx of unspecific depressive D/O, Anemia, HTN, DM II, HLD, and psoriasis who was BIBA from [facility] where patient she was seeing her PCP secondary to reporting she was refusing to take her HTN meds and not been taking them because I just want to . Patient has not been taking meds x2 months and has not slept for days. Recently her great gradson who was 5 y.o passed two months ago from asthma attack. Her 16 y.o dog also just not long ago that she has to criminate the dog. The lost of the great grandson and the dog are the cause of her SI. 03/26 continue tx. plan to gradually adjust sertraline to target depression. 03/27 increase sertraline to 100mg po daily. 03/30 continues to endorse depressed mood and suicidal ideation in context of complex grief, underlying hx of depression and suicidality. Continue sertraline. family meeting pending. 03/31 changed metforming to ER formulation due to c/o of nausea. will also add omeprazole. continue sertraline, will continue to adjust as needed. 04/01 continue tx. 04/02 continue tx. 04/03 contine tx. 04/04 taking her meds; allowing POC's; allowed labs, Cr pending 04/05 Patient says she is good However she explains to singer songwriter that her legs are swollen which she says is new but has happened before. 3D Animator discussed and she agrees to Efren welch 04/06 Patient says she is doing good and no SI; talked about her love for her grandson and how that has taken away all suicidal thinking. Shows singer songwriter her Yarely stockings for lower leg edema. Pharmacy adjusted metformin due to kidney function 04/07/25: Meet with patient this afternoon after a couple groups this morning. Patient has been visible and went to most of groups today. Appear brighter and happier compare to the last time this provider last saw patient which was more than a week ago. Mood and affect congruent. Patient reports being in here and groups are helpful for her mental health. Report that she is no longer has SI d/t the lost of her grandson. Report that she has other grandchildren to live for but continue working on grieving. Denies medication side effects, appetite is good. Report sleeping has been good except last night. Per record, patient has been taking Trazodone PRN most of every night except the past two night. Will schedule it to help with insomnia. Report that she did not sleep well at home discuss with patient regarding discharge aftercare plan with adult program. Patient agrees with it. Patient reports she did it in the past on [facility] and found it helpful. She would like to do it again. Report feeling lonely at home. Observed compliant with EFREN stockings to help with edema on lower extremity. Encourage to elevated leg when in bed resting. Patient educated on: medication risk/benefits and therapeutic strategies Informed Consent: understands Reason for continued inpatient stay Substantial Risk for: med/psych decompensation Time Spent With Patient Time: Total time managing care of this patient today ____ minutes.
[2025-04-07 19:58] LABS: Glucose, Whole Blood 150 mg/dL (60-115)
[2025-04-07 20:00] VITALS: BP 139/67; PULSE 72; RESP 16; TEMP 36.3; O2SAT 99
[2025-04-08 06:50] LABS: Glucose, Whole Blood 115 mg/dL (60-115)
[2025-04-08 08:00] VITALS: BP 113/55; PULSE 63; RESP 16; TEMP 36.4; O2SAT 94
[2025-04-08] MEDS: Ammonium Lactate 12 % Cream 140 GM TUBE 1 APPL TOPICAL (08:15)
[2025-04-08] MEDS: Insulin Glargine,Hum.rec.anlog 100 UNIT/ML 10 ML VIAL 50 UNIT SUBCUT (08:15)
[2025-04-08] MEDS: VerapamiL HCL SR 120 MG TABLET.ER PO (08:17)
[2025-04-08 11:29] LABS: Glucose, Whole Blood 257 mg/dL (60-115)
[2025-04-08 16:39] LABS: Glucose, Whole Blood 161 mg/dL (60-115)
--- NOTE | 2025-04-08 19:29 | P.PNPSI_ITS ---
Subjective Subjective Date of Service: 04/08/25 Reason For Visit: si Subjective Notes: Ardon Warning and Conditional Voluntary Guardianship: No Medical Problems Affecting Mental Status: No Interim History: Medical record and nursing notes reviewed; case discussed during rounds with team/nursing staff, and met with patient for supportive therapy/psychoeducation, as well as medication management. Patient slept better last night with Melatonin. Compliant with meds, no side effects. Patient explained that the episode when she vomited a couple days ago posible not related to Tazodone but could be side effects of Sertraline when dose increased. Patient is visible, attended groups, bright and happy affects. Continue report improving in mood, future focus/oriented. No SI/SIB/HI/AVH. Happy that she potentially will be discharged this week on Sunday. Patient reports talking to her son daily. Son has not called SW to discuss discharge plan. Patient will ask him to call SW. Patient would like to continue telehealth with therapist from [place], [place], have medication provider from [facility]. Would like to got day program for aftercare. Encourage EFREN socking and elevated leg when resting in bed. Medication Compliance: Yes Side effects from medications: No Attending Groups: Yes Review of Systems Acute medical concerns: No Medical Review of Systems: unchanged Review of Systems Review of Systems Denies any shortness of breath, chest pain, palpitations, dizziness, lightheadedness, headaches, dysuria, abdominal pain or discomfort, vomiting or diarrhea. Denies Chills, body aches, muscle aches, fatigue or weight loss. Yes all other systems are reviewed and are negative Mental Status Exam Mental Status Exam Narrative: Patient is alert and oriented x4 ; behavior is cooperative, friendly, calm; patient is not in distress; dressed in hospital attire with kempt hair and adequate hygiene; mood is described as good and affect congruent, brighter; eye contact appropriate; Speech is normal rate, volume and prosody and not pressured; no psychomotor agitation/retardation present; thought process is organized and goal directed; Thought content is on treatment; pertinent to relevant topics and without any delusional content, paranoid ideation or grandiosity; denies any SI/SIB/HI. Denies AH and there is no evidence of perceptual disturbance. Patient's insight and judgment improved. Diagnostics Vital Signs (24Hr): Vital Signs - 24 hr 04/07/25 20:00 04/08/25 08:00 Temperature 97.4 F 97.5 F Pulse Rate 72 63 Respiratory Rate 16 16 Blood Pressure 139/67 113/55 L Pulse Oximetry 99 94 Oxygen Delivery Method Room Air Room Air BMI result Body Mass Index 39.1 Labs 03/25/25 11:23 04/04/25 16:05 Labs: Laboratory Results - last 48 hr 04/06/25 04/07/25 04/07/25 19:49 06:28 11:03 POC Glucose 163 H 115 177 H 04/07/25 04/07/25 04/08/25 16:06 19:52 06:38 POC Glucose 146 H 150 H 115 04/08/25 04/08/25 11:26 16:06 POC Glucose 257 H 161 H Medications Medications Current Medications Acetaminophen (Acetaminophen 325 Mg Tablet) 650 mg PO Q6H PRN PRN Reason: Headache/Pain, Scale 1-10 Last Admin: 03/28/25 08:44 Dose: 650 mg Al Hydroxide/Mg Hydroxide (Magnesium Hydrox/Alum Hydrox 30 Ml Oral.Susp) 30 ml PO Q6H PRN PRN Reason: Heartburn/Nausea Last Admin: 03/26/25 00:59 Dose: 30 ml Albuterol Sulfate (Albuterol Sulfate 90 Mcg 8 Gm Inhaler) 2 puff INHALE Q4H PRN PRN Reason: Wheezing Amlodipine Besylate (Amlodipine Besylate 5 Mg Tablet) 5 mg PO DAILY JANINA; Protocol Last Admin: 04/08/25 08:16 Dose: 5 mg Atorvastatin Calcium (Atorvastatin Calcium 40 Mg Tablet) 40 mg PO DAILY JANINA Last Admin: 04/08/25 08:18 Dose: 40 mg Betamethasone Dipropion Augmented (Betamethasone Dip Aug 0.05% Cr 15 Gm Tube) 1 appl TOPICAL DAILY PRN; Protocol PRN Reason: psoriatic areas Last Admin: 04/07/25 08:07 Dose: 1 appl Empagliflozin (Empagliflozin 25 Mg Tablet) 25 mg PO DAILY JANINA Last Admin: 04/08/25 08:18 Dose: 25 mg Famotidine (Famotidine 20 Mg Tablet) 20 mg PO DAILY JANINA Last Admin: 04/08/25 08:19 Dose: 20 mg Hydroxyzine HCl (Hydroxyzine Hcl 25 Mg Tablet) 25 mg PO Q6H PRN PRN Reason: mild anxiety Last Admin: 04/07/25 21:11 Dose: 25 mg Insulin Glargine (Insulin Glargine,Hum.Rec.Anlog 100 Unit/Ml 10 Ml Vial) 50 unit SUBCUT DAILY [facility] Last Admin: 04/08/25 08:15 Dose: 50 unit Insulin Human Lispro (Insulin Lispro 100 Unit/Ml 3 Ml Vial) 0 unit SUBCUT TIDAC [facility]; Protocol Last Admin: 04/08/25 16:50 Dose: 2 unit Lactic Acid (Ammonium Lactate 12 % Cream 140 Gm Tube) 1 appl TOPICAL DAILY [facility]; Protocol Last Admin: 04/08/25 08:15 Dose: 1 appl Losartan Potassium (Losartan Potassium 50 Mg Tablet) 100 mg PO DAILY [facility]; Protocol Last Admin: 04/08/25 08:16 Dose: 100 mg Magnesium Hydroxide (Milk Of Magnesia 30 Ml Oral.Susp) 30 ml PO DAILY PRN PRN Reason: Constipation Melatonin (Melatonin 3 Mg Tablet) 9 mg PO BEDTIME [facility] Last Admin: 04/07/25 22:01 Dose: 9 mg Metformin HCl (Metformin Hcl 500 Mg Tablet) 500 mg PO BIDWM [facility] Last Admin: 04/08/25 16:49 Dose: 500 mg Metoprolol Tartrate (Metoprolol Tartrate 25 Mg Tablet) 25 mg PO BID [facility]; Protocol Last Admin: 04/08/25 08:18 Dose: 25 mg Omeprazole (Omeprazole 20 Mg Capsule.Dr) 20 mg PO DAILY@0630 [facility] Last Admin: 04/08/25 06:36 Dose: 20 mg Ondansetron HCl (Ondansetron Odt 4 Mg Tab.Rapdis) 4 mg TRANSLINGU Q8H PRN PRN Reason: Nausea and Vomiting Last Admin: 03/29/25 14:52 Dose: 4 mg Sertraline HCl (Sertraline Hcl 100 Mg Tablet) 100 mg PO DAILY [facility] Last Admin: 04/08/25 08:19 Dose: 100 mg Trazodone HCl (Trazodone Hcl 50 Mg Tablet) 50 mg PO BEDTIME MRX1 PRN PRN Reason: Insomnia Last Admin: 04/04/25 22:12 Dose: 50 mg Verapamil HCl (Verapamil Hcl Sr 120 Mg Tablet.Er) 120 mg PO DAILY [facility]; Protocol Last Admin: 04/08/25 08:17 Dose: 120 mg Allergies Allergies Allergy/AdvReac Type Severity Reaction Status Date / Time No Known Allergies Allergy Verified 03/25/25 10:34 Assessment & Plan Assessment & Plan (1) MDD (major depressive disorder), recurrent episode, severe: Status: Acute Code(s): F33.2 - Major depressive disorder, recurrent severe without psychotic features (2) Complicated grief: Status: Acute Code(s): F43.81 - Prolonged grief disorder Plan Patient is a 69 y.o , Amharic speaking female with hx of unspecific depressive D/O, Anemia, HTN, DM II, HLD, and psoriasis who was BIBA from [facility] where patient she was seeing her PCP secondary to reporting she was refusing to take her HTN meds and not been taking them because I just want to . Patient has not been taking meds x2 months and has not slept for days. Recently her great gradson who was 5 y.o passed two months ago from asthma attack. Her 16 y.o dog also just not long ago that she has to criminate the dog. The lost of the great grandson and the dog are the cause of her SI. 03/26 continue tx. plan to gradually adjust sertraline to target depression. 03/27 increase sertraline to 100mg po daily. 03/30 continues to endorse depressed mood and suicidal ideation in context of complex grief, underlying hx of depression and suicidality. Continue sertraline. family meeting pending. 03/31 changed metforming to ER formulation due to c/o of nausea. will also add omeprazole. continue sertraline, will continue to adjust as needed. 04/01 continue tx. 04/02 continue tx. 04/03 contine tx. 04/04 taking her meds; allowing POC's; allowed labs, Cr pending 04/05 Patient says she is good However she explains to mortgage loan underwriter that her legs are swollen which she says is new but has happened before. White Mixing Operator discussed and she agrees to Efren stockkevin 04/06 Patient says she is doing good and no SI; talked about her love for her grandson and how that has taken away all suicidal thinking. Shows mortgage loan underwriter her Yarely stockings for lower leg edema. Pharmacy adjusted metformin due to kidney function 04/07/25: Meet with patient this afternoon after a couple groups this morning. Patient has been visible and went to most of groups today. Appear brighter and happier compare to the last time this provider last saw patient which was more than a week ago. Mood and affect congruent. Patient reports being in here and groups are helpful for her mental health. Report that she is no longer has SI d/t the lost of her grandson. Report that she has other grandchildren to live for but continue working on grieving. Denies medication side effects, appetite is good. Report sleeping has been good except last night. Per record, patient has been taking Trazodone PRN most of every night except the past two night. Will schedule it to help with insomnia. Report that she did not sleep well at home discuss with patient regarding discharge aftercare plan with adult program. Patient agrees with it. Patient reports she did it in the past on [facility] and found it helpful. She would like to do it again. Report feeling lonely at home. Observed compliant with EFREN stockings to help with edema on lower extremity. Encourage to elevated leg when in bed resting. 04/08/25: Patient slept better last night with Melatonin. Compliant with meds, no side effects. Patient explained that the episode when she vomited a couple days ago posible not related to Tazodone but could be side effects of Sertraline when dose increased. Patient is visible, attended groups, bright and happy affects. Continue report improving in mood, future focus/oriented. No SI/SIB/HI/AVH. Happy that she potentially will be discharged this week on Sunday. Patient reports talking to her son daily. Son has not called SW to discuss discharge plan. Patient will ask him to call SW. Patient would like to continue telehealth with therapist from [place], [place], have medication provider from [facility]. Would like to got day program for aftercare. Encourage EFREN socking and elevated leg when resting in bed. Patient educated on: diagnosis, medication risk/benefits and therapeutic strategies Informed Consent: understands Reason for continued inpatient stay Substantial Risk for: med/psych decompensation Time Spent With Patient Time: Total time managing care of this patient today ____ minutes.
[2025-04-08 20:00] VITALS: BP 151/65; PULSE 60; RESP 18; TEMP 36.3; O2SAT 99
[2025-04-08 20:55] LABS: Glucose, Whole Blood 125 mg/dL (60-115)
[2025-04-09 06:50] LABS: Glucose, Whole Blood 75 mg/dL (60-115)
[2025-04-09 08:00] VITALS: BP 125/59; PULSE 68; RESP 17; TEMP 36.3; O2SAT 96
--- NOTE | 2025-04-09 08:18 | HO.PSYCHPN ---
Subjective Subjective Date of Service: 04/09/25 Reason For Visit: si Subjective Notes: Ardon Warning and Conditional Voluntary Healthcare Proxy: Yes Guardianship: No Medical Problems Affecting Mental Status: No Interim History: Medical record and nursing notes reviewed; case discussed during rounds with team/nursing staff, and met with patient for supportive therapy/psychoeducation, as well as medication management. Patient is future focus, looking forward to be discharged tomorrow. Hospital will provide transportation home. Time TBD tomorrow morning. No safety concerns. Continue to do well, visible, attended groups. Appropriate. No SI/SIB/HI/AVH. Medication Compliance: Yes Side effects from medications: No Attending Groups: Yes Review of Systems Acute medical concerns: No Medical Review of Systems: unchanged Review of Systems Review of Systems Denies any shortness of breath, chest pain, palpitations, dizziness, lightheadedness, headaches, dysuria, abdominal pain or discomfort, vomiting or diarrhea. Denies Chills, body aches, muscle aches, fatigue or weight loss. Yes all other systems are reviewed and are negative Mental Status Exam Mental Status Exam Narrative: Patient is alert and oriented x4 ; behavior is cooperative, friendly, calm; patient is not in distress; dressed in hospital attire with kempt hair and adequate hygiene; mood is described as good and affect congruent, brighter; eye contact appropriate; Speech is normal rate, volume and prosody and not pressured; no psychomotor agitation/retardation present; thought process is organized and goal directed; Thought content is on treatment; pertinent to relevant topics and without any delusional content, paranoid ideation or grandiosity; denies any SI/SIB/HI. Denies AH and there is no evidence of perceptual disturbance. Patient's insight and judgment good. Diagnostics Vital Signs (24Hr): Vital Signs - 24 hr 04/08/25 20:00 Temperature 97.3 F Pulse Rate 60 Respiratory Rate 18 Blood Pressure 151/65 H Pulse Oximetry 99 Oxygen Delivery Method Room Air BMI result Body Mass Index 39.1 Labs 03/25/25 11:23 04/04/25 16:05 Labs: Laboratory Results - last 48 hr 04/07/25 04/07/25 04/07/25 11:03 16:06 19:52 POC Glucose 177 H 146 H 150 H 04/08/25 04/08/25 04/08/25 06:38 11:26 16:06 POC Glucose 115 257 H 161 H 04/08/25 04/09/25 20:38 06:41 POC Glucose 125 H 75 Medications Medications Current Medications Acetaminophen (Acetaminophen 325 Mg Tablet) 650 mg PO Q6H PRN PRN Reason: Headache/Pain, Scale 1-10 Last Admin: 03/28/25 08:44 Dose: 650 mg Al Hydroxide/Mg Hydroxide (Magnesium Hydrox/Alum Hydrox 30 Ml Oral.Susp) 30 ml PO Q6H PRN PRN Reason: Heartburn/Nausea Last Admin: 03/26/25 00:59 Dose: 30 ml Albuterol Sulfate (Albuterol Sulfate 90 Mcg 8 Gm Inhaler) 2 puff INHALE Q4H PRN PRN Reason: Wheezing Amlodipine Besylate (Amlodipine Besylate 5 Mg Tablet) 5 mg PO DAILY [facility]; Protocol Last Admin: 04/08/25 08:16 Dose: 5 mg Atorvastatin Calcium (Atorvastatin Calcium 40 Mg Tablet) 40 mg PO DAILY JANINA Last Admin: 04/08/25 08:18 Dose: 40 mg Betamethasone Dipropion Augmented (Betamethasone Dip Aug 0.05% Cr 15 Gm Tube) 1 appl TOPICAL DAILY PRN; Protocol PRN Reason: psoriatic areas Last Admin: 04/07/25 08:07 Dose: 1 appl Empagliflozin (Empagliflozin 25 Mg Tablet) 25 mg PO DAILY JANINA Last Admin: 04/08/25 08:18 Dose: 25 mg Famotidine (Famotidine 20 Mg Tablet) 20 mg PO DAILY JANINA Last Admin: 04/08/25 08:19 Dose: 20 mg Hydroxyzine HCl (Hydroxyzine Hcl 25 Mg Tablet) 25 mg PO Q6H PRN PRN Reason: mild anxiety Last Admin: 04/07/25 21:11 Dose: 25 mg Insulin Glargine (Insulin Glargine,Hum.Rec.Anlog 100 Unit/Ml 10 Ml Vial) 50 unit SUBCUT DAILY [facility] Last Admin: 04/08/25 08:15 Dose: 50 unit Insulin Human Lispro (Insulin Lispro 100 Unit/Ml 3 Ml Vial) 0 unit SUBCUT TIDAC [facility]; Protocol Last Admin: 04/08/25 16:50 Dose: 2 unit Lactic Acid (Ammonium Lactate 12 % Cream 140 Gm Tube) 1 appl TOPICAL DAILY [facility]; Protocol Last Admin: 04/08/25 08:15 Dose: 1 appl Losartan Potassium (Losartan Potassium 50 Mg Tablet) 100 mg PO DAILY [facility]; Protocol Last Admin: 04/08/25 08:16 Dose: 100 mg Magnesium Hydroxide (Milk Of Magnesia 30 Ml Oral.Susp) 30 ml PO DAILY PRN PRN Reason: Constipation Melatonin (Melatonin 3 Mg Tablet) 9 mg PO BEDTIME [facility] Last Admin: 04/08/25 20:40 Dose: 9 mg Metformin HCl (Metformin Hcl 500 Mg Tablet) 500 mg PO BIDWM [facility] Last Admin: 04/08/25 16:49 Dose: 500 mg Metoprolol Tartrate (Metoprolol Tartrate 25 Mg Tablet) 25 mg PO BID [facility]; Protocol Last Admin: 04/08/25 20:40 Dose: 25 mg Omeprazole (Omeprazole 20 Mg Capsule.Dr) 20 mg PO DAILY@0630 [facility] Last Admin: 04/09/25 05:56 Dose: 20 mg Ondansetron HCl (Ondansetron Odt 4 Mg Tab.Rapdis) 4 mg TRANSLINGU Q8H PRN PRN Reason: Nausea and Vomiting Last Admin: 03/29/25 14:52 Dose: 4 mg Sertraline HCl (Sertraline Hcl 100 Mg Tablet) 100 mg PO DAILY [facility] Last Admin: 04/08/25 08:19 Dose: 100 mg Trazodone HCl (Trazodone Hcl 50 Mg Tablet) 50 mg PO BEDTIME MRX1 PRN PRN Reason: Insomnia Last Admin: 04/04/25 22:12 Dose: 50 mg Verapamil HCl (Verapamil Hcl Sr 120 Mg Tablet.Er) 120 mg PO DAILY [facility]; Protocol Last Admin: 04/08/25 08:17 Dose: 120 mg Allergies Allergies Allergy/AdvReac Type Severity Reaction Status Date / Time No Known Allergies Allergy Verified 03/25/25 10:34 Assessment & Plan Assessment & Plan (1) MDD (major depressive disorder), recurrent episode, severe: Status: Acute Code(s): F33.2 - Major depressive disorder, recurrent severe without psychotic features (2) Complicated grief: Status: Acute Code(s): F43.81 - Prolonged grief disorder Plan Patient is a 69 y.o , Sinhala speaking female with hx of unspecific depressive D/O, Anemia, HTN, DM II, HLD, and psoriasis who was BIBA from [facility] where patient she was seeing her PCP secondary to reporting she was refusing to take her HTN meds and not been taking them because I just want to . Patient has not been taking meds x2 months and has not slept for days. Recently her great gradson who was 5 y.o passed two months ago from asthma attack. Her 16 y.o dog also just not long ago that she has to criminate the dog. The lost of the great grandson and the dog are the cause of her SI. 03/26 continue tx. plan to gradually adjust sertraline to target depression. 03/27 increase sertraline to 100mg po daily. 03/30 continues to endorse depressed mood and suicidal ideation in context of complex grief, underlying hx of depression and suicidality. Continue sertraline. family meeting pending. 03/31 changed metforming to ER formulation due to c/o of nausea. will also add omeprazole. continue sertraline, will continue to adjust as needed. 04/01 continue tx. 04/02 continue tx. 04/03 contine tx. 04/04 taking her meds; allowing POC's; allowed labs, Cr pending 04/05 Patient says she is good However she explains to typewriter operator automatic that her legs are swollen which she says is new but has happened before. Steward/Stewardess discussed and she agrees to Efren welch 04/06 Patient says she is doing good and no SI; talked about her love for her grandson and how that has taken away all suicidal thinking. Shows typewriter operator automatic her Yarely stockings for lower leg edema. Pharmacy adjusted metformin due to kidney function 04/07/25: Meet with patient this afternoon after a couple groups this morning. Patient has been visible and went to most of groups today. Appear brighter and happier compare to the last time this provider last saw patient which was more than a week ago. Mood and affect congruent. Patient reports being in here and groups are helpful for her mental health. Report that she is no longer has SI d/t the lost of her grandson. Report that she has other grandchildren to live for but continue working on grieving. Denies medication side effects, appetite is good. Report sleeping has been good except last night. Per record, patient has been taking Trazodone PRN most of every night except the past two night. Will schedule it to help with insomnia. Report that she did not sleep well at home discuss with patient regarding discharge aftercare plan with adult program. Patient agrees with it. Patient reports she did it in the past on [facility] and found it helpful. She would like to do it again. Report feeling lonely at home. Observed compliant with EFREN stockings to help with edema on lower extremity. Encourage to elevated leg when in bed resting. 04/08/25: Patient slept better last night with Melatonin. Compliant with meds, no side effects. Patient explained that the episode when she vomited a couple days ago posible not related to Tazodone but could be side effects of Sertraline when dose increased. Patient is visible, attended groups, bright and happy affects. Continue report improving in mood, future focus/oriented. No SI/SIB/HI/AVH. Happy that she potentially will be discharged this week on Sunday. Patient reports talking to her son daily. Son has not called SW to discuss discharge plan. Patient will ask him to call SW. Patient would like to continue telehealth with therapist from [place], [place], have medication provider from [facility]. Would like to got day program for aftercare. Encourage EFREN socking and elevated leg when resting in bed. 04/09/25: Patient is future focus, looking forward to be discharged tomorrow. Hospital will provide transportation home. Time TBD tomorrow morning. No safety concerns. Continue to do well, visible, attended groups. Appropriate. No SI/SIB/HI/AVH. Will work on sending meds to preferred pharmacy. Patient educated on: diagnosis, medication risk/benefits and therapeutic strategies Informed Consent: understands Reason for continued inpatient stay Substantial Risk for: med/psych decompensation Time Spent With Patient Time: Total time managing care of this patient today ____ minutes.
[2025-04-09 08:25] VITALS: BP 125/59
[2025-04-09 08:26] VITALS: BP 125/59; PULSE 68
[2025-04-09] MEDS: VerapamiL HCL SR 120 MG TABLET.ER PO (08:26)
[2025-04-09] MEDS: Insulin Glargine,Hum.rec.anlog 100 UNIT/ML 10 ML VIAL 50 UNIT SUBCUT (08:33)
[2025-04-09 08:35] LABS: Glucose, Whole Blood 250 mg/dL (60-115)
[2025-04-09 10:12] VITALS: BMI 39.4
[2025-04-09 11:26] LABS: Glucose, Whole Blood 180 mg/dL (60-115)
[2025-04-09] MEDS: Ammonium Lactate 12 % Cream 140 GM TUBE 1 APPL TOPICAL (11:36)
[2025-04-09 16:18] LABS: Glucose, Whole Blood 149 mg/dL (60-115)
[2025-04-09 19:44] VITALS: BP 145/65; PULSE 65; RESP 16; TEMP 36.3; O2SAT 98
[2025-04-09 20:43] LABS: Glucose, Whole Blood 192 mg/dL (60-115)
[2025-04-10 06:38] LABS: Glucose, Whole Blood 105 mg/dL (60-115)
[2025-04-10 08:00] VITALS: BP 130/61; PULSE 66; RESP 16; TEMP 36.6; O2SAT 95
--- NOTE | 2025-04-10 08:31 | P.DS_ITS ---
DS: Providers Provider Date of Service: 04/10/25 Date of admission: 03/25/25 16:28 Date of discharge: 04/10/25 Primary care physician: Shady East MD Attending physician on admission: Gunjan Cancino Attending physician on discharge: Gunjan Cancino DS: Diagnosis Discharge Diagnosis (1) MDD (major depressive disorder), recurrent episode, severe: Status: Acute (2) Complicated grief: Status: Acute DS: Medications Discharge Medications Home Medications: Home Medications ?Medication ?Instructions ?Recorded ?Confirmed albuterol sulfate 90 mcg/actuation 2 inh inhalation Q4 H PRN Wheezing 01/19/22 03/25/25 aerosol inhaler dulaglutide 4.5 mg/0.5 mL 4.5 mg subcut WE 02/06/25 subcutaneous pen injector (Trulicity) Previous Rx's ?Medication ?Instructions ?Recorded amlodipine 5 mg tablet 5 mg PO DAILY HTN 30 days #3 0 tabs 04/09/25 atorvastatin 40 mg tablet 40 mg PO DAILY HLD 30 days # 30 tabs 04/09/25 empagliflozin 25 mg tablet 25 mg PO DAILY 30 days #30 tabs 04/09/25 (Jardiance) famotidine 20 mg tablet 20 mg PO DAILY GERD 30 days #30 04/09/25 tabs hydroxyzine HCl 25 mg tablet 25 mg PO BID PRN mild anx iety 14 04/09/25 days #28 tabs insulin glargine 100 unit/mL 50 unit (0.5 mL) subcut D AILY 04/09/25 subcutaneous solution (Lantus Diabetes 30 days #15 mL U-100 Insulin) losartan 100 mg tablet 100 mg PO DAILY HLD 30 days #30 04/09/25 tabs melatonin 3 mg tablet 9 mg (3 x 3 mg) PO BEDTIME 3 0 days 04/09/25 #90 tabs metformin 1,000 mg tablet 500 mg (1/2 x 1,000 mg) PO B ID 30 04/09/25 days #30 tabs metoprolol tartrate 25 mg tablet 25 mg PO BID 30 days #60 tabs 04/09/25 omeprazole 20 mg capsule,delayed 20 mg PO DAILY@0630 3 0 days #30 04/09/25 release caps sertraline 50 mg tablet 100 mg (2 x 50 mg) PO DAILY 30 04/09/25 days #60 tabs verapamil 120 mg tablet,extended 120 mg PO DAILY HTN 30 days #30 04/09/25 release tabs Mental Status Exam Mental Status Exam Narrative: Patient presents well-groomed, casually dressed. Affect is euthymic with full range. Speech is clear and coherent. Thought process is linear and logical. Thought content is appropriate and relevant. Patient denies suicidal or homicidal ideation intent or plan. No overt psychotic symptoms elicited. Insight is good. Judgment is good. Data Data Completed and Pending Completed studies during hospitalization [Text1]: 04/03/25 04/03/25 04/03/25 11:27 16:12 20:25 Creatinine Estim Creat Clear Calc Estimated GFR POC Glucose 189 H 174 H 154 H 04/04/25 04/04/25 04/04/25 06:38 11:22 16:05 Creatinine 1.09 Estim Creat Clear Calc 55.3 Estimated GFR 49 POC Glucose 119 H 231 H 04/04/25 04/04/25 04/05/25 16:15 20:21 06:38 Creatinine Estim Creat Clear Calc Estimated GFR POC Glucose 165 H 183 H 91 04/05/25 04/05/25 04/05/25 11:16 16:12 20:58 Creatinine Estim Creat Clear Calc Estimated GFR POC Glucose 211 H 170 H 194 H 04/06/25 04/06/25 04/06/25 06:14 09:04 11:12 Creatinine Estim Creat Clear Calc Estimated GFR POC Glucose 76 172 H 203 H 04/06/25 04/06/25 04/07/25 16:20 19:49 06:28 Creatinine Estim Creat Clear Calc Estimated GFR POC Glucose 239 H 163 H 115 04/07/25 04/07/25 04/07/25 11:03 16:06 19:52 Creatinine Estim Creat Clear Calc Estimated GFR POC Glucose 177 H 146 H 150 H 04/08/25 04/08/25 04/08/25 06:38 11:26 16:06 Creatinine Estim Creat Clear Calc Estimated GFR POC Glucose 115 257 H 161 H 04/08/25 04/09/25 04/09/25 20:38 06:41 08:31 Creatinine Estim Creat Clear Calc Estimated GFR POC Glucose 125 H 75 250 H 04/09/25 04/09/25 04/09/25 11:20 16:08 20:37 Creatinine Estim Creat Clear Calc Estimated GFR POC Glucose 180 H 149 H 192 H 04/10/25 06:28 Creatinine Estim Creat Clear Calc Estimated GFR POC Glucose 105 03/25/25 Unknown Urine clean catch - Clean Catch Midstream Urine Culture - Final DS: Summary Hospital Course Hospital Course: Plan Patient is a 69 y.o , [place]ian speaking female with hx of unspecific depressive D/O, Anemia, HTN, DM II, HLD, and psoriasis who was BIBA from [facility] where patient she was seeing her PCP secondary to reporting she was refusing to take her HTN meds and not been taking them because I just want to . Patient has not been taking meds x2 months and has not slept for days. Recently her great grandson who was 5 y.o passed two months ago from asthma attack. Her 16 y.o dog also just not long ago that she has to criminate the dog. The lost of the great grandson and the dog are the cause of her SI. 03/26 continue tx. plan to gradually adjust sertraline to target depression. 03/27 increase sertraline to 100mg po daily. 03/30 continues to endorse depressed mood and suicidal ideation in context of complex grief, underlying hx of depression and suicidality. Continue sertraline. family meeting pending. 03/31 changed metformin to ER formulation due to c/o of nausea. will also add omeprazole. continue sertraline, will continue to adjust as needed. 04/01 continue tx. 04/02 continue tx. 04/03 contine tx. 04/04 taking her meds; allowing POC's; allowed labs, Cr pending 04/05 Patient says she is good However she explains to greeting card writer that her legs are swollen which she says is new but has happened before. Candy Butcher discussed and she agrees to Efren stockings 04/06: Patient says she is doing good and no SI; talked about her love for her grandson and how that has taken away all suicidal thinking. Shows greeting card writer her Yarely stockings for lower leg edema. Pharmacy adjusted metformin due to kidney function 04/07/25: Meet with patient this afternoon after a couple groups this morning. Patient has been visible and went to most of groups today. Appear brighter and happier compare to the last time this provider last saw patient which was more than a week ago. Mood and affect congruent. Patient reports being in here and groups are helpful for her mental health. Report that she is no longer has SI d/t the lost of her grandson. Report that she has other grandchildren to live for but continue working on grieving. Denies medication side effects, appetite is good. Report sleeping has been good except last night. Per record, patient has been taking Trazodone PRN most of every night except the past two night. Will schedule it to help with insomnia. Report that she did not sleep well at home discuss with patient regarding discharge aftercare plan with adult program. Patient agrees with it. Patient reports she did it in the past on [facility] and found it helpful. She would like to do it again. Report feeling lonely at home. Observed compliant with ERFEN stockings to help with edema on lower extremity. Encourage to elevated leg when in bed resting. 04/08/25: Patient slept better last night with Melatonin. Compliant with meds, no side effects. Patient explained that the episode when she vomited a couple days ago posible not related to Tazodone but could be side effects of Sertraline when dose increased. Patient is visible, attended groups, bright and happy affects. Continue report improving in mood, future focus/oriented. No SI/SIB/HI/AVH. Happy that she potentially will be discharged this week on Sunday. Patient reports talking to her son daily. Son has not called SW to discuss discharge plan. Patient will ask him to call SW. Patient would like to continue telehealth with therapist from [place], [place], have medication provider from [facility]. Would like to got day program for aftercare. Encourage EFREN socking and elevated leg when resting in bed. 04/09/25: Patient is future focus, looking forward to be discharged tomorrow. Hospital will provide transportation home. Time TBD tomorrow morning. No safety concerns. Continue to do well, visible, attended groups. Appropriate. No SI/SIB/HI/AVH. Will work on sending meds to preferred pharmacy. 04/10/25: Patient assessed prior to discharge, continue expressed feeling safe going home. Do not have suicidal thoughts. Affect is bright, happy. She is cordon ppy that she is able to be taken care of in the past couple of weeks here. Appreciate staff. Is aware medication sent to prefer pharmacy. Patient will send home via hospital transportation at 1100. Will start Adult day program after discharge Time spent discussing smoking cessation with patient: 3 to 10 minutes Status at Discharge Cognitive/behavioral status at discharge: CONDITION ON DISCHARGE: CURRENT STATUS IT RELATES TO ADMISSION CRITERIA: Stable, improved. Improvements in depression, anxiety, and suicidal ideation. Improvements in sleep, energy, and appetite. and no hallucination or paranoia/delusional thought. Functional status at discharge: uses cane/walker (Using WC) Overall status at discharge: patient is back to baseline Time Spent with Patient Time attestation: Total time managing care of this patient today ____ minutes. Time spent: Greater than 30 minutes Discharge Plan Discharge Anticipated Discharge Date/Time: 04/10/25 11:00 Patient Disposition: Home, Self-Care Discharge Diagnosis: MDD, recurrent, severe. Diabetes, HTN Referrals: Codie Whitlock (Therapist) [Other] - 04/14/25 3:30 pm Referral Note: Codie will be calling you for your appointment on Apr 14 at 3:30pm. If you need to cancel or change the appointment please call the number listed. Daniel Piaz (Psychiatrist) [Other] - 05/18/25 2:00 pm Referral Note: Your new psychiatrist will be with Daniel Paiz. You have been put on a cancelation list for something closer. Your current appointment will be 05/18/25 at 2:00pm. Please call the number listed if you have any questions or concerns. [facility] [Other] - 04/17/25 9:30 am Referral Note: Your [facility] intake appointment for your psychiatry will be in two parts today. From 9:30 -10:30 AM will be with Clarice Spangler who will do a substance abuse evaluation and then the rest of the evaluation will be with Sabrina Ozuna from 10:00-11:00 AM. If you need to cancel or change the appointment please call the number listed. Shady East MD [Primary Care Provider, Family Practice] - 3-5 Days Referral Note: will be reaching out to you after discharge for your appointment. If you do not hear from them within 3-5 days after your discharge please call the number listed. Discharge Medications: New hydroxyzine HCl 25 mg Tablet 25 mg PO BID PRN (Reason: mild anxiety) 14 Days Qty: 28 0RF famotidine 20 mg Tablet 20 mg PO DAILY 30 Days Qty: 30 0RF omeprazole 20 mg Capsule,Delayed Release(Dr/Ec) 20 mg PO DAILY@0630 30 Days Qty: 30 0RF melatonin 3 mg Tablet 9 mg PO BEDTIME 30 Days Qty: 90 0RF Continued albuterol sulfate 90 mcg/actuation HFA aerosol inhaler 2 inh inhalation Q4H PRN (Reason: Wheezing) Trulicity 4.5 mg/0.5 mL pen injector 4.5 mg SUBCUT WE verapamil 120 mg tablet extended release 120 mg PO DAILY 30 Days Qty: 30 0RF atorvastatin 40 mg tablet 40 mg PO DAILY 30 Days Qty: 30 0RF insulin glargine [Lantus U-100 Insulin] 100 unit/mL solution 50 unit subcut DAILY 30 Days Qty: 15 0RF amlodipine 5 mg tablet 5 mg PO DAILY 30 Days Qty: 30 0RF losartan 100 mg tablet 100 mg PO DAILY 30 Days Qty: 30 0RF metoprolol tartrate 25 mg tablet 25 mg PO BID 30 Days Qty: 60 0RF Jardiance 25 mg tablet 25 mg PO DAILY 30 Days Qty: 30 0RF Changed metformin 1,000 mg tablet 500 mg PO BID 30 Days Qty: 30 0RF sertraline 50 mg tablet 100 mg PO DAILY 30 Days Qty: 60 0RF Discontinued hydroxyzine HCl 10 mg tablet 10 mg PO BID Discharge Orders: Discharge Order (Routine); Ordered 04/10/25 Ordered By: Gunjan Cancino Diet: Regular diet Activity on Discharge: As tolerated Stand Alone Forms: Patient Portal Discharge page Print Language: [place] Care Plan Goals: Maintain mood and safe behaviors Take medications as prescribed Continue to pursue sobriety Practice coping skills Continue with outpatient providers and reach out to them as needed Health Concerns: Mood stability and behaviors Sobriety Plan of Treatment: Follow up with your PCP, psychiatric provider and other outpatient providers regarding above concerns Take medications as prescribed Assessment: Assessment: Risk assessment at time of discharge: Patient was interviewed prior to discharge and found to be fully oriented and without any SI or HI. Patient has improved insight and judgment and wants to continue treatment. Patient is not in imminent risk of harm to self or others and has a safety plan that includes presenting to the closest ER or calling 911 if feeling unsafe. Patient has been observed closely by nursing and unit staff throughout admission; patient has not engaged in any behaviors that suggest dangerousness to self or others and has demonstrated appropriate behaviors and impulse control Discharge Date/Time: 04/10/25 11:17
[2025-04-10] MEDS: Ammonium Lactate 12 % Cream 140 GM TUBE 1 APPL TOPICAL (09:02)
[2025-04-10] MEDS: VerapamiL HCL SR 120 MG TABLET.ER PO (09:03)
[2025-04-10] MEDS: Insulin Glargine,Hum.rec.anlog 100 UNIT/ML 10 ML VIAL 50 UNIT SUBCUT (09:04)
== END 2025-04-10 11:17 | disposition home or self-care (01) | DRG 885 ==
LOC: HO.ED 16:09 → HO.PGERI 16:52
PROVIDERS: Emergency Medicine; Admitting Provider Social Worker; Emergency Provider Student in an Organized Health Care Education/Training Program; PCP Family Medicine; Visit Provider Social Worker
DX: F33.2 Major depressive disorder, recurrent severe without psychotic features (principal); R45.851 Suicidal ideations; I47.10 Supraventricular tachycardia, unspecified; I10 Essential (primary) hypertension; E11.65 Type 2 diabetes mellitus with hyperglycemia; F43.81 Prolonged grief disorder; E78.5 Hyperlipidemia, unspecified; L40.9 Psoriasis, unspecified; Z63.4 Disappearance and death of family member; Z79.4 Long term (current) use of insulin; Z79.84 Long term (current) use of oral hypoglycemic drugs; Z79.85 Long-term (current) use of injectable non-insulin antidiabetic drugs; Z79.899 Other long term (current) drug therapy
CPT/HCPCS: 36415; 80053; 80307; 81001; 82010; 82565; 82803; 82947; 83605; 83690; 85025; 87086; 93005; 97110; 97112; 97162; 97530; 99285; S9485

== ENCOUNTER → 2025-03-25 10:26 | Outpatient (BNV) | payer OTHER, SELFPAY | PROVIDERS: Admitting Provider Social Worker; Emergency Provider Student in an Organized Health Care Education/Training Program; PCP Family Medicine; Visit Provider Internal Medicine | DX: R00.0 Tachycardia, unspecified (principal); I49.3 Ventricular premature depolarization | CPT/HCPCS: 93010 ==

== ENCOUNTER → 2025-03-25 16:28 | Outpatient (BNV) | payer OTHER, SELFPAY | PROVIDERS: Admitting Provider Social Worker; Emergency Provider Student in an Organized Health Care Education/Training Program; PCP Family Medicine; Visit Provider Nurse Practitioner Family | DX: I47.10 Supraventricular tachycardia, unspecified (principal) | CPT/HCPCS: 99221 ==

== ENCOUNTER → 2025-03-25 16:28 | Outpatient (BNV) | payer OTHER, SELFPAY | PROVIDERS: Admitting Provider Social Worker; Emergency Provider Student in an Organized Health Care Education/Training Program; PCP Family Medicine; Visit Provider Nurse Practitioner Psychiatric/Mental Health | DX: F33.2 Major depressive disorder, recurrent severe without psychotic features (principal); F43.81 Prolonged grief disorder | CPT/HCPCS: 90792; 99231; 99232 ==